=== PATIENT | female | born 2005 | race Caucasian/White ===

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

== ENCOUNTER 2024-06-01 08:37 | Outpatient (CLI) | payer OTHER, SELFPAY ==
[2024-06-01 09:26] LABS: Beta HCG Quantitative < 1.00 mIU/mL (0-6)
== END 2024-06-01 08:38 | disposition home or self-care (01) ==
PROVIDERS: PCP Physician Assistant; Visit Provider Nurse Practitioner Family
DX: Z30.9 Encounter for contraceptive management, unspecified (principal)
CPT/HCPCS: 36415; 84702

== ENCOUNTER 2024-07-21 22:47 | Emergency (ER) | payer OTHER, SELFPAY ==
[2024-07-21 23:05] VITALS: BP 141/90; PULSE 86; RESP 18; TEMP 36.8; O2SAT 98
--- NOTE | 2024-07-21 23:15 | PC.NURSE ---
PATIENT SITTING IN THE WAITING ROOM. WILL BRING PATIENT TO ROOM WHEN ROOM AVAILABLE
--- NOTE | 2024-07-21 23:27 | PC.NURSE ---
PATIENT ARM BAND PLACED. AMBULATED TO ROOM 5
--- NOTE | 2024-07-22 00:27 | PC.NURSE ---
PATIENT IS RESTING QUIETLY ON BED IN ROOM 5. WAITING FOR PHYSICIAN EVALUATION
--- NOTE | 2024-07-22 00:39 | ED_ITS ---
HPI - Dental/Oral General Chief complaint: Dental/Oral Stated complaint: tooth pain Source: patient Mode of arrival: ambulatory Limitations: no limitations History of Present Illness HPI Narrative: Patient is a 18-year-old female with left upper jaw pain at a dental decay area. She has plans to see a dentist this week. She wanted pain control. She has amoxicillin on day 3. At this time. Complaint: tooth pain and tooth injury Location: Tooth # ( Thirteen) Onset (ago): day(s) (1) Duration: constant Severity: moderate Severity scale (1-10): 6 Relieving factors: other ( cool water in her mouth) Exacerbating factors: chewing and heat Context: history of dental caries and poor dental care Associated symptoms: other ( none) Treatment prior to arrival: oral analgesic ( patient currently has Ultram without success of pain control) Related Data Home Medications ?Medication ?Instructions ?Recorded ?Confirmed ?Last Taken ?Type clonidine HCl 0.1 mg tablet 0.1 mg PO DIRECTED 07/30/22 07/30/22 Unknown History norgestimate 0.25 mg-ethinyl 1 tablet PO DIRECTED 07/30/22 07/30/22 Unknown History estradiol 35 mcg tablet (Estarylla) Allergies Allergy/AdvReac Type Severity Reaction Status Date / Time latex Allergy Unknown Verified 07/30/22 00:47 Review of Systems Review of Systems: All systems reviewed & are unremarkable except as noted in HPI and below Constitutional: Constitutional: Reports no additional constitutional complaints Eyes: Eyes: Reports no additional eye complaints ENT: Reports system reviewed and no additional complaints, except as documented Cardiovascular: Cardiovascular: Reports no additional cardiovascular complaints Respiratory: Respiratory: Reports no additional respiratory complaints Gastrointestinal: Gastrointestinal: Reports no additional gastrointestinal complaints Genitourinary: Genitourinary: Reports no additional female genitourinary complaints Musculoskeletal: Musculoskeletal: Reports no additional musculoskeletal complaints Integumentary/Breasts: Skin/Breast: Reports system reviewed and no additional complaints, except as docu Neurologic: Reports system reviewed and no additional complaints, except as documented Psychiatric: Psychiatric: Reports no additional psychiatric complaints Endocrine: Endocrine: Reports no additional endocrine complaints Hematologic/Lymphatic: Hematologic/Lymphatic: Reports no additional hematologic/lymphatic complaints Allergic/Immunologic: Allergic/Immunologic: Reports no additional allergic/immunologic complaints PMFSH Past Medical History Medical History Restless leg syndrome Asthma ADHD Anxiety Social History Social History Smoking status: Never smoker Alcohol intake: never Substance use: never Living arrangements: with family Occupation/Education: student Exam Const: General: healthy appearing Nutritional Appearance: well nourished Orientation/consciousness: patient oriented x3 Limitations: no limitations HENMT: Head: normal to inspection Ears: external ears normal Face/Nose/Sinus: Normal external nose present Other: left upper molar around 213 there is a large crack in the tooth of fracture as well as decay; no abscess seen Eyes: Conjunctivae: conjunctivae normal Pupils: Equal, round and reactive pupils present EOM: EOMs intact bilaterally Neck: Neck: normal visual inspection Chest: Chest palpation & inspection: normal inspection of the chest Resp: Effort & Inspection: normal respiratory effort and not labored Auscultation: clear to auscultation bilaterally and no crackles Cardio: Rate: regular rate Rhythm: regular rhythm Heart sounds: no murmurs GI: Inspection: non-distended GI Palp: Yes Soft to palpation and No Tenderness to palpation present (GI) Auscultation: normal bowel sounds : General: Yes bladder normal to palpation Back/Spine/Pelvis: Back: no CVA tenderness Skin: General skin exam: normal color Rashes: no rashes Wounds: no wounds Neuro: General: patient oriented x3 Cranial nerves: Yes Nystagmus not present Speech: normal speech Gait exam (Neuro): Normal gait present Extrem: General: normal to inspection Psych: Mental Status: mental status grossly normal Affect: normal affect Attitude: cooperative Course Vital Signs Vital signs: Vital Signs Temperature 36.8 C 07/21/24 23:05 Pulse Rate 86 07/21/24 23:05 Respiratory Rate 18 07/21/24 23:05 Blood Pressure 141/90 H 07/21/24 23:05 Pulse Oximetry 98 07/21/24 23:05 Oxygen Delivery Room Air 07/21/24 23:05 Temperature 36.8 C 07/21/24 23:05 Pulse Rate 86 07/21/24 23:05 Respiratory Rate 18 07/21/24 23:05 Blood Pressure 141/90 H 07/21/24 23:05 Pulse Oximetry 98 07/21/24 23:05 Oxygen Delivery Room Air 07/21/24 23:05 MDM - Dental/Oral MDM Narrative Medical decision making narrative: patient is a 18-year-old female with dental pain. We will give her Toradol and [place] and she is not driving. I will send a few [place] to the pharmacy. She will see a dentist as soon as possible. Patient is on control for the Toradol. Discharge Plan Discharge Clinical Impression: Mandible pain Patient Disposition: Home, Self-Care Condition: Stable Instructions: Toothache (ED) Additional Instructions: please follow-up with a dentist as soon as possible. Finish the amoxicillin as planned. Patient Language: Cook Islander Prescriptions: New hydrocodone-acetaminophen 5-325 mg tablet 1 tablet PO Q8H PRN (Reason: pain) Qty: 15 0RF No Action norgestimate-ethinyl estradiol [Estarylla] 0.25-35 mg-mcg tablet 1 tablet PO DIRECTED clonidine HCl 0.1 mg tablet 0.1 mg PO DIRECTED tramadol 50 mg tablet 50 mg PO TID PRN (Reason: pain) Qty: 10 0RF amoxicillin 500 mg capsule 500 mg PO Q12H 10 Days Qty: 20 0RF Follow-up/Referrals: Benton,DAVID Bundy [Primary Care Provider] - Time of Disposition: 01:34
[2024-07-22] MEDS: HYDROcodone/acetaminophen (*CRX) 5-325 MG TABLET 1 TAB PO (01:10)
[2024-07-22] MEDS: KETOROLAC (*BKC) 60 MG/2 ML VIAL IM (01:11)
[2024-07-22 01:43] VITALS: BP 138/88; PULSE 78; RESP 18; O2SAT 100
--- OUTSIDE RECORDS SUMMARY | 2024-07-28 19:29 | XMS_ITS | Referral Summary ---
Author Organization [facility] Address [address] [place] [address] Care Team Providers Care Head Of Merchandise Buying Name Role Phone Francesca Martinez MD Primary Care Provider Source Comments [facility],non-owned Affiliates and Associated Physician Practices is amultiple site organization consisting of ambulatory clinics and hospital sitesin [place], [place], [place] and [place]. This disclosure is being madepursuant to the Care Everywhere program and may not contain all information available regarding this patient. Last updated 18.[facility] Allergies No known active allergies Medications * Be aware that medications may not be up to date on this document. Alwaysverify current medications with the patient. Medication Sig Dispensed Refills Start Date End Date Status melatonin 5 MG tabletIndications:jackie es 10 mg (2 tablets) at bedtime. Take 5 mg by mouth at bedtime Reasons: takes 10 mg (2 tablets) at bedtime. Active methylphenidate (RITALIN) 5 MG tablet Take 5 mg by mouth Every morning and lunchtime Active AEROCHAMBER PLUS (AEROCHAMBER)Indicati ons:Exercise induced bronchospasm (HCC) Use as directed 1 Each 1 06/18/2018 Active sertraline (ZOLOFT) 25 MG tablet 09/13/2018 Active sertraline (ZOLOFT) 100 MG tablet Take 100 mg by mouth once daily Active cloNIDine (CATAPRES) 0.1 MG tablet Take 0.1 tablets by mouth once daily 09/05/2020 Active ferrous sulfate 325 (65 FE) MG tablet Take 325 mg by mouth 2 times daily 05/03/2021 Active vitamin D3 (CHOLECALCIFEROL) 25 MCG (1000 UNITS) tablet Take 2,000 Units by mouth once daily Active Norgestim-Eth Estrad Triphasic (NORGESTIMATE-ETHINYL ESTRADIOL PO)Indications:0.25-0 .035 Take by mouth as directed Reasons: 0.25-0.035 Active olopatadine (PATANASE) 0.6 % nasal solutionIndications:S easonal Allergic Rhinitis [place] 2 (two) sprays into each nostril 2 times daily Reasons: Hayfever 30.5 g 5 05/17/2021 Active albuterol HFA (PROVENTIL;VENTOLIN;P ROAIR) 108 (90 Base) MCG/ACT inhaler Inhale 2 (two) puffs by mouth every 6 hours as needed for Shortness of Breath, Wheezing or Cough 6.7 g 5 05/17/2021 Active cetirizine (ZYRTEC ALLERGY) 10 MG tablet Take 1 (one) tablet by mouth once daily as needed for Runny Nose or Allergies (itch) 30 tablet 11 05/17/2021 Active mometasone-formoterol (DULERA) 200-5 MCG/ACT inhalerIndications:As thma Inhale 2 (two) puffs by mouth 2 times daily Reasons: Asthma 13 g 11 05/17/2021 Active fluticasone propionate (FLONASE) 50 MCG/ACT nasal sprayIndications:Michael rgic Rhinitis [place] 2 (two) sprays into each nostril once daily Reasons: Allergic Rhinitis 1 Each 11 05/17/2021 Active Active Problems Problem Noted Date Diagnosed Date Chronic bilateral thoracic back pain 10/22/2017 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 Michelle Green hx psoriasis Primary snoring 08/29/2017 Overview (08/29/2017): Diag PSG (not split) 08/21/17 Primary Snoring oAHI 0.7 AHI 1.1 Low sat 96% PLMI 0, limb movement index 3.4 Nasal septal perforation 06/26/2017 Sleep disturbance 06/26/2017 Adolescent idiopathic scoliosis of thoracic dora on 04/23/2017 Assessment & Plan (10/02/2020 4:07 PM CDT): PLAN: 1. Questions solicited and answered. 2. Continue with existing conservative treatment program. 3. Medications Prescribed: none 4. Activity Restrictions: none 5. Weightbearing status: No Restrictions 6. Follow up: in 2 year(s) with X-rays Exercise-induced asthma 03/23/2014 Overview (04/20/2015): H/O adenoidectomy 05/14/2013 Allergic rhinitis 01/09/2012 Overview (05/23/2016): +Alternaria, Grass- Zachery and Bahia, Ragweed Assessment & Plan (03/23/2014 4:49 PM CDT): Percutaneous skin test 03/23/14: Positive for alternaria, grass (zachery and bahia) and short ragweed. Percutaneous skin test in 2011: +Alternaria Moderate persistent asthma without complication Seasonal allergic rhinitis due to pollen Allergic conjunctivitis, bilateral Immunizations Name Administration Dates Next Due INFLUENZA VACCINE, QUADR. (F LUZONE; FLULAVAL; FLUARIX; AFLURIA QUADRIVALENT; 6MO+), 0.5 ML (IIV4) 07/31/2017,05/23/2016 Social History Tobacco Use Types Packs/Day Years Used Date Smoking Tobacco: Never Smokeless Tobacco: Never Alcohol Use Standard Drinks/Week Comments Not Asked 0 (1 standard drink = 0.6 oz pur e alcohol) Sex and Gender Information Value Date Recorded Sex Assigned at Not on file Gender Identity Not on file Sexual Orientation Not on file Last Filed Vital Signs Vital Sign Reading Time Taken Comments Blood Pressure 110/68 05/17/2021 10:16 AM CDT Pulse 86 05/17/2021 10:16 AM CDT Temperature 36.2 ??C (97.2 ??F) 05/17/2021 1 0:16 AM CDT Respiratory Rate 18 05/17/2021 10:1 6 AM CDT Oxygen Saturation 99% 05/17/2021 10: 16 AM CDT Inhaled Oxygen Concentration - - Weight 69.3 kg (152 lb 12.5 oz) 021 10:16 AM CDT Height 166 cm (5' 5.35 ) 05/17/2021 10: 16 AM CDT Body Mass Index 25.15 05/17/2021 10:16 AM CDT Body Mass Index Percentile 85.46% 05/17 10:16 AM CDT Growth Chart: CDC (Girls, 2- 20 Years) Plan of Treatment Not on file Care Teams Head Of Merchandise Buying Relationship Specialty Start Date End Date Francesca Martinez MD [address] [place] [id number] PCP - General 01/08/12
--- OUTSIDE RECORDS SUMMARY | 2024-07-28 19:29 | XMS_ITS | Patient Health Summary ---
Author Organization [facility] Address [address] [place] [address] Care Team Providers Care Electric Mule Driver Name Role Phone Francesca Martinez MD Primary Care Provider Note from [facility],non-owned Affiliates and Associated Physician Practices is amultiple site organization consisting of ambulatory clinics and hospital sitesin [place], [place], [place]. This disclosure is being madepursuant to the Care Everywhere program and may not contain all information available regarding this patient. Last updated 18.[facility] Allergies No known active allergies* Penicillins-High Criticality,Inactive Medications * Be aware that medications may not be up to date on this document. Alwaysverify current medications with the patient. * melatonin 5 MG tablet Take 5 mg by mouth at bedtime Reasons: takes 10 mg (2 tablets) at bedtime. * methylphenidate (RITALIN) 5 MG tablet Take 5 mg by mouth Every morning and lunchtime * AEROCHAMBER PLUS (AEROCHAMBER)(Started 06/18/2018) Use as directed 1 refill remaining * sertraline (ZOLOFT) 25 MG tablet(Started 09/13/2018) * sertraline (ZOLOFT) 100 MG tablet Take 100 mg by mouth once daily * cloNIDine (CATAPRES) 0.1 MG tablet(Started 09/05/2020) Take 0.1 tablets by mouth once daily * ferrous sulfate 325 (65 FE) MG tablet(Started 05/03/2021) Take 325 mg by mouth 2 times daily * vitamin D3 (CHOLECALCIFEROL) 25 MCG (1000 UNITS) tablet Take 2,000 Units by mouth once daily * Norgestim-Eth Estrad Triphasic (NORGESTIMATE-ETHINYL ESTRADIOL PO) Take by mouth as directed Reasons: 0.25-0.035 * olopatadine (PATANASE) 0.6 % nasal solution(Started 05/17/2021) Penasco 2 (two) sprays into each nostril 2 times daily Reasons: Hayfever 5 refills by 05/17/2022 * albuterol HFA (PROVENTIL;VENTOLIN;PROAIR) 108 (90 Base) MCG/ACT inhaler (Started 05/17/2021) Inhale 2 (two) puffs by mouth every 6 hours as needed for Shortness of Breath, Wheezing or Cough 5 refills by 05/17/2022 * cetirizine (ZYRTEC ALLERGY) 10 MG tablet(Started 05/17/2021) Take 1 (one) tablet by mouth once daily as needed for Runny Nose or Allergies (itch) 11 refills by 05/17/2022 * mometasone-formoterol (DULERA) 200-5 MCG/ACT inhaler(Started 05/17/2021) Inhale 2 (two) puffs by mouth 2 times daily Reasons: Asthma 11 refills by 05/17/2022 * fluticasone propionate (FLONASE) 50 MCG/ACT nasal spray(Started 05/17/2021) Penasco 2 (two) sprays into each nostril once daily Reasons: Allergic Rhinitis 11 refills by 05/17/2022 Active Problems Problem Noted Date Diagnosed Date Chronic bilateral thoracic back pain 10/22/2017 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 (FLUZONE; FLULAVAL; FLUARIX; AFLURIA QUADRIVALENT; 6MO+), 0.5 ML (IIV4)(Given 07/31/2017, 05/23/2016) Social History Tobacco Use Types Packs/Day Years [...] 85.46% 05/17 10:16 AM CDT Growth Chart: [facility] (Girls, 2- 20 Years) Procedures * PULMONARY/RESPIRATORY REPORT ORDER(Performed 05/18/2021) * XR SPINE ENTIRE 2 OR 3VW(Performed 10/02/2020) Performed for Adolescent idiopathic scoliosis of thoracic region * XR SCOLIOSIS 2 OR 3VW(Performed 10/26/2018) Performed for Adolescent idiopathic scoliosis of thoracic region * FERRITIN(Performed 11/26/2017) Performed for Restless legs syndrome (RLS) * XR SCOLIOSIS 2 OR 3VW(Performed 10/22/2017) Performed for Adolescent idiopathic scoliosis of thoracic region * CULTURE FUNGUS SKIN HAIR NAIL+FUNGUS SMEAR(Performed 10/09/2017) Performed for Sebopsoriasis * SPLIT NIGHT STUDY(Performed 08/21/2017) Performed for Snoring * VITAMIN D 25-HYDROXY(Performed 08/20/2017) Performed for Restless sleeper * FERRITIN(Performed 08/20/2017) Performed for Restless sleeper * ANCA VASCULITIS PANEL(Performed 06/26/2017) Performed for Nasal septal perforation, Allergic rhinitis, unspecified chronicity, unspecified seasonality, unspecified trigger, Sleep disturbance, H/O adenoidectomy, Exercise-induced asthma (HCC), Adolescent idiopathic scoliosis of thoracic region * ANGIOTENSIN CONVERTING ENZYME BLOOD(Performed 06/26/2017) Performed for Nasal septal perforation, Allergic rhinitis, unspecified chronicity, unspecified seasonality, unspecified trigger, Sleep disturbance, H/O adenoidectomy, Exercise-induced asthma (HCC), Adolescent idiopathic scoliosis of thoracic region * JENNY BLOOD SCREEN W/REFLEX TITER(Performed 06/26/2017) Performed for Nasal septal perforation, Allergic rhinitis, unspecified chronicity, unspecified seasonality, unspecified trigger, Sleep disturbance, H/O adenoidectomy, Exercise-induced asthma (HCC), Adolescent idiopathic scoliosis of thoracic region * C-REACTIVE PROTEIN(Performed 06/26/2017) Performed for Nasal septal perforation, Allergic rhinitis, unspecified chronicity, unspecified seasonality, unspecified trigger, Sleep disturbance, H/O adenoidectomy, Exercise-induced asthma (HCC), Adolescent idiopathic scoliosis of thoracic region * ERYTHROCYTE SEDIMENTATION RATE(Performed 06/26/2017) Performed for Nasal septal perforation, Allergic rhinitis, unspecified chronicity, unspecified seasonality, unspecified trigger, Sleep disturbance, H/O adenoidectomy, Exercise-induced asthma (HCC), Adolescent idiopathic scoliosis of thoracic region * IMMUNOSCORE IGE INTERP(Performed 04/24/2017) Performed for Seasonal allergic rhinitis, unspecified chronicity, unspecified trigger * ALLERGEN RESPIRATORY PNL REGION 8 ([place])(Performed 04/24/2017) Performed for Seasonal allergic rhinitis, unspecified chronicity, unspecified trigger * CBC W AUTO DIFFERENTIAL(Performed 04/24/2017) Performed for Seasonal allergic rhinitis, unspecified chronicity, unspecified trigger * XR TIBIA FIBULA RIGHT 2VW(Performed 05/08/2015) * XR ANKLE RIGHT 3VW OR MORE(Performed 05/08/2015) * BEDSIDE SPIROMETRY PRE AND POST BRONCHODILATOR(Performed 11/02/2014) * BEDSIDE SPIROMETRY(Performed 03/23/2014) * PATHOLOGY/CYTOLOGY REPORT ORDER(Performed 05/17/2013) * TONSILLECTOMY AND ADENOIDECTOMY(Performed 05/14/2013) Performed for Hypertrophy of tonsil with adenoids, Unspecified Sleep Apnea * GROSS EXAM PATHOLOGY (STL)(Performed 05/14/2013) Performed for LELA (obstructive sleep apnea) Results * PULMONARY/RESPIRATORY REPORT ORDER (05/18/2021 4:42 PM CDT) Narrative 05/18/2021 4:42 PM CDT Ordered by an unspecified provider. Scanned Document RESPIRATORY THERAPY ORDERABLES * XR SPINE ENTIRE 2 OR 3VW (10/02/2020 3:32 PM CDT) Anatomical Region Laterality Modality Spine Radiographic Valeria ging 10/02/2020 3:31 PM CDT Narrative 10/02/2020 3:59 PM CDT HISTORY: Adolescent idiopathic scoliosis, thoracic region. EXAMINATION: Frontal and lateral views of the spine in the upright position performed on 10/02/2020 at 3:32 PM COMPARISON: 10/26/2018 FINDINGS/IMPRESSION: There is a dextroconvex scoliosis of the thoracic spine and a levoconvex scoliosis of the lumbar spine. Lungs are clear. Bowel gas pattern is nonobstructed. [place] Radiologist: Noel Maharaj on 10/02/2020 at 3:59 PM Procedure Note Noel Maharaj, DO - 10/02/2020 HISTORY: Adolescent idiopathic scoliosis, thoracic region. EXAMINATION: Frontal and lateral views of the spine in the uprightposition performed on 10/02/2020 at 3:32 PM COMPARISON: 10/26/2018 FINDINGS/IMPRESSION: There is a dextroconvex scoliosis of the thoracicspine and a levoconvex scoliosis of the lumbar spine. Lungs are clear. Bowel gaspattern is nonobstructed. [place] Radiologist: Noel Maharaj on 10/02/2020 at 3:59 PM Myles Garcia MD DIAGNOSTIC IMAGING O RDERABLES * XR SCOLIOSIS 2VW (10/26/2018 1:22 PM CDT) Only the most recent of2 resultswithin the time period is included. Anatomical Region Laterality Modality Spine Radiographic Valeria ging 10/26/2018 1:39 PM CDT Impressions 10/26/2018 1:40 PM CDT Unchanged S-shaped scoliosis. [place] Radiologist: Khloe Nunez MD on 10/26/2018 at 1:40 PM Narrative 10/26/2018 1:40 PM CDT Exam: Entire spine, 2 views HISTORY: Scoliosis COMPARISON: 10/22/2017 FINDINGS: Standing frontal and lateral radiographs of the spine are reviewed. The thoracic dextroscoliosis and thoracolumbar rotary levoscoliosis have not significantly changed. Right higher than left pelvic tilt persists. There is no coronal or sagittal imbalance. The lungs are clear. Heart size is normal. The bowel gas pattern is nonobstructive. Procedure Note Khloe Nunez MD - 10/26/2018 Exam: Entire spine, 2 views HISTORY: Scoliosis COMPARISON: 10/22/2017 FINDINGS: Standing frontal and lateral radiographs of the spine are reviewed. The thoracic dextroscoliosis and thoracolumbar rotary levoscoliosis have not significantly changed. Right higher than left pelvic tilt persists. There is no coronal or sagittal imbalance. The lungs are clear. Heart size is normal. The bowel gas pattern is nonobstructive. IMPRESSION Unchanged S-shaped scoliosis. [place] Radiologist: Khloe Nunez MD on 10/26/2018 at 1:40 PM Myles Garcia MD DIAGNOSTIC IMAGING O RDERABLES * FERRITIN (11/26/2017 11:58 AM CDT) Only the most recent of2 resultswithin the time period is included. Ferritin 25 10 - 140 ng/mL 11/26/2017 1:49 PM CDT [facility] Blood BLOOD SPECIMEN / Unknown Lab Venipuncture / Unknown 11/26/2017 11:58 AM CDT 11/26/2017 12:26 PM CDT Karla Gillespie APRN-INDUSTRIAL REFRIGERATION MECHANIC LAB - CHEMISTR Y ORDERABLES [facility] [address] [place] [address] * CULTURE FUNGUS SKIN HAIR NAIL+FUNGUS SMEAR (10/09/2017 3:47 PM CDT) Culture No fungus isolated CORBY 11/03/2017 10:55 AM CDT [facility] MICROBIOLOGY Fungus Smear Rare Yeast 11/03/2017 10:55 AM CDT [facility] MICRO[facility]OLOG[facility] Microbiology HAIR SPECIMEN / Unknown Collection / Unknown 10/09/2017 3:47 PM CDT 10/09/2017 4:45 PM CDT Adenike Marx MD LAB - MICROBIOLOGY ORDERABLES [facility] MICROBIOLOGY [address] [place] [address], [facility] [phone] * SPLIT NIGHT STUDY (08/21/2017) Linked Results See Linked Results [facility] 08/21/2017 Karla Gillespie APRN-[facility] O RDERABLES SLEEP CENTER * VITAMIN D (25-HYDROXY) (08/20/2017 12:44 PM HEEL SEAT TRIMMER) Vitamin D, 25 Hydroxy 20.2 20 - 100 ng/mL 08/20/2017 1:44 PM HEEL SEAT TRIMMER [facility] Blood BLOOD SPECIMEN / Unknown Lab Venipuncture / Unknown 08/20/2017 12:44 PM HEEL SEAT TRIMMER 08/20/2017 12:53 PM HEEL SEAT TRIMMER Narrative [facility] - 08/20/2017 1:44 PM HEEL SEAT TRIMMER Vitamin D Status: ?Deficient ? <10 ?? ng/mL ? Borderline ?10-20 ng/mL ?Sufficient ?>20 ?? ng/mL ?Toxic ? >100 ??ng/mL Karla Gillespie DEFENCE FORCE SENIOR OFFICER-INDUSTRIAL REFRIGERATION MECHANIC LAB - CHEMISTR Y ORDERABLES [facility] [place] [address] * ANCA VASCULITIS PANEL (06/26/2017 11:20 AM HEEL SEAT TRIMMER) Anti-myeloperoxid ase (MPO) Antibody <9.0 0.0 - 9.0 U/mL 06/28/2017 11:10 AM HEEL SEAT TRIMMER [facility] ([facility]) Anti-proteinase 3 (GA-3) Abs <3.5 0.0 - 3.5 U/mL 06/28/2017 11:10 AM HEEL SEAT TRIMMER [facility] ([facility]) Cytoplasmic (C-ANCA) <1:20 Neg:<1:20 titer 06/28/2017 11:10 AM HEEL SEAT TRIMMER [facility] ([facility]) p-ANCA Titer <1:20 Neg:<1:20 titer 06/28/2017 11:10 AM HEEL SEAT TRIMMER [facility] ([facility]) Comment: The presence of positive fluorescence exhibiting P-ANCA or C-ANCA patterns alone is not specific for the diagnosis of Sebastien's Granulomatosis (WG) or microscopic polyangiitis. Decisions about treatment should not be based solely on ANCA IFA results. ??The International ANCA Group Consensus recommends follow up testing of positive sera with both GA-3 and MPO-ANCA enzyme immunoassays. As many as 5% serum samples are positive only by EIA. Ref. AM J Clin Pathol 1999;111:507-513. Atypical p-ANCA Titer <1:20 Neg:<1:20 titer 06/28/2017 11:10 AM [facility] ([facility]) Comment: The atypical pANCA pattern has been observed in a significant percentage of patients with ulcerative colitis, primary sclerosing cholangitis and autoimmune hepatitis. Blood BLOOD SPECIMEN / Unknown Lab Venipuncture / Unknown 06/26/2017 11:20 AM HEEL SEAT TRIMMER 06/26/2017 11:39 AM HEEL SEAT TRIMMER Narrative [facility] ([facility]) - 06/28/2017 11:10 AM HEEL SEAT TRIMMER Performed at: ??01 - [address] [place] ??[id number] Tube Mounter: Mayo Angelo MD, Phone: ??[phone] Performed at: ??02 - [facility] [address] [place], [place] ??[id number] Tube Mounter: Patricio Gimenez PhD, Phone: ??[phone] Robert Ramos MD LAB - CHEMISTRY O RDERABLES Performing Organization Address City/[facility]/ZIP Co de Phone Number [facility] ([facility]) [address] [place] [address] * CRP (INFLAMMATORY) (06/26/2017 11:20 AM HEEL SEAT TRIMMER) C-Reactive Protein <0.20 <=0.50 mg/dL 06/26/2017 12:15 PM HEEL SEAT TRIMMER [facility] Blood BLOOD SPECIMEN / Unknown Lab Venipuncture / Unknown 06/26/2017 11:20 AM HEEL SEAT TRIMMER 06/26/2017 11:39 AM HEEL SEAT TRIMMER Robert Ramos MD LAB - CHEMISTRY O RDERAFLORA Performing Organization Address City/[facility]/ZIP Co de Phone Number [facility] [address] [place] [id number] * JENNY BLOOD SCREEN W/REFLEX TITER (06/26/2017 11:20 AM HEEL SEAT TRIMMER) JENNY Negative Negative 06/27/2017 8:36 AM HEEL SEAT TRIMMER [facility] Blood BLOOD SPECIMEN / Unknown Lab Venipuncture / Unknown 06/26/2017 11:20 AM HEEL SEAT TRIMMER 06/26/2017 11:39 AM HEEL SEAT TRIMMER Robert Ramos MD LAB - CHEMISTRY O RDERABLES Performing Organization Address City/[facility]/ZIP Co de Phone Number [facility] [address] [place] [address] * ANGIOTENSIN CONVERTING ENZYME BLOOD (06/26/2017 11:20 AM HEEL SEAT TRIMMER) Angiotensin-Con verting Enzyme 25 22 - 108 U/L 06/27/2017 1:11 PM HEEL SEAT TRIMMER [facility] ([facility]) Blood BLOOD SPECIMEN / Unknown Lab Venipuncture / Unknown 06/26/2017 11:20 AM HEEL SEAT TRIMMER 06/26/2017 11:39 AM HEEL SEAT TRIMMER Narrative [facility] ([facility]) - 06/27/2017 1:11 PM HEEL SEAT TRIMMER Performed at: ??01 - [facility] [address] [facility], [place], [place] ??[id number] Tube Mounter: Patricio Gimenez PhD, Phone: ??[phone] Robert Ramos MD LAB - CHEMISTRY O RDERABLES [facility] ([facility]) [address] [place] [address] * ERYTHROCYTE SEDIMENTATION RATE (06/26/2017 11:20 AM HEEL SEAT TRIMMER) Pathologist [facility] Erythrocyte Sedimentation Rate Automated 7 0 - 20 MM/HR 06/26/2017 12:13 PM HEEL SEAT TRIMMER [facility] Blood BLOOD SPECIMEN / Unknown Lab Venipuncture / Unknown 06/26/2017 11:20 AM HEEL SEAT TRIMMER 06/26/2017 11:39 AM HEEL SEAT TRIMMER Robert Ramos MD LAB - HEMATOLOGY ORDERABLES [facility] [address] [place] [address] * IMMUNOSCORE IGE INTERP (04/24/2017 2:01 PM CDT) Pathologist [facility] Immunocap Score See Note 7 5:08 PM CDT [facility] ([facility]) Comment: REFERENCE INTERVAL: Allergen, Interpretation Less than 0.10 kU/L......Class 0.....No significant level detected 0.10-0.34 kU/L...........Class 0/1...Clinical relevance undetermined 0.35-0.70 kU/L...........Class 1.....Low 0.71-3.50 kU/L...........Class 2.....Moderate 3.51-17.50 kU/L..........Class 3.....High 17.51-50.00 kU/L.........Class 4.....Very High 50.01-100.00 kU/L........Class 5.....Very High Greater than 100.00kU/L..Class 6.....Very High Allergen results of 0.10-0.34 kU/L are intended for specialist use as the clinical relevance is undetermined. Even though increasing ranges are reflective of increasing concentrations of allergen-specific IgE, these concentrations may not correlate with the degree of clinical response or skin testing results when challenged with a specific allergen. The correlation of allergy laboratory results with clinical history and in vivo reactivity to specific allergens is essential. A negative test may not rule out clinical allergy or even anaphylaxis. Performed by [employer], [address] [place] [address] [email or web address], Godfrey Solomon MD, Lab. Director Blood BLOOD SPECIMEN / Unknown Lab Venipuncture / Unknown 04/24/2017 2:01 PM CDT 04/24/2017 2:35 PM CDT Augustin Millan MD LAB - SEROLOGY ORDER RODRIGO Down [facility]) [address] [place] [address], [facility] * (ABNORMAL) ALLERGEN RESPIRATORY PROFILE ([place]) (04/24/2017 2:01 PM CDT) Pathologist [facility] IgE Total 370 <=696 kU/L 04/26/2017 5:07 PM CDT [facility] ([facility]) Comment: REFERENCE INTERVAL: Immunoglobulin E, Serum Access complete set of age- and/or gender-specific reference intervals for this test in the [facility] Test Directory ([employer]). Allergen Dermatophagoides farinae <0.10 <=0.34 kU/L 04/26/2017 5:07 PM CDT [facility] ([facility]) Allergen Dermatophagoides pteronyssinus <0.10 <=0.34 kU/L 04/26/2017 5:07 PM CDT [facility] ([facility]) Allergen Cat Dander <0.10 <=0.34 kU/L 04/26/2017 5:07 PM CDT [facility] ([facility]) Allergen Dog Dander 0.10 <=0.34 kU/L 04/26/2017 5:07 PM CDT [facility] ([facility]) Allergen Bermuda Grass <0.10 <=0.34 kU/L 04/26/2017 5:07 PM CDT [facility] ([facility]) Allergen Zachery Grass <0.10 <=0.34 kU/L 04/26/2017 5:07 PM CDT [facility] ([facility]) Allergen Cockroach Hungarian <0.10 <=0.34 kU/L 04/26/2017 5:07 PM CDT [facility] ([facility]) Allergen Alternaria alternata 6.56(H) <=0.34 kU/L 04/26/2017 5:07 PM CDT [facility] ([facility]) Allergen A fumigatus IgE 2.06(H) <=0.34 kU/L 04/26/2017 5:07 PM CDT [facility] ([facility]) Allergen Hormodendrum 1.51(H) <=0.34 kU/L 04/26/2017 5:07 PM CDT [facility] ([facility]) Allergen P. Notatum 0.50(H) <=0.34 kU/L 04/26/2017 5:07 PM CDT [facility] ([facility]) Allergen Enterprise Maple <0.10 <=0.34 kU/L 04/26/2017 5:07 PM CDT [facility] ([facility]) Allergen Somerset Tree <0.10 <=0.34 kU/L 04/26/2017 5:07 PM CDT [facility] ([facility]) Allergen Elm 0.17 <=0.34 kU/L 04/26/2017 5:07 PM CDT [facility] ([facility]) Allergen Wolf Tree 0.12 <=0.34 kU/L 04/26/2017 5:07 PM CDT [facility] ([facility]) Allergen Mountain Windham <0.10 <=0.34 kU/L 04/26/2017 5:07 PM CDT [facility] ([facility]) Allergen White Richmond Tree IgE <0.10 <=0.34 kU/L 04/26/2017 5:07 PM CDT [facility]) Allergen Guanica <0.10 <=0.34 kU/L 04/26/2017 5:07 PM CDT [facility]) Allergen Pecan Tree <0.10 <=0.34 kU/L 04/26/2017 5:07 PM CDT [facility]) Allergen Loyalhanna Tree 0.22 <=0.34 kU/L 04/26/2017 5:07 PM CDT [facility]) Allergen White Jack 0.16 <=0.34 kU/L 04/26/2017 5:07 PM CDT [facility]) Allergen Rough Pigweed 0.25 <=0.34 kU/L 04/26/2017 5:07 PM CDT [facility]) Allergen Common Ragweed <0.10 <=0.34 kU/L 04/26/2017 5:07 PM CDT [facility]) Allergen Medina Elder 0.14 <=0.34 kU/L 04/26/2017 5:07 PM CDT [facility]) Allergen Luxembourger Thistle 0.27 <=0.34 kU/L 04/26/2017 5:07 PM CDT [facility] ([facility]) Allergen Mouse <0.10 <=0.34 kU/L 04/26/2017 5:07 PM CDT [facility]) Allergen Mucor racemosus <0.10 <=0.34 kU/L 04/26/2017 5:07 PM CDT [facility]) Allergen Peanut <0.10 <=0.34 kU/L 04/26/2017 5:07 PM CDT [facility]) Allergen Milk (Cow) 0.17 <=0.34 kU/L 04/26/2017 5:07 PM CDT [facility]) Comment: Performed by [employer], [facility] [place] [address] [email or web address], Godfrey Solomon MD, Lab. Director Blood BLOOD SPECIMEN / Unknown Lab Venipuncture / Unknown 04/24/2017 2:01 PM CDT 04/24/2017 2:35 PM CDT Augustin Millan MD LAB - CHEMISTRY CARLOS SIMS DIANA E[facility] [place] [address], [facility] * CBC W AUTO DIFFERENTIAL (04/24/2017 2:01 PM CDT) WBC 9.5 4.5 - 14.5 x10E9/L 04/24/2017 3:01 PM CDT [facility] WBC Corrected x10E9/L 04/24/2017 3:01 PM CDT [facility] RBC 4.72 4.00 - 5.20 x10E12/L 04/24/2017 3:01 PM CDT [facility] Hemoglobin 13.5 11.5 - 15.5 gm/dL 04/24/2017 3:01 PM CDT [facility] Hematocrit 40.8 35.0 - 45.0 % 04/24/2017 3:01 PM CDT [facility] MCV 86.4 77.0 - 95.0 fl 04/24/2017 3:01 PM CDT [facility] MCH 28.6 25.0 - 33.0 pg 04/24/2017 3:01 PM CDT [facility] MCHC 33.1 31.0 - 37.0 gm/dL 04/24/2017 3:01 PM CDT [facility] Platelet Count 322 100 - 400 x10E9/L 04/24/2017 3:01 PM CDT [facility] RDW-CV 12.4 11.5 - 14.0 % 04/24/2017 3:01 PM CDT [facility] MPV 9.1 6.0 - 9.5 fl 04/24/2017 3:01 PM CDT [facility] Neutrophils % 48.2 24.0 - 66.0 % 04/24/2017 3:01 PM CDT [facility] Lymphocytes % 36.2 22.0 - 61.0 % 04/24/2017 3:01 PM CDT [facility] Monocytes % 5.0 3.0 - 15.0 % 04/24/2017 3:01 PM CDT [facility] Eosinophils % 9.7 0.0 - 10.0 % 04/24/2017 3:01 PM CDT [facility] Basophils % 0.6 % 04/24/2017 3:01 PM CDT [facility] Immature Granulocytes 0.3 % 04/24/2017 3:01 PM CDT [facility] Neutrophil Absolute 4.56 x10E9/L 04/24/2017 3:01 PM CDT [facility] Lymphocytes Absolute 3.43 x10E9/L 04/24/2017 3:01 PM CDT [facility] Monocytes Absolute 0.47 x10E9/L 04/24/2017 3:01 PM CDT [facility] Eosinophils Absolute 0.92 x10E9/L 04/24/2017 3:01 PM CDT [facility] Basophils Absolute 0.06 x10E9/L 04/24/2017 3:01 PM CDT [facility] Immature Granulocytes Absolute 0.03 x10E9/L 04/24/2017 3:01 PM CDT [facility] nRBC Auto 0 /100 WBC 04/24/2017 3:01 PM CDT [facility] Blood BLOOD SPECIMEN / Unknown Lab Venipuncture / Unknown 04/24/2017 2:01 PM CDT 04/24/2017 2:35 PM CDT Augustin Millan MD LAB - HEMATOLOGY ORD ERABLES Performing Organization Address City/State/[facility] Co de Phone Number [facility] [address] [place] [address] * XR TIBIA FIBULA RIGHT 2VW (05/08/2015 7:12 PM CDT) Anatomical Region Laterality Modality Lower Extremity Radiographic Valeria ging 05/08/2015 11:0 3 PM CDT Impressions 05/08/2015 11:04 PM CDT No fracture or dislocation. Narrative 05/08/2015 11:04 PM CDT Exam: Right tibia/fibula, 2 views Right ankle, 3 views History: 9-year-old female with right foot swelling. No known trauma. Comparison: None Findings: Tibia/fibula: The osseous structures are intact and well aligned. No focal soft tissue swelling or demineralization is seen. Ankle: An oblique, AP, and nonstandard lateral , and nonstandard lateral The osseous structures are intact and well aligned. No focal soft tissue swelling or demineralization is seen. Procedure Note Khloe Nunez MD - 05/08/2015 Exam: Right tibia/fibula, 2 views Right ankle, 3 views History: 9-year-old female with right foot swelling. No known trauma. Comparison: None Findings: Tibia/fibula: The osseous structures are intact and well aligned. No focal soft tissue swelling or demineralization is seen. Ankle: An oblique, AP, and nonstandard lateral , and nonstandard lateral The osseous structures are intact and well aligned. No focal soft tissue swelling or demineralization is seen. IMPRESSION No fracture or dislocation. Niles Genao MD DIAGNOSTIC IMAGING ORDERABLES * XR ANKLE 3+ VW RIGHT (05/08/2015 7:12 PM CDT) Anatomical Region Laterality Modality Lower Extremity Radiographic Valeria ging 05/08/2015 11:0 3 PM CDT Impressions 05/08/2015 11:04 PM CDT No fracture or dislocation. Narrative 05/08/2015 11:04 PM CDT Exam: Right tibia/fibula, 2 views Right ankle, 3 views History: 9-year-old female with right foot swelling. No known trauma. Comparison: None Findings: Tibia/fibula: The osseous structures are intact and well aligned. No focal soft tissue swelling or demineralization is seen. Ankle: An oblique, AP, and nonstandard lateral , and nonstandard lateral The osseous structures are intact and well aligned. No focal soft tissue swelling or demineralization is seen. Procedure Note Khloe Nunez MD - 05/08/2015 Exam: Right tibia/fibula, 2 views Right ankle, 3 views History: 9-year-old female with right foot swelling. No known trauma. Comparison: None Findings: Tibia/fibula: The osseous structures are intact and well aligned. No focal soft tissue swelling or demineralization is seen. Ankle: An oblique, AP, and nonstandard lateral , and nonstandard lateral The osseous structures are intact and well aligned. No focal soft tissue swelling or demineralization is seen. IMPRESSION No fracture or dislocation. Niles Genao MD DIAGNOSTIC IMAGING ORDERABLES * PATHOLOGY/CYTOLOGY REPORT ORDER (05/17/2013 11:53 PM CDT) Narrative 05/17/2013 11:53 PM CDT Ordered by an unspecified provider. Transcriptions Document, Scanned - 05/17/2013 11:53 PM CDT Scanned Document LAB - PATHOLOGY/CYTO LOGY ORDERABLES * GROSS EXAM PATHOLOGY (STL) (05/14/2013 11:18 AM CDT) Case Report Surgical Pathology Report ? Case: [id number] ? Authorizing Provider: ??Robert Ramos MD ?Ordering Provider: ?? Robert Ramos MD ? Ordering Location: ? [facility] ? Collected: ? 05/14/2013 11:18 AM ? Pathologist: ? Melva Monzon MD ?Received: ?05/14/2013 12:16 PM ?Signed Out: ?05/14/2013 ??2:44 PM (Final) ? Specimen: ?Tonsil(s) ? 05/14/2013 2:44 PM T [facility] Final Diagnosis GROSS DIAGNOSIS: PALATINE TONSILS. 05/14/2013 2:44 PM [facility] Clinical History The patient is a 7-year-old girl with clinically suspicious sleep apnea and adenotonsillar hypertrophy. 05/14/2013 2:44 PM [facility] Gross Description Submitted fresh in one container for gross examination only labeled with the patient's name, Veronica Lowe, and tonsils, are two egg-shaped, pink-levy palatine tonsils measuring 2.5 x 2.2 x 1.5 cm and 2.6 x 1.6 x 1.6 cm weighing approximately 9 gm combined. On cut surface, the tonsils have a cerebriform yellow-levy appearance. No sections are taken. (CT/scs) 05/14/2013 2:44 PM T [facility] Disclaimer This case has been personally reviewed and interpreted by the attending (teaching) pathologist. 05/14/2013 2:44 PM [facility] Synoptic Report 05/14/2013 2:44 PM [facility] Pathology/Cytolo gy SPECIMEN FROM TONSIL / Unknown 05/14/2013 11:18 AM CDT 05/14/2013 12:16 PM CDT Robetr Ramos MD LAB - PATHOLOGY/C YTOLOGY ORDERABLES [facility] [address] [facility] [place] [address] Care Teams Electric Mule Driver Relationship Specialty Start Date End Date Francesca Martinez MD [address] [place] [phone] PCP - General 01/08/12
--- OUTSIDE RECORDS SUMMARY | 2024-07-28 19:29 | XMS_ITS | Clinical Summary ---
Author Organization [facility] Address [address] [facility] [place] [address] Care Team Providers Care Student Affairs Dean Name Role Phone Francesca Martinez MD Primary Care Provider [phone] Source Comments [facility],non-owned Affiliates and Associated Physician Practices is amultiple site organization consisting of ambulatory clinics and hospital sitesin [place], [place], [place] and [place]. This disclosure is being madepursuant to the Care Everywhere program and may not contain all information available regarding this patient. Last updated 18.[facility] Allergies No known active allergies Medications * [...] 0.6 % nasal solutionIndications:S easonal Allergic Rhinitis [place] 2 (two) sprays into each nostril 2 [...] (FLONASE) 50 MCG/ACT nasal sprayIndications:Michael rgic Rhinitis Leng[place] 2 (two) sprays into each nostril once [...] AFLURIA QUADRIVALENT; 6MO+), 0.5 ML (IIV4) 07/31/2017,05/23/2016 Family History Medical History Relation Name Comments Asthma Maternal Grandmother Hyperlipidemia Mother Asthma Sister Anesthesia Reaction Neg Hx Relation Name Status Comments Maternal Grandmother Mother Sister Social History Tobacco Use Types Packs/Day Years [...] (Girls, 2- 20 Years) Plan of Treatment Health Maintenance Due Date Last Done Comments PNEUMOCOCCAL VACCINE (1 of 2 - PCV) 2010 HIV SCREENING 2019 HPV VACCINE (1 - 3-dose series) 2019 CHLAMYDIA/GONORRHEA SCREENING 2020 HEPATITIS C SCREENING 08/23/2022 DTAP/TDAP/TD VACCINES (1 - Tdap) 2023 HEPATITIS B VACCINE (1 of 3 - 19+ 3-dose series) 2023 COVID-19 VACCINE (1 - 2023-25 season) 2024 INFLUENZA VACCINE (#1) 2024 8, 05/23/2016, 05/04/2009, Additional history exists DEPRESSION SCREENING 07/21/2024 ZOSTER VACCINE (1 of 2) 2054 HIB VACCINE Aged Out No longer eligi ble based on patient's age to complete this topic MENINGOCOCCAL VACCINE Aged Out No citlalli gena eligible based on patient's age to complete this topic Care Teams Student Affairs Dean Relationship Specialty Start Date End Date Francesca Martinez MD [address] [place] [phone] PCP - General 01/08/12
--- OUTSIDE RECORDS SUMMARY | 2024-07-28 19:30 | XMS_ITS | Encounter Summary ---
Author Organization [facility] Address [address] [facility] [place] [address] Care Team Providers Care Blending Plant Operator Name Role Phone Francesca Martinez MD Primary Care Provider Encounter Details Date Type Department Care Team (Latest Contact Info) Description 04/24/2017 1:51 PM CDT - 04/24/2017 11:59 PM CDT Hospital Encounter [facility] - Lab [address] [place] [id number] Augustin Millan MD [address] [place] [phone] Discharge Disposition: Home or Self Care Social History Tobacco Use Types Packs/Day Years Used Date Smoking Tobacco: Never Smokeless Tobacco: Never Alcohol Use Standard Drinks/Week Comments Not Asked 0 (1 standard drink = 0.6 oz pur e alcohol) Sex and Gender Information Value Date Recorded Sex Assigned at Not on file Gender Identity Not on file Sexual Orientation Not on file documented as of this encounter Medications at Time of Discharge Medication Sig Dispensed Refills Start Date End Date melatonin 5 MG tabletIndications:takes 10 mg (2 tablets) at bedtime. Take 5 mg by mouth at bedtime Reasons: takes 10 mg (2 tablets) at bedtime. methylphenidate (RITALIN) 5 MG tablet Take 5 mg by mouth Every morning and lunchtime AEROCHAMBER PLUS (AEROCHAMBER)Indication s:Exercise induced bronchospasm (HCC) Use as directed. 1 each 1 03/23/2014 06/18/2018 albuterol HFA (PROVENTIL;VENTOLIN;PRO AIR) 108 (90 BASE) MCG/ACT inhaler Inhale 2 Puffs by mouth every 6 hours as needed for Shortness of Breath, Wheezing or Cough 2 Inhaler 5 05/23/2016 06/18/2018 beclomethasone dipropionate (QVAR) 80 MCG/ACT inhalerIndications:Asth ma Inhale 2 Puffs by mouth 2 times daily Reasons: Asthma 1 Inhaler 11 04/24/2017 04/29/2017 cetirizine (ZYRTEC ALLERGY) 10 MG tablet Take 1 Tab by mouth once daily as needed for Runny Nose or Allergies (itch) 30 Tab 11 04/24/2017 06/18/2018 fluticasone propionate (FLONASE) 50 MCG/ACT nasal sprayIndications:Season al allergic rhinitis due to pollen, unspecified chronicity [place] 2 Sprays into each nostril once daily 1 Bottle 11 04/24/2017 11/26/2017 guanFACINE (TENEX) 2 MG tabletIndications:takes 4 mg (2 tablets) every night. Take 4 mg by mouth at bedtime Reasons: takes 4 mg (2 tablets) every night. 09/23/2018 montelukast (SINGULAIR) 10 MG tabletIndications:Asthm a Take 1 Tab by mouth every evening Reasons: Asthma 30 Tab 11 04/24/2017 11/26/2017 documented as of this encounter Plan of Treatment Not on file documented as of this encounter Visit Diagnoses Not on filedocumented in this encounter Care Teams Blending Plant Operator Relationship Specialty Start Date End Date Francesca Martinez MD [address] [place] [phone] PCP - General 01/08/12 documented as of this encounter
--- OUTSIDE RECORDS SUMMARY | 2024-07-28 19:30 | XMS_ITS | Encounter Summary ---
Author Organization [facility] Address [address] [facility] [place] [address] Care Team Providers Care Primer Waterproofing Machine Adjuster Name Role Phone Francesca Martinez MD Primary Care Provider Reason for Visit * Reason Onset Date Comments Congestion 12/05/2014 Encounter Details Date Type Department Care Team (Late st Contact Info) Description 12/05/2014 Telephone [facility] - Allergy [address] [place] [id number] Avril Giordano MD [address] [place] [address] Congestion Social History Tobacco Use Types Packs/Day Years Used Date Smoking Tobacco: Never Assessed Sex and Gender Information Value Date Recorded Sex Assigned at Not on file Gender Identity Not on file Sexual Orientation Not on file documented as of this encounter Miscellaneous Notes * Telephone Encounter - Avril Giordano MD - 12/05/2014 6:57 PM CDT Mom called. Having epistaxis. Is not on a nasal spray. +nasal dryness. Is using nasal saline sprays. Avoid the saline sprays which are worsening the nasal dryness. Advised to purchase OTC nasal lubricant, [place], and apply to the nose to help with the dryness. Mother understood and agreed with plan. All questions were answered. documented in this encounter Plan of Treatment Not on file documented as of this encounter Visit Diagnoses Not on filedocumented in this encounter Care Teams Primer Waterproofing Machine Adjuster Relationship Specialty Start Date End Date Francesca Martinez MD [address] [place] [address] [place] [phone] PCP - General 01/08/12 documented as of this encounter
--- OUTSIDE RECORDS SUMMARY | 2024-07-28 19:30 | XMS_ITS | Encounter Summary ---
Author Organization [facility] Address [address] [facility] [place] [address] Care Team Providers Care Office Messenger Helper Name Role Phone Francesca Martinez MD Primary Care Provider [phone] Reason for Visit * Reason Comments Follow-up scoliosis Encounter Details Date Type Department Care Team (Latest Contact Info) Description 10/26/2018 12:58 PM CDT - 10/26/2018 1:15 PM T Hospital Encounter [facility] - Orthopedics [facility] [place] [address] Myles Garcia MD [address] [place] [address] [address] [place] [address] Discharge Disposition: Home or Self Care Social [...] on file documented as of this encounter Last Filed Vital Signs Vital Sign Reading Time Taken Comments Blood Pressure - - Pulse - - Temperature - - Respiratory Rate - - Oxygen Saturation - - Inhaled Oxygen Concentration - - Weight 59.3 kg (130 lb 11.7 oz) 10/26/2018 1:06 PM CDT Height 163.5 cm (5' 4.37 ) 10/26/2018 1:06 PM CD T Body Mass Index 22.18 10/26/2018 1:06 PM CDT Body Mass Index Percentile 77.97% 10/26/2018 1:0 6 PM CDT Growth Chart: [facility] (Girls, 2- 20 Years) documented in this encounter Discharge Instructions * Patient Instructions* Franny Chen MD - 10/26/2018 1:41 PM CDT ORTHOPAEDIC CLINIC DISCHARGE INSTRUCTIONS SHEET DIAGNOSIS: 1. Adolescent idiopathic scoliosis of thoracic region Follow Up: Please make a return appointment for 2 year(s) with . To contact Dr. Garcia's nurse,Pam Ma LPN, call ext. [phone]. X-Rays next visit: Yes - Scoliosis views Medications prescribed: OTC analgesics Physicians orders: ?? Further diagnostic studies discussed and ordered: none ?? Therapy services - None School Excuse: Excused from School on 10/26/2018 Activity Restrictions: none To make an appointment, please call . To schedule the surgery discussed with the doctor during your child's office visit, call Cady [phone], ext. [phone]. If you have a question for Dr. Garcia, you may leave a voicemail for him at , e-mailat [email or web address], or through YouFetch. You can Like him on [employer] at [email or web address]. After visit summary completed by Franny Chen MD. documented in this encounter Medications at Time of Discharge Medication Sig Dispensed Refills Start Date End Date AEROCHAMBER PLUS (AEROCHAMBER)Indication s:Exercise induced bronchospasm (HCC) Use as directed 1 Each 1 06/18/2018 melatonin 5 MG tabletIndications:takes 10 mg (2 tablets) at bedtime. Take 5 mg by mouth at bedtime Reasons: takes 10 mg (2 tablets) at bedtime. methylphenidate (RITALIN) 5 MG tablet Take 5 mg by mouth Every morning and lunchtime sertraline (ZOLOFT) 25 MG tablet 09/13/2018 albuterol HFA (PROVENTIL;VENTOLIN;PRO AIR) 108 (90 BASE) MCG/ACT inhaler Inhale 2 puffs by mouth every 6 hours as needed for Shortness of Breath, Wheezing or Cough 2 Inhaler 5 06/18/2018 05/17/2021 cetirizine (ZYRTEC ALLERGY) 10 MG tablet Take 1 tablet by mouth once daily as needed for Runny Nose or Allergies (itch) 30 tablet 11 06/18/2018 05/17/2021 fluocinolone acetonide (SYNALAR) 0.01 % solution Apply to scalp daily for one week with flares then every other day. 60 mL 09/23/2018 05/17/2021 fluticasone propionate (FLONASE) 50 MCG/ACT nasal spray [place] 2 sprays into each nostril once daily 1 bottles 11 11/26/2017 12/31/2018 mometasone-formoterol (DULERA) 200-5 MCG/ACT inhaler Inhale 2 puffs by mouth 2 times daily 1 Inhaler 6 06/18/2018 12/31/2018 montelukast (SINGULAIR) 10 MG tablet Take 1 tablet by mouth once daily 31 tablet 6 06/18/2018 12/31/2018 documented as of this encounter Progress Notes * Myles Garcia MD - 10/26/2018 1:15 PM CDT PEDIATRIC ORTHOPAEDIC SURGERY Office Visit NAME: Veronica Lowe DATE OF SERVICE: 10/26/2018 DATE: 2005 PCP: Francesca Martinez MD Chief Complaint Patient presents with ??? Follow-up scoliosis SUBJECTIVE: Veronica presents for a follow up evaluation. Veronica Lowe is a 13 year old female who presents for evaluation and treatment of scoliosis after asymmetry in the back was detected byPCP several months ago. She is postmenarchal. She has not grown in the last 6 months. There is a family history of scoliosis. She has Mild pain on occasion but none today. There are no other complaints. Menarche at age: 10 y/o Pain: stable, udsg-[id number]-[id number] joint symptoms intermittently, reasonably well controlled by PRN meds Neurological complaints: none Loss of bowel/urine control? no Radiation?: no Vascular complaints: none Associated symptoms: none Previous treatments: None Previous workup: Radiology - xrays , Labs - none, Consult - none. MEDICATIONS: has a current medication list which includes the following prescription(s): aerochamber plus, albuterol hfa, cetirizine, fluocinolone acetonide, fluticasone propionate, melatonin, methylphenidate, mometasone- formoterol, montelukast, and sertraline. ALLERGIES: Review of patient's allergies indicates no known allergies. REVIEW OF SYSTEMS:History obtained from mother. A 10 point ROS was obtained and all others were negative except for: General ROS: negative Hematological and Lymphatic ROS: negative Cardiovascular ROS: no chest pain or dyspnea on exertion Gastrointestinal ROS: no abdominal pain, change in bowel habits, or black or bloody stools Neurological ROS: negative PHYSICAL EXAMINATION:Ht 5' 4.37 (163.5 cm) Wt 130 lb 11.7 oz (19231 g) BMI 22.18 kg/m2 General appearance: She has good head control. Orientation: alert, cooperative, no distress. Mood&affect: both mood and affect are normal Extremities: Bilateral lower extremity Skin - No rashes or abnormal dyspigmentation Inspection - No swelling, erythema, deformity, atrophy or hypertrophy noted Tenderness - absent Joint effusion - absent Range of motion - full range of motion Stability - stable Back: Inspection: no skin abnormalities Head position: centered Shoulder Position: normal Chest wall abnormality: normal Waist asymmetry: No Body Position: balanced Thoracic spine: flexible, full range of motion without pain Lumbar spine: flexible, There are no abnormalities of the lumbosacral spine SLR - negative right leg, negative left leg Garcia forward bending: elevated right thoracic prominence, elevated left thoracolumbar prominence Muscle tone and ROM exam: muscle tone normal without spasm Leg Length discrepancy: none Lower Extremity Neuro Exam right left Strength: normal 5/5 strength in all tested muscle groups normal 5/5 strength in all tested muscle groups Sensation: normal normal Reflexes: 2+ and symmetric 2+ and symmetric Gait: Normal RADIOLOGY (outside films reviewed): standing PA and lateral views - Suh angles T6-T11 15 previously 10 degrees, T11-L3 24 previously 15 degrees, Kyphosis (T5- T12) - 34, Risser - 5, Triradiate cartilage is not open. ASSESSMENT: 13 year old 2 month old female with : 1. Adolescent idiopathic scoliosis of thoracic region PLAN: 1. The diagnosis and findings were explained to the patient, questions answered. 2. Treatment recommended: home therapy 3. Medications: OTC medications - Tylenol or Motrin. Usage discussed 4. Activity Restrictions: May participate without restrictions 5. Follow up: in 2 years. X-Rays - Yes standing PA and lateral views. The appointment will be with the or PA. ATTENDING ATTESTATION STATEMENT I have personally seen and evaluated Veronica with the resident on 10/26/2018. I confirm the davis elements of the history to include: Chief Complaint Patient presents with ??? Follow-up scoliosis I have discussed the results of the physical exam and all studies with Veronica and her family. I confirm the davis elements of the physical exam. I have reviewed all radiographic studies with the resident and confirm the assessment. I developed the above assessment and discussed it with Veronica's family. The encounter diagnosis was Adolescent idiopathic scoliosis of thoracic region. I confirm the davis elements of the plan of care . Myles Garcia MD documented in this encounter Plan of Treatment Not on file documented as of this encounter Results * XR SCOLIOSIS 2VW (10/26/2018 1:22 PM CDT) Anatomical Region Laterality Modality Spine [...] Myles Garcia MD DIAGNOSTIC IMAGING O RDERABLES documented in this encounter Visit Diagnoses Diagnosis Adolescent idiopathic scoliosis of thoracic region- Primary Scoliosis (and kyphoscoliosis), idiopathic Adolescent idiopathic scoliosis of thoracic region Scoliosis (and kyphoscoliosis), idiopathic documented in this encounter Care Teams Office Messenger Helper Relationship Specialty Start Date End Date Francesca Martinez MD [address] [place] [phone] PCP - General 01/08/12 documented as of this encounter
--- OUTSIDE RECORDS SUMMARY | 2024-07-28 19:30 | XMS_ITS | Encounter Summary ---
Author Organization [facility] Address [address] [place] [address] Care Team Providers Care Regional Economist Name Role Phone Francesca Martinez MD Primary Care Provider [phone] Reason for Visit * Reason Comments Surgery Consult deviated septum Encounter Details Date Type Department Care Team (Latest Contact Info) Description 06/26/2017 9:00 AM RACING MANAGER - 06/26/2017 11:19 AM [facility] Hospital Encounter [facility] - ENT [address] [place] [address] Robert Ramos MD [address] [place] [address] Discharge Disposition: Home or Self Care Social [...] - Inhaled Oxygen Concentration - - Weight 55.5 kg (122 lb 5.7 oz) 06/26/2017 9:33 A M RACING MANAGER Height 160.5 cm (5' 3.19 ) 06/26/2017 9:33 AM CS T Body Mass Index 21.54 06/26/2017 9:33 AM RACING MANAGER Body Mass Index Percentile 80.17% 06/26/2017 9:3 3 AM RACING MANAGER Growth Chart: [facility] (Girls, 2- 20 Years) documented in this encounter Discharge Instructions * Patient Instructions* Robert Ramos MD - 06/26/2017 10:49 AM RACING MANAGER 1. Agree with current allergy regimen (flonase/singulair/zyrtec/aerospan/albuterol) per all/imm. Monty may also consider immunotherapy if medically indicated. 2. Use irrigations daily and as needed. 3. Obtain labs as ordered (JENNY w reflex, CRP, Sed Rate, ANCA, GIULIANO levels). 4. Agree with orthodontic treatment as indicated. This may also help with nasal congestion. 5. Pt should apply vaseline or antibiotic ointment before bed, and ocean spray throughout the day as needed to keep nose moist. With acute nosebleeds, pt should hold pressure across the soft part of the nose for at least ten minutes. 6. FU with ENT in 4-6 weeks for repeat scope. Depending on interval symptoms, exam, we may considerwatchful waiting, additional medications, nasal biopsy, less likely a surgery including septal repair/turbinate reduction. NG MANAGER documented in this encounter Medications at Time [...] or Cough 2 Inhaler 5 05/23/2016 06/18/2018 cetirizine (ZYRTEC ALLERGY) 10 MG tablet Take 1 Tab by mouth once daily as needed for Runny Nose or Allergies (itch) 30 Tab 11 04/24/2017 06/18/2018 Flunisolide HFA (AEROSPAN) 80 MCG/ACT Inhale 2 Puffs by mouth 2 times daily 1 Inhaler 5 04/29/2017 07/31/2017 fluticasone propionate (FLONASE) 50 MCG/ACT nasal sprayIndications:Season al allergic rhinitis due to pollen, unspecified chronicity [place] 2 Sprays into each nostril once daily [...] 04/24/2017 11/26/2017 documented as of this encounter Progress Notes * Robert Ramos MD - 06/26/2017 10:22 AM CST ENT Clinic Note 06/26/2017 Chief Complaint Patient presents with ??? Surgery Consult deviated septum History of Present Illness 06/26/2017: 11 yo WF with PMH s/f ADHD, asthma presents with 1) s/p T+A 05/14/13 2) septal perforation, 1 cm, minimally symptomatic, suspect post-traumatic, less likely inflammatory 3) nasal congestion, secondary to allergic rhinitis, mild residual L septal deviation 4) sleep disturbance, suspect multifactorial, perhaps mild clinical sleep apnea 5) allergic rhinitis, good control on current regimen, but generally poor compliance with regimen Pt presents in FU. Pt saw ENT BOX PACKER (AM) 03/20/17 for ongoing issues with nasal congestion and sleep disturbance. On exam,she noted L deviated septum, but also a septal perforation. Scope exam was performed where no significant adenoid regrowth was noted. ENT attending FU was recommended. Other than chronic nasal congestion, pt has relatively limited nasal symptoms. Family notes some nasal dryness but rare bleeding. Family denies whistling. Family endorses some facial trauma at age 5 from a soccer injury (slipped on asphalt). Injuries at that time included significant facial abrasion ( not enough tissue to suture ), nosebleed, some soft tissue loss. Pt has an excellent cosmetic result today. Pt had a sleep problem since about age 1. Family noted a significant improvement after T+A 05/14/13. However, pt currently has at least moderate sleep symptoms. This includes nightly loud snoring, mouth breathing, drooling, restless sleep, frequent awakening, gasping for air, and witnessed apneas.These symptoms are somewhat improved when she is diligent with her allergy regimen. Pt does have a known dental/oral issue. Family notes frequent tongue thrusting, and some malocclusion problems. Pneumatic Press Hand feels like she could benefit from orthodontic treatment for high arched palate and to address these other issues. Pt does have an allergy problem. Parents have noted significant allergy-type symptoms including sneezing, clear rhinorrhea, eczema, or asthma. Pt has this managed by Monty with all/imm. Pt is currently using flonase/singulair/zyrtec/aerospan with good control of symptoms, but it is always a struggle to get her to comply. Pt never takes her albuterol , but her PFTs are always surprisingly poor on testing. All/imm are strongly considering allergy immunotherapy. Previous testing showed sensitivity to alternaria, grasses, weeds, ragweed. Pt does see several other ENT providers including neurology (Sherry). He manages her ADHD symptoms. Family is somewhat concerned that her ADHD medicines impact her sleep quality. Pt denies fevers, chills, weight loss, night sweats, neck masses, ear pain, joint pain, rash, hemoptysis, hematemesis, dysphagia, or dysphonia. Allergies: Penicillins Medications: Current Outpatient Prescriptions: ??? Flunisolide HFA (AEROSPAN) 80 MCG/ACT, Inhale 2 Puffs by mouth 2 times daily, Disp: 1 Inhaler, Rfl: 5 ??? cetirizine (ZYRTEC ALLERGY) 10 MG tablet, Take 1 Tab by mouth once daily as needed for Runny Nose or Allergies (itch), Disp: 30 Tab, Rfl: 11 ??? fluticasone propionate (FLONASE) 50 MCG/ACT nasal spray, [place] 2 Sprays into each nostril once daily, Disp: 1 Bottle, Rfl: 11 ??? montelukast (SINGULAIR) 10 MG tablet, Take 1 Tab by mouth every evening Reasons: Asthma, Disp: 30 Tab, Rfl: 11 ??? methylphenidate (RITALIN) 5 MG tablet, Take 5 mg by mouth Every morning and lunchtime, Disp: , Rfl: ??? guanFACINE (TENEX) 2 MG tablet, Take 4 mg by mouth at bedtime Reasons: takes 4 mg (2 tablets) every night., Disp: , Rfl: ??? melatonin 5 MG tablet, Take 10 mg by mouth at bedtime Reasons: takes 10 mg (2 tablets) at bedtime., Disp: , Rfl: ??? albuterol HFA (PROVENTIL;VENTOLIN;PROAIR) 108 (90 BASE) MCG/ACT inhaler, Inhale 2 Puffs by mouth every 6 hours as needed for Shortness of Breath, Wheezing or Cough, Disp: 2 Inhaler, Rfl: 5 ??? AEROCHAMBER PLUS (AEROCHAMBER), Use as directed., Disp: 1 each, Rfl: 1 Past Medical History: Diagnosis Date ??? ADHD (attention deficit hyperactivity disorder) takes ritalin ??? LELA (obstructive sleep apnea) 05/14/13--clinical signs no sleep study ??? infant 36 5/7 weeks 6 lbs 8 oz No significant change in past medical, surgical, social, or family history or review of systems. Physical Exam: Height: 160.5 cm (5' 3.19 ) Weight: 55.5 kg (122 lb 5.7 oz) Body mass index is 21.54 kg/(m^2). Estimated body mass index is 21.54 kg/(m^2) as calculated from the following: Height as of this encounter: 1.605 m (5' 3.19 ). Weight as of this encounter: 55.5 kg (122 lb 5.7 oz). 83 %ile (Z= 0.95) based on CDC 2-20 Years [id number] data using vitals from 06/26/2017. Constitutional: no retractions or cyanosis Head and Face: no lesions or masses; facies symmetrical Eyes: ocular motion with gaze alignment Ears: Inspection: normal pinnae shape and position Otoscopy: External canal: normal bilaterally Tympanic membrane: Right ear: normal appearance and landmarks Left ear: normal appearance and landmarks Nasal: 1 cm dry septal perforation with some crusting, mild very anterior septal deviation, no significant turbinate hypertrophy Oral Cavity: moderately high arched palate Throat: tonsils absent Neck: supple without tenderness or crepitus; no palpable adenopathy Cranial Nerve Exam: grossly intact; CN VII symmetrical Respiration: unlabored breathing Skin: skin healthy ASSESSMENT: 11 yo WF with PMH s/f ADHD, asthma presents with 1) s/p T+A 05/14/13 2) septal perforation, 1 cm, minimally symptomatic, suspect post-traumatic, less likely inflammatory 3) nasal congestion, secondary to allergic rhinitis, mild residual L septal deviation 4) sleep disturbance, suspect multifactorial, perhaps mild clinical sleep apnea 5) allergic rhinitis, good control on current regimen, but generally poor compliance with regimen PLAN: 1. Agree with current allergy regimen (flonase/singulair/zyrtec/aerospan/albuterol) per all/imm. Monty may also consider immunotherapy if medically indicated. 2. Use irrigations daily and as needed. Bottle and video provided today. 3. Obtain labs as ordered (JENNY w reflex, CRP, Sed Rate, ANCA, GIULIANO levels) to evaluate for atypical causes of septal perforation. 4. Agree with orthodontic treatment (including possible maxillary expansion) as indicated. This mayalso help with nasal congestion. 5. Pt should apply vaseline or antibiotic ointment before bed, and ocean spray throughout the day as needed to keep nose moist. With acute nosebleeds, pt should hold pressure across the soft part of the nose for at least ten minutes. 6. FU with ENT in 4-6 weeks for repeat scope. Depending on interval symptoms, exam, we may considerwatchful waiting, additional medications, nasal biopsy, less likely a surgery including septal repair/turbinate reduction. Robert Ramos MD NG MANAGER documented in this encounter Plan of Treatment Not on file documented as of this encounter Results * ANCA VASCULITIS PANEL (06/26/2017 11:20 AM RACING MANAGER) Anti-myeloperoxid ase (MPO) Antibody <9.0 0.0 - 9.0 U/mL 06/28/2017 11:10 AM RACING MANAGER [facility] ([facility]) Anti-proteinase 3 (CT-3) Abs <3.5 0.0 - 3.5 U/mL 06/28/2017 11:10 AM RACING MANAGER [facility] ([facility]) Cytoplasmic (C-ANCA) <1:20 Neg:<1:20 titer 06/28/2017 11:10 AM RACING MANAGER [facility] ([facility]) p-ANCA Titer <1:20 Neg:<1:20 titer 06/28/2017 11:10 AM [facility] ([facility]) Comment: The presence of positive fluorescence exhibiting P-ANCA or C-ANCA patterns alone is not specific for the diagnosis of Sebastien's Granulomatosis (WG) or microscopic polyangiitis. Decisions about treatment should not be based solely on ANCA IFA results. ??The International ANCA Group Consensus recommends follow up testing of positive sera with both CT-3 and MPO-ANCA enzyme immunoassays. As many as 5% serum samples are positive only by EIA. Ref. AM J Clin Pathol 1999;111:507-513. Atypical p-ANCA Titer <1:20 Neg:<1:20 titer 06/28/2017 11:10 AM [facility] ([facility]) Comment: The atypical pANCA pattern has been observed in a significant percentage of patients with ulcerative colitis, primary sclerosing cholangitis and autoimmune hepatitis. Blood BLOOD SPECIMEN / Unknown Lab Venipuncture / Unknown 06/26/2017 11:20 AM RACING MANAGER 06/26/2017 11:39 AM RACING MANAGER Narrative [facility] ([facility]) - 06/28/2017 11:10 AM RACING MANAGER Performed at: ??01 - [facility] [address] ??[id number] Repairing Calibrator: Mayo Angelo MD, Phone: ??[phone] Performed at: ??02 - [facility] [address] ??[id number] Repairing Calibrator: Patricio Gimenez PhD, Phone: ??[phone] Robert Ramos MD LAB - CHEMISTRY O RDERABLES [facility] ([facility]) [address] [place] [address] * ANGIOTENSIN CONVERTING ENZYME BLOOD (06/26/2017 11:20 AM RACING MANAGER) Pathologist [facility] Angiotensin-Con verting Enzyme 25 22 - 108 U/L 06/27/2017 1:11 PM RACING MANAGER [facility] ([facility]) Blood BLOOD SPECIMEN / Unknown Lab Venipuncture / Unknown 06/26/2017 11:20 AM RACING MANAGER 06/26/2017 11:39 AM RACING MANAGER Narrative [facility] ([facility]) - 06/27/2017 1:11 PM RACING MANAGER Performed at: ??01 - [facility] [address] ??[id number] Repairing Calibrator: Patricio Gimenez PhD, Phone: ??[phone] Robert Ramos MD LAB - CHEMISTRY O LIANNA Performing Organization Address City/[facility]/ZIP Co de Phone Number [facility] ([facility]) [address] [place] [address] * JENNY BLOOD SCREEN W/REFLEX TITER (06/26/2017 11:20 AM RACING MANAGER) [facility] JENNY Negative Negative 06/27/2017 8:36 AM [facility] Blood BLOOD SPECIMEN / Unknown Lab Venipuncture / Unknown 06/26/2017 11:20 AM RACING MANAGER 06/26/2017 11:39 AM RACING MANAGER Robert Ramos MD [facility] [address] [place] [address] * CRP (INFLAMMATORY) (06/26/2017 11:20 AM RACING MANAGER) [facility] C-Reactive Protein <0.20 <=0.50 mg/dL 06/26/2017 12:15 PM RACING MANAGER [facility] Blood BLOOD SPECIMEN / Unknown Lab Venipuncture / Unknown 06/26/2017 11:20 AM RACING MANAGER 06/26/2017 11:39 AM RACING MANAGER Robert Ramos MD LAB - CHEMISTRY O RDERABLES Performing Organization Address City/[facility]/ZIP Co de Phone Number [facility] [address] [place] [address] * ERYTHROCYTE SEDIMENTATION RATE (06/26/2017 11:20 AM RACING MANAGER) Erythrocyte Sedimentation Rate Automated 7 0 - 20 MM/HR 06/26/2017 12:13 PM RACING MANAGER [facility] Blood BLOOD SPECIMEN / Unknown Lab Venipuncture / Unknown 06/26/2017 11:20 AM RACING MANAGER 06/26/2017 11:39 AM RACING MANAGER Robert Ramos MD LAB - HEMATOLOGY ORDERABLES Performing Organization Address [facility] de Phone Number [facility] [address] [place] [phone] documented in this encounter Visit Diagnoses Diagnosis Nasal septal perforation- Primary Other diseases of nasal cavity and sinuses Allergic rhinitis, unspecified chronicity, unspecified seasonality, unspecified trigger Sleep disturbance Sleep disturbance, unspecified H/O adenoidectomy Other postprocedural status Exercise-induced asthma (HCC) Exercise induced bronchospasm Adolescent idiopathic scoliosis of thoracic region Scoliosis (and kyphoscoliosis), idiopathic documented in this encounter Care Teams Regional Economist Relationship Specialty Start Date End Date Francesca Martinez MD [address] [place] [id number] PCP - General 01/08/12 documented as of this encounter
--- OUTSIDE RECORDS SUMMARY | 2024-07-28 19:30 | XMS_ITS | Encounter Summary ---
Author Organization [facility] Address [address] [place] [address] Care Team Providers Care Rat Farmer Name Role Phone Francesca Martinez MD Primary Care Provider [phone] Reason for Visit * Auth/Cert - Closed Specialty Diagnoses / Procedures Referred By Ravinder gilmore Referred To Contact Diagnoses Hypertrophy of tonsil with adenoids Unspecified sleep apnea Procedures TONSILLECTOMY AND ADENOIDECTOMY Referral ID Status Reason Start Date Expiration Date Visits Re quested Visits Authorized [id number] Closed 1 1 Encounter Details Date Type Department Care Team (Late st Contact Info) Description 05/14/2013 10:45 AM CDT - 05/14/2013 11:30 AM CDT Surgery [facility] [address] [place] [address] Robert Robledo MD [address] [place] [address] [place] [address] TONSILLECTOMY AND ADENOIDECTOMY Surgery Details Date/Time Status Location OR Service Patient Class Case Class Case Type Trauma Case? 05/14/2013 10:45 AM Posted [facility] MAIN OR 01 ENT Surgery Day Care Elective > 5 days Panel 1 Procedure LRB Anes Op Region Wound Class Comments TONSILLECTOMY AND ADENOIDECTOMY N/A General Throat Clean Contaminated T&A Surgeon Surgeon Role Service Panel Robert Robledo MD Primary ENT 1 Special Needs PSC documented in this encounter Social History Tobacco Use Types Packs/Day Years Used Date Smoking Tobacco: Never Assessed Sex and Gender Information Value Date Recorded Sex Assigned at Not on file Gender Identity Not on file Sexual Orientation Not on file documented as of this encounter Last Filed Vital Signs Vital Sign Reading Time Taken Comments Blood Pressure 117/86 05/14/2013 1:31 PM CDT Pulse 90 05/14/2013 1:31 PM CDT Temperature 36.3 ??C (97.3 ??F) 05/14/2013 1:10 PM CD T Respiratory Rate 20 05/14/2013 1:31 PM CDT Oxygen Saturation 100% 05/14/2013 1:31 PM CDT Inhaled Oxygen Concentration - - Weight 36.6 kg (80 lb 9.6 oz) 05/14/2013 9:20 AM CDT Height 140 cm (4' 7.12 ) 05/14/2013 9:20 AM CDT Body Mass Index 18.65 05/14/2013 9:20 AM CDT Body Mass Index Percentile 83.60% 05/14/2013 9:2 0 AM CDT Growth Chart: [facility] (Girls, 2- 20 Years) documented in this encounter Discharge Summaries * Robert Robledo MD - 05/14/2013 11:32 AM CDT Images from the original note were not included. Attending Physician: Robert Robledo MD Office 05/14/2013 11:32 AM SAME DAY SURGERY DISCHARGE SUMMARY Patient ID: Name: Veronica Lowe MR#: [id number] Date of : 2005 Age: 7 y.o. Discharge Date: 05/14/2013 Discharge Diagnosis: adenotonsillar hypertrophy, clinical sleep apnea, recurrent strep adenotonsillitis Procedure: adenotonsillectomy Discharge Condition: Stable Discharge Medication: Please see Discharge Instructions for a complete list of medications. Discharge Procedure Orders GENERAL ANESTHESIA /IV SEDATION INSTRUCTIONS For the remainder of the day, patient should relax. A feeling of dizziness, light-headedness or drowsiness is not unusual. Move cautiously, fast movements can make this feeling worse. If patient has been lying down, he/she should sit up slowly and pause briefly before standing. We strongly suggest that a responsible adult monitor the patient more closely than usual until tomorrow morning for his/her comfort and safety. CALL PHYSICIAN If unrelieved pain; excessive bleeding at surgical site; excessive redness/unusual drainage at surgical site or IV site; or fever over 102 degrees orally. CALL PHYSICIAN For vomiting that is unrelenting. HOME DIET INSTRUCTIONS Soft diet for 2 weeks HOME ACTIVITY INSTRUCTIONS No strenuous activity for 2 weeks RETURN TO SCHOOL / DAYCARE In 1 week RETURN TO SPORTS/PHYSICAL EDUCATION CLASSES In 14 days. Avoid other vigorous activities such as bike riding until you are released to return tophysical education classes and/or sports. FOLLOW UP As needed Robert Robledo MD documented in this encounter Discharge Instructions * Discharge Instructions* Daniela Forman RN - 05/14/2013 12:25 PM CDT Discharge Instructions for: Veronica Lowe Discharge Procedure Orders GENERAL ANESTHESIA /IV SEDATION INSTRUCTIONS For the remainder of the day, patient should relax. A feeling of dizziness, light-headedness or drowsiness is not unusual. Move cautiously, fast movements can make this feeling worse. If patient has been lying down, he/she should sit up slowly and pause briefly before standing. We strongly suggest that a responsible adult monitor the patient more closely than usual until tomorrow morning for his/her comfort and safety. CALL PHYSICIAN If unrelieved pain; excessive bleeding at surgical site; excessive redness/unusual drainage at surgical site or IV site; or fever over 102 degrees orally. CALL PHYSICIAN For vomiting that is unrelenting. HOME DIET INSTRUCTIONS Soft diet for 2 weeks HOME ACTIVITY INSTRUCTIONS No strenuous activity for 2 weeks RETURN TO SCHOOL / DAYCARE In 1 week RETURN TO SPORTS/PHYSICAL EDUCATION CLASSES In 14 days. Avoid other vigorous activities such as bike riding until you are released to return tophysical education classes and/or sports. FOLLOW UP As needed TYLENOL WAS LAST GIVEN AT 11:00AM MAY BE REPEATED AFTER 3:00PM The following belonging have been returned to you Clothing Clothing: Yes (with mom) Vision Visual Aids: Yes Glasses: (with mom) Miscellaneous Belongings Miscellaneous Items: Yes With Patient: [place] If your child has any worsening of their condition, please phone [phone] and ask for the doctor foot and ankle surgeon for DR. ROBLEDO or return to the Emergency Department. I For questions or Emergency Care: Call the office at during the week or after 5 pm and on the weekends. You may need to speak with the [id number]. * Discharge Instructions* Document, Scanned - 05/17/2013 11:53 PM CDT documented in this encounter Medications at Time of Discharge Medication Sig Dispensed Refills Start Date End Date acetaminophen (TYLENOL) 160 MG/5ML suspension Take 11.5 mL by mouth every 4 hours as needed for Fever or Pain. 240 mL 0 05/14/2013 03/02/2015 ibuprofen (ADVIL; MOTRIN) 100 MG/5ML SUSP suspension Take 18.5 mL by mouth every 6 hours as needed for Pain or Fever. 240 mL 1 05/14/2013 03/02/2015 methylphenidate (RITALIN) 10 MG tablet Take 10 mg by mouth every afternoon. 10mg at 1500 01/17/2014 methylphenidate (RITALIN) 20 MG tablet Take 20 mg by mouth 2 times daily. 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 SNORING NEW PT. History of Present Illness: Veronica Lowe is a 7 y.o. 7 m.o. female who present to the Pediatric Otolaryngology Clinic for evaluation of Obstructive Sleep Apnea accompanied by mother. Veronica Lowe has had difficulty with sleep for 1year(s). She has the following symptoms: snoring, witnessed apnea and awakening(s)in the night. She does have recurrent throat infections; positive throat culture for strep two weeks ago. She has persistent mouth breathing and/or nasal congestion. She has been followed by an lead retail sales associate for one year without improvement and no significant allergies. She had an xray with enlarged adenoids. She has a hyponasal quality. Past medical history: No past medical history on file. History: full term [place] hearing screen passed Hospitalizations? No Previous Surgery No Immunizations: are up to date Growth and development: Age appropriate yes Social history: Lives with mother. Exposure to smoking? No. Veronica attends school. Family history: Sleep apnea No. Obesity No. Bleeding disorder No. Surgical or anesthesia problems. No. Review of systems: Constitutional: child is weight appropriate Eyes: does not have double vision Ears, Nose, Mouth, Throat: no tonsillitis or strep throat; rare URI's Cardiovascular: does not have heart disease Respiratory: does not have asthma or wheezing Gastointestinal: Negative Genitourinary: negative Integumentary: has had no rash or eczema Neurological: has had no seizures; negative for ADD / ADHD Endocrine: does not have a history of thyroid problems Hematologic: does not bruise easily Medications: Current outpatient prescriptions:methylphenidate (RITALIN) 20 MG tablet, Active, Take 20 mg by mouth Every morning and lunchtime., Disp: , Rfl: Allergies: Penicillins Physical Exam: Height: 138.4 cm (4' 6.49 ) Weight: 36.288 kg (80 lb) Body mass index is 18.94 kg/(m^2). 85.96%ile based on CDC 2-20 Years BMI-for-age data. Constitutional: no retractions or cyanosis Head and Face: no lesions or masses; facies symmetrical Eyes: sclera and conjunctiva clear Ears: Inspection: normal pinnae shape and position Otoscopy: External canal: patent without lesions bilaterally and Tympanic membrane: Right: normal appearance and landmarks Left: normal appearance and landmarks Nasal: normal external nose, mucous membranes and septum nasal congestion Oral Cavity: moist mucous membranes; normal uvula, palate and tongue size Throat: tonsil 2+ Bey 2 Neck: supple without tenderness or crepitus; no palpable adenopathy Cranial Nerve Exam: grossly intact; CN VII symmetrical Respiration: unlabored breathing Skin: skin healthy ASSESSMENT: 7 y.o. 7 m.o. female with clinically suspicious sleep apnea and adenotonsillar hypertrophy. PLAN: Adenotonsillectomy will be done as outpatient Nature risks and benefits of the procedure were discussed in detail. The family elected to meet thefirst available surgeon. Update 05/14/2013: I saw this patient and independently reviewed the pertinent aspects of the history and physical exam. There have been no significant changes since last seen, other than one episode of strep throat, since resolved. Pt has had more than 3 episodes per year for the last several years. I agree with theabove note and plan. Proceed to OR for T+A. Robert Robledo MD documented in this encounter Procedure Notes * Document, Scanned - 05/17/2013 11:53 PM CDTAssociated Order(s): PATHOLOGY/CYTOLOGY REPORT ORDER documented in this encounter Nursing Notes * Dagmar Trujillo RN - 05/14/2013 1:39 PM CDT 1335 Discharge instructions reviewed and parents state they are comfortable taking pt home at this time. documented in this encounter OR Notes * Operative - Robert Robledo MD - 05/14/2013 11:28 AM CDT Patient name: Veronica Lowe Date of : 2005 Date of Procedure: 05/14/2013 Pre-Op Diagnosis: Adenotonsillar hypertrophy, clinical sleep apnea, recurrent strep adenotonsillitis Post-Op Diagnosis: Same Procedure: Tonsillectomy & adenoidectomy Surgeon: Robert Robledo MD Anesthesia: General endotracheal Indications for procedure: Veronica Lowe is a 7 y.o. female with a history of adenotonsillar hypertrophy, clinical sleepapnea, recurrent strep adenotonsillitis. The patient presents today for adenotonsillectomy. Risks & benefits were discussed with the parents who agree to proceed. Details of Procedure: After appropriate informed consent was obtained, the patient was taken to the operating room and placed in a supine position on the table. A McIvor mouth gag was placed in the patient's mouth and opened to reveal tonsils which were 3+ in size. The tonsils were grasped with a curved Allis clamp and coblation at settings of 7 and 3 were used to dissect them out from the tonsillar fossa. A red rubber catheter was then placed through each nostril and around the soft palate so as to retract it anteriorly. A mirror was used to visualize the adenoids which were noted to be 3+ in size. These were then fully ablated to the choana using coblation at settings of 9 and 3. The red rubber catheters were t hen removed and the mouth gag closed for 30 seconds and reopened to assess for bleeding. No furtherbleeding was noted. The patient was then allowed to awaken whereupon she was extubated & taken to recovery in stable condition. I was present for the entirety of this case. Estimated Blood Loss: Minimal Complications: None Condition: Stable Dispo: Home Medications: 1. Tylenol as needed for pain 2. Ibuprofen as needed for breakthrough pain Follow-Up: Patient to follow-up as needed 05/14/2013 Robert Robledo MD documented in this encounter Miscellaneous Notes * Miscellaneous Scans - Document, Scanned - 05/17/2013 11:53 PM CDT * Miscellaneous Scans - Document, Scanned - 05/17/2013 11:53 PM CDT documented in this encounter Plan of Treatment Not on file documented as of this encounter Procedures Procedure Name Priority Date/Time Associated Diagnosis Comments PATHOLOGY/CYTOLOGY REPORT ORDER 05/17/2013 11:53 PM CDT TONSILLECTOMY AND ADENOIDECTOMY 05/14/2013 6:45 PM CDT Hypertrophy of tonsil with adenoids Unspecified Sleep Apnea Special Needs PSC GROSS EXAM PATHOLOGY (STL) STAT 05/14/2013 11:18 AM CDT LELA (obstructive sleep apnea) documented in this encounter Results * PATHOLOGY/CYTOLOGY REPORT ORDER (05/17/2013 11:53 PM CDT) Narrative 05/17/2013 11:53 PM CDT Ordered by an unspecified provider. Transcriptions Document, Scanned - 05/17/2013 11:53 PM CDT Scanned Document LAB - PATHOLOGY/CYTO LOGY ORDERABLES * GROSS EXAM PATHOLOGY (STL) (05/14/2013 11:18 AM CDT) Case Report Surgical Pathology Report ? Case: [id number] ? Authorizing Provider: ??Robert Robledo MD ?Ordering Provider: ?? Robert Robledo MD ? Ordering Location: ? [facility] ? Collected: ? 05/14/2013 11:18 AM ? Pathologist: ? Melva Monzon MD ?Received: ?05/14/2013 12:16 PM ?Signed Out: ?05/14/2013 ??2:44 PM (Final) ? Specimen: ?Tonsil(s) ? 05/14/2013 2:44 PM T [facility] Final Diagnosis GROSS DIAGNOSIS: PALATINE TONSILS. 05/14/2013 2:44 PM T [facility] Clinical History The patient is a 7-year-old girl with clinically suspicious sleep apnea and adenotonsillar hypertrophy. 05/14/2013 2:44 PM T [facility] Gross Description Submitted fresh in one [...] sections are taken. (CT/scs) 05/14/2013 2:44 PM CDT [facility] Disclaimer This case has been personally reviewed and interpreted by the attending (teaching) pathologist. 05/14/2013 2:44 PM CDT [facility] Synoptic Report 05/14/2013 2:44 PM CDT [facility] Pathology/Cytolo gy SPECIMEN FROM TONSIL / Unknown 05/14/2013 11:18 AM CDT 05/14/2013 12:16 PM CDT Robert Robledo MD LAB - PATHOLOGY/C YTOLOGY ORDERABLES [facility] [address] [place] [address] documented in this encounter Visit Diagnoses Diagnosis LELA (obstructive sleep apnea)- Primary Obstructive sleep apnea (adult) (pediatric) Hypertrophy of tonsil with adenoids Unspecified sleep apnea documented in this encounter Administered Medications Inactive Administered Medications - up to 3 most recent administrations Medication Order MAR Action Action Date Dose Rate Site 0.9% nacl irrigation solution PRN, Other, Starting on Fri05/14/13 at 1131, Until Fri05/14/13 at 1137, Intra-op $ Given 05/14/2013 11:31 AM CDT 500 mL isolyte-S pH 7.4 infusion 75 mL/hr, Intravenous, POST-OP CONTINUOUS, Starting on Fri05/14/13 at 1145, Until Fri05/14/13 at 1442, PACU Current Rate 05/14/2013 11:34 AM CDT 75 mL/hr 75 mL/hr midazolam (VERSED) solution 15 mg 15 mg (0.41 mg/kg), Oral, PRE-OP ONCE, 1 dose $ Given 05/14/2013 10:47 AM CDT 15 mg morphine injection 1 mg 1 mg (0.0273 mg/kg), Intravenous, POST-OP MULTIPLE, 3 doses, Starting on Fri05/14/13 at 1142, Until Fri05/14/13 at 1201, May repeat first dose every 5 minutes. Max dose 3 mg. DO NOT EXCEED MORPHINE 0.2 mg/kg/hr IV. High Risk, High Alert Medication: Must document double check on IV MAR Flowsheet, PACU $ Given 05/14/2013 12:01 PM CDT 1 mg $ Given 05/14/2013 11:53 AM CDT 1 mg $ Given 05/14/2013 11:46 AM CDT 1 mg morphine injection 2 mg 2 mg (0.0546 mg/kg), Intravenous, POST-OP MULTIPLE, 1 dose, Starting on Fri05/14/13 at 1245, Until Fri05/14/13 at 1233, May repeat first dose every 5 minutes. Max dose 2 mg. DO NOT EXCEED MORPHINE 0.2 mg/kg/hr IV. High Risk, High Alert Medication: Must document double check on IV MAR Flowsheet, PACU $ Given 05/14/2013 12:33 PM CDT 2 mg documented in this encounter Active and Recently Administered Medications Times are shown in CDT. Scheduled Medication Order 05/12/2013 05/13/2013 05/14/2013 midazolam (VERSED) solution 15 mg (COMPLETED) 15 mg (0.41 mg/kg), Oral, PRE-OP ONCE, 1 dose 1047 ($ Given - Prov ider: Bettina Evans RN) morphine injection 1 mg (COMPLETED) 1 mg (0.0273 mg/kg), Intravenous, POST-OP MULTIPLE, 3 doses, Starting on Fri05/14/13 at 1142, Until Fri05/14/13 at 1201, May repeat first dose every 5 minutes. Max dose 3 mg. DO NOT EXCEED MORPHINE 0.2 mg/kg/hr IV. High Risk, High Alert Medication: Must document double check on IV MAR Flowsheet, PACU 1146 ($ Given - Prov ider: Daniela Forman RN)1153 ($ Given - Provider: Daniela Forman RN)1201 ($ Given - Provider: Daniela Forman, RACHID) morphine injection 2 mg (COMPLETED) 2 mg (0.0546 mg/kg), Intravenous, POST-OP MULTIPLE, 1 dose, Starting on Fri05/14/13 at 1245, Until Fri05/14/13 at 1233, May repeat first dose every 5 minutes. Max dose 2 mg. DO NOT EXCEED MORPHINE 0.2 mg/kg/hr IV. High Risk, High Alert Medication: Must document double check on IV MAR Flowsheet, PACU 1233 ($ Given - Prov ider: Daniela Forman RN) Continuous Medication Order 05/12/2013 05/13/2013 05/14/2013 isolyte-S pH 7.4 infusion (CANCELED) 75 mL/hr, Intravenous, POST-OP CONTINUOUS, Starting on Fri05/14/13 at 1145, Until Fri05/14/13 at 1442, PACU 1134 (Current Rate - Provider: Dagmar Trujillo, RACHID)1330 (Stopped - Provider: Dagmar Trujillo RN) PRN Medication Order 05/12/2013 05/13/2013 05/14/2013 0.9% nacl irrigation solution (CANCELED) PRN, Other, Starting on Fri05/14/13 at 1131, Until Fri05/14/13 at 1137, Intra-op 1131 ($ Given - Prov ider: Robert Robledo MD) documented in this encounter Care Teams Rat Farmer Relationship Specialty Start Date End Date Francesca Martinez MD [address] [place] [id number] PCP - General 01/08/12 documented as of this encounter
--- OUTSIDE RECORDS SUMMARY | 2024-07-28 19:30 | XMS_ITS | Encounter Summary ---
Author Organization [facility] Address [address] [facility] [place] [address] Care Team Providers Care Customer Support Advisor Name Role Phone Francesca Martinez MD Primary Care Provider Reason for Visit * Auth/Cert - Closed Specialty Diagnoses / Procedures Referred By Ravinder gilmore Referred To Contact Diagnoses Hypertrophy of tonsil with adenoids Unspecified sleep apnea Procedures TONSILLECTOMY AND ADENOIDECTOMY Referral ID Status Reason Start Date Expiration Date Visits Re quested Visits Authorized [id number] Closed 1 1 Encounter Details Date Type Department Care Team (Late st Contact Info) Description 05/14/2013 11:01 AM CDT Anesthesia Event [facility] - Periop [address] [place] [phone] [place] [address] [place] [phone] Yasmany Patel MD [address] [phone] Anesthesia Record Procedure Summary Procedure Name Responsible Anesthesiologist Anesthesia Start Time Anesthesia Stop Time TONSILLECTOMY AND ADENOIDECTOMY (Throat) Krista Hernandez MD 05/14/13 1101 05/14/13 1137 Events Date Time Event Comment 05/14/2013 1056 1101 An Start 1101 An Start Data 1104 An Induction 1108 Quick Note Care transferre d. Patient identified, planned operation reviewed. Medical history and allergies reviewed. Patient status, Estimated Blood Loss and Anesthetic plan Reviewed. Room informed. 1110 An Intubation 1130 An Emergence 1130 Extubation 1132 an stop data Patient Transpo rted to PACU on O2, with SpO2 monitoring. Report Given to PACU Nurse. Questions answered. 1136 Elect Sign The providers l isted as staff are the responsible providers for the case. 1137 An Stop Meds Name Total dexamethasone (DECADRON) 4 mg/ml injecti on 4 mg ondansetron (ZOFRAN) injection 4 mg morphine 5 mg/ml injection (currently sh ortage issues 09/09/13) 1 mg acetaminophen 10 mg/mL IV 540 mg fentaNYL (SUBLIMAZE) 50 mcg/ml 15 mcg isolyte-S pH 7.4 infusion 200 mL * Agents Name Insp. N2O Exp. Sevoflurane Insp. Sevoflurane * Blood No blood administrations on file. Lines, Drains, and Airways Type Details Placement Removal Peripheral IV Date: 05/14/13; Time : 110; Orientation: Left; Placed By: Nandini Schumacher; Tolerance: General Anesthesia, Well 05/14/13 1107 by Canelo Rao Anes Asst 05/14/13 1330 by Dagmar Trujillo RN ETT Date: 05/14/13; Time : 1110; Placed By: Logan JULIEN; Vent: easy with oral airway mask; Induction: Inhalation; Blade Type: Whitley; Blade Size: 2; Laryngoscopy View: Grade 1 (full cords); Tube: Shannon tube; Placement: Oral; Tube Type: Cuffed-inflated; Tube Size(mm): 5.5 MM; Depth of Insertion: 15 CM; Measured From: lips; Cuff Infated: Air; Cuff Pressure(cm H2O): 30 cm H2O; Cuff Vol(mL): 1 mL; Verified By: Direct visualization, Bilateral breath sounds, Chest Auscultation, CO2 Monitor 05/14/13 1110 by Canelo Rao Anes Asst 05/14/13 1130 by Canelo Rao Anes Asst RETIRED Procedural Site 05/14/13; 1117; Tonsil beds; Other (Comment) (adenoids); 05/14/13; 19405/14/13 1117 by Lili Doherty RN 05/14/13 194 by Generic, Auto Release Airways 05/14/13; 1130; ANAYA Skinner; Oral Airway; 7 MM; 05/14/13; 1145; YADIRA MORE 05/14/13 1130 by Canelo Rao Anes Asst 05/14/13 1145 by Yadira More RN documented in this encounter Social History Tobacco Use Types Packs/Day Years Used Date Smoking Tobacco: Never Assessed Sex and Gender Information Value Date Recorded Sex Assigned at Not on file Gender Identity Not on file Sexual Orientation Not on file documented as of this encounter Progress Notes * Krista Hernandez MD - 05/14/2013 12:29 PM CDT ANESTHESIA POSTPROCEDURE EVALUATION Veronica Lowe is a 7 y.o. female Temp: 36.5 ??C Pulse: 95 Resp: 24 BP: 135/92 mmHg SpO2: 100 % Pain Rating Score #: 6 A postop evaluation was performed on this patient with the following assessment: no apparent anesthesia complications Mental status: sufficiently recovered from acute administration of anesthesia to participate in theevaluation. Level of consciousness: awake General appearance: well-appearing Respiratory function: natural airway. Cardiac: stable Pain: uncomfortable/unacceptable; see medication order. PONV: None Postop hydration: adequate. Final anesthesia type: general endotracheal Patient may be released from anesthesia care. documented in this encounter Consult Notes * Yamileth Calzada RN,CPNP - 05/14/2013 9:52 AM CDT Pre-anesthesia Evaluation Procedure(s) (LRB): TONSILLECTOMY AND ADENOIDECTOMY (N/A) Vital Signs: Temp: [37.1 ??C] Pulse: [80] Resp: [20] BP: (122)/(46) SpO2: [100 %] Wt 36 kg BMI: Estimated Body mass index is 18.65 kg/(m^2) as calculated from the following: Height as of an earlier encounter on 05/14/13: 4' 7.118 (1.4 m). Weight as of an earlier encounter on 05/14/13: 80 lb 9.6 oz(36.56 kg). History: Past Medical History Diagnosis Date ??? infant 36 5/7 weeks 6 lbs 8 oz ??? LELA (obstructive sleep apnea) 05/14/13--clinical signs no sleep study ??? ADHD (attention deficit hyperactivity disorder) takes ritalin Past Surgical History Procedure Date ??? Negative surgical history does not have a smoking history on file. She does not have any smokeless tobacco history on file. She reports that she does not use illicit drugs. Allergies: is allergic to penicillins. Medications: Prescriptions prior to admission Medication Status Sig Dispense Refill ??? methylphenidate (RITALIN) 10 MG tablet Active Take 10 mg by mouth every afternoon. 10mg at 1500 ??? methylphenidate (RITALIN) 20 MG tablet Active Take 20 mg by mouth 2 times daily. lead painter and 1100 No current facility-administered medications for this visit. No current outpatient prescriptions on file. Facility-Administered Medications Ordered in Other Visits: midazolam (VERSED) solution 15 mg, Completed, 15 mg, Oral, pre-OP once, Yamileth Calzada RN, CPNP, 15 mg at 05/14/13 1047 Physical Exam: NPO status: since midnight and except oral meds with H2O (last solids 1999; med and water [id number]) Oriented to person, place and time Airway: II Neck ROM: full Dental exam findings: normal/ok Pulmonary exam: breath sounds CTA Heart sounds: S1 S2 Positive for snoring Plan for Anesthesia: ASA Score: 2. Anesthesia plan: general / ETT Planned method of induction: inhalational (mask bubblegum) Planned postop destination: PACU Anesthesia plan, risks and benefits discussed with father and mother Anesthesia consent: obtained Plan accepted yes Discussed anesthesia plan with: anesthesiologist (Reviewed with Dr Hernandez). documented in this encounter Plan of Treatment Not on file documented as of this encounter Visit Diagnoses Not on filedocumented in this encounter Administered Medications Inactive Administered Medications - up to 3 most recent administrations Medication Order MAR Action Action Date Dose Rate Site acetaminophen (OFIRMEV) injection PRN, Starting on Fri05/14/13 at 1107, Until Fri05/14/13 at 1137, Maximum allowable Acetaminophen amount = 4 Grams (4000 mg) / 24 hours., Anesthesia Intra-op $ Given 05/14/2013 11:07 AM CDT 540 mg dexamethasone (DECADRON) injection PRN, Nausea/Vomiting, Starting on Fri05/14/13 at 1109, Until Fri05/14/13 at 1137, Intra-op $ Given 05/14/2013 11:09 AM CDT 4 mg fentaNYL (SUBLIMAZE) injection PRN, Starting on Fri05/14/13 at 1109, Until Fri05/14/13 at 1137, Anesthesia Intra-op $ Given 05/14/2013 11:09 AM CDT 15 mcg isolyte-S pH 7.4 infusion CONTINUOUS PRN, Starting on Fri05/14/13 at 1108, Until Fri05/14/13 at 1137, Anesthesia Intra-op $ New Bag/Syringe 05/14/2013 11:08 AM CDT mL morphine injection PRN, Starting on Fri05/14/13 at 1109, Until Fri05/14/13 at 1137, Anesthesia Intra-op $ Given 05/14/2013 11:09 AM CDT 1 mg ondansetron (ZOFRAN) injection PRN, Nausea/Vomiting, Starting on Fri05/14/13 at 1109, Until Fri05/14/13 at 1137, Intra-op $ Given 05/14/2013 11:09 AM CDT 4 mg documented in this encounter Care Teams Customer Support Advisor Relationship Specialty Start Date End Date Francesca Martinez MD [address] [place] [phone] PCP - General 01/08/12 documented as of this encounter
--- OUTSIDE RECORDS SUMMARY | 2024-07-28 19:30 | XMS_ITS | Encounter Summary ---
Author Organization [facility] Address [address] [place] [address] Care Team Providers Care Health Spa Manager Name Role Phone Francesca Martinez MD Primary Care Provider [phone] Reason for Visit * Reason Onset Date Comments MEDICATION REFILL 05/08/2016 Encounter Details Date Type Department Care Team (Late st Contact Info) Description 05/08/2016 Refill [facility] Pediatrics - Immunology [address] [place] [phone] Augustin Millan MD [address] [place] [phone] MEDICATION REFILL Social History Tobacco Use Types Packs/Day Years Used Date Smoking Tobacco: Never Alcohol Use Standard Drinks/Week Comments Not Asked 0 (1 standard drink = 0.6 oz pur e alcohol) Sex and Gender Information Value Date Recorded Sex Assigned at Not on file Gender Identity Not on file Sexual Orientation Not on file documented as of this encounter Miscellaneous Notes * Telephone Encounter - Francesca Morales RN - 05/08/2016 2:17 PM CDT Refill request for cetirizine. LV 02/2015, f/u scheduled for 05/23/16 Routed to A/I fellow documented in this encounter Plan of Treatment Not on file documented as of this encounter Visit Diagnoses Diagnosis Allergic rhinitis due to pollen, unspecified rhinitis seasonality documented in this encounter Care Teams Health Spa Manager Relationship Specialty Start Date End Date Francesca Martinez MD [address] Gund[address] [place] [phone] PCP - General 01/08/12 documented as of this encounter
--- OUTSIDE RECORDS SUMMARY | 2024-07-28 19:30 | XMS_ITS | Encounter Summary ---
Author Organization [facility] Address [address] [facility] [place] [address] Care Team Providers Care Asl Interpreter Name Role Phone Francesca Martinez MD Primary Care Provider [phone] Reason for Visit * Reason Comments Snoring Referred by dentist for possible sleep apnea. T&A done 3-4 years ago with no improvement in snoring. Encounter Details Date Type Department Care Team (Latest Contact Info) Description 03/20/2017 11:30 AM CDT - 03/20/2017 11:59 PM T Hospital Encounter [facility] Pediatrics - ENT [address] [place] [address] Vickie Garcia, BENCH WORKER BINDING-REHAB DIRECTOR OCCUPATIONAL THERAPIST [address] [place] [address] Discharge Disposition: Home or Self Care Social [...] - Inhaled Oxygen Concentration - - Weight 53.3 kg (117 lb 8.1 oz) 03/20/20 17 11:36 AM CDT Height 158.5 cm (5' 2.4 ) 03/20/2017 11 :36 AM CDT Body Mass Index 21.22 03/20/2017 11:36 AM CDT Body Mass Index Percentile 79.43% 03/20 11:36 AM CDT Growth Chart: [facility] (Girls, 2- 20 Years) documented in this encounter Medications at Time [...] Inhaler 5 05/23/2016 06/18/2018 beclomethasone dipropionate (QVAR) 40 MCG/ACT inhaler Inhale 2 Puffs by mouth 2 times daily 1 Inhaler 5 05/23/2016 04/24/2017 cetirizine (ZYRTEC ALLERGY) 10 MG tablet Take 1 Tab by mouth once daily as needed for Runny Nose or Allergies (itch) 30 Tab 5 05/23/2016 04/24/2017 fluticasone propionate (FLONASE) 50 MCG/ACT nasal sprayIndications:Season al allergic rhinitis due to pollen Knox 2 Sprays into each nostril once daily 1 Bottle 5 05/23/2016 04/24/2017 guanFACINE (TENEX) 2 MG tabletIndications:takes 4 mg (2 tablets) every night. Take 4 mg by mouth at bedtime Reasons: takes 4 mg (2 tablets) every night. 09/23/2018 methylphenidate CR 36 MG tablet Take 36 mg by mouth once daily. In the AM 0 10/10/2014 04/23/2017 montelukast (SINGULAIR) 5 MG chew tablet Take 1 Tab by mouth at bedtime 30 Tab 5 05/23/2016 04/24/2017 documented as of this encounter Progress Notes * Vickie Varma, BENCH WORKER BINDING-REHAB DIRECTOR OCCUPATIONAL THERAPIST - 03/20/2017 12:57 PM CDT Images from the original note were not included. Division of Pediatric Otolaryngology [address] [place] [phone] ? Name: Veronica Lowe Age: 11 y.o. 6 m.o. Sex: female Date: 03/20/2017 : 2005 Pediatric Otolaryngology Visit Veronica Lowe is a 11 y.o. female that presents to the Pediatric Otolaryngology Clinic with the following complaints: Snoring (Referred by dentist for possible sleep apnea. T&A done 3-4 years ago with no improvement in snoring. ). She was accompanied today by her mother. Sleep Disorder Symptoms: Snoring and witnessed apnea. Pertinent History: Persistent mouth breathing. Had T&[place] [address] Ramos and mother reports symptoms were initially resolved. History Past Medical History: Diagnosis Date ??? ADHD (attention deficit hyperactivity disorder) takes ritalin ??? LELA (obstructive sleep apnea) 05/14/13--clinical signs no sleep study ??? 36 5/7 weeks 6 lbs 8 oz No history on file. Past Surgical History: Procedure Laterality Date ??? NEGATIVE SURGICAL HISTORY ??? Tonsillectomy and Adenoidectomy 05/14/2013 N/A; TONSILLECTOMY AND ADENOIDECTOMY Family History Problem Relation Age of Onset ??? Anesthesia Reaction Neg Hx Social History Lives with: Parents, Other (comment) (x2 sisters ) School/daycare: Elementary Tobacco: History Smoking Status ??? Never Smoker Smokeless Tobacco ??? Never Used Allergies Penicillins Immunizations Up to date by parent report Current Medications Current Outpatient Prescriptions Medication ??? melatonin 5 MG tablet ??? cetirizine (ZYRTEC ALLERGY) 10 MG tablet ??? albuterol HFA (PROVENTIL;VENTOLIN;PROAIR) 108 (90 BASE) MCG/ACT inhaler ??? montelukast (SINGULAIR) 5 MG chew tablet ??? beclomethasone dipropionate (QVAR) 40 MCG/ACT inhaler ??? fluticasone propionate (FLONASE) 50 MCG/ACT nasal spray ??? methylphenidate (RITALIN) 5 MG tablet ??? methylphenidate CR 36 MG tablet ??? guanFACINE (TENEX) 2 MG tablet ??? AEROCHAMBER PLUS (AEROCHAMBER) No current facility-administered medications for this encounter. Review of Systems Constitutional: (+) normal growth Eyes: (-) drainage ENT: (-) hearing problem, (-) nasal obstruction and (-) throat infections Cardiovascular: (-) irregular heartbeat Respiratory: (+) wheezing Gastrointestinal: (-) vomiting Genitourinary: (-) change in urinary habit Musculoskeletal: (-) myalgia Integumentary / Skin: (-) eczema and (-) bruising Neurological: (-) seizures Psychiatric / Behavioral: (-) behavior problem Endocrine: (-) temperature intolerance Hematologic / Lymphatic: (-) bleeding gums Allergy / Immunology: (-) environmental/seasonal allergy treatment Vitals and Growth Parameters Temp: Height: 158.5 cm (5' 2.4 ) 69 %ile (Z= 0.51) based on CDC 2-20 Years [id number] data using vitals from 03/20/2017. Weight: 53.3 kg (117 lb 8.1 oz) 81 %ile (Z= 0.88) based on CDC 2-20 Years [id number] data usingvitals from 03/20/2017.BMI: 21.22 79 %ile (Z= 0.82) based on CDC 2-20 Years BMI-for-age data using vitals from 03/20/2017. 21.22 79 %ile (Z= 0.82) based on CDC 2-20 Years BMI-for-age data using vitals from 03/20/2017. BP: No blood pressure reading on file for this encounter. No blood pressure reading on file for this encounter. Physical Exam Constitutional: Alert, active, well-developed and well-nourished. Not distressed. Voice is normal. Head:Normocephalic. Eyes: Pupils are equal, round, and reactive to light. Ears: External ear Right: Normal position and normal size. Left: normal position and normal size. Canal Right: Normal. Left: Normal. Middle Ear Space Right: Clear. Left: Clear. Tympanic Membrane Right: Normal. Left: Normal. Nose: Atraumatic. Septum: Deviated to the right Turbinates: Normal. Rhinorrhea: None Mucosa: Weidman. Oral/Oropharyngeal: Oropharynx clear and gingiva normal. Tongue: Normal. Pharyngeal mucosa: Weidman Right tonsil: Absent. Left tonsil: Absent. Neck: Normal range of motion and trachea midline. No tenderness and no adenopathy. Pulmonary: Unlabored breathing on room air. No stridor and no stertor. Skin: Warm and dry skin. No rash and no bruising present. Neurological: Alert. Cranial nerves: VII grossly intact. X palate elevates symmetrically. XII projects midline. Procedure Note Procedure: Nasal endoscopy Indication: Nasal obstruction Note: Verbal consent for the procedure was obtained. Topical decongestant and topical anesthetic applied. The flexible scope was passed through the nares. She tolerated the procedure well. Findings: Incidental finding of septal perforation. Inferiorly deviated septum to the right. No adenoid re growth. Veronica is a 11 y.o. female with incidental finding of nasal septal perforation, inferior deviated septum and snoring s/p T&A. Plan Follow up with Dr Ramos for further management. LEWIS Shannon documented in this encounter Plan of Treatment Not on file documented as of this encounter Visit Diagnoses Not on filedocumented in this encounter Administered Medications Inactive Administered Medications - up to 3 most recent administrations Medication Order MAR Action Action Date Dose Rate Site lidocaine (XYLOCAINE) 4 % solution Topical, ONCE, 1 dose, On Daya 03/20/17 at 1245 $ Given 03/20/2017 12:20 PM CDT 2 mL Nares-Bilateral oxymetazoline (AFRIN) 0.05 % nasal spray 1 Knox 1 spray, Each Nostril, ONCE, 1 dose, On Daya 03/20/17 at 1245, . WASTE DISPOSAL INSTRUCTIONS: Black Bin Disposal required. $ Given 03/20/2017 12:20 PM CDT 1 spray Nares-Bilateral documented in this encounter Care Teams Asl Interpreter Relationship Specialty Start Date End Date Francesca Martinez MD [address] [place] [phone] PCP - General 01/08/12 documented as of this encounter
--- OUTSIDE RECORDS SUMMARY | 2024-07-28 19:30 | XMS_ITS | Encounter Summary ---
Author Organization [facility] Address [address] [place] [address] Care Team Providers Care Retail Loan Officer Name Role Phone Francesca Martinez MD Primary Care Provider Encounter Details Date Type Department Care Team (Latest Contact Info) Description 05/17/2021 Travel Social History Tobacco Use Types Packs/Day Years Used Date Smoking Tobacco: Never Smokeless Tobacco: Never Alcohol Use Standard Drinks/Week Comments Not Asked 0 (1 standard drink = 0.6 oz pur e alcohol) Sex and Gender Information Value Date Recorded Sex Assigned at Not on file Gender Identity Not on file Sexual Orientation Not on file COVID-19 Exposure Response Date Recorded In the last month, have you been in contact with someone who was confirmed or suspected to have Coronavirus / COVID-19? No / Unsure 05/16/2021 2:33 PM CDT documented as of this encounter Plan of Treatment Not on file documented as of this encounter Visit Diagnoses Not on filedocumented in this encounter Care Teams Retail Loan Officer Relationship Specialty Start Date End Date Francesca Martinez MD [address] [place] [phone] PCP - General 01/08/12 documented as of this encounter
--- OUTSIDE RECORDS SUMMARY | 2024-07-28 19:30 | XMS_ITS | Encounter Summary ---
Author Organization [facility] Address [address] [facility] [place] [address] Care Team Providers Care Conference Services Coordinator Name Role Phone Francesca Martinez MD Primary Care Provider [phone] Encounter Details Date Type Department Care Team (Late st Contact Info) Description 08/20/2017 [facility] [address] [place] [address] Karla Gillespie, BURN OUT TENDER LACE-STAVE SAW OPERATOR [address] [place] [address] Social History Tobacco Use Types Packs/Day Years Used Date Smoking Tobacco: Never Smokeless Tobacco: Never Alcohol Use Standard Drinks/Week Comments Not Asked 0 (1 standard drink = 0.6 oz pur e alcohol) Sex and Gender Information Value Date Recorded Sex Assigned at Not on file Gender Identity Not on file Sexual Orientation Not on file documented as of this encounter Plan of Treatment Not on file documented as of this encounter Visit Diagnoses Not on filedocumented in this encounter Care Teams Conference Services Coordinator Relationship Specialty Start Date End Date Francesca Martinez MD [address] [place] [phone] PCP - General 01/08/12 documented as of this encounter
--- OUTSIDE RECORDS SUMMARY | 2024-07-28 19:30 | XMS_ITS | Encounter Summary ---
Author Organization [facility] Address [address] [facility] [place] [address] Care Team Providers Care Overhauler Bus Truck Name Role Phone Francesca Martinez MD Primary Care Provider [phone] Reason for Visit * Reason Onset Date Comments Medication Problem 07/31/2017 Encounter Details Date Type Department Care Team (Late st Contact Info) Description 07/31/2017 Telephone [facility] Pediatrics - Immunology [address] [place] [phone] Augustin Millan MD [address] [place] [phone] Medication Problem Social History Tobacco Use Types Packs/Day Years [...] encounter Miscellaneous Notes * Telephone Encounter - Maryanne Sanders RN - 07/31/2017 4:08 PM CST Notified [facility] that Aerospan was discontinued and Asmanex was ordered instead. T MAKER * Telephone Encounter - Yoana Castro MD - 07/31/2017 2:57 PM CST Asmanex 100 mcg inhaler ordered as alternative to Aerospan 80 mcg inhaler. Yoana Castro MD Allergy/Immunology Fellow T MAKER * Telephone Encounter - Maryanne Sanders RN - 07/31/2017 1:41 PM CST Received a fax from [facility] notifying us that Aerospan is not available due to a group activities aide problem. Preferred alternatives include: Advair Diskus/HFA, Spiriva Handihaler, Symbicort and Asmanex. Will route to A/I fellow. T MAKER documented in this encounter Plan of Treatment Not on file documented as of this encounter Visit Diagnoses Not on filedocumented in this encounter Care Teams Overhauler Bus Truck Relationship Specialty Start Date End Date Francesca Martinez MD [address] [place] [phone] PCP - General 01/08/12 documented as of this encounter
--- OUTSIDE RECORDS SUMMARY | 2024-07-28 19:30 | XMS_ITS | Encounter Summary ---
Author Organization [facility] Address [address] [facility] [place] [address] Care Team Providers Care Bridal Stylist Sales Consultant Name Role Phone Francesca Martinez MD Primary Care Provider [phone] Encounter Details Date Type Department Care Team (Latest Contact Info) Description 05/16/2021 Travel Social History Tobacco Use Types Packs/Day [...] on filedocumented in this encounter Care Teams Bridal Stylist Sales Consultant Relationship Specialty Start Date End Date Francesca Martinez MD [address] [place] [phone] PCP - General 01/08/12 documented as of this encounter
--- OUTSIDE RECORDS SUMMARY | 2024-07-28 19:30 | XMS_ITS | Encounter Summary ---
Author Organization [facility] Address [address] [place] [address] Care Team Providers Care Audit Consultant Name Role Phone Francesca Martinze MD Primary Care Provider [phone] Reason for Visit * Reason Comments Allergy Symptoms Asthma Encounter Details Date Type Department Care Team (Latest Contact Info) Description 12/31/2018 10:58 AM CDT - 12/31/2018 11:59 PM CDT Hospital Encounter [facility] Pediatrics - Immunology [address] [place] [id number] Augustin Millan MD [address] [place] [phone] Discharge Disposition: Home or Self Care Social [...] Sign Reading Time Taken Comments Blood Pressure 90/60 12/31/2018 11:06 AM CDT Pulse - - Temperature - - Respiratory Rate - - Oxygen Saturation - - Inhaled Oxygen Concentration - - Weight 60.2 kg (132 lb 11.5 oz) 019 11:06 AM CDT Height 163.9 cm (5' 4.53 ) 12/31/2018 1 1:06 AM CDT Body Mass Index 22.41 12/31/2018 11:06 AM CDT Body Mass Index Percentile 78.69% 12/31 11:06 AM CDT Growth Chart: [facility] (Girls, 2- 20 Years) documented in this encounter Discharge Instructions * Patient Instructions* Mckenzie Haq RN - 12/31/2018 12:00 PM CDT The Discharge Instructions have been reviewed with the patient and her family. The parents have verbalized understanding. No orders of the defined types were placed in this encounter. documented in this encounter Medications at Time [...] fluticasone propionate (FLONASE) 50 MCG/ACT nasal spray Sulphur 2 sprays into each nostril once daily 1 bottles 6 12/31/2018 05/17/2021 mometasone-formoterol (DULERA) 200-5 MCG/ACT inhaler Inhale 2 puffs by mouth 2 times daily 1 Inhaler 6 12/31/2018 05/13/2019 montelukast (SINGULAIR) 10 MG tablet Take 1 tablet by mouth once daily 31 tablet 6 12/31/2018 05/17/2021 documented as of this encounter Progress Notes * Augustin Millan MD - 12/31/2018 11:12 AM CDT Date 12-31-2018 LV 06-18-2018 ?? ALLERGY & IMMUNOLOGY ATTENDING NOTE Patient seen and examined with resident. I have reviewed the Allergy & Immunology fellow's history, physical examination, assessment and treatment plan and evaluation. I confirm/revise history, examination, assessment and plan. In addition I note: ? Present Illness Veronica Lowe is a 13 year old female who presents for evaluation of ?? Asthma, moderate persistent, needs better control Still symptomatic with exercise symptoms and nocturnal symptoms ? AR, needs better control of congestion ?? 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 Alternaria, Aspergillus, Cladosporium, Penicillium IgE 370, ??AEC 920 ? AC ? ADHD Managed by Dr Trotter ? PAST MEDICAL HISTORY ? Drug Allergy Amoxacillin, urticaria at 1 year old ? Surgical History T&A 05-14-2013 ? Social History Patients lives with mother and father ? Family History IgA deficiency, sister Michele ?? THI, sister Sariah ? Review of Symptoms: ?? Constitutional: Negative Eyes: Negative Ears, nose, mouth, and throat: see HPI Respiratory: see HPI Cardiovascular: Negative Gastrointestinal: Negative Genitourinary:Negative Skin: Negative Breast: Negative Hematologic/lymphatic: Negative Musculoskeletal:Negative Neurological: see HPI Behavioral/Psych: Negative Endocrine: Negative ?? Physical Examination BP 90/60 Ht 1.639 m (5' 4.53 ) Wt 60.2 kg (132 lb 11.5 oz) BMI 22.41 kg/m2 General Assessment:: alert, well appearing, and in no distress Skin Exam: no lesions, jaundice, petechiae, pallor, cyanosis, ecchymosis Head: Atraumatic, normocephalic Eyes: PERRL, EOM intact Ears: Normal external auditory canal and tympanic membrane bilaterally Nose: nasal mucosa, septum, turbinates normal bilaterally Mouth: mucous membranes moist, pharynx normal without lesions Neck: supple, full range of motion, no mass, normal lymphadenopathy, no thyromegaly Heart: Regular rate and rhythm, normal S1/S2, no murmurs, normal pulses and capillary fill Chest: clear to auscultation, no wheezes, rales, or rhonchi, no tachypnea, retractions, or cyanosis Abdomen: Abdomen is soft without significant tenderness, masses, organomegaly or guarding. Back: full range of motion, no tenderness, palpable spasm or pain on motion Extremities: Normal muscle tone. All joints with full range of motion. No deformity or tenderness. Neuro: alert, oriented, normal speech, no focal findings or movement disorder noted ? Parameter Actual % Predicted FVC 3.71 liters 110.42 % FEV1 3.15 liters 106.06 % [id number] 3.34 L/SEC 93.82 % PEF Pre-Tx Actual Peak Flow: (!) 5.93 L/SEC 93.83 % FEV1/FVC 84.91 % -3.48 % FeNO ?? FeNO: 22 ppb Normal <25, Intermediate 25-50, High >50 ?? Interpretation: Normal ?? Impressions ?? Asthma, moderate persistent, needs better control Still symptomatic with exercise symptoms and nocturnal symptoms ? AR, needs better control of congestion ?? 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 Alternaria, Aspergillus, Cladosporium, Penicillium IgE 370, ??AEC 920 ? AC ? ADHD Managed by Dr Trotter ? Recommendations ? PFTs FeNO ? FU 6 months. ??If asthma under better control do IT ? Consider trial of Dupilumab ??(Dupixent) Initial dose 400 mg, Maintenance 200 mg q 2 weeks ? Medications ? Asthma Dulera ??200-5 2x2 Singulair 10 mg hs Albuterol hfa prn ? AR Flonase 1x1. ??Change to Asteline 1x2 Singulair 10 mg hs Zyrtec 10 mg q day Guanfacine 2 mg 3 mg hs ? ADHA medications Methylphenidate CR 36 mg q day Melatonin 5 mg hs ? FU 6??months ? Augustin Millan MD 12/31/201811:26 AM Please see resident note for further details ? Allergy & Immunology Office Visit Note LAST VISIT: 06/18/18 CHIEF COMPLAINT: Allergy Symptoms and Asthma HISTORY OF PRESENT ILLNESS: Veronica Lowe is a 13 year old female who presents today for follow-up of her asthma, allergic rhinitis. She is accompanied by her mother, from whom additional history is obtained. Asthma: Currently on Dulera 200 mcg 2 puffs BID, Singulair 10 mg Albuterol prior to exercise Albuterol use: 1-2 times every other week Is experiencing SOB, chest tightness more often than that Smoke exposure: none Pollen is a big trigger No ED visits, hospitalizations or oral corticosteroid bursts for asthma-related symptoms. Asthma Control Test (>12 years of age) Allergic rhinitis and Allergic Conjunctivitis: Currently on Zyrtec 10 mg qHS, Flonase 2 SEN daily (not using often). Has been having a lot of sneezing, rhinorrhea, congestion, and eyes itchy, watery, red Uses OTC eye drops Quality of Life Questionnaire Current Outpatient Prescriptions Medication Sig Dispense Refill ??? AEROCHAMBER PLUS (AEROCHAMBER) Use as directed 1 Each 1 ??? albuterol HFA (PROVENTIL;VENTOLIN;PROAIR) 108 (90 BASE) MCG/ACT inhaler Inhale 2 puffs by mouthevery 6 hours as needed for Shortness of Breath, Wheezing or Cough 2 Inhaler 5 ??? cetirizine (ZYRTEC ALLERGY) 10 MG tablet Take 1 tablet by mouth once daily as needed for Runny Nose or Allergies (itch) 30 tablet 11 ??? fluocinolone acetonide (SYNALAR) 0.01 % solution Apply to scalp daily for one week with flares then every other day. 60 mL 0 ??? fluticasone propionate (FLONASE) 50 MCG/ACT nasal spray Sulphur 2 sprays into each nostril once daily 1 bottles 6 ??? melatonin 5 MG tablet Take 5 mg by mouth at bedtime Reasons: takes 10 mg (2 tablets) at bedtime. ??? methylphenidate (RITALIN) 5 MG tablet Take 5 mg by mouth Every morning and lunchtime ??? mometasone-formoterol (DULERA) 200-5 MCG/ACT inhaler Inhale 2 puffs by mouth 2 times daily 1 Inhaler 6 ??? montelukast (SINGULAIR) 10 MG tablet Take 1 tablet by mouth once daily 31 tablet 6 ??? sertraline (ZOLOFT) 25 MG tablet No current facility-administered medications for this encounter. Medication Allergies: No Known Allergies Review of Systems: Constitutional: No weight loss, fever, LEWIS, fatigue ENT: + rhinorrhea, +nasal congestion, +sneezing, +ocular/nasal pruritus CV: No chest pain, dyspnea on exertion, or palpitations Resp: no wheeze, +SOB, -cough GI: No abdominal pain, vomiting, diarrhea, constipation, dysphagia : No retention, incontinence, dysuria, hematuria MS: No joint or bone pain, swelling, redness Neuro: No weakness, numbness, confusion, syncope Skin: no hives, angioedema, pruritus, eczema Psych: No behavioral changes Endocrine: no polyuria, polydipsia, flushing Heme/Lymph: no bruising or bleeding A review of past medical history, environmental history, and family history was obtained and no change since previous visit. PHYSICAL EXAM: BP 90/60 Ht 1.639 m (5' 4.53 ) Wt 60.2 kg (132 lb 11.5 oz) BMI 22.41 kg/m2 GENERAL: No acute distress, well-developed, well-nourished EYES: Conjunctivae clear bilaterally, no allergic shiners ENT: TM clear bilaterally, nares patent with pale, boggy nasal mucosa, perforated nasal septum, dried blood against right nasal septum, oropharynx clear CV: Heart with regular rate and rhythm, normal S1 RESPIRATORY: Lungs clear to auscultation bilaterally, no wheezes EXTREMITIES: No cyanosis, edema, or clubbing SKIN: No lesions or rashes LYMPHATIC: No cervical lymphadenopathy NEUROLOGIC: Alert, follows commands Pulmonary Function Studies Parameter Actual % pred FVC 3.71 liters 110.42 % FEV1 3.15 liters 106.06 % [id number] 3.34 L/SEC 93.82 % PEF Pre-Tx Actual Peak Flow: (!) 5.93 L/SEC 93.83 % FEV1/FVC 84.91 % FeNO FeNO: 22 ppb Normal <25 Intermediate 25-50 High >50 (>=12y/o) Normal <20 Intermediate 20-35 >35 High (<12yo) Interpretation: Technique: acceptable Flow Volume Loop - Appears normal. Findings are consistent with Normal PFT.. ASSESSMENT & PLAN: Encounter Diagnoses Name Primary? Moderate persistent asthma without complication Yes ??? Seasonal allergic rhinitis due to pollen ??? Allergic conjunctivitis, bilateral Moderate Persistent Asthma: - Continue Dulera 200 mcg 2 puffs BID with aerochamber. - Continue Singulair 10 mg PO QHS - Provided family with a written asthma action plan as well as demonstration of appropriate technique for using inhaled asthma medications. Allergic Rhinitis/Conjunctivitis: - Discussed environmental control measures to decrease overall relevant aeroallergen exposure. - Continue Flonase 2 spray(s) each nostril daily . - Demonstrated proper nasal spray technique with specific instruction to avoid the nasal septum. - Continue cetirizine 10 mg qHS Return in about 6 months (around 07/02/2019). Saira Gleason MD Allergy & Immunology Fellow [facility] 12/31/2018 11:53 AM * Augustin Millan MD - 12/30/2018 1:36 PM CDT Date 12-31-2018 LV 06-18-2018 ALLERGY & IMMUNOLOGY ATTENDING NOTE Patient seen and examined with resident. I have reviewed the Allergy & Immunology fellow's history, physical examination, assessment and treatment plan and evaluation. I confirm/revise history, examination, assessment and plan. In addition I note: Present Illness Veronica Lowe is a 13 year old female who presents for evaluation of Asthma, moderate persistent, needs better control Still symptomatic with exercise symptoms and nocturnal symptoms ? 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 Alternaria, Aspergillus, Cladosporium, Penicillium IgE 370, AEC 920 ? AC ? ADHD Managed by Dr Trotter ? PAST MEDICAL HISTORY ? Drug Allergy Amoxacillin, urticaria at 1 year old ? Surgical History T&A 05-14-2013 ? Social History Patients lives with mother and father ? Family History IgA deficiency, sister Michele ?? THI, sister Sariah ? Review of Symptoms: ?? Constitutional: Negative Eyes: Negative Ears, nose, mouth, and throat: see HPI Respiratory: see HPI Cardiovascular: Negative Gastrointestinal: Negative Genitourinary:Negative Skin: Negative Breast: Negative Hematologic/lymphatic: Negative Musculoskeletal:Negative Neurological: see HPI Behavioral/Psych: Negative Endocrine: Negative ?? Physical Examination BP 90/60 Ht 1.639 m (5' 4.53 ) Wt 60.2 kg (132 lb 11.5 oz) BMI 22.41 kg/m2 General Assessment:: alert, well appearing, and in no distress Skin Exam: no lesions, jaundice, petechiae, pallor, cyanosis, ecchymosis Head: Atraumatic, normocephalic Eyes: PERRL, EOM intact Ears: Normal external auditory canal and tympanic membrane bilaterally Nose: nasal mucosa, septum, turbinates normal bilaterally Mouth: mucous membranes moist, pharynx normal without lesions Neck: supple, full range of motion, no mass, normal lymphadenopathy, no thyromegaly Heart: Regular rate and rhythm, normal S1/S2, no murmurs, normal pulses and capillary fill Chest: clear to auscultation, no wheezes, rales, or rhonchi, no tachypnea, retractions, or cyanosis Abdomen: Abdomen is soft without significant tenderness, masses, organomegaly or guarding. Back: full range of motion, no tenderness, palpable spasm or pain on motion Extremities: Normal muscle tone. All joints with full range of motion. No deformity or tenderness. Neuro: alert, oriented, normal speech, no focal findings or movement disorder noted Parameter Actual % Predicted FVC 3.71 liters 110.42 % FEV1 3.15 liters 106.06 % [id number] 3.34 L/SEC 93.82 % PEF Pre-Tx Actual Peak Flow: (!) 5.93 L/SEC 93.83 % FEV1/FVC 84.91 % -3.48 % FeNO FeNO: 22 ppb Normal <25, Intermediate 25-50, High >50 Interpretation: Normal Impressions Asthma, moderate persistent, needs better control Still symptomatic with exercise symptoms and nocturnal symptoms ? 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 Alternaria, Aspergillus, Cladosporium, Penicillium IgE 370, AEC 920 ? AC ? ADHD Managed by Dr Trotter ? Recommendations ? PFTs FeNO ? FU 6 months. If asthma under better control do IT ?? Consider trial of Dupilumab ??(Dupixent) Initial dose 400 mg, Maintenance 200 mg q 2 weeks ?? Medications ? Asthma Dulera 200-5 2x2 Singulair 10 mg hs Albuterol hfa prn ? AR Flonase 1x1. Change to Asteline 1x2 Singulair 10 mg hs Zyrtec 10 mg q day Guanfacine 2 mg 3 mg hs ? ADHA medications Methylphenidate CR 36 mg q day Melatonin 5 mg hs ? FU 6??months ? Augustin Millan MD 12/31/201811:26 AM Please see resident note for further details documented in this encounter Plan of Treatment Not on file documented as of this encounter Visit Diagnoses Diagnosis Moderate persistent asthma without complication (HCC)- Primary Unspecified asthma Seasonal allergic rhinitis due to pollen Allergic conjunctivitis, bilateral Other chronic allergic conjunctivitis documented in this encounter Care Teams Audit Consultant Relationship Specialty Start Date End Date Francesca Martinez MD [address] [place] [phone] PCP - General 01/08/12 documented as of this encounter
--- OUTSIDE RECORDS SUMMARY | 2024-07-28 19:30 | XMS_ITS | Encounter Summary ---
Author Organization [facility] Address [address] [facility] [place] [address] Care Team Providers Care Childhood Teacher Name Role Phone Francesca Martinez MD Primary Care Provider [phone] Encounter Details Date Type Department Care Team (Latest Contact Info) Description 08/20/2017 12:44 PM [facility] SPECIALIST - 08/20/2017 11:59 PM [facility] Hospital Encounter [facility] Pediatrics - Lab [address] [place] [phone] Karla Gillespie, MANAGER APPLICATION-APPLICATION OPERATIONS ENGINEER [address] [place] [phone] Discharge Disposition: Home or Self Care Social [...] Allergies (itch) 30 Tab 11 04/24/2017 06/18/2018 Cholecalciferol 2000 UNITS Take 2,000 Units by mouth once daily for 90 days 30 capsule 2 08/20/2017 11/18/2017 ferrous sulfate 325 (65 FE) MG tablet Take 1 tablet by mouth 2 times daily Take w/ vitamin C such as OJ. Miralax or generic for tummy upset. 60 tablet 3 08/20/2017 11/26/2017 fluticasone propionate (FLONASE) 50 MCG/ACT nasal sprayIndications:Season al allergic rhinitis due to pollen, unspecified chronicity Lambert 2 Sprays into each nostril once daily 1 Bottle 11 04/24/2017 11/26/2017 guanFACINE (TENEX) 2 MG tabletIndications:takes 4 mg (2 tablets) every night. Take 4 mg by mouth at bedtime Reasons: takes 4 mg (2 tablets) every night. 09/23/2018 mometasone-formoterol (DULERA) 100-5 MCG/ACT inhaler Inhale 2 puffs by mouth 2 times daily 1 Inhaler 5 08/06/2017 06/18/2018 montelukast (SINGULAIR) 10 MG tabletIndications:Asthm a Take 1 Tab by mouth every evening Reasons: Asthma 30 Tab 11 04/24/2017 11/26/2017 documented as of this encounter Plan of Treatment Not on file documented as of this encounter Procedures Procedure Name Priority Date/Time Associated Diagnosis Comments VITAMIN D 25-HYDROXY Routine 08/20/2017 12:44 PM [facility] SPECIALIST Restless sleeper FERRITIN Routine 08/20/2017 12:44 PM [facility] SPECIALIST Restless sleeper documented in this encounter Results * VITAMIN D (25-HYDROXY) (08/20/2017 12:44 PM [facility] SPECIALIST) Vitamin D, 25 Hydroxy 20.2 20 - 100 ng/mL 08/20/2017 1:44 PM [facility] SPECIALIST [facility] Blood BLOOD SPECIMEN / Unknown Lab Venipuncture / Unknown 08/20/2017 12:44 PM [facility] SPECIALIST 08/20/2017 12:53 PM [facility] SPECIALIST Narrative [facility] - 08/20/2017 1:44 PM [facility] SPECIALIST Vitamin D Status: ?Deficient ? <10 ?? ng/mL ? Borderline ?10-20 ng/mL ?Sufficient ?>20 ?? ng/mL ?Toxic ? >100 ??ng/mL Karla Youngo MANAGER APPLICATION-APPLICATION OPERATIONS ENGINEER LAB - CHEMISTR Y ORDERABLES Performing Organization Address [facility] de Phone Number [facility] [address] [place] [address] * FERRITIN (08/20/2017 12:44 PM [facility] SPECIALIST) [facility] Ferritin 36 10 - 140 ng/mL 08/20/2017 2:00 PM [facility] SPECIALIST [facility] Blood BLOOD SPECIMEN / Unknown Lab Venipuncture / Unknown 08/20/2017 12:44 PM [facility] SPECIALIST 08/20/2017 12:53 PM [facility] SPECIALIST Karla Josselin MathisJose Miguel MANAGER APPLICATION-APPLICATION OPERATIONS ENGINEER LAB - CHEMISTR Y ORDERABLES Performing Organization Address [facility] de Phone Number [facility] [address] [place] [address] documented in this encounter Visit Diagnoses Diagnosis Restless sleeper Sleep disturbance, unspecified documented in this encounter Care Teams Childhood Teacher Relationship Specialty Start Date End Date Francesca Martinez MD [address] [place] [phone] PCP - General 01/08/12 documented as of this encounter
--- OUTSIDE RECORDS SUMMARY | 2024-07-28 19:30 | XMS_ITS | Encounter Summary ---
Author Organization [facility] Address [address] [facility] [place] [address] Care Team Providers Care Data Entry Analyst Name Role Phone Francesca Martinez MD Primary Care Provider [phone] Reason for Visit * Reason Comments Snoring Per mom pts symptoms unchanges. Difficulty falling asleep, awakes multiple times a night and doesn't want to wake up in the morning. Negative for sleep apnea. Encounter Details Date Type Department Care Team (Latest Contact Info) Description 11/26/2017 10:48 AM CDT - 11/26/2017 11:57 AM T Hospital Encounter [facility] - Sleep [address] [place] [address] Karla Gillespie, [employer] LITHOGRAPHER-REGISTERED SALES ASSISTANT [address] [place] [address] Discharge Disposition: Home or Self Care Social [...] Sign Reading Time Taken Comments Blood Pressure 104/74 11/26/2017 10:56 AM CDT Pulse 84 11/26/2017 10:56 AM CDT Temperature - - Respiratory Rate - - Oxygen Saturation 97% 11/26/2017 10: 56 AM CDT Inhaled Oxygen Concentration - - Weight 55.8 kg (123 lb 0.3 oz) 11/27/19 18 10:56 AM CDT Height 161.7 cm (5' 3.66 ) 11/26/2017 1 0:56 AM CDT Body Mass Index 21.34 11/26/2017 10:56 AM CDT Body Mass Index Percentile 76.59% 11/26 10:56 AM CDT Growth Chart: [facility] (Girls, 2- 20 Years) documented in this encounter Discharge Instructions * Patient Instructions* Karla Gillespie APRN-CNP - 11/26/2017 11:19 AM CDT 1. Continue Singulair and Flonase 2. Labs today 3. Continue current iron dosing. We will call you with lab results and adjust dosing if needed. 4. Move bedtime to 9 PM. Give melatonin at 830 PM Please call our nurse's line with any questions. ([phone], opt 3) documented in this encounter Medications at Time [...] Allergies (itch) 30 Tab 11 04/24/2017 06/18/2018 ferrous sulfate 325 (65 FE) MG tablet Take 1 tablet by mouth 2 times daily Take w/ vitamin C such as OJ. Miralax or generic for tummy upset. 60 tablet 3 11/26/2017 10/26/2018 fluocinolone acetonide (SYNALAR) 0.01 % solution Apply to scalp twice daily as needed for itching/scale. 30 day supply. Please call for refills. 60 mL 10/09/2017 09/23/2018 fluticasone propionate (FLONASE) 50 MCG/ACT nasal spray Humble 2 sprays into each nostril once daily 1 bottles 11 11/26/2017 12/31/2018 guanFACINE (TENEX) 2 MG tabletIndications:takes 4 mg (2 tablets) every night. Take 4 mg by mouth at bedtime Reasons: takes 4 mg (2 tablets) every night. 09/23/2018 mometasone-formoterol (DULERA) 100-5 MCG/ACT inhaler Inhale 2 puffs by mouth 2 times daily 1 Inhaler 5 08/06/2017 06/18/2018 montelukast (SINGULAIR) 5 MG chew tablet Take 1 tablet by mouth once daily 30 tablet 5 11/26/2017 09/23/2018 Salicylic Acid (SCALPICIN) 3 % solution Apply to scalp 4-7 times a week as tolerated. [employer] does not carry this product. 177 mL 10/09/2017 09/23/2018 documented as of this encounter Progress Notes * Karla Gillespie, [employer] LITHOGRAPHER-REGISTERED SALES ASSISTANT - 11/26/2017 11:04 AM CDT Follow-up Visit Pediatric Sleep Medicine [facility] Chief Complaint Patient presents with ??? Snoring Per mom pts symptoms unchanges. Difficulty falling asleep, awakes multiple times a night and doesn't want to wake up in the morning. Negative for sleep apnea. HPI: Veronica Lowe is a 12 y.o. female who presents to the Pediatric Sleep Disorders Clinic at [facility] on 11/26/2017 for follow up of primary snoring, restless sleep and chronic insomnia. Veronica was accompanied by her mother who assisted in providing the history. Subjective Sleep Report: Somewhat improved Diag PSG (not split) 08/21/17 Primary Snoring oAHI 0.7 AHI 1.1 Low sat 96% PLMI 0, limb movement index 3.4 Started on singulair and Flonase following sleep study. Initially, mother and Veronica state that they have not taken either medication in a very long time and then shortly after state that she has been taking both daily since August. Snoring occurs nightly. Ferrous sulfate started at previous visit. Iron was prescribed as 325 mg BID, but has only been taking once daily. Veronica feels she is less restless at night.. Sleep Schedule: Weekday Bedtime: 8:00PM Amount of Time to Fall Asleep: 1 hour with 5 mg of melatonin at 730. No screen time. Hard time getting comfortable at bedtime Awakenings at Night: 1 time per night, takes up to one hour to fall back to sleep Weekday Wake Time: 7:00AM Weekend Bedtime: 9 PM Weekend Wake Time: 11:00AM Naps: Does not take naps Bedtime Routine: dinner, play, bath/shower, brush teeth, read book and lights out Sleep Location: in their own room and in their own bed ROS: 10 systems reviewed all rest are negative, except as above. MODIFIED EPWORTH: Sitting and Reading slight chance of dozing Watching TV moderate chance of dozing Sitting, inactive in a public place slight chance of dozing Car passenger for an hour slight chance of dozing Lying down to rest in afternoon moderate chance of dozing Sitting and Talking would never doze Sitting Quietly after lunch would never doze While playing a video game would never doze Total Dozing Score 7 Past Medical History: Diagnosis Date ??? ADHD (attention deficit hyperactivity disorder) takes ritalin ??? LELA (obstructive sleep apnea) 05/14/13--clinical signs no sleep study ??? infant 36 5/7 weeks 6 lbs 8 oz Past Surgical History: Procedure Laterality Date ??? NEGATIVE SURGICAL HISTORY ??? Tonsillectomy and Adenoidectomy 05/14/2013 N/A; TONSILLECTOMY AND ADENOIDECTOMY Current Outpatient Prescriptions on File Prior to Encounter Medication Sig Dispense Refill ??? ferrous sulfate 325 (65 FE) MG tablet Take 1 tablet by mouth 2 times daily Take w/ vitamin C such as OJ. Miralax or generic for tummy upset. (Patient taking differently: Take 325 mg by mouth 2 times daily Take w/ vitamin C such as OJ. Miralax or generic for tummy upset. Reasons: taking once a day) 60 tablet 3 ??? mometasone-formoterol (DULERA) 100-5 MCG/ACT inhaler Inhale 2 puffs by mouth 2 times daily 1 Inhaler 5 ??? cetirizine (ZYRTEC ALLERGY) 10 MG tablet Take 1 Tab by mouth once daily as needed for Runny Nose or Allergies (itch) 30 Tab 11 ??? fluticasone propionate (FLONASE) 50 MCG/ACT nasal spray Humble 2 Sprays into each nostril once daily 1 Bottle 11 ??? montelukast (SINGULAIR) 10 MG tablet Take 1 Tab by mouth every evening Reasons: Asthma 30 Tab 11 ??? methylphenidate (RITALIN) 5 MG tablet Take 5 mg by mouth Every morning and lunchtime ??? guanFACINE (TENEX) 2 MG tablet Take 4 mg by mouth at bedtime Reasons: takes 4 mg (2 tablets) every night. ??? melatonin 5 MG tablet Take 5 mg by mouth at bedtime Reasons: takes 10 mg (2 tablets) at bedtime. ??? fluocinolone acetonide (SYNALAR) 0.01 % solution Apply to scalp twice daily as needed for itching/scale. 30 day supply. Please call for refills. 60 mL 0 ??? Salicylic Acid (SCALPICIN) 3 % solution Apply to scalp 4-7 times a week as tolerated. [employer] does not carry this product. 177 mL 0 ??? albuterol HFA (PROVENTIL;VENTOLIN;PROAIR) 108 (90 BASE) MCG/ACT inhaler Inhale 2 Puffs by mouthevery 6 hours as needed for Shortness of Breath, Wheezing or Cough 2 Inhaler 5 ??? AEROCHAMBER PLUS (AEROCHAMBER) Use as directed. 1 each 1 No current facility-administered medications on file prior to encounter. No Known Allergies Exam: Weight: 55.8 kg (123 lb 0.3 oz) BP 104/74 Pulse 84 Ht 1.617 m (5' 3.66 ) Wt 55.8 kg (123 lb 0.3 oz) SpO2 97% BMI 21.34 kg/m2 Height: 161.7 cm (5' 3. ) There is no height or weight on file to calculate BMI. General: alert, oriented, well appearing child Respiratory: Clear to auscultation bilaterally, normal effort CV: RRR, no murmurs, no gallops, no rubs Head and Face: no lesions, symmetrical, no facial erythema skin breakdown Eyes: extraocular muscles intact Ears: inspection: normal pinnae shape and position Nasal: normal nasal turbinates, no rhinorrehea and non-deviated septum Oral Cavity: overbite and overjet, normal arched hard palate, low lying soft palate, slight scalloping of tongue, normal uvula Throat: tonsil absent Mallampati score 3 Chin/Neck: supple without tenderness or crepitus, no palpable adenopathy. Skin: no dry skin on legs Neuro: normal sensation, 5/5 strength in upper and lower extremities. Impression/Plan: Primary Snoring: Consistent use of Singulair and Flonase encouraged. Restless Sleeper: Restlessness improving on iron. Serum ferritin checked today. Replace iron for ferritin < 80. Chronic Insomnia: Improving. Current time in bed 11+ hours. I explained to mother that this may be an unrealistic amount of time for her to sleep. Mother to push bedtime to 9 PM and give melatonin to830 PM. This may decrease sleep latency and allow for normal sleep times. The below plan was given to the parent. Patient Instructions 1. Continue Singulair and Flonase 2. Labs today 3. Continue current iron dosing. We will call you with lab results and adjust dosing if needed. 4. Move bedtime to 9 PM. Give melatonin at 830 PM Please call our nurse's line with any questions. ([phone], opt 3) Thank you for allowing me to participate in the care of your patient. Please call us with any questions at [phone]. LEWIS Alvarez documented in this encounter Plan of Treatment Not on file documented as of this encounter Results * FERRITIN (11/26/2017 11:58 AM CDT) Ferritin 25 10 - 140 ng/mL 11/26/2017 1:49 PM CDT [facility] Blood BLOOD SPECIMEN / Unknown Lab Venipuncture / Unknown 11/26/2017 11:58 AM CDT 11/26/2017 12:26 PM CDT Karla Gillespie [employer] LITHOGRAPHER-REGISTERED SALES ASSISTANT LAB - CHEMISTR Y ORDERABLES Performing Organization Address City/State/[place] Co de Phone Number [facility] [address] [place] [phone] documented in this encounter Visit Diagnoses Diagnosis Restless legs syndrome (RLS)- Primary documented in this encounter Care Teams Data Entry Analyst Relationship Specialty Start Date End Date Francesca Martinez MD [address] [place] [phone] PCP - General 01/08/12 documented as of this encounter
--- OUTSIDE RECORDS SUMMARY | 2024-07-28 19:30 | XMS_ITS | Encounter Summary ---
Author Organization [facility] Health Address [address] [place] [address] Care Team Providers Care Principal Military Analyst Name Role Phone Francesca Martinez MD Primary Care Provider Reason for Referral * Evaluate & Treat (Routine) - Closed Specialty Diagnoses / Procedures Referred By Ravinder gilmore Referred To Contact Sleep Center Diagnoses Sleep disturbance Yoana Castro MD [address] [place] [address] [facility] [address] [place] [id number] Referral ID Status Reason Start Date Expiration Date V isits Requested Visits Authorized [id number] Closed Specialty Services Required 07/31/2017 01/27/2018 1 1 Scheduling Instructions If you have not been contacted by an [facility] Nut Process Helper within 48 hours, please call [phone] to schedule an appointment. ED STATES ATTORNEY Reason for Visit * Reason Comments Allergy Symptoms Asthma Follow-up Encounter Details Date Type Department Care Team (Latest Contact Info) Description 07/31/2017 9:05 AM [place] ATT[place] - 07/31/2017 11:59 PM [place] ATT[place] Hospital Encounter [facility] - Immunology [address] [facility] [place] [address] Augustin Millan MD [address] [place] [address] Discharge Disposition: Home or Self Care Social [...] Sign Reading Time Taken Comments Blood Pressure 102/66 07/31/2017 9:49 AM [place] ATTOR[place] Pulse - - Temperature - - Respiratory Rate - - Oxygen Saturation - - Inhaled Oxygen Concentration - - Weight 53.5 kg (117 lb 15 oz) 07/31/2017 9:49 AM [place] ATT[place] Height 161.2 cm (5' 3.47 ) 07/31/2017 9:49 AM CS T Body Mass Index 20.59 07/31/2017 9:49 AM [place] ATT[place] Body Mass Index Percentile 72.37% 07/31/2017 9:4 9 AM [place] ATTOR[place] Growth Chart: CDC (Girls, 2- 20 Years) documented in this encounter Discharge Instructions * Patient Instructions* Mckenzie Haq RN - 07/31/2017 11:15 AM [place] ATTOR[place] Please review: - Environmental controls for molds. ?? For dust mites and mold, humidifiers or vaporizers should not be used since these allergens growin high humidity. The indoor humidity should be controlled with air conditioning and/or dehumidifiers to keep it in the 30-50% range. This may be checked with an electronic thermometer which a humidity gauge. ?? For pollen and outdoor mold allergy, the windows should be kept shut and air conditioning and heat should be used as needed. The filters on the furnace blower should be changed regularly, at leastevery 3 months. - An asthma action plan and inhaler technique with an aerochamber: Aerospan 80mcg inhaler 2 puffs BID, Singulair 10 mg daily, albuterol before exercise and PRN. - We will submit Caroline to your insurance. - Our recommendation that she have an influenza vaccination each April. - More information may be found at [email or web address] - Follow up in 6 months. No orders of the defined types were placed in this encounter. ED STATES ATTORNEY documented in this encounter Medications at Time [...] allergic rhinitis due to pollen, unspecified chronicity [place] 2 Sprays into each nostril once daily 1 Bottle 11 04/24/2017 11/26/2017 guanFACINE (TENEX) 2 MG tabletIndications:takes 4 mg (2 tablets) every night. Take 4 mg by mouth at bedtime Reasons: takes 4 mg (2 tablets) every night. 09/23/2018 Mometasone Furoate (ASMANEX HFA) 100 MCG/ACT Inhale 2 puffs by mouth 2 times daily 1 Inhaler 5 07/31/2017 08/06/2017 montelukast (SINGULAIR) 10 MG tabletIndications:Asthm a Take 1 Tab by mouth every evening Reasons: Asthma 30 Tab 11 04/24/2017 11/26/2017 documented as of this encounter Progress Notes * Augustin Millan MD - 07/31/2017 11:17 AM CST Date 07-31-2017 LV 04-24-2017 ALLERGY & IMMUNOLOGY ATTENDING NOTE Patient seen and examined with resident. I have reviewed the Allergy & Immunology fellow's history, physical examination, assessment and treatment plan and evaluation. I confirm/revise history, examination, assessment and plan. In addition I note: Present Illness Veronica Lowe is a 11 y.o. female who presents for evaluation of Asthma, mild persistent, needs better control Still symptomatic with exercise symptoms and nocturnal symptoms ?? AR, needs better control of congestion IgEs Alternaria, grasses, weeds + RW IgE aeroallergens 04-26-2017 Alternaria, Aspergillus, Cladosporium, Penicillium IgE 370 AEC 920 ?? AC ?? ADHD Managed by Dr Trotter PAST MEDICAL HISTORY ? Drug Allergy Amoxacillin, [...] Neurological: see HPI Behavioral/Psych: Negative Endocrine: Negative ? Physical Examination BP 102/66 Ht 5' 3.47 (1.612 m) Wt 117 lb 15 oz (53.5 kg) BMI 20.59 kg/m2 General Assessment:: alert, well appearing, and [...] or movement disorder noted Parameter Actual % pred FVC 3.09 liters 81.88 % FEV1 2.5 liters 2.72 liters [id number] 3.39 L/SEC 3.22 Liters/Second PEF Pre-Tx Actual Peak Flow: (!) 5.88 L/SEC 100.34 % FEV1/FVC 98.81 % Interpretation: Normal. FeNO 37 ppb. Impressions Asthma, mild persistent, needs better control Still symptomatic with exercise symptoms and nocturnal symptoms ?? AR, needs better control of congestion IgEs Alternaria, grasses, weeds + RW IgE aeroallergens 04-26-2017 Alternaria, Aspergillus, Cladosporium, Penicillium IgE 370 AEC 920 ?? AC ?? ADHD Managed by Dr Trotter ? Recommendations ? PFTs FeNO CBC IgE aeroallergens ?? If cannot get better control of asthma, consider IT, mepolizumab. Do trial Fasenra 30 mg x3 monthly, then q 8 weeks. ? Medications ?? Asthma Qvar 80 mg bid Albuterol hfa prn ?? AR Flonase 1x1 Singuliar 5 mg hs. Increase Singulair 10 mg hs Zyrtec 10 mg q day Guanfacine 2 mg 3 mg hs ? ADHA medications Methylphenidate CR 36 mg q day Melatonin 5 mg hs ? FU 3 months ?? Augustin Millan MD 07/31/201711:17 AM Please see resident note for further details ED STATES ATTORNEY * Augustin Millan MD - 07/31/2017 10:36 AM CST Date 07-31-2017 LV 04-24-2017 ?? ALLERGY & IMMUNOLOGY ATTENDING NOTE Patient seen and examined with resident. I have reviewed the Allergy & Immunology fellow's history, physical examination, assessment and treatment plan and evaluation. I confirm/revise history, examination, assessment and plan. In addition I note: ? Present Illness Veronica Lowe is a 11 y.o. female who presents for evaluation of ?? Asthma, mild persistent, needs better control Still symptomatic with exercise symptoms and nocturnal symptoms ? AR, needs better control of congestion IgEs Alternaria, grasses, weeds + RW IgE aeroallergens 04-26-2017 Alternaria, Aspergillus, Cladosporium, Penicillium IgE 370 AEC 920 ? AC ? ADHD Managed by Dr rTotter ?? PAST MEDICAL HISTORY ? Drug Allergy Amoxacillin, [...] Neurological: see HPI Behavioral/Psych: Negative Endocrine: Negative ? Physical Examination BP 102/66 Ht 5' 3.47 (1.612 m) Wt 117 lb 15 oz (53.5 kg) BMI 20.59 kg/m2 General Assessment:: alert, well appearing, and [...] no focal findings or movement disorder noted ?? Parameter Actual % pred FVC 3.09 liters 81.88 % FEV1 2.5 liters 2.72 liters [id number] 3.39 L/SEC 3.22 Liters/Second PEF Pre-Tx Actual Peak Flow: (!) 5.88 L/SEC 100.34 % FEV1/FVC 98.81 % ? Interpretation: Normal. FeNO 37 ppb. ? Impressions ?? Asthma, mild persistent, needs better control Still symptomatic with exercise symptoms and nocturnal symptoms ? AR, needs better control of congestion IgEs Alternaria, grasses, weeds + RW IgE aeroallergens 04-26-2017 Alternaria, Aspergillus, Cladosporium, Penicillium IgE 370 AEC 920 ? AC ? ADHD Managed by Dr Trotter ? Recommendations ? PFTs FeNO CBC IgE aeroallergens ? If cannot get better control of asthma, consider IT, mepolizumab. ?? Do trial Fasenra 30 mg x3 monthly, then q 8 weeks. ? Medications ? Asthma Qvar 80 mg bid Albuterol hfa prn ? AR Flonase 1x1 Singuliar 5 mg hs. ??Increase Singulair 10 mg hs Zyrtec 10 mg q day Guanfacine 2 mg 3 mg hs ? ADHA medications Methylphenidate CR 36 mg q day Melatonin 5 mg hs ? FU 3??months ? Augustin Millan MD 07/31/201711:17 AM Please see resident note for further details ? LAST VISIT: 04/23/2017 CHIEF COMPLAINT: Allergy Symptoms and Asthma Follow-up HISTORY OF PRESENT ILLNESS: Veronica Lowe is a 11 y.o. female who presents today for follow-up of her asthma and rhinitis. She is accompanied by her mother, from whom additional history is obtained. Asthma: Currently on singulair 10mg qhs, aerospan 80 2p bid. No interval ED visits, hospitalizations or oral corticosteroid bursts for asthma-related symptoms. Nocturnal symptoms 2-3x/week. No exertional symptoms. Typically has trouble with running but hasn'tbeen doing this much in PE lately. Albuterol use none. Has had chest tightness/pressure intermittently but doesn't take albuterol for it. Mother feels like symptoms are unchanged from last visit, no improvement. FENO 86 last visit 04/24/17 AEC 920, Dr. Millan was considering starting anti-IL5 therapy today if not improved today. ACT 21 Snoring: Has never had a sleep study. Allergic rhinitis, conjunctivitis (+molds): IgE aero 04/24/17: +Alternaria, Aspergillus, Cladosporium, Penicillium Currently on Flonase 1x1, Singulair 10 mg hs, Zyrtec 10 mg q day, Guanfacine 4 mg hs. Tolerating nasal spray without difficulty, denies epistaxis. Has been prescribed nasal saline rinses but does notdo them (forgets) No rhinosinusitis since last visit. Persistent nasal congestion. Environmental controls include: visible water damage to ceiling in home, windows closed year-round Saw ENT today as well due to septal perforation, recommended watchful waiting, possible consideration of nasal biopsy, less likely a surgery including septal repair/turbinate reduction QoL 16 Current Outpatient Prescriptions Medication Sig Dispense Refill ??? Flunisolide HFA (AEROSPAN) 80 MCG/ACT Inhale 2 Puffs by mouth 2 times daily 1 Inhaler 5 ??? cetirizine (ZYRTEC ALLERGY) 10 MG tablet Take 1 Tab by mouth once daily as needed for Runny Nose or Allergies (itch) 30 Tab 11 ??? fluticasone propionate (FLONASE) 50 MCG/ACT nasal spray [place] 2 Sprays into each nostril once daily [...] night. ??? melatonin 5 MG tablet Take 10 mg by mouth at bedtime Reasons: takes 10 mg (2 tablets) at bedtime. ??? albuterol HFA (PROVENTIL;VENTOLIN;PROAIR) 108 (90 BASE) MCG/ACT inhaler Inhale 2 Puffs by mouthevery 6 hours as needed for Shortness of Breath, Wheezing or Cough 2 Inhaler 5 ??? AEROCHAMBER PLUS (AEROCHAMBER) Use as directed. 1 each 1 No current facility-administered medications for this encounter. Medication Allergies: Allergies Allergen Reactions ??? Penicillins Hives w/ Amoxicillin at 1 yr old Review of Systems: Constitutional: No weight loss, fever, LEWIS, fatigue ENT: no rhinorrhea, + nasal congestion, snoring CV: +chest pain, dyspnea on exertion Resp: no wheeze, SOB, +cough GI: No abdominal pain, vomiting, diarrhea, constipation, dysphagia MS: No joint/bone pain, swelling, redness Neuro: No weakness, numbness, confusion, syncope Skin: no hives, angioedema, pruritus, eczema Psych: No behavioral changes A review of past medical history, environmental history, and family history was obtained and no change since previous visit. PHYSICAL EXAM: BP 102/66 Ht 1.612 m (5' 3.47 ) Wt 53.5 kg (117 lb 15 oz) BMI 20.59 kg/m2 GENERAL: No acute distress, well-developed, well-nourished EYES: Conjunctivae clear bilaterally, no allergic shiners ENT: TM clear bilaterally, nares patent with pale, boggy nasal mucosa, oropharynx clear CV: Heart with regular rate and rhythm, normal S1 RESPIRATORY: Lungs clear to auscultation bilaterally, no wheezes ABDOMEN: Soft, non-tender, non-distended EXTREMITIES: No cyanosis/clubbing/edema SKIN: No lesions/rashes NEUROLOGIC: Gait and speech normal, follows commands Pulmonary Function Studies Parameter Actual % pred Post BD Actual % change FVC 2.53 liters 81.88 % FEV1 2.5 liters 91.91 % [id number] 3.39 L/SEC 105.28 % PEF Pre-Tx Actual Peak Flow: (!) 5.88 L/SEC 100.34 % FEV1/FVC 98.81 % 10.78 % FeNO NIOX/FeNO: 37 Normal <25 Intermediate 25-50 High >50 (>=12y/o) Normal <20 Intermediate 20-35 >35 High (<12yo) Interpretation: normal, elevated FENO but decreased from previous ASSESSMENT & PLAN: Moderate Persistent Asthma: - Not well controlled - Continue Aerospan 80 mcg inhaler 2 puffs BID with aerochamber, singulair 10mg qhs. - Provided family with a written asthma action plan as well as demonstration of appropriate technique for using inhaled asthma medications. - Will submit order for Fasenra to insurance. Allergic Rhinitis, Conjunctivitis (+Alternaria, Aspergillus, Cladosporium, Penicillium): - Discussed and provided written information on environmental control measures to decrease overall relevant aeroallergen exposure. - Continue Flonase 1x1, Singulair 10 mg hs, Zyrtec 10 mg q day, Guanfacine 4 mg hs - Recommend doing sinus rinses - Demonstrated proper nasal spray technique with specific instruction to avoid the nasal septum. - Continue to follow with ENT for septal perforation Snoring: - Refer to sleep clinic for sleep study Return to clinic in 6 months. Yoana Castro MD Fellow in Allergy and Immunology. 07/31/2017 10:36 AM ED STATES ATTORNEY * Augustin Millan MD - 07/30/2017 11:50 AM CST Date 07-31-2017 LV 04-24-2017 ALLERGY & IMMUNOLOGY ATTENDING NOTE Patient seen and examined with resident. I have reviewed the Allergy & Immunology fellow's history, physical examination, assessment and treatment plan and evaluation. I confirm/revise history, examination, assessment and plan. In addition I note: Present Illness Veronica Lowe is a 11 y.o. female who presents for evaluation of Asthma, mild persistent, needs better control Still symptomatic with exercise symptoms and nocturnal symptoms ?? AR, needs better control of congestion IgEs Alternaria, grasses, weeds + RW IgE aeroallergens 04-26-2017 Alternaria, Aspergillus, Cladosporium, Penicillium IgE 370 AEC 920 ?? AC ?? ADHD Managed by Dr Trotter PAST MEDICAL HISTORY ? Drug Allergy Amoxacillin, urticaria at 1 year old ? Surgical History T&A 05-14-2013 ? Social History Patients lives with mother and father ? Family History IgA deficiency, sister Madalynn ?? THI, sister Sariah ? Review of Symptoms: ?? Constitutional: Negative Eyes: Negative Ears, nose, mouth, and throat: see HPI Respiratory: see HPI Cardiovascular: Negative Gastrointestinal: Negative Genitourinary:Negative Skin: Negative Breast: Negative Hematologic/lymphatic: Negative Musculoskeletal:Negative Neurological: see HPI Behavioral/Psych: Negative Endocrine: Negative ? Physical Examination BP 102/66 Ht 5' 3.47 (1.612 m) Wt 117 lb 15 oz (53.5 kg) BMI 20.59 kg/m2 General Assessment:: alert, well appearing, and [...] or movement disorder noted Parameter Actual % pred FVC 3.09 liters 81.88 % FEV1 2.5 liters 2.72 liters [id number] 3.39 L/SEC 3.22 Liters/Second PEF Pre-Tx Actual Peak Flow: (!) 5.88 L/SEC 100.34 % FEV1/FVC 98.81 % Interpretation: Normal. FeNO 37 ppb. Impressions Asthma, mild persistent, needs better control Still symptomatic with exercise symptoms and nocturnal symptoms ?? AR, needs better control of congestion IgEs Alternaria, grasses, weeds + RW IgE aeroallergens 04-26-2017 Alternaria, Aspergillus, Cladosporium, Penicillium IgE 370 AEC 920 ?? AC ?? ADHD Managed by Dr Trotter ? Recommendations ? PFTs FeNO CBC IgE aeroallergens ?? If cannot get better control of asthma, consider IT, mepolizumab. Do trial Fasenra 30 mg x3 monthly, then q 8 weeks. ? Medications ?? Asthma Qvar 80 mg bid Albuterol hfa prn ?? AR Flonase 1x1 Singuliar 5 mg hs. Increase Singulair 10 mg hs Zyrtec 10 mg q day Guanfacine 2 mg 3 mg hs ? ADHA medications Methylphenidate CR 36 mg q day Melatonin 5 mg hs ? FU 3 months ?? Augustin Millan MD 07/31/201710:28 AM Please see resident note for further details ED STATES ATTORNEY documented in this encounter Plan of Treatment Pending Results Name Type Priority Associated Diagnoses Date /Time Amb Pediatric Referral To Sleep Clinic @ ([facility]) Outpatient Referral Routine Sleep disturbance 08/20/2017 11:34 AM [place] ATTOR[place] Scheduled Orders Name Type Priority Associated Diagnoses Orde r Schedule BEDSIDE SPIROMETRY Respiratory Care Routine ONCE for 1 Occurrences starting 07/31/2017 until 07/31/2017 Scheduled Referrals Name Type Priority Associated Diagnoses Orde r Schedule Amb Pediatric Referral To Sleep Clinic @ ([facility]) Outpatient Referral Routine Sleep disturbance 1 Occurrences starting 07/31/2017 until 07/31/2018 documented as of this encounter Visit Diagnoses Diagnosis Sleep disturbance- Primary Sleep disturbance, unspecified Seasonal allergic rhinitis due to pollen, unspecified chronicity Needs flu shot Need for prophylactic vaccination and inoculation against influenza documented in this encounter Care Teams Principal Military Analyst Relationship Specialty Start Date End Date Francesca Martinez MD [address] [place] [address] PCP - General 01/08/12 documented as of this encounter
--- OUTSIDE RECORDS SUMMARY | 2024-07-28 19:30 | XMS_ITS | Encounter Summary ---
Author Organization [facility] Address [address] [place] [address] Care Team Providers Care Change Analyst Name Role Phone Francesca Martinez MD Primary Care Provider Encounter Details Date Type Department Care Team (Latest Contact Info) Description 10/02/2020 3:29 PM CDT - 10/02/2020 11:59 PM CDT Hospital Encounter [facility] Pediatrics - Radiology [address] [place] [address] Myles Garcia MD [address] [place] [address] [address] [place] [address] Discharge Disposition: Home or Self [...] have Coronavirus / COVID-19? No / Unsure 10/02/2020 3:10 PM CDT documented as of this encounter Medications at Time of Discharge Medication Sig Dispensed Refills Start Date End Date AEROCHAMBER PLUS (AEROCHAMBER)Indication s:Exercise induced bronchospasm (HCC) Use as directed 1 Each 1 06/18/2018 cloNIDine (CATAPRES) 0.1 MG tablet Take 0.1 tablets by mouth once daily 09/05/2020 melatonin 5 MG tabletIndications:takes 10 mg (2 [...] fluticasone propionate (FLONASE) 50 MCG/ACT nasal spray [place] 2 sprays into each nostril once daily 1 bottles 6 12/31/2018 05/17/2021 fluticasone-salmeterol 232-14 MCG/ACT inhaler Inhale 1 puff by mouth 2 times daily 1 Inhaler 6 05/13/2019 05/17/2021 montelukast (SINGULAIR) 10 MG tablet Take 1 tablet by mouth once daily 31 tablet 6 12/31/2018 05/17/2021 documented as of this encounter Plan of Treatment Not on file documented as of this encounter Procedures Procedure Name Priority Date/Time Associated Diagnosis Comments XR SPINE ENTIRE 2 OR 3VW Routine 10/02/2020 3:32 PM CDT Adolescent idiopathic scoliosis of thoracic region documented in this encounter Results * XR SPINE ENTIRE 2 OR 3VW [...] 10/02/2020 at 3:59 PM Procedure Note Noel Maharaj DO - 10/02/2020 HISTORY: Adolescent idiopathic scoliosis, thoracic region. EXAMINATION: Frontal and lateral views of the spine in the uprightposition performed on 10/02/2020 at 3:32 PM COMPARISON: 10/26/2018 FINDINGS/IMPRESSION: There is a dextroconvex scoliosis of the thoracicspine and a levoconvex scoliosis of the lumbar spine. Lungs are clear. Bowel gaspattern is nonobstructed. Reading Radiologist: Noel Maharaj on 10/02/2020 at 3:59 PM Authorizing Provider Result Elizabeth Gacria MD DIAGNOSTIC IMAGING O RDERABLES documented in this encounter Visit Diagnoses Diagnosis Adolescent idiopathic scoliosis of thoracic region Scoliosis (and kyphoscoliosis), idiopathic documented in this encounter Care Teams Change Analyst Relationship Specialty Start Date End Date Francesca Martinez MD [address] [place] [phone] PCP - General 01/08/12 documented as of this encounter
--- OUTSIDE RECORDS SUMMARY | 2024-07-28 19:30 | XMS_ITS | Encounter Summary ---
Author Organization [facility] Address [address] [facility] [place] [address] Care Team Providers Care Electromechanical Technologist Name Role Phone Francesca Martinez MD Primary Care Provider Reason for Visit * Reason Onset Date Comments Medication Problem 11/02/2014 Encounter Details Date Type Department Care Team (Late st Contact Info) Description 11/02/2014 Telephone [facility] Pediatrics - Allergy [address] [place] [phone] Augustin Millan MD [address] [place] [phone] Medication Problem Social History Tobacco Use Types Packs/Day Years Used Date Smoking Tobacco: Never Assessed Sex and Gender Information Value Date Recorded Sex Assigned at Not on file Gender Identity Not on file Sexual Orientation Not on file documented as of this encounter Miscellaneous Notes * Telephone Encounter - Erika Sheffield RN - 11/02/2014 4:31 PM CDT Received call from pharmacy stating that Nasonex is not preferred by insurance. Preferred medication is Flonase. It does not appear that Veronica has been on Flonase in the past, so will likely have to try and fail Flonase before Nasonex would be covered. Will route to A/I fellow to send new prescription, if appropriate. documented in this encounter Plan of Treatment Not on file documented as of this encounter Visit Diagnoses Not on filedocumented in this encounter Care Teams Electromechanical Technologist Relationship Specialty Start Date End Date Francesca Martinez MD [address] [place] [phone] PCP - General 01/08/12 documented as of this encounter
--- OUTSIDE RECORDS SUMMARY | 2024-07-28 19:30 | XMS_ITS | Encounter Summary ---
Author Organization [facility] Address [address] [address] Care Team Providers Care Time Study Clerk Name Role Phone Francesca Martinez MD Primary Care Provider [phone] Encounter Details Date Type Department Care Team (Latest Contact Info) Description 10/22/2017 10:10 AM CDT - 10/22/2017 11:59 PM CDT Hospital Encounter [facility] Pediatrics - Radiology [address] [place] [address] Myles Garcia MD [address] [place] [address] [address] [place] [address] Discharge Disposition: Home or Self [...] tummy upset. 60 tablet 3 08/20/2017 11/26/2017 fluocinolone acetonide (SYNALAR) 0.01 % solution Apply to scalp twice daily as needed for itching/scale. 30 day supply. Please call for refills. 60 mL 10/09/2017 09/23/2018 fluticasone propionate (FLONASE) 50 MCG/ACT nasal sprayIndications:Season al allergic rhinitis due to pollen, unspecified chronicity [place] 2 Sprays into each nostril once daily [...] Reasons: Asthma 30 Tab 11 04/24/2017 11/26/2017 Salicylic Acid (SCALPICIN) 3 % solution Apply to scalp 4-7 times a week as tolerated. [facility] does not carry this product. 177 mL 10/09/2017 09/23/2018 documented as of this encounter Plan of Treatment Not on file documented as of this encounter Procedures Procedure Name Priority Date/Time Associated Diagnosis Comments XR SCOLIOSIS 2 OR 3VW Routine 10/22/2017 10:19 AM CDT Adolescent idiopathic scoliosis of thoracic region documented in this encounter Results * XR SCOLIOSIS 2VW (10/22/2017 10:19 AM CDT) Anatomical Region Laterality Modality Spine Radiographic Valeria ging 10/22/2017 11:0 4 AM CDT Impressions 10/22/2017 12:37 PM CDT 1. ??Idiopathic scoliosis of the thoracolumbar spine. 2. ??Mild pelvic tilt. I, Claude Curran, have personally reviewed the images and I agree with this report. Narrative 10/22/2017 12:37 PM CDT EXAMINATION: Scoliosis series, upright PA and lateral views HISTORY: Scoliosis COMPARISON: No prior study is available for comparison. FINDINGS: There is S-shaped scoliosis, dextroscoliosis of the thoracic spine with a Suh angle of 16 degrees is present from T4-T9 and levoscoliosis of the thoracolumbar spine with a Suh angle of 24 degrees from T12 to L4. There is mild pelvic tilt, with the right iliac crest above the left iliac crest. The lungs are clear. The heart size is normal. The bowel gas pattern is nonobstructive. Both hips are seated. Procedure Note Claude Curran MD - 10/22/2017 EXAMINATION: Scoliosis series, upright PA and lateral views HISTORY: Scoliosis COMPARISON: No prior study is available for comparison. FINDINGS: There is S-shaped scoliosis, dextroscoliosis of the thoracic spine with a Suh angle of 16 degrees is present from T4-T9 and levoscoliosis of the thoracolumbar spine with a Suh angle of 24 degrees from T12 to L4. There is mild pelvic tilt, with the right iliac crest above the left iliac crest. The lungs are clear. The heart size is normal. The bowel gas pattern is nonobstructive. Both hips are seated. IMPRESSION 1. Idiopathic scoliosis of the thoracolumbar spine. 2. Mild pelvic tilt. I, Claude Curran, have personally reviewed the images and I agree with this report. Myles Garcia MD DIAGNOSTIC IMAGING O [facility]DER[facility] documented in this encounter Visit Diagnoses Diagnosis Adolescent idiopathic scoliosis of thoracic region Scoliosis (and kyphoscoliosis), idiopathic documented in this encounter Care Teams Time Study Clerk Relationship Specialty Start Date End Date Francesca Martinez MD [address] Gunderson [address] [place] [phone] PCP - General 01/08/12 documented as of this encounter
--- OUTSIDE RECORDS SUMMARY | 2024-07-28 19:30 | XMS_ITS | Encounter Summary ---
Author Organization [facility] Address [address] [place] [address] Care Team Providers Care Principal Secretary Name Role Phone Francesca Martinez MD Primary Care Provider Reason for Visit * Reason Comments Asthma Follow-up Encounter Details Date Type Department Care Team (Latest Contact Info) Description 05/17/2021 10:12 AM CDT - 05/17/2021 11:59 PM CDT Hospital Encounter [facility] Pediatrics - Immunology [address] [place] [phone] Augustin Millan MD [address] [place] [phone] Discharge Disposition: Home or Self Care Social [...] PM CDT documented as of this encounter Last Filed [...] 85.46% 05/17 10:16 AM CDT Growth Chart: [facility] (Girls, 2- 20 Years) documented in this encounter Discharge Instructions * Patient Instructions* Hodan Moreno RN - 05/17/2021 11:17 AM CDT The Discharge Instructions have been reviewed with the patient and her family. The parents have verbalized understanding. documented in this encounter Medications at Time of Discharge Medication Sig Dispensed Refills Start Date End Date AEROCHAMBER PLUS (AEROCHAMBER)Indications :Exercise induced bronchospasm (HCC) Use as directed 1 Each 1 06/18/2018 albuterol HFA (PROVENTIL;VENTOLIN;PROA IR) 108 (90 Base) MCG/ACT inhaler Inhale 2 (two) puffs by mouth every 6 hours as needed for Shortness of Breath, Wheezing or Cough 6.7 g 5 05/17/2021 cetirizine (ZYRTEC ALLERGY) 10 MG tablet Take 1 (one) tablet by mouth once daily as needed for Runny Nose or Allergies (itch) 30 tablet 11 05/17/2021 cloNIDine (CATAPRES) 0.1 MG tablet Take 0.1 tablets by mouth once daily 09/05/2020 ferrous sulfate 325 (65 FE) MG tablet Take 325 mg by mouth 2 times daily 05/03/2021 fluticasone propionate (FLONASE) 50 MCG/ACT nasal sprayIndications:Allergi c Rhinitis [place] 2 (two) sprays into each nostril once daily Reasons: Allergic Rhinitis 1 Each 11 05/17/2021 melatonin 5 MG tabletIndications:takes 10 mg (2 tablets) at bedtime. Take 5 mg by mouth at bedtime Reasons: takes 10 mg (2 tablets) at bedtime. methylphenidate (RITALIN) 5 MG tablet Take 5 mg by mouth Every morning and lunchtime mometasone-formoterol (DULERA) 200-5 MCG/ACT inhalerIndications:Asthm a Inhale 2 (two) puffs by mouth 2 times daily Reasons: Asthma 13 g 11 05/17/2021 Norgestim-Eth Estrad Triphasic (NORGESTIMATE-ETHINYL ESTRADIOL PO)Indications:0.25-0.03 5 Take by mouth as directed Reasons: 0.25-0.035 olopatadine (PATANASE) 0.6 % nasal solutionIndications:Seas onal Allergic Rhinitis [place] 2 (two) sprays into each nostril 2 times daily Reasons: Hayfever 30.5 g 5 05/17/2021 sertraline (ZOLOFT) 100 MG tablet Take 100 mg by mouth once daily sertraline (ZOLOFT) 25 MG tablet 09/13/2018 vitamin D3 (CHOLECALCIFEROL) 25 MCG (1000 UNITS) tablet Take 2,000 Units by mouth once daily documented as of this encounter H&P Notes * Augustin Millan MD - 05/17/2021 8:39 AM CDT Date 05-17-2021 12-31-2018 ALLERGY & IMMUNOLOGY ATTENDING NOTE Present Illness Veronica Lowe is a 15 year old female who presents for evaluation of CC: Asthma Asthma, moderate persistent Still symptomatic with exercise symptoms and nocturnal symptoms At 05-17-2021 visit, albuuterol use x2/week, exercise symptoms, no acute episodes, no nocturnal ? AR/AC At 05-17-2021 visit, controlled ?? 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 PAST MEDICAL HISTORY ? Drug Allergy [...] Behavioral/Psych: Negative Endocrine: Negative ?? Physical Examination There were no vitals taken for this visit. General Assessment:: alert, well appearing, and in [...] no focal findings or movement disorder noted Impressions ?? Parameter Actual % Predicted FVC 3.68 liters 95.58 % FEV1 3.06 liters 89.74 % [id number] 2.9 L/SEC 72.14 % PEF Pre-Tx Actual Peak Flow: (!) 5.91 L/SEC 85.65 % FEV1/FVC 83.15 % -5.42 % FeNO FeNO: 53 ppb Normal <25 Interpretation: Normal spirametry and elevated FeNO IgEs Alternaria, grasses, weeds + RW IgE 04-26-2017. Alternaria, Aspergillus, Cladosporium, Penicillium. IgE 370, ??AEC 920 ADHD, Managed by Dr Trotter Asthma, moderate persistent Still symptomatic with exercise symptoms and nocturnal symptoms At 05-17-2021 visit, albuuterol use x2/week, exercise symptoms, no acute episodes, no nocturnal ? AR/AC At 05-17-2021 visit, controlled ?? 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 Recommendations ? PFTs FeNO ? FU 6 months. ??If asthma under better control do IT ?? Consider trial of Dupilumab ??(Dupixent) Initial dose 400 mg, Maintenance 200 mg q 2 weeks ?? Medications ? Asthma Dulera ??200-5 2x2 Albuterol hfa prn ? AR Flonase 1x1 Zyrtec 10 mg q day AC Olopatadine Patanase 0.6% 1x2 prn ? ADHA medications Methylphenidate CR 36 mg q day Melatonin 5 mg hs ? FU 6??months Augustin Millan MD Coding Rationale New or est? Established Patient Highest problem complexity: 2 or more stable chronic illnesses Data review: Review of prior external note(s): 1 unique source(s) Review of result(s): 1 unique source(s) Ordering of test(s): 2 unique test(s) ordered Today's visit conducted with the assistance of an independent historian. Discussion of management or test interpretation - I discussed asthma with. Independent interpretation of test(s) Highest level of risk: Moderate Suggested code: 40209 .slubill documented in this encounter Plan of Treatment Not on file documented as of this encounter Procedures Procedure Name Priority Date/Time Associated Diagnosis Comments PULMONARY/RESPIRATO RY REPORT ORDER 05/18/2021 4:42 PM CDT documented in this encounter Results * PULMONARY/RESPIRATORY REPORT ORDER (05/18/2021 4:42 PM CDT) Narrative 05/18/2021 4:42 PM CDT Ordered by an unspecified provider. Scanned Document RESPIRATORY THERAPY ORDERABLES documented in this encounter Visit Diagnoses Diagnosis Allergic conjunctivitis, bilateral Other chronic allergic conjunctivitis documented in this encounter Care Teams Principal Secretary Relationship Specialty Start Date End Date Francesca Martinez MD [address] Gunderson [address] [place] [address], [place] [phone] PCP - General 01/08/12 documented as of this encounter
--- OUTSIDE RECORDS SUMMARY | 2024-07-28 19:30 | XMS_ITS | Encounter Summary ---
Author Organization [facility] Address [address] [place] [address] Care Team Providers Care Jazz Singer Name Role Phone Francesca Martinez MD Primary Care Provider [phone] Reason for Referral * Sleep (Routine) - Closed Specialty Diagnoses / Procedures Referred By Ravinder gilmore Referred To Contact Sleep Center Diagnoses Snoring Procedures SPLIT NIGHT STUDY Karla Gillespie APRN-CNP [address] [place] [phone] [address] Lab [address] [place], [place] [id number] Referral ID Status Reason Start Date Expiration Date Visits Re quested Visits Authorized [id number] Closed 08/20/2017 02/16/2018 1 1 [employer]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 Reason for Visit * Sleep (Routine) - Closed Specialty Diagnoses / Procedures Referred By Ravinder gilmore Referred To Contact Sleep Center Diagnoses Snoring Procedures SPLIT NIGHT STUDY Karla Gillespie APRN-CNP [address] [place] [phone] Sleep Lab [address] [place] [phone] Referral ID Status Reason Start Date Expiration Date Visits Re quested Visits Authorized [id number] Closed 08/20/2017 02/16/2018 1 1 Encounter Details Date Type Department Care Team (Latest Contact Info) Description 08/21/2017 7:39 PM 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 - 08/23/2017 11:59 PM 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 Hospital Encounter [facility] - [facility] Services [address] [place] [address] Karla Gillespie, ABATEMENT WORKER-WREATH MAKER [address] [place] [phone] Discharge Disposition: Home or Self Care Social [...] allergic rhinitis due to pollen, unspecified chronicity [place] 2 Sprays into each nostril once daily [...] Procedure Name Priority Date/Time Associated Diagnosis Comments SPLIT NIGHT STUDY Routine 08/21/2017 Snoring documented in this encounter Results * SPLIT NIGHT STUDY (08/21/2017) Linked Results See Linked Results SLEEP CENTER 08/21/2017 Karla Gillespie APRN-[facility] documented in this encounter Visit Diagnoses Diagnosis Snoring Other dyspnea and respiratory abnormality Primary snoring Other dyspnea and respiratory abnormality documented in this encounter Care Teams Jazz Singer Relationship Specialty Start Date End Date Francesca Martinez MD [address] [place] [phone] PCP - General 01/08/12 documented as of this encounter
--- OUTSIDE RECORDS SUMMARY | 2024-07-28 19:30 | XMS_ITS | Encounter Summary ---
Author Organization [facility] Address [address] [place] [address] Care Team Providers Care Concert Singer Name Role Phone Francesca Martinez MD Primary Care Provider [phone] Reason for Visit * Reason Comments Hair Scalp Problem itchy patches on sca lp that started ~1 year ago and getting worse. has tried OTC psoriases shampoo and dandruff shampoos that have not helped. Encounter Details Date Type Department Care Team (Latest Contact Info) Description 10/09/2017 2:41 PM CDT - 10/09/2017 11:59 PM CDT Hospital Encounter [facility] Pediatrics - Dermatology [address] [facility] [place] [address] Adenike Marx MD [address] [facility] [address] [place] [address] Discharge Disposition: Home or Self Care Social [...] - Inhaled Oxygen Concentration - - Weight 53.9 kg (118 lb 13.3 oz) 10/09/2017 2:51 PM CDT Height 161.2 cm (5' 3.47 ) 10/09/2017 2:51 PM CD T Body Mass Index 20.74 10/09/2017 2:51 PM CDT Body Mass Index Percentile 72.48% 10/09/2017 2:5 1 PM CDT Growth Chart: [facility] (Girls, 2- 20 Years) documented in this encounter Discharge Instructions * Patient Instructions* Julio Cabrera MD - 10/09/2017 3:23 PM CDT MEDICATED SHAMPOOS There are several types of medicated shampoos, with different active and inactive ingredients. The ingredients are usually listed on the back of the bottle. The table below includes several shampoo brands, grouped according to the active ingredient. All the active ingredients work equally well, butmay become less effective after long-term use. For best results, select a shampoo from the table below and use it until the bottle is empty. Then switch to another shampoo with a different active ingredient. You can use the second shampoo until the bottle is empty. After that, select another medicated shampoo from a different category to continue the rotating cycle. To apply, use fingertips to gently massage the shampoo onto the scalp. You may also use the shampoo to wash your face, around your ears and even as a body wash. Allow the shampoo to sit for 5-10 minutes before rinsing. The affected person may benefit from routine use of medicated shampoo by all family members. Avoid organic oil hair/scalp treatment (especially olive oil); it can aggravate the scaling. ACTIVE INGREDIENT NAME BRANDS [place] Tar Denorex, Poly Tar, Zetar, Pentrax, Betatar Gel, T/Gel Therapeutic Stubborn Itch,* Tarsum Shampoo/Gel* Zinc Pyrithione ZNP, DHS Zinc, Betamed*, Head & Shoulders* (see below) Selenium Sulfide Selsun Blue* (see below) Salicylic Acid T-Stone, Dermarest, Sebulex*, Petroleum Organic Itch & Flake Therapy* Ketoconazole Nizoral* Urea Carmol Ciclopiroxolamine Loprox* (most gentle) *Products that do not contain the common allergen cocamidopropyl betaine-best for people with sensitive skin *Selsun Blue 2-in-1 Dandruff Shampoo, Maximum Strength Moisturizing Dandruff Shampoo with Aloe *Head & Shoulders Smooth & Silky 2 in 1 Dandruff Shampoo + Conditioner Damage Rescue 2 in 1 Dandruff Shampoo and Conditioner Instant Oil Control 2 in 1 Dandruff Shampoo + Conditioner Clinical Strength Dandruff and Seborrheic Dermatitis Shampoo Dry Scalp Care with [place] Oil 2 in 1 Dandruff Shampoo + Conditioner Moisture Care 2 in 1 Dandruff Shampoo + Conditioner Instant Hydration 2 in 1 Dandruff Shampoo + Conditioner Instant Relief Dandruff Shampoo Scalpicin 3% salicylic acid is available over the counter but often difficult to find. Options are [facility] brand 3% salicylic acid ([facility] Scalp Relief Anti-Itch Serum) or Quality Choice Scalp Relief available online through [employer]. The molina ranges from $6 - $20 depending on the size of the bottle. Most [facility] carry the Quality Choice brand as well ([facility], [facility], [facility], [facility], [facility], [facility]). For optimal use, apply every night. Note-your insurance may not cover Scalpicin. If your pharmacy informs you that Scalpicin is unavailable, call [phone] option 4, Friday-Friday between 9 AM and 5 PM to discuss alternatives. CULTURES We obtained skin surface samples today for cultures: for fungus (scalp) The fungal cultures take 1 month to result. Please call [phone] option 4, Friday-Friday between 9 AM and 5 PM in 1 month to discuss results. If the culture is positive for fungus, we will recommend an oral antifungal like Lamisil or griseofulvin. documented in this encounter Medications at Time [...] allergic rhinitis due to pollen, unspecified chronicity [place] 2 Sprays into each nostril once daily [...] scalp 4-7 times a week as tolerated. [facility] does not carry this product. 177 mL 10/09/2017 09/23/2018 documented as of this encounter Progress Notes * Adenike Marx MD - 10/09/2017 11:59 PM CDT Pediatric Dermatology Clinic Visit Progress Note I had the pleasure of seeing your patient, Veronica Lowe in the Pediatric Dermatology Clinic at [facility]. Chief Complaint Patient presents with ??? Hair Scalp Problem itchy patches on scalp that started ~1 year ago and getting worse. has tried OTC psoriases shampoo and dandruff shampoos that have not helped. History of Present Illness This is a new patient evaluation for Veronica Lowe who was referred by Francesca Martinez MD. She came to today's visit with her mother. Veronica is a 12 y.o. female who presents today for her first visit for evaluation of psoriasis (Age11). Episode onset: Age 11. Duration: Persistent Severity: Mild Associated symptoms: Pain Family history: Psoriasis in family. No atopy in family, no frequent infections in family and no persistent infections in family. Number of siblings: 2 Additional HPI Documentation: Veronica is her for evaluation of scalp psoriasis. This problem began 1 year ago (age 11). She complains of flaking and pain > itch. She has tried multiple OTC products with minimal improvement. Mother has a history of hand PSO, which was previously treated with topical Clobetasol. Mother has notflared in a long time. Veronica also has a history of seasonal (year round) allergies and history of asthma sees Rigo for these problems. She will be starting allergy shots soon. Medical History Veronica has a past medical history of ADHD (attention deficit hyperactivity disorder); LELA (obstructive sleep apnea); and infant. Patient Skin Care Regimen Showers: Daily Uses dove and panteen, therapeutic equate : Daily Uses teatree oil : Daily Medications Current Outpatient Prescriptions Medication ??? fluocinolone acetonide (SYNALAR) 0.01 % solution ??? Salicylic Acid (SCALPICIN) 3 % solution ??? ferrous sulfate 325 (65 FE) MG tablet ??? Cholecalciferol 2000 UNITS ??? mometasone-formoterol (DULERA) 100-5 MCG/ACT inhaler ??? cetirizine (ZYRTEC ALLERGY) 10 MG tablet ??? fluticasone propionate (FLONASE) 50 MCG/ACT nasal spray ??? montelukast (SINGULAIR) 10 MG tablet ??? albuterol HFA (PROVENTIL;VENTOLIN;PROAIR) 108 (90 BASE) MCG/ACT inhaler ??? methylphenidate (RITALIN) 5 MG tablet ??? melatonin 5 MG tablet ??? guanFACINE (TENEX) 2 MG tablet ??? AEROCHAMBER PLUS (AEROCHAMBER) No current facility-administered medications for this encounter. Allergies No Known Allergies Review of Systems Constitutional: Fatigue. No fever and normal growth. Eyes: No itching in eyes and no eye pain. ENT: Rhinorrhea and congestion. No sore throat. Cardiovascular: No chest pain and no syncope. Gastrointestinal: No diarrhea and no vomiting. Genitourinary: No dysuria. Endocrine: No polydipsia. Allergy / Immunology: Seasonal allergies present. No immunodeficiency present. Hematologic: Does not bruise easily. Musculoskeletal: Joint pain. No muscle pain. Neurologic: Dizziness. Dermatologic: Rash. Behavioral: No self-injury. Physical Exam Ht 1.612 m (5' 3.47 ) Wt 53.9 kg (118 lb 13.3 oz) BMI 20.74 kg/m2 70 %ile (Z= 0.51) based on CDC 2-20 Years [id number] data using vitals from 10/09/2017. Wt Readings from Last 3 Encounters: 10/09/17 53.9 kg (118 lb 13.3 oz) (76 %, Z= 0.72)* 08/20/17 52.9 kg (116 lb 10 oz) (75 %, Z= 0.69)* 07/31/17 53.5 kg (117 lb 15 oz) (78 %, Z= 0.76)* * Growth percentiles are based on CDC 2-20 Years data. Ht Readings from Last 3 Encounters: 10/09/17 1.612 m (5' 3.47 ) (70 %, Z= 0.51)* 08/20/17 1.608 m (5' 3.31 ) (71 %, Z= 0.54)* 07/31/17 1.612 m (5' 3.47 ) (74 %, Z= 0.63)* * Growth percentiles are based on [facility] 2-20 Years data. Body mass index is 20.74 kg/(m^2). General: Healthy, alert, interactive and bright. Easy to examine Skin Appearance: Type II skin; fairly well hydrated Full body skin examination was performed including face, scalp neck, arms, legs, palms, soles, chest, abdomen, back and axillae. The following pertinent positives and negatives were noted: Involved sites: Full body skin exam was conducted to include the scalp, face, lips/teeth, lids/conjunctiva, ears, neck, chest, abdomen, back, groin, gluteal prominences, right and left hands and forearms, right and left leg and feet and was normal with the following exceptions: - greasy yellow-white scale in scalp (anterior > posterior) M/S: normal throughout upper and lower extremities Psych: calm affect Hair: Normal Fingernails: Normal Toenails: Normal Assessment & Plan Problem Sebopsoriasis onset age 11 10/09/17 mild-mod; scalp fungal cx; Rx fluocinolone soln + 3% stone acid scalp solution, OTC dandruffshampoos (per insurance restriction) Mat. hx psoriasis Orders Placed This Encounter ??? CULTURE FUNGUS SKIN HAIR NAIL+FUNGUS SMEAR scalp Standing Status: Standing Number of Occurrences: 1 ??? fluocinolone acetonide (SYNALAR) 0.01 % solution Sig: Apply to scalp twice daily as needed for itching/scale. 30 day supply. Please call for refills. Dispense: 60 mL Refill: 0 ??? Salicylic Acid (SCALPICIN) 3 % solution Sig: Apply to scalp 4-7 times a week as tolerated. [employer] does not carry this product. Dispense: 177 mL Refill: 0 Patient Instructions MEDICATED SHAMPOOS There are several types of medicated shampoos, with different active and inactive ingredients. The ingredients are usually listed on the back of the bottle. The table below includes several shampoo brands, grouped according to the active ingredient. All the active ingredients work equally well, butmay become less effective after long-term use. For best results, select a shampoo from the table below and use it until the bottle is empty. Then switch to another shampoo with a different active ingredient. You can use the second shampoo until the bottle is empty. After that, select another medicated shampoo from a different category to continue the rotating cycle. To apply, use fingertips to gently massage the shampoo onto the scalp. You may also use the shampoo to wash your face, around your ears and even as a body wash. Allow the shampoo to sit for 5-10 minutes before rinsing. The affected person may benefit from routine use of medicated shampoo by all family members. Avoid organic oil hair/scalp treatment (especially olive oil); it can aggravate the scaling. ACTIVE INGREDIENT NAME BRANDS [place] Tar Denorex, Poly Tar, Zetar, Pentrax, Betatar Gel, T/Gel Therapeutic Stubborn Itch,* Tarsum Shampoo/Gel* Zinc Pyrithione ZNP, DHS Zinc, Betamed*, Head & Shoulders* (see below) Selenium Sulfide Selsun Blue* (see below) Salicylic Acid T-Stone, Dermarest, Sebulex*, Petroleum Organic Itch & Flake Therapy* Ketoconazole Nizoral* Urea Carmol Ciclopiroxolamine Loprox* (most gentle) *Products that do not contain the common allergen cocamidopropyl betaine-best for people with sensitive skin *Selsun Blue 2-in-1 Dandruff Shampoo, Maximum Strength Moisturizing Dandruff Shampoo with Aloe *Head & Shoulders Smooth & Silky 2 in 1 Dandruff Shampoo + Conditioner Damage Rescue 2 in 1 Dandruff Shampoo and Conditioner Instant Oil Control 2 in 1 Dandruff Shampoo + Conditioner Clinical Strength Dandruff and Seborrheic Dermatitis Shampoo Dry Scalp Care with [place] Oil 2 in 1 Dandruff Shampoo + Conditioner Moisture Care 2 in 1 Dandruff Shampoo + Conditioner Instant Hydration 2 in 1 Dandruff Shampoo + Conditioner Instant Relief Dandruff Shampoo Scalpicin 3% salicylic acid is available over the counter but often difficult to find. Options are [facility] brand 3% salicylic acid ([facility] Scalp Relief Anti-Itch Serum) or Quality Choice Scalp Relief available online through [employer]. The molina ranges from $6 - $20 depending on the size of the bottle. Most [facility] carry the Quality Choice brand as well ([facility], [facility], [facility], [facility], [facility], [facility]). For optimal use, apply every night. Note-your insurance may not cover Scalpicin. If your pharmacy informs you that Scalpicin is unavailable, call [phone] option 4, Friday-Friday between 9 AM and 5 PM to discuss alternatives. CULTURES We obtained skin surface samples today for cultures: for fungus (scalp) The fungal cultures take 1 month to result. Please call [phone] option 4, Friday-Friday between 9 AM and 5 PM in 1 month to discuss results. If the culture is positive for fungus, we will recommend an oral antifungal like Lamisil or griseofulvin. Attending Note Previous documentation from my team has been reviewed and discussed. In my attending note above, I have confirmed these findings other than where revisions were made. Follow-Up Return in about 3 months (around 01/09/2018). Adenike Marx MD documented in this encounter Plan of Treatment Not on file documented as of this encounter Procedures Procedure Name Priority Date/Time Associated Diagnosis Comments CULTURE FUNGUS SKIN HAIR NAIL+FUNGUS SMEAR Routine 10/09/2017 3:47 PM CDT Sebopsoriasis documented in this encounter Results * CULTURE FUNGUS SKIN HAIR NAIL+FUNGUS SMEAR (10/09/2017 3:47 PM CDT) Culture No fungus isolated [place] 11/03/2017 10:55 AM CDT [facility] Fungus Smear Rare Yeast 11/03/2017 10:55 AM CDT [facility] Microbiology HAIR SPECIMEN / Unknown Collection / Unknown 10/09/2017 3:47 PM CDT 10/09/2017 4:45 PM CDT Adenike Marx MD LAB - MICROBIOLOGY ORDERABLES [facility] [address] [place] [phone] documented in this encounter Visit Diagnoses Diagnosis Sebopsoriasis- Primary Contact dermatitis and other eczema, due to unspecified cause documented in this encounter Care Teams Concert Singer Relationship Specialty Start Date End Date Francesca Martinez MD [address] [place] [address] [place] [phone] PCP - General 01/08/12 documented as of this encounter
--- OUTSIDE RECORDS SUMMARY | 2024-07-28 19:30 | XMS_ITS | Encounter Summary ---
Author Organization [facility] Address [address] [facility] [place] [address] Care Team Providers Care Mortar Man Name Role Phone Francesca Martinez MD Primary Care Provider [phone] Encounter Details Date Type Department Care Team (Latest Contact Info) Description 09/25/2020 Travel Social History Tobacco Use Types Packs/Day [...] have Coronavirus / COVID-19? No / Unsure 09/25/2020 12:18 PM WEB MARKETING ASSISTANT documented as of this encounter Plan of Treatment Not on file documented as of this encounter Visit Diagnoses Not on filedocumented in this encounter Care Teams Mortar Man Relationship Specialty Start Date End Date Francesca Martinez MD [address] [place] [phone] PCP - General 01/08/12 documented as of this encounter
--- OUTSIDE RECORDS SUMMARY | 2024-07-28 19:30 | XMS_ITS | Encounter Summary ---
Author Organization [facility] Address [address] [facility] [place] [address] Care Team Providers Care Stain Sprayer Name Role Phone Francesca Martinez MD Primary Care Provider Reason for Visit * Reason Onset Date Comments Medication Management 04/29/2017 Encounter Details Date Type Department Care Team (Late st Contact Info) Description 04/29/2017 Telephone [facility] Pediatrics - Immunology [address] [place] [phone] Augustin Millan MD [address] [place] [phone] Medication Management Social History Tobacco Use Types Packs/Day Years [...] encounter Miscellaneous Notes * Telephone Encounter - Mohamud Nagel DO - 04/29/2017 10:18 AM CDT Changed Q-tobias 80mcg 2 puffs BID to Aerospan 80mcg 2 puffs BID. Mohamud Nagel DO 04/29/2017 10:18 AM * Telephone Encounter - Francesca Morales, RN - 04/29/2017 6:32 AM CDT Mom called stating Qvar is not covered by insurance. Preferred alternatives are Aerospan and Flovent 44 mcg. Routed to A/I fellow documented in this encounter Plan of Treatment Not on file documented as of this encounter Visit Diagnoses Not on filedocumented in this encounter Care Teams Stain Sprayer Relationship Specialty Start Date End Date Francesca Martinez MD [address] [place] [phone] PCP - General 01/08/12 documented as of this encounter
--- OUTSIDE RECORDS SUMMARY | 2024-07-28 19:30 | XMS_ITS | Encounter Summary ---
Author Organization [facility] Address [address] [place] [address] Care Team Providers Care Server Cashier Name Role Phone Francesca Martinez MD Primary Care Provider Encounter Details Date Type Department Care Team (Latest Contact Info) Description 11/26/2017 11:58 AM CDT - 11/26/2017 11:59 PM CDT Hospital Encounter [facility] Pediatrics - Lab [address] [place] [phone] Karla Gillespie, BUCKSHOT SWAGE OPERATOR-OFFICE MACHINE INSPECTOR [address] [place] [phone] Discharge Disposition: Home or Self Care Social [...] fluticasone propionate (FLONASE) 50 MCG/ACT nasal spray [place] 2 sprays into each nostril once daily [...] scalp 4-7 times a week as tolerated. [facility] does not carry this product. 177 mL 10/09/2017 09/23/2018 documented as of this encounter Plan of Treatment Not on file documented as of this encounter Procedures Procedure Name Priority Date/Time Associated Diagnosis Comments FERRITIN Routine 11/26/2017 11:58 AM CDT Restless legs syndrome (RLS) documented in this encounter Results * FERRITIN (11/26/2017 11:58 AM CDT) Ferritin 25 10 - 140 ng/mL 11/26/2017 1:49 PM CDT [facility] Blood BLOOD SPECIMEN / Unknown Lab Venipuncture / Unknown 11/26/2017 11:58 AM CDT 11/26/2017 12:26 PM CDT Karla Gillespie APRN-OFFICE MACHINE INSPECTOR LAB - CHEMISTR Y ORDERABLES Performing Organization Address City/State/[facility] Co de Phone Number [facility] [address] [place] [phone] documented in this encounter Visit Diagnoses Diagnosis Restless legs syndrome (RLS) documented in this encounter Care Teams Server Cashier Relationship Specialty Start Date End Date Francesca Martinez MD [address] [place] [phone] PCP - General 01/08/12 documented as of this encounter
--- OUTSIDE RECORDS SUMMARY | 2024-07-28 19:30 | XMS_ITS | Encounter Summary ---
Author Organization [facility] Address [address] [place] [address] Care Team Providers Care Embedded Systems Software Developer Name Role Phone Francesca Martinez MD Primary Care Provider [phone] Reason for Visit * Reason Comments Allergy Symptoms Encounter Details Date Type Department Care Team (Latest Contact Info) Description 03/23/2014 3:19 PM CDT - 03/23/2014 11:59 PM CDT Hospital Encounter [facility] Pediatrics - Allergy [address] [place] [address] Gabriela Ty MD [address] [facility] [address] [phone] Discharge Disposition: Home or Self Care Social History Tobacco Use Types Packs/Day Years Used Date Smoking Tobacco: Never Assessed Sex and Gender Information Value Date Recorded Sex Assigned at Not on file Gender Identity Not on file Sexual Orientation Not on file documented as of this encounter Last Filed Vital Signs Vital Sign Reading Time Taken Comments Blood Pressure 98/60 03/23/2014 3:21 PM CDT Pulse - - Temperature - - Respiratory Rate - - Oxygen Saturation - - Inhaled Oxygen Concentration - - Weight 35.9 kg (79 lb 1.6 oz) 03/23/2014 3:21 PM CDT Height 141.2 cm (4' 7.59 ) 03/23/2014 3:21 PM CD T Body Mass Index 18 03/23/2014 3:21 PM CDT Body Mass Index Percentile 71.21% 03/23/2014 3:2 1 PM CDT Growth Chart: [facility] (Girls, 2- 20 Years) documented in this encounter Discharge Instructions * Patient Instructions* Mckenzie Haq RN - 03/23/2014 4:38 PM CDT The Discharge Instructions have been reviewed with the patient and her family. The parents have verbalized understanding. documented in this encounter Medications at Time of Discharge Medication Sig Dispensed Refills Start Date End Date melatonin 5 MG tabletIndications:takes 10 mg (2 tablets) at bedtime. Take 5 mg by mouth at bedtime Reasons: takes 10 mg (2 tablets) at bedtime. acetaminophen (TYLENOL) 160 MG/5ML suspension Take 11.5 mL by mouth every 4 hours as needed for Fever or Pain. 240 mL 0 05/14/2013 03/02/2015 AEROCHAMBER PLUS (AEROCHAMBER)Indication s:Exercise induced bronchospasm (HCC) Use as directed. 1 each 1 03/23/2014 06/18/2018 albuterol HFA (PROVENTIL;VENTOLIN;PRO AIR) 108 (90 BASE) MCG/ACT inhaler Inhale 2 Puffs by mouth every 6 hours as needed for Shortness of Breath, Wheezing or Cough. 2 Inhaler 5 03/23/2014 11/02/2014 cetirizine (ZYRTEC ALLERGY) 10 MG tablet Take 1 Tab by mouth once daily as needed for Runny Nose or Allergies (itch). 90 Tab 5 03/23/2014 11/02/2014 cloNIDine (CATAPRES) 0.1 MG tablet Take 0.1 mg by mouth once daily. 07/20/2014 ibuprofen (ADVIL; MOTRIN) 100 MG/5ML SUSP suspension Take 18.5 mL by mouth every 6 hours as needed for Pain or Fever. 240 mL 1 05/14/2013 03/02/2015 methylphenidate (RITALIN) 10 MG tablet Take 20 mg by mouth 3 times daily. 11/02/2014 mometasone (NASONEX) 50 MCG/ACT nasal spray [place] 2 Sprays into each nostril once daily. 1 Bottle 5 03/23/2014 11/02/2014 montelukast (SINGULAIR) 5 MG chew tablet Take 1 Tab by mouth at bedtime. 90 Tab 3 03/23/2014 07/20/2014 documented as of this encounter Progress Notes * Tawanda Kaba MD - 03/23/2014 3:20 PM CDT LV: 03/04/2013 CC: Follow-up HPI: Veronica Lowe is a 8 y.o. female who presents today for follow-up of her allergic rhinitis. Patient Active Problem List Diagnosis Date Noted ??? LELA (obstructive sleep apnea) 05/14/2013 ??? Allergic rhinitis, cause unspecified 01/09/2012 She has had frequent nasal congestion and sneezing this past summer but particularly this past month. She has tried Astelin in the past which did not help. She has been on Nasonex 1 spray/nostril qday, Singulair 4mg and Zyrtec day. She is s/p tonsillectomy and adenoidectomy Apr 2013. Rhinitis improved for about 6 months after but has since worsened. She has increased sneezing around her cat. PST's 2011 Alternaria. No increased symptoms with scents/odors. No history of asthma. She coughs at night most nights. It disturbs her but she does not wake up. She snores but no apnea. She had a burning cough playing soccer last fall. No increased symptoms with cold weather last winter. She has never used albuterol. Denies reflux symptoms and postnasal drip.Her sister has asthma. She has large local reactions to mosquito bites. Mom is conscientious about putting on frequent insect repellant when she goes outdoors. ACT AR QoL 8 Current Outpatient Prescriptions Medication Sig Dispense Refill ??? melatonin 5 MG tablet Take 4 mg by mouth at bedtime. ??? methylphenidate (RITALIN) 10 MG tablet Take 20 mg by mouth 2 times daily after meals. ??? methylphenidate (RITALIN) 5 MG tablet Take 5 mg by mouth every afternoon. Takes 5 mg at 3 pm ??? atomoxetine (STRATTERA) 18 MG capsule Take 1 Cap by mouth every morning. 60 Cap 6 ??? acetaminophen (TYLENOL) 160 MG/5ML suspension Take 11.5 mL by mouth every 4 hours as needed forFever or Pain. 240 mL 0 ??? ibuprofen (ADVIL; MOTRIN) 100 MG/5ML SUSP suspension Take 18.5 mL by mouth every 6 hours as needed for Pain or Fever. 240 mL 1 No current facility-administered medications for this encounter. Medication Allergies: Allergies Allergen Reactions ??? Penicillins Hives w/ Amoxicillin at 1 yr old Review of Systems: Constitutional: no weight loss/gain, fever, LEWIS, fatigue ENT: Rhinitis, nasal congestion, sneezing, ocular/nasal pruritus Resp: No wheeze or SOB, +cough GI: heartburn, N/V/D, constipation, dysphagia Skin: hives, swelling, pruritus, bruising, eczema Psych: +anxiety, +ADHD A review of past medical history, environmental history, and family history was obtained and no change since previous visit. PE: Vitals: 03/23/14 1521 BP: 98/60 Weight: 35.88 kg (79 lb 1.6 oz) Gen: NAD Eyes: PERRL, EOMI, conjunctiva clear B. ENT: TM-clear B, nares - patent with noninflammed nasal mucosa, OP-clear CV: RRR s m Resp: CTAB, no wheezes ABD: soft, NTND, no HSM Extr: no c/c/e Skin: no lesions/rashes Lymphatic: Palpation of nodes in neck show no LAD Psych: Patient co operative, happy during exam. Pulmonary Function Studies Parameter Actual % pred % change FVC 1.7 liters 72.03 % FEV1 1.7 liters 84.58 % ICP16-62 2.31 L/SEC 100 % PEF 3.71 L/SEC 83.18 % FEV1/FVC 100 % Interpretation: No obstruction Percutaneous skin testing positive for alternaria, grass (yolanda and bahia) and short ragweed. Assessment/Plan: Veronica Lowe is a 8yo female with allergic rhinitis, cough and large local reactions to mosquitos. Allergic Rhinitis: Not well-controlled. Repeated skin testing today as cat appeared to be possible trigger and to see if she had developed additional sensitivities to further explain increased symptoms. - Increase Nasonex to 2 sprays/nostril qday. Reviewed proper administration technique. - Increase Singulair to 5mg qday. However, given behavorial problems (ADHD, anxiety), discussed with mom option of trial off. She will do trial off and then if rhinitis symptoms worse without marked change in behavior, will restart. - Continue Zyrtec prn. Will prescribed tabs. - Environmental controls to mold, grass and ragweed. Cough: Worse at night (not typically with nocturnal awakening) and with exertion last Fall. No obstruction on PFTs. Denies reflux symptoms and postnasal drip. - Therapeutic and diagnostic trial of albuterol - If symptoms become more frequent (particularly if Singulair is held), consider starting low dose inhaled corticosteroid as controller (ex. Flovent 44mcg) Large local reactions to mosquito bites - Recommended placing ice on skin or running skin under cold water after bites to decrease local reaction and remove an remaining debris from skin - May also give extra Zyrtec dose to help with itch RTC - 4 months Gabrieal Ty MD Fellow in Allergy and Immunology. 03/23/2014 3:22 PM Attending Physician Supervisory Note I personally interviewed and examined the patient and agree with the doctor above. 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 Papular urticaria to mosquito bites. PE: remarkable only for pale nasal mucosa. Chest CTA. Skin normal. I agree with the plan above. Tawanda Kaba MD documented in this encounter Plan of Treatment Not on file documented as of this encounter Procedures Procedure Name Priority Date/Time Associated Diagnosis Comments BEDSIDE SPIROMETRY Routine 03/23/2014 4:06 PM CDT documented in this encounter Visit Diagnoses Diagnosis Exercise induced bronchospasm (HCC)- Primary Exercise induced bronchospasm * Assessment & Plan Note - Gabriela Ty MD - 03/23/2014 4:49 PM CDTAssociated Problem(s): Allergic rhinitis Percutaneous skin test 03/23/14: Positive for alternaria, grass (yolanda and bahia) and short ragweed. Percutaneous skin test in 2011: +Alternaria documented in this encounter Care Teams Embedded Systems Software Developer Relationship Specialty Start Date End Date Francesca Martinez MD [address] [place] [phone] PCP - General 01/08/12 documented as of this encounter
--- OUTSIDE RECORDS SUMMARY | 2024-07-28 19:30 | XMS_ITS | Encounter Summary ---
Author Organization [facility] Address [address] [facility] [place] [address] Care Team Providers Care Dowel Machine Operator Name Role Phone Francesca Martinez MD Primary Care Provider [phone] Reason for Visit * Reason Onset Date Comments Results 05/12/2017 Encounter Details Date Type Department Care Team (Late st Contact Info) Description 05/12/2017 Telephone [facility] Pediatrics - Immunology [address] [place] [id number] Augustin Millan MD [address] [place] [phone] Results Social History Tobacco Use Types Packs/Day Years [...] Telephone Encounter - Francesca Morales RN - 05/12/2017 9:[address] Millan's review in shadow chart: IgE aero 04/24/17: Alternaria, Aspergillus, Cladosporium Eos -- 920 WBC 9500 % eos, 9.7% F/U 3 months, consider Nucala. Updated mom on lab results and recommendations. Already has F/U scheduled for 07/31/17 @ 11:20. Mom verbalized understanding. documented in this encounter Plan of Treatment Not on file documented as of this encounter Visit Diagnoses Not on filedocumented in this encounter Care Teams Dowel Machine Operator Relationship Specialty Start Date End Date Francesca Martinez MD [address] [place] [id number] PCP - General 01/08/12 documented as of this encounter
--- OUTSIDE RECORDS SUMMARY | 2024-07-28 19:30 | XMS_ITS | Encounter Summary ---
Author Organization [facility] Address [address] [place] [address] Care Team Providers Care Airline Captain Name Role Phone Francesca Martinez MD Primary Care Provider Reason for Visit * Reason Comments Asthma Follow-up Allergy Symptoms Encounter Details Date Type Department Care Team (Latest Contact Info) Description 06/18/2018 10:20 AM AGITATOR OPERATOR - 06/18/2018 11:59 PM AGITATOR OPERATOR Hospital Encounter [facility] Pediatric[facility] - Immunology [address] [place] [phone] Augustin Millan MD [address] [place] [phone] Discharge Disposition: Home or Self Care Social [...] Reading Time Taken Comments Blood Pressure 90/60 06/18/2018 11:09 AM AGITATOR OPERATOR Pulse - - Temperature - - Respiratory Rate - - Oxygen Saturation - - Inhaled Oxygen Concentration - - Weight 57.8 kg (127 lb 6.8 oz) 06/18/20 18 11:09 AM AGITATOR OPERATOR Height 163.1 cm (5' 4.21 ) 06/18/2018 1 1:09 AM AGITATOR OPERATOR Body Mass Index 21.73 06/18/2018 11:09 AM AGITATOR OPERATOR Body Mass Index Percentile 76.53% 06/18 11:09 AM AGITATOR OPERATOR Growth Chart: [facility] (Girls, 2- 20 Years) documented in this encounter Discharge Instructions * Patient Instructions* Maria M Cortés RN - 06/18/2018 12:20 PM AGITATOR OPERATOR Asthma Action Plan: - Dulera 200 mcg/INH 2 puffs twice per day - with a spacer - Singulair 10 mg once per day - Continue albuterol 2 puffs q6hrs as needed for cough, wheezing, or trouble breathing. Also, pre-treat with 2 puffs of albuterol about 15 min before exercise The Discharge Instructions have been reviewed with the patient and her family. The parents have verbalized understanding. ATOR OPERATOR documented in this encounter Medications at Time [...] mg by mouth Every morning and lunchtime albuterol HFA (PROVENTIL;VENTOLIN;PRO AIR) 108 (90 BASE) MCG/ACT inhaler Inhale 2 puffs by mouth every 6 hours as needed for Shortness of Breath, Wheezing or Cough 2 Inhaler 5 06/18/2018 05/17/2021 azelastine (ASTELIN) 0.1 % nasal spray [place] 1 spray into each nostril 2 times daily 1 Inhaler 6 06/18/2018 09/23/2018 cetirizine (ZYRTEC ALLERGY) 10 MG tablet Take 1 tablet by mouth once daily as needed for Runny Nose or Allergies (itch) 30 tablet 11 06/18/2018 05/17/2021 ferrous sulfate 325 (65 FE) MG tablet [...] fluticasone propionate (FLONASE) 50 MCG/ACT nasal spray [place] 2 sprays into each nostril once daily 1 bottles 6 06/18/2018 09/23/2018 fluticasone propionate (FLONASE) 50 MCG/ACT nasal spray [place] 2 sprays into each nostril once daily 1 bottles 11 11/26/2017 12/31/2018 guanFACINE (TENEX) 2 MG tabletIndications:takes 4 mg (2 tablets) every night. Take 4 mg by mouth at bedtime Reasons: takes 4 mg (2 tablets) every night. 09/23/2018 mometasone-formoterol (DULERA) 200-5 MCG/ACT inhaler Inhale 2 puffs by mouth 2 times daily 1 Inhaler 6 06/18/2018 12/31/2018 montelukast (SINGULAIR) 10 MG tablet Take 1 tablet by mouth once daily 31 tablet 6 06/18/2018 12/31/2018 montelukast (SINGULAIR) 5 MG chew tablet Take 1 tablet by mouth once daily 30 tablet 5 11/26/2017 09/23/2018 Salicylic Acid (SCALPICIN) 3 % solution Apply to scalp 4-7 times a week as tolerated. [facility] does not carry this product. 177 mL 10/09/2017 09/23/2018 documented as of this encounter Progress Notes * Luana Guillen MD - 06/18/2018 11:03 AM CST Allergy & Immunology Office Visit Note LAST VISIT: 07/31/17 CHIEF COMPLAINT: Asthma Follow-up and Allergy Symptoms HISTORY OF PRESENT ILLNESS: Veronica Lowe is a 12 y.o. female who presents today for follow-up of her asthma and allergic rhinitis. She is accompanied by her mother, from whom additional history is obtained. Moderate Persistent Asthma: - She is prescribed Dulera 100 mcg/INH 2 puffs BID - she typically takes it once every other day - She is prescribed Singulair 5 mg qday - only took it 2-3x in the last month. She states that she hates the chewable formulation of this medication - She has not had any courses of oral steroids or ER visits for respiratory symptoms since her lastvisit - She has a nocturnal cough 3-4x/week - She has exertional symptoms of cough and trouble breathing every time she is active - She typically uses albuterol 1-2x/week - No tobacco exposure - The family recently moved to a new home this summer in an area with more vegetation and have noted a worsening of both allergic rhinitis and asthma symptoms Asthma Control Test (>12 years of age) ACT Questions for the child 12 yrs & over In the past 4 weeks, how much of the time did your asthma keep you from getting as much done at work, school or at home?: 4-A little of the time During the past 4 weeks, how often have you had shortness of breath?: 3- 3 to 6 times a week During the past 4 weeks, how often did your asthma symptoms (wheezing, coughing, shortness of breath, chest tightness or pain) wake you up at night or earlier than usual in the morning?: 4- Once or twice During the past 4 weeks, how often have you used your rescue inhaler or nebulizer medication (such as albuterol)?: 4-Once a week or less How would you rate your asthma control in the last 4 weeks?: 3-Somewhat controlled ACT Total Score for the child 12 yrs & >: 18 Allergic Rhinitis: - She is prescribed Zyrtec 10 mg qday and takes this medication regularly - She is prescribed Flonase 1 SEN qday, but does not like taking this medication and has not used it in the last month - No issues with epistaxis or rhinosinusitis - Patient is interested in learning about allergy shots as she is very interested in improving her rhinitis symptoms Quality of Life Questionnaire Quality of Life Symptoms Sneezin-A little of the time Stuffy nose: 2-Most of the time Runny nose: 2-Most of the time Postnasal drainage: 2-Most of the time Itchy eyes/ itchy nose: 3-Some fo the time Quality of Life Total Score: 13 Quality of Life Total Score %: 52 Factors Affecting Allergy/Asthma Allergens: Freshly mowed grass; grass;Trees;Molds;House dust;Cat/Cat hair/cat dander;Dogs/Dog hair/Dander Irritant Triggers: Smoke (tobacco, burning items);Perfumes/cologne;Outside dust Change Triggers: Rainy days;Cold days;Damp days Current Outpatient Prescriptions Medication Sig Dispense Refill ??? cetirizine (ZYRTEC ALLERGY) 10 MG tablet Take 1 tablet by mouth once daily as needed for Runny Nose or Allergies (itch) 30 tablet 11 ??? albuterol HFA (PROVENTIL;VENTOLIN;PROAIR) 108 (90 BASE) MCG/ACT inhaler Inhale 2 puffs by mouthevery 6 hours as needed for Shortness of Breath, Wheezing or Cough 2 Inhaler 5 ??? AEROCHAMBER PLUS (AEROCHAMBER) Use as directed 1 Each 1 ??? azelastine (ASTELIN) 0.1 % nasal spray [place] 1 spray into each nostril 2 times daily 1 Inhaler 6 ??? mometasone-formoterol (DULERA) 200-5 MCG/ACT inhaler Inhale 2 puffs by mouth 2 times daily 1 Inhaler 6 ??? montelukast (SINGULAIR) 10 MG tablet Take 1 tablet by mouth once daily 31 tablet 6 ??? fluticasone propionate (FLONASE) 50 MCG/ACT nasal spray [place] 2 sprays into each nostril once daily 1 bottles 6 ??? fluocinolone acetonide (SYNALAR) 0.01 % solution Apply to scalp twice daily as needed for itching/scale. 30 day supply. Please call for refills. 60 mL 0 ??? methylphenidate (RITALIN) 5 MG tablet Take 5 mg by mouth Every morning and lunchtime ??? guanFACINE (TENEX) 2 MG tablet Take 4 mg by mouth at bedtime Reasons: takes 4 mg (2 tablets) every night. ??? melatonin 5 MG tablet Take 5 mg by mouth at bedtime Reasons: takes 10 mg (2 tablets) at bedtime. ??? fluticasone propionate (FLONASE) 50 MCG/ACT nasal spray [place] 2 sprays into each nostril once daily 1 bottles 11 ??? ferrous sulfate 325 (65 FE) MG tablet Take 1 tablet by mouth 2 times daily Take w/ vitamin C such as OJ. Miralax or generic for tummy upset. 60 tablet 3 ??? montelukast (SINGULAIR) 5 MG chew tablet Take 1 tablet by mouth once daily 30 tablet 5 ??? Salicylic Acid (SCALPICIN) 3 % solution Apply to scalp 4-7 times a week as tolerated. [facility] does not carry this product. 177 mL 0 No current facility-administered medications for this encounter. Medication Allergies: No Known Allergies Review of Systems: Constitutional: No weight loss, fever, LEWIS, fatigue ENT: +rhinorrhea, +nasal congestion, +sneezing, +ocular/nasal pruritus CV: No chest pain, dyspnea on exertion, or palpitations Resp: +wheeze, +SOB, +cough GI: No abdominal pain, vomiting, diarrhea, constipation, dysphagia : No retention, incontinence, dysuria, hematuria MS: No joint or bone pain, swelling, redness Neuro: No weakness, numbness, confusion, syncope Skin: No hives, angioedema, pruritus, eczema Heme/Lymph: No bruising or bleeding A review of past medical history, environmental history, and family history was obtained and no change since previous visit. PHYSICAL EXAM: BP 90/60 Ht 1.631 m (5' 4.21 ) Wt 57.8 kg (127 lb 6.8 oz) BMI 21.73 kg/m2 GENERAL: No acute distress, well-developed, well-nourished EYES: Conjunctivae clear bilaterally, mild suborbital edema consistent with allergic shiners ENT: TM clear bilaterally, nares patent with pale, boggy nasal mucosa, oropharynx clear CV: Heart with regular rate and rhythm, normal S1 RESPIRATORY: Lungs clear to auscultation bilaterally, no wheezes ABDOMEN: Soft, non-tender, non-distended EXTREMITIES: No cyanosis, edema, or clubbing SKIN: No lesions or rashes LYMPHATIC: No cervical lymphadenopathy NEUROLOGIC: Alert, follows commands Pulmonary Function Studies Parameter Actual % pred Post BD Actual % change FVC 3.34 liters 103.09 % FEV1 2.76 liters 96.5 % [id number] 2.9 L/SEC 85.04 % PEF Pre-Tx Actual Peak Flow: (!) 4.63 L/SEC 75.78 % FEV1/FVC 82.63 % -5.64 % FeNO FeNO: 36 ppb Normal <25 Intermediate 25-50 High >50 (>=12y/o) Normal <20 Intermediate 20-35 >35 High (<12yo) Spirometry: kely FeNO: HIGH ASSESSMENT & PLAN: Encounter Diagnoses Name Primary? Moderate persistent asthma without complication Yes ??? Exercise induced bronchospasm ??? Seasonal allergic rhinitis due to pollen Asthma: - Due to persistent symptoms of exertional, nocturnal symptoms and evidence of inflammation with elevated FeNO levels, will step up to Dulera 200 mcg/INH 2 puffs BID - Will step up to 10 mg of Singulair qday as this comes in a tablet form (patient dislikes chewable) - Continue albuterol 2 puffs q6hrs as needed for cough, wheezing, or trouble breathing. Also, pre-treat with 2 puffs of albuterol about 15 min before exercise - Provided family with a written asthma action plan as well as demonstration of appropriate technique for using inhaled asthma medications. - Reiterated the need to decrease exposure to cigarette smoke Allergic Rhinitis: - Discussed and provided written information on environmental control measures to decrease overall relevant aeroallergen exposure. - Continue Zyrtec 10 mg qday - Continue Flonase 2 SEN qday (initially tried prescribing azelastine, but notified by pharmacy that neither azelastine nor olopatadine intranasal antihistamines are covered) - Demonstrated proper nasal spray technique with specific instruction to avoid the nasal septum. - Reviewed the risks and benefits of AIT with patient and family. Reviewed that we must have bettercontrol of asthma before we can initiate AIT as uncontrolled asthma increases the risk of allergic reactions with AIT. ?? Spent an extensive amount of time reviewing the importance of medication adherence and discussed strategies for success, including setting a reminder on digital devices and everyone in the family taking medications together. Return in about 6 months (around 12/16/2018), or Please call in 1 to 2 months to schedule your November 2018 appointment at [phone]. Luana Guillen MD Allergy & Immunology Fellow [facility] 06/20/2018 5:33 PM ATOR OPERATOR * Augustin Millan MD - 06/17/2018 11:13 AM CST Date 06-18-2018 LV 07-31-2017 ALLERGY & IMMUNOLOGY ATTENDING NOTE Patient seen and examined with resident. I have reviewed the Allergy & Immunology fellow's history, physical examination, assessment and treatment plan and evaluation. I confirm/revise history, examination, assessment and plan. In addition I note: Present Illness Veronica Lowe is a 12 y.o. female who presents for evaluation of Asthma, moderate persistent, needs better control Still symptomatic with exercise symptoms and nocturnal symptoms ? AR, needs better control of congestion Septal [erforation from trauma IgEs Alternaria, grasses, weeds + RW IgE aeroallergens 04-26-2017 Alternaria, Aspergillus, Cladosporium, Penicillium IgE 370, AEC [...] Neurological: see HPI Behavioral/Psych: Negative Endocrine: Negative Physical Examination BP 90/60 Ht 5' 4.21 (1.631 m) Wt 127 lb 6.8 oz (57.8 kg) BMI 21.73 kg/m2 General Assessment:: alert, well appearing, and [...] disorder noted Parameter Actual % pred FVC 3.34 liters 103.09 % FEV1 2.76 liters 96.5 % [id number] 2.9 L/SEC 85.04 % PEF Pre-Tx Actual Peak Flow: (!) 4.63 L/SEC 75.78 % FEV1/FVC 82.63 % -5.64 % FeNO FeNO: 36 ppb Normal <25 Intermediate 25-50 High >50 Interpretation: Decreased FEV1/FVC. Increased FeNO Impressions Asthma, moderate persistent, needs better control Still symptomatic with exercise symptoms and nocturnal symptoms ? AR, needs better control of congestion Septal [erforation from trauma IgEs Alternaria, grasses, weeds + RW IgE aeroallergens 04-26-2017 Alternaria, Aspergillus, Cladosporium, Penicillium IgE 370, AEC 920 ? AC ? ADHD Managed by Dr Trotter ? Recommendations ? PFTs FeNO ? FU 6 months. If asthma under better control do IT Consider trial of Dupilumab ??(Dupixent) Initial dose 400 mg, Maintenance 200 mg q 2 weeks Medications ? Asthma Dulera 200-5 2x2 Singulair 10 mg hs Albuterol hfa prn ? AR Flonase 1x1. Change to Asteline 1x2 Singulair 10 mg hs Zyrtec 10 mg q day Guanfacine 2 mg 3 mg hs ? ADHA medications Methylphenidate CR 36 mg q day Melatonin 5 mg hs ? FU 6??months ? Augustin Millan MD 06/18/201811:14 AM Please see resident note for further details ATOR OPERATOR documented in this encounter Plan of Treatment Scheduled Orders Name Type Priority Associated Diagnoses Orde r Schedule BEDSIDE SPIROMETRY Respiratory Care Routine ONCE for 1 Occurrences starting 06/18/2018 until 06/18/2018 documented as of this encounter Visit Diagnoses Diagnosis Moderate persistent asthma without complication (HCC)- Primary Unspecified asthma Exercise induced bronchospasm (HCC) Exercise induced bronchospasm Seasonal allergic rhinitis due to pollen documented in this encounter Care Teams Airline Captain Relationship Specialty Start Date End Date Francesca Martinez MD [address] Gunderson [address] [place] [phone] PCP - General 01/08/12 documented as of this encounter
--- OUTSIDE RECORDS SUMMARY | 2024-07-28 19:30 | XMS_ITS | Encounter Summary ---
Author Organization [facility] Address [address] [place] [address] Care Team Providers Care Stumper Feller Name Role Phone Francesca Martinez MD Primary Care Provider [phone] Reason for Visit * Reason Comments Asthma Allergy Symptoms Encounter Details Date Type Department Care Team (Latest Contact Info) Description 03/02/2015 3:00 PM CDT - 03/02/2015 11:59 PM CDT Hospital Encounter [facility] Pediatrics - Immunology [address] [place] [id number] Augustin Millan MD [address] [place] [phone] Discharge Disposition: Home or Self Care Social [...] Sign Reading Time Taken Comments Blood Pressure 86/56 03/02/2015 3:26 PM CDT Pulse - - Temperature - - Respiratory Rate - - Oxygen Saturation - - Inhaled Oxygen Concentration - - Weight 37.1 kg (81 lb 12.7 oz) 03/02/2015 3:26 P M CDT Height 144.5 cm (4' 8.89 ) 03/02/2015 3:26 PM CD T Body Mass Index 17.77 03/02/2015 3:26 PM CDT Body Mass Index Percentile 59.74% 03/02/2015 3:2 6 PM CDT Growth Chart: [facility] (Girls, 2- 20 Years) documented in this encounter Discharge Instructions * Patient Instructions* Maria M Cortés RN - 03/02/2015 4:20 PM CDT . Please review: -- Environmental controls for mold, grass, Rag [place]. --. An asthma action plan and inhaler technique with an aerochamber Singulair 5 mg at bedtime, albuterol PRN and prior to exercise. -- Our recommendation she have an influenza vaccination each April. -- Other medication: nasonex -- Follow up: 6 months The Discharge Instructions have been reviewed with the patient and her family. The parents have verbalized understanding. Thank you. documented in this encounter Medications at Time of Discharge Medication Sig Dispensed Refills Start Date End Date melatonin 5 MG tabletIndications:takes 10 mg (2 tablets) at bedtime. Take 5 mg by mouth at bedtime Reasons: takes 10 mg (2 tablets) at bedtime. AEROCHAMBER PLUS (AEROCHAMBER)Indications :Exercise induced bronchospasm (HCC) Use as directed. 1 each 1 03/23/2014 06/18/2018 albuterol HFA (PROVENTIL;VENTOLIN;PROA IR) 108 (90 BASE) MCG/ACT inhalerIndications:Asthm a, mild persistent, uncomplicated (HCC) Inhale 2 Puffs by mouth every 6 hours as needed for Shortness of Breath, Wheezing or Cough 2 Inhaler 5 03/02/2015 05/23/2016 cetirizine (ZYRTEC ALLERGY) 10 MG tabletIndications:Allerg ic rhinitis due to pollen Take 1 Tab by mouth once daily as needed for Runny Nose or Allergies (itch) 90 Tab 5 03/02/2015 05/08/2016 guanFACINE (TENEX) 2 MG tabletIndications:takes 4 mg (2 tablets) every night. Take 4 mg by mouth at bedtime Reasons: takes 4 mg (2 tablets) every night. 09/23/2018 methylphenidate CR 36 MG tablet Take 36 mg by mouth once daily. In the AM 0 10/10/2014 04/23/2017 mometasone (NASONEX) 50 MCG/ACT nasal sprayIndications:Allergi c rhinitis due to pollen Raphine 2 Sprays into each nostril once daily 1 Inhaler 5 03/02/2015 05/23/2016 montelukast (SINGULAIR) 5 MG chew tabletIndications:Asthma , mild persistent, uncomplicated (HCC) Take 1 Tab by mouth at bedtime 30 Tab 6 03/02/2015 05/23/2016 documented as of this encounter Progress Notes * Augustin Millan MD - 03/02/2015 3:17 PM CDT 03-02-2015 11-02-2014 ALLERGY & IMMUNOLOGY ATTENDING NOTE Patient seen and examined with resident. I have reviewed the Allergy & Immunology fellow's history, physical examination, assessment and treatment plan and evaluation. I confirm/revise history, examination, assessment and plan. In addition I note: Present Illness Veronica Lowe is a 9 y.o. female who presents for evaluation of Asthma, mild persistent, ACT24, well controlled AR, QoL 15 ?? IgEs Alternaria, grasses, weeds + RW AC, not well controlled T&A Drug allergy ?? PCN, urticaria ADHD, managed by Dr Trotter PAST MEDICAL HISTORY Review of Systems: Constitutional: Negative Eyes: Negative Ears, nose, mouth, and throat: see HPI Respiratory: see HPI Cardiovascular: Negative Gastrointestinal: Negative Genitourinary:Negative Skin: Negative Breast: Negative Hematologic/lymphatic: Negative Musculoskeletal:Negative Neurological: Negative Behavioral/Psych: Negative Endocrine: Negative Physical Examination BP 86/56 mmHg Wt 37.1 kg (81 lb 12.7 oz) BMI 17.77 kg/m2 General Assessment: alert, well appearing, and in no distress Skin Exam: no lesions, jaundice, petechiae, pallor, cyanosis, ecchymosis Head: Atraumatic, normocephalic Eyes: PERRL EOM intact Ears: Normal external auditory canal [...] without significant tenderness, masses, organomegaly or guarding. Extremities: no clubbing, cyanosis or edema Neuro: alert, oriented, normal speech, no focal findings or movement disorder noted Pulmonary Function Studies: Parameter Actual % pred % change FVC 77.1 FEV1 79.6 FEV1/FVC 87.8 [id number] 76 PEF 68 Interpretation: Noemal Impressions Asthma, mild persistent, ACT 24, well controlled AR, QoL 15 ?? IgEs Alternaria, grasses, weeds + RW AC, not well controlled T&A Drug allergy ?? PCN, urticaria ADHD, managed by Dr Trotter Recommendations Medications Qvar 40 2x2, discontinued Albuterol hfa prn Singuliar 5 mg hs Zyrtec 10 mg q day Methylphenidate CR 36 mg q day Melatonin 5 mg hs Guanfacine 2 mg 3 mg hs Nasonex 21 FU 6 months Augustin Millan MD 03/02/20153:36 PM Please see resident note for further details LV: 11/02/14 CC: Follow up HPI: Veronica Lowe is a 9 y.o. female who presents today for follow-up of her Patient Active Problem List Diagnosis Date Noted ??? Exercise induced bronchospasm 03/23/2014 ??? H/O adenoidectomy 05/14/2013 ??? Allergic rhinitis 01/09/2012 Asthma: patient has been on Qvar 40 mcg 2x2, Singulair 5 mg Po QHS. She has been very compliant with Singulair, stopped the Qvar. Since the last visit there have been no acute medical visits, ER visits, hospitalizations or steroid bursts for asthma. Nocturnal awakening due to asthma occurs 1-2 times per month. She has had some problems with exercise, but has not needed albuterol at all. She does n ot premedicate with albuterol. AR (Alternaria, Grass- [place]acher[place] and Bah[place], Ragweed): She is not taking the Nasonex 2 SEN Daily as advised. She is on Singulair 5 mg HS and Zyrtec 10 mg HS. She has had some crusted blood in her nose. She tried Harrison gel and that helped. No rhinosinusitis since last visit. She has had nasal congestion,almost all the time. It improved some after T and A. She does snore. She has a tic with her ADHD which involves touching or picking her nose. ACT 24 AR QoL 15 Current Outpatient Prescriptions Medication Sig Dispense Refill ??? montelukast (SINGULAIR) 5 MG chew tablet Take 1 Tab by mouth at bedtime 30 Tab 6 ??? cetirizine (ZYRTEC ALLERGY) 10 MG tablet Take 1 Tab by mouth once daily as needed for Runny Nose or Allergies (itch) 90 Tab 5 ??? albuterol HFA (PROVENTIL;VENTOLIN;PROAIR) 108 (90 BASE) MCG/ACT inhaler Inhale 2 Puffs by mouthevery 6 hours as needed for Shortness of Breath, Wheezing or Cough 2 Inhaler 5 ??? mometasone (NASONEX) 50 MCG/ACT nasal spray Raphine 2 Sprays into each nostril once daily 1 Inhaler 5 ??? methylphenidate CR 36 MG tablet Take 36 mg by mouth once daily. In the AM 0 ??? guanFACINE (TENEX) 2 MG tablet Take 3 mg by mouth at bedtime. Takes 3 mg (1.5 tablets) every night ??? melatonin 5 MG tablet Take 4 mg by mouth at bedtime. ??? AEROCHAMBER PLUS (AEROCHAMBER) Use as directed. 1 each 1 No current facility-administered medications for this encounter. Medication Allergies: Allergies Allergen Reactions ??? Penicillins Hives w/ Amoxicillin at 1 yr old Review of Systems: Constitutional: no weight loss, fever ENT: Some intermittent nasal congestion Resp: No recent wheeze, cough, SOB, some burning in her chest with exercise. GI: No N/V/D Skin: No eczema A review of past medical history, environmental history, and family history was obtained and no change since previous visit. PE: Vitals: 03/02/15 1526 BP: 86/56 Weight: 37.1 kg (81 lb 12.7 oz) Gen: NAD Eyes: PERRL, EOMI, conjunctiva clear B. ENT: TM-clear B, nares - patent with boggy nasal mucosa, some crusting in nose, OP-clear. CV: RRR no murmurs Resp: CTAB, no wheezes ABD: soft, NTND, no HSM Extr: no c/c/e Skin: no lesions/rashes Lymphatic: Palpation of nodes in neck show no LAD Psych: Patient co operative during exam. Pulmonary Function Studies Pulmonary Function Studies: done Parameter Actual % pred FVC 1.92 liters 77.11 % FEV1 1.68 liters 79.62 % [id number] 1.83 L/SEC 76.89 % PEF 3.26 L/SEC 68.49 % FEV1/FVC 87.5 % Interpretation: Technique: poor Flow Volume Loop - Appears normal. Bronchodilator Response - Not Performed Findings are consistent with Normal PFT. Assessment and Plan: Asthma: Well controlled, other than exercise. May stop Qvar 40 mcg. Continue Singulair 5 mg Po QHS.Premedicate with albuterol prior to albuterol and PRN for symptoms. Provided family with a written asthma action plan as well as demonstration of appropriate technique for using inhaled asthma medications. We will reassess her Asthma control in her next visit. AR (Alternaria, Grass- Zachery and Bahia, Ragweed): Resume Nasonex 2 SEN Daily. Continue Singulair 5 mg HS and Zyrtec 10 mg HS. Avoid picking nose. Advised on Harrison gel/Vaseline for moisturizing the nose. Discussed environmental control measures to decrease overall relevant aeroallergen exposure. Provided family w/ a booklet outlining specific avoidance and control measures. Demonstrated proper nasal spray technique with specific instruction to avoid the nasal septum. RTC - 6 months Luis Enrique Buckner MD Fellow in Allergy and Immunology. 03/02/2015 4:26 PM * Augustin Millan MD - 03/02/2015 2:25 PM CDT 03-02-2015 11-02-2014 ALLERGY & IMMUNOLOGY ATTENDING NOTE Patient seen and examined with resident. I have reviewed the Allergy & Immunology fellow's history, physical examination, assessment and treatment plan and evaluation. I confirm/revise history, examination, assessment and plan. In addition I note: Present Illness Veronica Lowe is a 9 y.o. female who presents for evaluation of Asthma, mild persistent, ACT24, well controlled AR, QoL 15 ?? IgEs Alternaria, grasses, weeds + RW AC, not well controlled T&A Drug allergy ?? PCN, urticaria ADHD, managed by Dr Trotter PAST MEDICAL HISTORY Review of Systems: Constitutional: Negative Eyes: Negative Ears, nose, mouth, and throat: see HPI Respiratory: see HPI Cardiovascular: Negative Gastrointestinal: Negative Genitourinary:Negative Skin: Negative Breast: Negative Hematologic/lymphatic: Negative Musculoskeletal:Negative Neurological: Negative Behavioral/Psych: Negative Endocrine: Negative Physical Examination BP 86/56 mmHg Wt 37.1 kg (81 lb 12.7 oz) BMI 17.77 kg/m2 General Assessment: alert, well appearing, and in no distress Skin Exam: no lesions, jaundice, petechiae, pallor, cyanosis, ecchymosis Head: Atraumatic, normocephalic Eyes: PERRL EOM intact Ears: Normal external auditory canal [...] without significant tenderness, masses, organomegaly or guarding. Extremities: no clubbing, cyanosis or edema Neuro: alert, oriented, normal speech, no focal findings or movement disorder noted Pulmonary Function Studies: Parameter Actual % pred % change FVC 77.1 FEV1 79.6 FEV1/FVC 87.8 [id number] PEF 68 Interpretation: Noemal Impressions Asthma, mild persistent, ACT 24, well controlled AR, QoL 15 ?? IgEs Alternaria, grasses, weeds + RW AC, not well controlled T&A Drug allergy ?? PCN, urticaria ADHD, managed by Dr Trotter Recommendations Medications Qvar 40 2x2, discontinued Albuterol hfa prn Singuliar 5 mg hs Zyrtec 10 mg q day Methylphenidate CR 36 mg q day Melatonin 5 mg hs Guanfacine 2 mg 3 mg hs Nasonex 21 FU 6 months Augustin Millan MD 03/02/20153:36 PM Please see resident note for further details documented in this encounter Plan of Treatment Scheduled Orders Name Type Priority Associated Diagnoses Orde r Schedule BEDSIDE SPIROMETRY Respiratory Care Routine ONCE for 1 Occurrences starting 03/02/2015 until 03/02/2015 documented as of this encounter Visit Diagnoses Diagnosis Allergic rhinitis due to pollen- Primary Asthma, mild persistent, uncomplicated (HCC) documented in this encounter Care Teams Stumper Feller Relationship Specialty Start Date End Date Francesca Martinez MD [address] [place] [address] PCP - General 01/08/12 documented as of this encounter
--- OUTSIDE RECORDS SUMMARY | 2024-07-28 19:30 | XMS_ITS | Encounter Summary ---
Author Organization [facility] Address [address] [place] [address] Care Team Providers Care Iron Handler Name Role Phone Francesca Martinez MD Primary Care Provider [phone] Reason for Visit * Reason Comments Scoliosis Injury Toe left 2nd toe Encounter Details Date Type Department Care Team (Latest Contact Info) Description 04/23/2017 9:30 AM CDT - 04/23/2017 11:59 PM CDT Hospital Encounter [facility] Pediatrics - Orthopedics [address] [place] [id number] Myles Garcia MD [address] [place] [address] [address] [place] [id number] Discharge Disposition: Home or Self [...] Weight 53.9 kg (118 lb 13.3 oz) 04/23/2017 9:49 AM CDT Height 158.9 cm (5' 2.56 ) 04/23/2017 9:49 AM CD T Body Mass Index 21.35 04/23/2017 9:49 AM CDT Body Mass Index Percentile 79.82% 04/23/2017 9:4 9 AM CDT Growth Chart: [facility] (Girls, 2- 20 Years) documented in this encounter Discharge Instructions * Patient Instructions* Myles Garcia MD - 04/23/2017 10:14 AM CDT ORTHOPAEDIC CLINIC DISCHARGE INSTRUCTIONS SHEET DIAGNOSIS: 1. Adolescent idiopathic scoliosis of thoracic region Follow Up: Please make a return appointment for 6 month(s) with or DAVID. To contact Pam Rojas LPN, call ext. [phone]. X-Rays next visit: Yes - scoliosis Medications prescribed: OTC analgesics Physicians orders: ?? Further diagnostic studies discussed and ordered: none ?? Therapy services - None School Excuse: Excused from School on 04/23/2017 Activity Restrictions: none . To make an appointment, please call . To schedule the surgery discussed with the doctor during your child's office visit, call Bettina at , ext. [phone]. If you have a question for the orthopaedic clinical nurse specialist, Cy Rodas, call , ext. [phone]. If you have a question for Dr. Garcia, you may leave a voicemail for him at , e-[email or web address] [email or web address], or through [email or web address]. You can Like him on [employer] at [email or web address]. After visit summary completed by Myles Garcia MD. documented in this encounter Medications at [...] sprayIndications:Season al allergic rhinitis due to pollen [place] 2 Sprays into each nostril once daily 1 Bottle 5 05/23/2016 04/24/2017 guanFACINE (TENEX) 2 MG tabletIndications:takes 4 mg (2 tablets) every night. Take 4 mg by mouth at bedtime Reasons: takes 4 mg (2 tablets) every night. 09/23/2018 montelukast (SINGULAIR) 5 MG chew tablet Take 1 Tab by mouth at bedtime 30 Tab 5 05/23/2016 04/24/2017 documented as of this encounter Progress Notes * Myles Garcia MD - 04/23/2017 9:59 AM CDT PEDIATRIC ORTHOPAEDIC SURGERY Office Visit NAME: Veronica Lowe DATE OF SERVICE: 04/23/2017 DATE: 2005 PCP: Francesca Martinez MD Chief Complaint Patient presents with ??? Scoliosis ??? Injury Toe left 2nd toe SUBJECTIVE: Veronica presents for a New Patient evaluation. Veronica Lowe is a 11 y.o. female who presents for evaluation and treatment of scoliosis after asymmetry in the back was detected by PCP several months ago. She is postmenarchal. She has grown in the last 6 months. There is a family history of scoliosis. She has Mild pain on occasion. Menarche at age: 10 y/o Pain: stable, [id number]-mu-hxeuptzm joint symptoms intermittently, reasonably well controlled by PRN meds Neurological complaints: none Loss of bowel/urine control? no Radiation?: no Vascular complaints: none Associated symptoms: none Previous treatments: None Previous workup: Radiology - xrays , Labs - none, Consult - none. HISTORY: She was full term . There were not problems with the or delivery. IMMUNIZATIONS: Immunization status: up to date and documented. PAST MEDICAL HISTORY: has a past medical history of ADHD (attention deficit hyperactivity disorder); LELA (obstructive sleep apnea); and . PAST SURGICAL HISTORY: has a past surgical history that includes negative surgical history and tonsillectomy and adenoidectomy (05/14/2013). MEDICATIONS: has a current medication list which includes the following prescription(s): cetirizine, montelukast, beclomethasone dipropionate, methylphenidate, guanfacine, melatonin, albuterol hfa, fluticasone propionate, and aerochamber plus. ALLERGIES: Penicillins SOCIAL HISTORY: Veronica lives with her parents. Veronica does attend school, [employer]. Veronica isinvolved in no extracurricular activities. FAMILY HISTORY: Family history is positive for genetic conditions affecting children. REVIEW OF SYSTEMS: History obtained from mother and the patient. A 10 point ROS was obtained and all others were negative except what is listed in the HPI. PHYSICAL EXAMINATION:Ht 1.589 m (5' 2.56 ) Wt 53.9 kg (118 lb 13.3 oz) BMI 21.35 kg/m2 General appearance: She has good head control. Orientation: alert, cooperative, no distress. Mood&affect: both mood and affect are normal Extremities: Bilateral upper extremity Skin - No rashes or abnormal dyspigmentation Inspection - No swelling, erythema, deformity, atrophy or hypertrophy noted Tenderness - absent Joint effusion - absent Range of motion - full range of motion Stability - stable Bilateral lower extremity Skin - No rashes [...] and lateral views - Suh angles T6-T11 14 degree, T11-L3 23 degrees, Kyphosis (T5-T12) - NA, Risser - 3, Triradiate cartilage is not open. ASSESSMENT: 11 y.o. 7 m.o. female with : 1. Adolescent idiopathic scoliosis of thoracic region PLAN: 1. The diagnosis and findings were explained to the patient, questions answered. 2. Treatment recommended: observation 3. Medications: OTC medications - Tylenol or Motrin. Usage discussed 4. Activity Restrictions: May participate without restrictions 5. Follow up: in 6 months. X-Rays - Yes standing PA and lateral views. The appointment will be withthe or PA. * Jayda Lomas - 04/23/2017 9:51 AM CDT Pt here for eval of scoliosis and left 2nd toe injury that happened about 3 weeks ago. Pt was seen by PCP and had xrays of her spine but not of her toe. Pt jammed her toe on an elliptical. documented in this encounter Plan of Treatment Not on file documented as of this encounter Visit Diagnoses Diagnosis Adolescent idiopathic scoliosis of thoracic region- Primary Scoliosis (and kyphoscoliosis), idiopathic documented in this encounter Care Teams Iron Handler Relationship Specialty Start Date End Date Francesca Martinez MD [address] [place] [id number] PCP - General 01/08/12 documented as of this encounter
--- OUTSIDE RECORDS SUMMARY | 2024-07-28 19:30 | XMS_ITS | Encounter Summary ---
Author Organization [facility] Address [address] [place] [address] Care Team Providers Care Character Actress Name Role Phone Francesca Martinez MD Primary Care Provider [phone] Encounter Details Date Type Department Care Team (Latest Contact Info) Description 06/26/2017 11:20 AM CORPORATE TRAVEL AGENT - 06/26/2017 11:59 PM [facility] Hospital Encounter [facility] - Lab [address] [place] [address] Robert Ramos MD [address] DE[place] [address] Discharge Disposition: Home or Self Care Social [...] allergic rhinitis due to pollen, unspecified chronicity [place] 2 Sprays into each nostril once daily [...] Procedure Name Priority Date/Time Associated Diagnosis Comments ANCA VASCULITIS PANEL Routine 06/26/2017 11:20 AM CORPORATE TRAVEL AGENT Nasal septal perforation Allergic rhinitis, unspecified chronicity, unspecified seasonality, unspecified trigger Sleep disturbance H/O adenoidectomy Exercise-induced asthma (HCC) Adolescent idiopathic scoliosis of thoracic region C-REACTIVE PROTEIN Routine 06/26/2017 11 :20 AM CORPORATE TRAVEL AGENT Nasal septal perforation Allergic rhinitis, unspecified chronicity, unspecified seasonality, unspecified trigger Sleep disturbance H/O adenoidectomy Exercise-induced asthma (HCC) Adolescent idiopathic scoliosis of thoracic region JENNY BLOOD SCREEN W/REFLEX TITER Routine 06/26/2017 11:20 AM CORPORATE TRAVEL AGENT Nasal septal perforation Allergic rhinitis, unspecified chronicity, unspecified seasonality, unspecified trigger Sleep disturbance H/O adenoidectomy Exercise-induced asthma (HCC) Adolescent idiopathic scoliosis of thoracic region ANGIOTENSIN CONVERTING ENZYME BLOOD Routine 06/26/2017 11:20 AM CORPORATE TRAVEL AGENT Nasal septal perforation Allergic rhinitis, unspecified chronicity, unspecified seasonality, unspecified trigger Sleep disturbance H/O adenoidectomy Exercise-induced asthma (HCC) Adolescent idiopathic scoliosis of thoracic region ERYTHROCYTE SEDIMENTATION RATE Routine 06/26/2017 11:20 AM CORPORATE TRAVEL AGENT Nasal septal perforation Allergic rhinitis, unspecified chronicity, unspecified seasonality, unspecified trigger Sleep disturbance H/O adenoidectomy Exercise-induced asthma (HCC) Adolescent idiopathic scoliosis of thoracic region documented in this encounter Results * ANCA VASCULITIS PANEL (06/26/2017 11:20 AM CORPORATE TRAVEL AGENT) Anti-myeloperoxid ase (MPO) Antibody <9.0 0.0 - 9.0 U/mL 06/28/2017 11:10 AM CORPORATE TRAVEL AGENT [facility] ([facility]) Anti-proteinase 3 (NM-3) Abs <3.5 0.0 - 3.5 U/mL 06/28/2017 11:10 AM CORPORATE TRAVEL AGENT [facility] ([facility]) Cytoplasmic (C-ANCA) <1:20 Neg:<1:20 titer 06/28/2017 11:10 AM CORPORATE TRAVEL AGENT [facility] ([facility]) p-ANCA Titer <1:20 Neg:<1:20 titer 06/28/2017 11:10 AM CORPORATE TRAVEL AGENT [facility] ([facility]) Comment: The presence of positive fluorescence exhibiting P-ANCA or C-ANCA patterns alone is not specific for the diagnosis of Sebastien's Granulomatosis (WG) or microscopic polyangiitis. Decisions about treatment should not be based solely on ANCA IFA results. ??The International ANCA Group Consensus recommends follow up testing of positive sera with both NM-3 and MPO-ANCA enzyme immunoassays. As many as 5% serum samples are positive only by EIA. Ref. AM J Clin Pathol 1999;111:507-513. Atypical p-ANCA Titer <1:20 Neg:<1:20 titer 06/28/2017 11:10 AM [facility] ([facility]) Comment: The atypical pANCA pattern has been observed in a significant percentage of patients with ulcerative colitis, primary sclerosing cholangitis and autoimmune hepatitis. Blood BLOOD SPECIMEN / Unknown Lab Venipuncture / Unknown 06/26/2017 11:20 AM CORPORATE TRAVEL AGENT 06/26/2017 11:39 AM CORPORATE TRAVEL AGENT Narrative [facility] ([facility]) - 06/28/2017 11:10 AM CORPORATE TRAVEL AGENT Performed at: ??01 - [address] ??[id number] Social Service Agency Director: Mayo Angelo MD, Phone: ??[phone] Performed at: ??02 - Lab[address] ??[id number] Social Service Agency Director: Patricio Gimenez PhD, Phone: ??[phone] Robert Ramos MD LAB - CHEMISTRY O RDERAFLORA Performing Organization Address [facility] de Phone Number [facility] ([facility]) [address] [place] [address] * ANGIOTENSIN CONVERTING ENZYME BLOOD (06/26/2017 11:20 AM CORPORATE TRAVEL AGENT) Angiotensin-Con verting Enzyme 25 22 - 108 U/L 06/27/2017 1:11 PM [facility] ([facility]) Blood BLOOD SPECIMEN / Unknown Lab Venipuncture / Unknown 06/26/2017 11:20 AM CORPORATE TRAVEL AGENT 06/26/2017 11:39 AM CORPORATE TRAVEL AGENT Narrative [facility] ([facility]) - 06/27/2017 1:11 PM CORPORATE TRAVEL AGENT Performed at: ??01 - [address] ??[id number] Social Service Agency Director: Patricio Gimenez PhD, Phone: ??[phone] Robert Ramos MD LAB - CHEMISTRY O RDERABLES Performing Organization Address [facility]/ZIP Co de Phone Number [facility]) [address] [place] [address] * JENNY BLOOD SCREEN W/REFLEX TITER (06/26/2017 11:20 AM CORPORATE TRAVEL AGENT) JENNY Negative Negative 06/27/2017 8:36 [address] [facility] Blood BLOOD SPECIMEN / Unknown Lab Venipuncture / Unknown 06/26/2017 11:20 AM CORPORATE TRAVEL AGENT 06/26/2017 11:39 AM CORPORATE TRAVEL AGENT Robert Ramos MD LAB - CHEMISTRY O RDERABLES [facility] [address] [place] [address] * CRP (INFLAMMATORY) (06/26/2017 11:20 AM CORPORATE TRAVEL AGENT) Pathologist [facility] C-Reactive Protein <0.20 <=0.50 mg/dL 06/26/2017 12:15 PM CORPORATE TRAVEL AGENT [facility] Blood BLOOD SPECIMEN / Unknown Lab Venipuncture / Unknown 06/26/2017 11:20 AM CORPORATE TRAVEL AGENT 06/26/2017 11:39 AM CORPORATE TRAVEL AGENT Robert Ramos MD LAB - CHEMISTRY O RDERABLES Performing Organization Address City/[facility] Co de Phone Number [facility] [address] [place] [phone] * ERYTHROCYTE SEDIMENTATION RATE (06/26/2017 11:20 AM CORPORATE TRAVEL AGENT) Pathologist [facility] Erythrocyte Sedimentation Rate Automated 7 0 - 20 MM/HR 06/26/2017 12:13 PM CORPORATE TRAVEL AGENT [facility] Blood BLOOD SPECIMEN / Unknown Lab Venipuncture / Unknown 06/26/2017 11:20 AM CORPORATE TRAVEL AGENT 06/26/2017 11:39 AM CORPORATE TRAVEL AGENT Robert Ramos MD LAB - HEMATOLOGY ORDERABLES Performing Organization Address City/[facility]/ZIP Co de Phone Number [facility] [address] [place] [address] documented in this encounter Visit Diagnoses Diagnosis Nasal septal perforation Other diseases of nasal cavity and sinuses Allergic rhinitis, unspecified chronicity, unspecified seasonality, unspecified trigger Sleep disturbance Sleep disturbance, unspecified H/O adenoidectomy Other postprocedural status Exercise-induced asthma (HCC) Exercise induced bronchospasm Adolescent idiopathic scoliosis of thoracic region Scoliosis (and kyphoscoliosis), idiopathic documented in this encounter Care Teams Character Actress Relationship Specialty Start Date End Date Francesca Martinez MD [address] [place] [id number] PCP - General 01/08/12 documented as of this encounter
--- OUTSIDE RECORDS SUMMARY | 2024-07-28 19:30 | XMS_ITS | Encounter Summary ---
Author Organization [facility] Address [address] [facility] [place] [address] Care Team Providers Care Turntable Engineer Name Role Phone Francesca Martinez MD Primary Care Provider Reason for Visit * Reason Comments Tic Tics have come back since the beginning of December. New tic of picking cuticles, rubs cuticle across lip touching nose and mouth. No longer does wrist popping. Has had infection under nose because of touching Encounter Details Date Type Department Care Team (Latest Contact Info) Description 02/13/2015 10:45 AM CDT - 02/13/2015 11:59 PM CDT Hospital Encounter [facility] - Neurology [address] [place] [address]. [place] [address] Homar Powell MD [facility] [place] [address] Discharge Disposition: Home or Self Care Social [...] Sign Reading Time Taken Comments Blood Pressure 88/50 02/13/2015 11:08 AM CDT Pulse - - Temperature - - Respiratory Rate - - Oxygen Saturation - - Inhaled Oxygen Concentration - - Weight 36.9 kg (81 lb 4.8 oz) 5 11:08 AM CDT Height 146.8 cm (4' 9.8 ) 02/13/2015 11 :08 AM CDT Body Mass Index 17.11 02/13/2015 11:08 AM CDT Body Mass Index Percentile 49.93% 02/13 11:08 AM CDT Growth Chart: [facility] (Girls, 2- 20 Years) documented in this encounter Discharge Instructions * Patient Instructions* Homar Powell MD - 02/13/2015 12:39 PM CDT Continue her current medications. Call me a few weeks into the school year to update me on her tics. documented in this encounter Medications at Time [...] HFA (PROVENTIL;VENTOLIN;PRO AIR) 108 (90 BASE) MCG/ACT inhalerIndications:Asth ma (HCC) Inhale 2 Puffs by mouth every 6 hours as needed for Shortness of Breath, Wheezing or Cough. 2 Inhaler 5 11/02/2014 03/02/2015 beclomethasone dipropionate (QVAR) 40 MCG/ACT inhalerIndications:Asth ma (HCC) Inhale 2 Puffs by mouth 2 times daily. 2 Inhaler 5 11/02/2014 03/02/2015 cetirizine (ZYRTEC ALLERGY) 10 MG tabletIndications:Aller gic rhinitis Take 1 Tab by mouth once daily as needed for Runny Nose or Allergies (itch). 90 Tab 5 11/02/2014 03/02/2015 fluticasone propionate (FLONASE) 50 MCG/ACT nasal spray [place] 2 Sprays into each nostril once daily. 1 Bottle 5 11/02/2014 03/02/2015 guanFACINE (TENEX) 2 MG tabletIndications:takes 4 mg (2 tablets) every night. Take 4 mg by mouth at bedtime Reasons: takes 4 mg (2 tablets) every night. 09/23/2018 ibuprofen (ADVIL; MOTRIN) 100 MG/5ML SUSP suspension Take 18.5 mL by mouth every 6 hours as needed for Pain or Fever. 240 mL 1 05/14/2013 03/02/2015 methylphenidate CR 36 MG tablet Take 36 mg by mouth once daily. In the AM 0 10/10/2014 04/23/2017 montelukast (SINGULAIR) 5 MG chew tablet Take 5 mg by mouth at bedtime. 03/02/2015 documented as of this encounter Progress Notes * Homar Powell MD - 02/14/2015 9:48 AM CDT [address] [address] DEPARTMENT OF NEUROLOGY NAME: VERONICA COVARRUBIAS : 2005 UNIT #: [id number] CSN #: [id number] DATE SEEN: 02/13/2015 I had the pleasure of seeing Veronica today in followup in our Pediatric Neurology Clinic. She is a 9-year-old young lady with a history of ADHD and chronic motor tics. She has a psychiatrist that she sees that has been managing her stimulant therapy. They have switched back and forth between several different medicines, settling most recently on extended release methylphenidate at a dose of 36 mg once daily. Mom reports this is working decently for her inattentive and hyperactive traits. She also has an IEP in place at school. They have been assisting with modifications. Due to some tics that are present at baseline but also more prominent with stimulant use, the psychiatrist had added Tenex. She had been taking 2 mg at bedtime, though since the last visit with me, this was split up to 1 mg twice a day. She is tolerating this relatively well without any significantsedating side effects. She does still continue to have intermittent motor tics that occasionally affect her comfort level. She did multiple different wrist extension movements in the past, has moved on to doing some rubbing of her nose and picking of her fingers and cuticle region. These tend to beminimal during the summer, certainly flare up during the school year. She has not developed any obvious vocal tics. There were some tendencies for emotional lability and anxiousness that we had suggested working with a psychologist. This has been done since the last visit. Mom mentions that things have been stableand she was discharged from this person's care. There have been no other striking intercurrent medical issues since her last visit. She is taking some medications for allergies and asthma including Singulair, Zyrtec, and albuterol and steroid inhalers. She also takes melatonin 4 mg at night to help with sleep. PHYSICAL EXAMINATION: On her exam today, she is alert and interactive, in no obvious distress. Her heart is regular rate and rhythm. Lungs are clear. Her abdomen is free of any organomegaly. Her weight is 36.9 kg, height 146.8 cm. Neurologically, she is alert, interactive, has some mild disfluencies to speech which are at her baseline. Cranial nerves II through XII are intact. She has appropriate motor strength, bulk, and tone throughout, with 2+ reflexes in the upper and lower extremities. Gczdju-dahh-apgcwg movements are smooth without dysmetria, and her gait is narrow-based. We did not notice any obvious motor tics today in the office. IMPRESSION: Veronica is a 9-year-old young lady with a history of ADHD and chronic motor tics, likely somewhereon the Tourette spectrum. During the summer, things have been relatively stable. Mom is currently satisfied with her level of tics and functioning. Mom will give me a call about a month into the school year to update on how things are going. We will plan one more followup visit in about 6 months, and continue to be involved in her care as her severity of tics mandates. Dictated By: Homar Powell MD SEG/MedQ JOB ID: [id number] cc: Francesca Martinez M.D. DEPARTMENT OF NEUROLOGY documented in this encounter Plan of Treatment Not on file documented as of this encounter Visit Diagnoses Not on filedocumented in this encounter Care Teams Turntable Engineer Relationship Specialty Start Date End Date Francesca Martinez MD [address] [place] [phone] PCP - General 01/08/12 documented as of this encounter
--- OUTSIDE RECORDS SUMMARY | 2024-07-28 19:30 | XMS_ITS | Encounter Summary ---
Author Organization [facility] Address [address] [place] [address] Care Team Providers Care Sap Gatherer Name Role Phone Francesca Martinez MD Primary Care Provider Reason for Visit * Reason Comments ADHD Anxiety Encounter Details Date Type Department Care Team (Latest Contact Info) Description 07/20/2014 8:56 AM SOIL ANALYST - 07/20/2014 11:59 PM SOIL ANALYST Hospital Encounter [facility] - Neurology [address] [place] [address] Homar Powell MD [address] [place] [address] Discharge Disposition: Home or Self Care Social History Tobacco Use Types Packs/Day Years Used Date Smoking Tobacco: Never Assessed Sex and Gender Information Value Date Recorded Sex Assigned at Not on file Gender Identity Not on file Sexual Orientation Not on file documented as of this encounter Last Filed Vital Signs Vital Sign Reading Time Taken Comments Blood Pressure 90/58 07/20/2014 8:58 AM SOIL ANALYST Pulse - - Temperature - - Respiratory Rate - - Oxygen Saturation - - Inhaled Oxygen Concentration - - Weight 37.8 kg (83 lb 5.3 oz) 07/20/2014 8:58 AM SOIL ANALYST Height 143.3 cm (4' 8.42 ) 07/20/2014 8:58 AM CS T Body Mass Index 18.41 07/20/2014 8:58 AM SOIL ANALYST Body Mass Index Percentile 73.19% 07/20/2014 8:5 8 AM SOIL ANALYST Growth Chart: [facility] (Girls, 2- 20 Years) documented in this encounter Discharge Instructions * Patient Instructions* Homar Powell MD - 07/20/2014 9:23 AM SOIL ANALYST Continue her current medications as prescribed by her psychiatrist. Call if tics worsen consistently for a few weeks without improving. Otherwise, we will see her back this summer one more time. ANALYST documented in this encounter Medications at Time [...] Allergies (itch). 90 Tab 5 03/23/2014 11/02/2014 guanFACINE (TENEX) 2 MG tabletIndications:takes 4 mg [...] 11/02/2014 mometasone (NASONEX) 50 MCG/ACT nasal spray [place] 2 Sprays into each nostril once daily. 1 Bottle 5 03/23/2014 11/02/2014 documented as of this encounter Progress Notes * Homar Powell MD - 07/21/2014 4:45 AM CST [address] [address] DEPARTMENT OF NEUROLOGY NAME: VERONICA COVARRUBIAS : 2005 UNIT #: [id number] CSN #: [id number] DATE SEEN: 07/20/2014 I had the pleasure of seeing Veronica in followup today for her history of tics. She also has concomitant ADHD. At the initial visit with me last summer, we were looking at some other options besides stimulant use. Mom thought escalating doses of stimulants were worsening tics. We briefly tried her on Strattera for a month which was not helpful. Her psychiatrist switched her back over to regular release Ritalin, which seems to be helping much better. She takes 10 mg 3 times daily. Due to ongoing tics the psychiatrist also added Tenex 2 mg at bedtime, and this dose seems to have helped quite a bit. She does still have intermittent motor tics, but they have been less so. She washaving significant hand flapping movements that were hurting her wrist and pulling at her fingers, these have settled down dramatically. She is not having any other overt side effects from her Ritalin or Tenex. She is not having consistent sleep difficulties though this flares up periodically. Although, we had identified some very mild stress and anxious tendencies and suggested psychology follow up, I do not believe this has been done. Mom states that things are better in this regard as tics have settled down. She had some issues with constipation and a fractured finger since the last visit, but no other major medical issues. She remains allergic to penicillin. PHYSICAL EXAMINATION: On exam today, she is an alert and active young girl, in no obvious distress. Heart: Her heart is regular rate and rhythm. Lungs: Clear to auscultation. Abdomen: Free of organomegaly. Neurologically, she is alert, somewhat inattentive. She does have clear and fluent speech. Cranial nerves II through XII are intact. Motor exam shows symmetric strength, bulk, and tone throughout with 2+ reflexes in the upper and lower extremities. Eumraw-icdf-zpfale movements are smooth without dysmetria, and her gait is narrow-based. I did notice an occasional eye blinking and shoulder shrugging tic today in the office. IMPRESSION: Veronica is a 8-year-old young lady with a history of ADHD and chronic motor tics. Currently mom Luis Manuel feel her tics are stable enough that they are not affecting day-to-day functioning. Her psychiatrist is currently managing both of these medications. We will plan one more followup visit overthe summer and if things remain stable we will discharge her to being seen on an as-needed basis. If tics do flare up during the spring semester of school, there would be some room to add a daytimedose of Tenex. If doing this causes enough sedation we could look at a long-acting preparation likeIntuniv. For now we will put further psychologic evaluation on the back burner. Mom will call if anything arises, otherwise we will see her over the summer. Thanks for allowing us to participate in her care. Dictated By: Hoamr Powell MD SEG/MedQ JOB ID: [id number] DEPARTMENT OF NEUROLOGY ANALYST documented in this encounter Plan of Treatment Not on file documented as of this encounter Visit Diagnoses Not on filedocumented in this encounter Care Teams Sap Gatherer Relationship Specialty Start Date End Date Francesca Martinez MD [address] [place] [address] PCP - General 01/08/12 documented as of this encounter
--- OUTSIDE RECORDS SUMMARY | 2024-07-28 19:30 | XMS_ITS | Encounter Summary ---
Author Organization [facility] Address [address] [place] [address] Care Team Providers Care Embossing Unit Operator Name Role Phone Francesca Martinez MD Primary Care Provider [phone] Reason for Visit * Reason Comments Allergy Symptoms Encounter Details Date Type Department Care Team (Latest Contact Info) Description 11/02/2014 10:30 AM CDT - 11/02/2014 11:59 PM CDT Hospital Encounter [facility] Pediatrics - Allergy [address] [place] [address] Luis Enrique Buckner MD [address] [place] [address] Discharge Disposition: Home or Self Care Social History Tobacco Use Types Packs/Day Years Used Date Smoking Tobacco: Never Assessed Sex and Gender Information Value Date Recorded Sex Assigned at Not on file Gender Identity Not on file Sexual Orientation Not on file documented as of this encounter Last Filed Vital Signs Vital Sign Reading Time Taken Comments Blood Pressure 84/60 11/02/2014 10:32 AM CDT Pulse - - Temperature - - Respiratory Rate - - Oxygen Saturation - - Inhaled Oxygen Concentration - - Weight 38.7 kg (85 lb 5 oz) 11/02/2014 10:32 AM CDT Height 145.2 cm (4' 9.17 ) 11/02/2014 10:32 AM C DT Body Mass Index 18.36 11/02/2014 10:32 AM CDT Body Mass Index Percentile 70.30% 11/02/2014 10: 32 AM CDT Growth Chart: [facility] (Girls, 2- 20 Years) documented in this encounter Discharge Instructions * Patient Instructions* Mckenzie Haq RN - 11/02/2014 11:49 AM CDT The Discharge Instructions have been [...] (FLONASE) 50 MCG/ACT nasal spray Mora 2 Sprays into each nostril once daily. [...] as of this encounter Progress Notes * Augutsin Millan MD - 11/02/2014 11:42 AM CDT 11-02-2014 ALLERGY & IMMUNOLOGY ATTENDING NOTE Patient seen and examined with resident. I have reviewed the Allergy & Immunology fellow's history, physical examination, assessment and treatment plan and evaluation. I confirm/revise history, examination, assessment and plan. In addition I note: Present Illness Veronica Lowe is a 9 y.o. female who presents for evaluation of Asthma, mild persistent, notwell controlled AC, not well controlled IgEs Alternaria T&A PAST MEDICAL HISTORY Review of Systems: See HPI Physical Examination BP 84/60 Wt 38.697 kg (85 lb 5 oz) BMI 18.35 kg/m2 General Assessment: alert, well appearing, and in no distress Pulmonary Function Studies: Parameter Actual % pred % change FVC 2.01 liters 80.72 % 11.443 % FEV1 1.61 liters 76.3 % 27.95 % FEV1/FVC 80.1 % [id number] 1.44 L/SEC 60.5 % 87.5 % PEF 3.75 L/SEC 78.78 % Interpretation: BD response Impressions Asthma, mild persistent, not well controlled AC, not well controlled IgEs Alternaria T&A Recommendations Medications Add Qvar 40 2x2 Albuterol hfa prn S inguliar 5 mg hs Zyrtec 10 mg q day Nasonex 1x1 FU 6 months Augustin Millan MD 11/02/201411:43 AM Please see resident note for further details * Augustin Millan MD - 11/02/2014 11:24 AM CDT 11-02-2014 LV: 03/23/14 ALLERGY & IMMUNOLOGY ATTENDING NOTE Patient seen and examined with resident. I have reviewed the Allergy & Immunology fellow's history, physical examination, assessment and treatment plan and evaluation. I confirm/revise history, examination, assessment and plan. In addition I note: Present Illness Veronica Lowe is a 9 y.o. female who presents for evaluation of Asthma, mild persistent, notwell controlled AC, not well controlled IgEs Alternaria T&A PAST MEDICAL HISTORY Review of Systems: See HPI Physical Examination BP 84/60 Wt 38.697 kg (85 lb 5 oz) BMI 18.35 kg/m2 General Assessment: alert, well appearing, and in no distress Pulmonary Function Studies: Parameter Actual % pred % change FVC 2.01 liters 80.72 % 11.443 % FEV1 1.61 liters 76.3 % 27.95 % FEV1/FVC 80.1 % IPH13-14 1.44 L/SEC 60.5 % 87.5 % PEF 3.75 L/SEC 78.78 % Interpretation: BD response Impressions Asthma, mild persistent, not well controlled AC, not well controlled IgEs Alternaria T&A Recommendations Medications Add Qvar 40 2x2 Albuterol hfa prn Singuliar 5 mg hs Zyrtec 10 mg q day Nasonex 1x1 FU 6 months Augustin Millan MD 11/02/201411:43 AM Please see resident note for further details A&I FELLOW NOTE CC: Follow up AR, cough and reactions to mosquito bites. HPI: Veronica Lowe is a 9 y.o. female who presents today for follow-up of her AR (Alternaria): She was on nasonex 1 spray/nostril qday, she ran out of this and stopped using this. She is on Singulair 4 mg daily, Zyrtec Q day. She is s/p tonsillectomy and adenoidectomy in Apr 2013. Mom says she has a lot of nasal drainage, congestion, bloody nose, snoring. She has also has frequent sneezing and nasal pruritus. Also has itchy watery eyes with eye puffiness. She has not had much of PND. No mold in the house. They think the nasal spray did help. Cough: She was reporting frequent Nocturnal cough at last visit and was given a therapeutic trial of albuterol. She had not described any symptoms suggestive of GERD or PND. She used it initially, but not in the last two months. She says her cough improved with albuterol. Mom says she has cough every day, mostly wet. She coughs at night almost every night, does not usually wake her up. She does cough when running, but is able to keep up. She does not wheeze. Sister has asthma. MGM has severe asthma. Large reactions to mosquito bites: Uses protective clothing when outdoors. No recent bites. Uses Zyrtec PRN for itching with bites. ACT 27 AR QoL 11 Review of Systems: Constitutional: no weight loss/gain, fever, LEWIS, fatigue ENT: Intermittent Rhinitis, nasal congestion, sneezing, ocular/nasal pruritus Resp: Frequent cough, SOB GI: No N/V/D Skin: No eczema A review of past medical history, environmental history, and family history was obtained and no change since previous visit. PE: Vitals: 11/02/14 1032 BP: 84/60 Weight: 38.697 kg (85 lb 5 oz) Gen: NAD Eyes: PERRL, EOMI, conjunctiva clear B. ENT: TM-clear B, nares - patent with boggy pale nasal mucosa, OP-clear. CV: RRR s m Resp: CTAB, no wheezes ABD: soft, NTND, no HSM Extr: no c/c/e Skin: no lesions/rashes Lymphatic: Palpation of nodes in neck show no LAD Psych: Patient co operative, happy playful during exam. Pulmonary Function Studies Parameter Actual % pred Post %pred % change FVC 2.01 liters 80.72 % 11.443 % FEV1 1.61 liters 76.3 % 27.95 % [id number] 1.44 L/SEC 60.5 % 87.5 % PEF 3.75 L/SEC 78.78 % FEV1/FVC 80.1 % Interpretation: Technique: acceptable Flow Volume Loop - There is scooping of the expiratory limb of the flow volume loop. Bronchodilator Response - There is an improvement in FEV1 and FEF 25-75. Findings are consistent with Asthma. Significant global bronchodilator response. Assesment: 1. Asthma 2. Allergic rhinitis 3. Large local reaction to mosquito bites. Plan: Asthma: We will start her on Qvar 40 mcg inhaler 2 puffs BID with aerochamber. Continue Singulair 5mg PO HS. Albuterol PRN per action plan and prior to exercise. Provided family with an aerochamber and written asthma action plan as well as demonstration of appropriate technique for using inhaled asthma medications. We will reassess her Asthma control in her next visit. Allergic Rhinitis: Discussed environmental control measures to Alternaria to decrease overall relevant aeroallergen exposure. Will start an intranasal corticosteroid spray, specifically Nasonex 2 sprays/nostril daily. Demonstrated proper nasal spray technique with specific instruction to avoid the nasal septum. Continue Singulair 5 mg PO HS. Continue Cetirizine 10 mg po QHS. Large Local reaction to mosquito bites: Continue to use protective clothing and bug spray. May use Zyrtec PRN for itching. RTC - 3 months Luis Enrique Buckner MD Fellow in Allergy and Immunology. 11/02/2014 11:24 AM documented in this encounter Plan of Treatment Not on file documented as of this encounter Procedures Procedure Name Priority Date/Time Associated Diagnosis Comments BEDSIDE SPIROMETRY PRE AND POST BRONCHODILATOR Routine 11/02/2014 11:07 AM CDT documented in this encounter Visit Diagnoses Diagnosis Allergic rhinitis- Primary Asthma (HCC) documented in this encounter Care Teams Embossing Unit Operator Relationship Specialty Start Date End Date Francesca Martinez MD [address] [place] [id number] PCP - General 01/08/12 documented as of this encounter
--- OUTSIDE RECORDS SUMMARY | 2024-07-28 19:30 | XMS_ITS | Encounter Summary ---
Author Organization [facility] Address [address] [place] [address] Care Team Providers Care Order Processor Name Role Phone Francesca Martinez MD Primary Care Provider [phone] Reason for Visit * Reason Comments Follow-up scoliosis 6month fol low up Encounter Details Date Type Department Care Team (Latest Contact Info) Description 10/22/2017 10:00 AM CDT - 10/22/2017 10:09 AM T Hospital Encounter [facility] Pediatrics - Orthopedics [id number] [place] [id number] Myles Garcia MD [address] [place] [address] [address] [facility] [place] [id number] Discharge Disposition: Home or [...] - Inhaled Oxygen Concentration - - Weight 55.7 kg (122 lb 12.7 oz) 10/22/2017 9:57 AM CDT Height 161.8 cm (5' 3.7 ) 10/22/2017 9:57 AM CDT Body Mass Index 21.28 10/22/2017 9:57 AM CDT Body Mass Index Percentile 76.66% 10/22/2017 9:5 7 AM CDT Growth Chart: [facility] (Girls, 2- 20 Years) documented in this encounter Discharge Instructions * Patient Instructions* Myles Garcia MD - 10/22/2017 10:46 AM CDT ORTHOPAEDIC CLINIC DISCHARGE INSTRUCTIONS SHEET DIAGNOSIS: 1. Adolescent idiopathic scoliosis of thoracic region 2. Chronic bilateral thoracic back pain Follow Up: Please make a return appointment for 1 year(s) with Dr. lindsey HERNANDEZ. To contact Dr. Garcia's nurse, Pam Ma LPN, call ext. [phone]. X-Rays next visit: Yes - scoliois Medications prescribed: OTC analgesics Physicians orders: ?? Further diagnostic studies discussed and ordered: none ?? Therapy services - None School Excuse: Excused from School on 10/22/2017 Activity Restrictions: none . To make an appointment, please call . To schedule the surgery discussed with the doctor during your child's office visit, call Cady [phone], ext. [phone]. If you have a question for the orthopaedic clinical nurse specialist, Cy Rodas, call , ext. [phone]. If you have a question for Dr. Garcia, you may leave a voicemail for him at , [email or web address] [email or web address], or through [email or web address]. You can Like him on [employer] at [email or web address]. After visit summary completed by Myles Garcia [...] allergic rhinitis due to pollen, unspecified chronicity Gomer 2 Sprays into each nostril once daily [...] scalp 4-7 times a week as tolerated. [facility] does not carry this product. 177 mL 10/09/2017 09/23/2018 documented as of this encounter Progress Notes * Myles Garcia MD - 10/22/2017 10:09 AM CDT PEDIATRIC ORTHOPAEDIC SURGERY Office Visit NAME: Veronica Lowe DATE OF SERVICE: 10/22/2017 DATE: 2005 PCP: Francesca Martinez MD Chief Complaint Patient presents with ??? Follow-up scoliosis 6month follow up SUBJECTIVE: Veronica presents for a follow up evaluation. Veronica Lowe is a 12 y.o. female who presents for evaluation and treatment of scoliosis after asymmetry in the back was detected by PCPseveral months ago. She is postmenarchal. She has not grown in the last 6 months. There is a familyhistory of scoliosis. She has Mild pain on occasion but none today. There are no other complaints. Menarche at age: 10 y/o Pain: stable, [id number] joint symptoms intermittently, reasonably well controlled by PRN meds Neurological complaints: none Loss of bowel/urine control? no Radiation?: no Vascular complaints: none Associated symptoms: none Previous treatments: None Previous workup: Radiology - xrays , Labs - none, Consult - none. MEDICATIONS: has a current medication list which includes the following prescription(s): salicylic acid, ferrous sulfate, cholecalciferol, mometasone- formoterol, cetirizine, fluticasone propionate, montelukast, methylphenidate, guanfacine, aerochamber plus, melatonin, fluocinolone acetonide, and albuterol hfa. ALLERGIES: Review of patient's allergies indicates no known allergies. REVIEW OF SYSTEMS: History obtained from mother and the patient. A 10 point ROS was obtained and all others were negative except what is listed in the HPI. PHYSICAL EXAMINATION:Ht 1.618 m (5' 3.7 ) Wt 55.7 kg (122 lb 12.7 oz) BMI 21.28 kg/m2 General appearance: She has good head [...] and lateral views - Suh angles T6-T11 10 previously 14 degrees, T11-L3 15 previously 23 degrees, Kyphosis (T5- T12) - NA, Risser - 4/5, Triradiate cartilage is not open. ASSESSMENT: 12 y.o. 1 m.o. female with : 1. Adolescent idiopathic scoliosis of thoracic region 2. Chronic bilateral thoracic back pain PLAN: 1. The diagnosis and findings were explained to the patient, questions answered. 2. Treatment recommended: home therapy 3. Medications: OTC medications - Tylenol or Motrin. Usage discussed 4. Activity Restrictions: May participate without restrictions 5. Follow up: in 1 year. X-Rays - Yes standing PA and lateral views. The appointment will be with the or PA. * Jovany Shah - 10/22/2017 9:59 AM CDT - How has the pt tolerated tx: good - Any new concerns: n/a - Post-op: No : fever, chills,etc.: no - Pain level 0 out of 10. documented in this encounter Plan of Treatment [...] the thoracolumbar spine. 2. Mild pelvic tilt. Claude Villafuerte, have personally reviewed the images and I agree with this report. Authorizing Provider Result Elizabeth Garcia MD DIAGNOSTIC IMAGING [facility] [employer] documented in this encounter Visit Diagnoses Diagnosis Adolescent idiopathic scoliosis of thoracic region- Primary Scoliosis (and kyphoscoliosis), idiopathic Chronic bilateral thoracic back pain Adolescent idiopathic scoliosis of thoracic region Scoliosis (and kyphoscoliosis), idiopathic documented in this encounter Care Teams Order Processor Relationship Specialty Start Date End Date Francesca Martinez MD [address] [place] [phone] PCP - General 01/08/12 documented as of this encounter
--- OUTSIDE RECORDS SUMMARY | 2024-07-28 19:30 | XMS_ITS | Encounter Summary ---
Author Organization [facility] Address [address] [place] [address] Care Team Providers Care Technical Publications Manager Name Role Phone Francesca Martinez MD Primary Care Provider [phone] Reason for Visit * Reason Comments Lower Extremity Problem swelling to insi de of right foot. [place] injury. calm at present. pain with activity. noted today at 1500. flushed. Encounter Details Date Type Department Care Team (Late st Contact Info) Description 05/08/2015 6:35 PM CDT - 05/08/2015 7:50 PM CDT Emergency ER at [address] [address] Travis Murray MD [address] [place] [address] [id number] Ankle sprain, right, initial encounter Discharge Disposition: Home or Self Care Social [...] Sign Reading Time Taken Comments Blood Pressure 130/81 05/08/2015 6:28 PM CDT Pulse 92 05/08/2015 7:46 PM CDT Temperature 37.2 ??C (99 ??F) 05/08/2015 7:46 PM CDT Respiratory Rate 22 05/08/2015 7:46 PM CDT Oxygen Saturation 98% 05/08/2015 6:28 PM CDT Inhaled Oxygen Concentration - - Weight 34.4 kg (75 lb 13.4 oz) 05/08/2015 6:28 P M CDT Height - - Body Mass Index - - documented in this encounter Discharge Instructions * Discharge Instructions* Niles Genao MD - 05/08/2015 7:35 PM CDT Images from the original note were not included. YOU LIKELY HAVE A SPRAIN OF YOUR FOOT. ICE DAILY AND ELEVATE. TAKE TYLENOL OR IBUPROFEN FOR PAIN ASNEEDED. Ankle Sprain An ankle sprain is an injury to the strong, fibrous tissues (ligaments) that hold your ankle bones together. HOME CARE ?? Put ice on your ankle for 1 2 days or as told by your doctor. ?? Put ice in a plastic bag. ?? Place a towel between your skin and the bag. ?? Leave the ice on for 15-20 minutes at a time, every 2 hours while you are awake. ?? Only take medicine as told by your doctor. ?? Raise (elevate) your injured ankle above the level of your heart as much as possible for 2 3 days. ?? Use crutches if your doctor tells you to. Slowly put your own weight on the affected ankle. Use the crutches until you can walk without pain. ?? If you have a plaster splint: ?? Do not rest it on anything harder than a pillow for 24 hours. ?? Do not put weight on it. ?? Do not get it wet. ?? Take it off to shower or bathe. ?? If given, use an elastic wrap or support stocking for support. Take the wrap off if your toes lose feeling (numb), tingle, or turn cold or blue. ?? If you have an air splint: ?? Add or let out air to make it comfortable. ?? Take it off at night and to shower and bathe. ?? Wiggle your toes and move your ankle up and down often while you are wearing it. GET HELP RIGHT AWAY IF: ?? Your toes lose feeling (numb) or turn blue. ?? You have severe pain that is increasing. ?? You have rapidly increasing bruising or puffiness (swelling). ?? Your toes feel very cold. ?? You lose feeling in your foot. ?? Your medicine does not help your pain. MAKE SURE YOU: ?? Understand these instructions. ?? Will watch your condition. ?? Will get help right away if you are not doing well or get worse. Document Released: 12/23/2008 Document Revised: 03/31/2013 Document Reviewed: 01/18/2013 ExitCare?? Patient Information ??2014 [employer]. Pediatric Sprain A sprain happens when the bands of tissue that connect bones and hold joints together (ligaments) stretch too much or tear. HOME CARE ?? Raise (elevate) the injured area to lessen puffiness (swelling). ?? Put ice on the injured area. ?? Put ice in a plastic bag. ?? Place a towel between the skin and the bag. ?? Leave the ice on for 15-20 minutes at a time, every 2 hours. Do this for the first 2 days. ?? Rest the injured area. ?? Only give medicine as told by your child's doctor. Do not give aspirin to children. ?? Wear any splints, braces, castings, or elastic wraps as told by your child's doctor. ?? Follow up with your child's doctor as told. This is important. ?? Your child should not participate in sports or gym class until your child's doctor says it is okay. GET HELP RIGHT AWAY IF: ?? Your child's limb is pale or cold. ?? Your child loses feeling (numb) in the limb. ?? Your child's pain is worse. ?? The injury stays tender. ?? Putting weight on the injured area is still painful after 5 to 7 days of rest and treatment. ?? The cast or splint hurts or pinches your child. MAKE SURE YOU: ?? Understand these instructions. ?? Will watch your child's condition. ?? Will get help right away if your child is not doing well or gets worse. Document Released: 10/01/2010 Document Revised: 09/28/2012 Document Reviewed: 10/01/2010 ExitCare?? Patient Information ??2013 [employer]. documented in this encounter Medications at Time of Discharge Medication Sig Dispensed Refills Start Date End Date melatonin 5 MG tabletIndications:takes 10 mg (2 tablets) at bedtime. Take 5 mg by mouth at bedtime Reasons: takes 10 mg (2 tablets) at bedtime. methylphenidate (RITALIN) 5 MG tablet Take 5 mg by mouth Every morning and lunchtime AEROCHAMBER PLUS (AEROCHAMBER)Indications :Exercise induced bronchospasm (HCC) [...] nasal sprayIndications:Allergi c rhinitis due to pollen [place] 2 Sprays into each nostril once daily 1 Inhaler 5 03/02/2015 05/23/2016 montelukast (SINGULAIR) 5 MG chew tabletIndications:Asthma , mild persistent, uncomplicated (HCC) Take 1 Tab by mouth at bedtime 30 Tab 6 03/02/2015 05/23/2016 documented as of this encounter ED Notes * Nilo Ballli L - 05/08/2015 7:50 PM CDT Discharge instructions reviewed with parent. Educated on reasons to seek f/u care. Opportunities for questions given. Parent verbalized understanding and d/c plan. Pt. Stable. Respiration even and unlabored. * Ramos Flowers, RN - 05/08/2015 7:35 PM CDT Pt with negative xray has pain stepping down on right foot or when bearing weight on foot, otherwise painless. * Travis Murray MD - 05/08/2015 6:54 PM CDT Provider contact with the patient: 05/08/2015 18:54 Veronica Lowe [id number] [facility] EMERGENCY DEPARTMENT History Chief Complaint Patient presents with ??? Lower Extremity Problem swelling to inside of right foot. [place] injury. calm at present. pain with activity. noted today at 1500. flushed. I have read the resident/FLOORING SALESPERSON history. Unless appended by me below, I agree with findings as documented. HPI Comments: 9 yr old female brought to ED for evaluation of right ankle pain which started afterplaying soccer today. Pain with ambulation. No swelling or bruising noted. No pain meds taken at home. On exam, pt is awake, alert, appropriate, in no distress, MMM, neck supple with FROM, chest clear, RRR, abdomen benign, neuro intact, pt with no obvious swelling or deformity to leg/ankle, no bruising, pt does not localize pain well, complains of pain to tibia when walking, complains of pain to back of ankle and bottom of foot when walking, NV intact, FROM all joints. Review of Systems Review of Systems BP 130/81 mmHg Pulse 100 Temp(Src) 98.6 ??F Resp 20 Wt 34.4 kg (75 lb 13.4 oz) SpO2 98% Physical Exam I have reviewed the resident/FLOORING SALESPERSON physical exam. Unless appended by me below, I agree with the PE as documented. Physical Exam Procedures Procedures ECG Interpretation ECG Interpretation Lab/SPO2 Interpretation No results found for this visit on 05/08/15. No orders to display Progress Notes X-rays of tib/fib and ankle negative for fx, will d/c home with supportive care instr, f/u pmd. ED Course Medical Decision Making I have reviewed the: Previous Chart, Nursing Notes and Vitals. I have interpreted the following results: X-Ray and Oxygen Saturation. 9 yr old female with right leg pain, unknown injury, pt looks well in ED, reassuring exam, checking x-rays. The total time providing critical care (excluding time spent for procedures) was: 0 minutes. I have personally seen and examined this patient. I have fully participated in the care of this patient. I have reviewed all pertinent clinical information available to me during this encounter, including history, physical exam and plan. I have reviewed nursing notes, available labs and radiographic studies. With respect to physicians in training and mid-level providers, I agree with the assessment and plan except if revised in my note. Clinical Impression Final diagnoses: None Right ankle sprain * Niles Genao MD - 05/08/2015 6:36 PM CDT EMERGENCY DEPARTMENT 05/08/2015 Dear Doctor, We had the pleasure of caring for your patient, Veronica Lowe in our emergency department on 05/08/2015. A note from the provider(s) who cared for your patient is attached. Should you wish to access any laboratory results, please call . Should you wish to access any radiology results, please call , option 3. In addition, you can access patient information 24 hours a day, from any computer, through [employer], the online version of our electronic medical record. If you would like to use this service, please call Mee Bateman, Connectivity Coordinator, at . We appreciate the opportunity to care for your patients. If you would like additional information, please call the emergency department directly at . Sincerely, Niles Genao MD Division of Emergency Medicine [facility]. [place], [place] [facility] [place] EMERGENCY DEPARTMENT Provider contact with the patient: 05/08/2015 18:36 Veronica Lowe [id number] [facility] EMERGENCY DEPARTMENT History Chief Complaint Patient presents with ??? Lower Extremity Problem swelling to inside of right foot. [place] injury. calm at present. pain with activity. noted today at 1500. flushed. HPI Veronica Lowe is a 9 y.o. female with hx of (born at 36 5/7 weeks), ADHD, LELA; who presents for right ankle pain since soccer in gym today. Also some pain below knee. Pain is moderate,only occurs with weight bearing, no swelling or bruising. Has not taken any pain meds, been icing. No n/v. Was able to walk home from school today but hurt. Pos numbness and tingling in dorsum in foot. Past Medical History Diagnosis Date ??? infant 36 5/7 weeks 6 lbs 8 oz ??? LELA (obstructive sleep apnea) 05/14/13--clinical signs no sleep study ??? ADHD (attention deficit hyperactivity disorder) takes ritalin Past Surgical History Procedure Laterality Date ??? Negative surgical history ??? Tonsillectomy and adenoidectomy 05/14/2013 N/A; TONSILLECTOMY AND ADENOIDECTOMY History Social History ??? Marital Status: Single Spouse Name: N/A Number of Children: N/A ??? Years of Education: N/A Occupational History ??? Not on file. Social History Main Topics ??? Smoking status: Never Smoker ??? Smokeless tobacco: Not on file ??? Alcohol Use: Not on file ??? Drug Use: No ??? Sexual Activity: No Other Topics Concern ??? Special Diet No Social History Narrative Medications Current Outpatient Prescriptions Medication Sig Dispense Refill ??? methylphenidate (RITALIN) 5 MG tablet Take 5 mg by mouth Every morning and lunchtime ??? montelukast (SINGULAIR) 5 MG chew tablet Take 1 Tab by mouth at bedtime 30 Tab 6 ??? cetirizine (ZYRTEC ALLERGY) 10 MG tablet Take 1 Tab by mouth once daily as needed for Runny Nose or Allergies (itch) 90 Tab 5 ??? methylphenidate CR 36 MG tablet Take 36 mg by mouth once daily. In the AM 0 ??? guanFACINE (TENEX) 2 MG tablet Take 3 mg by mouth at bedtime. Takes 3 mg (1.5 tablets) every night ??? melatonin 5 MG tablet Take 4 mg by mouth at bedtime. ??? albuterol HFA (PROVENTIL;VENTOLIN;PROAIR) 108 (90 BASE) MCG/ACT inhaler Inhale 2 Puffs by mouthevery 6 hours as needed for Shortness of Breath, Wheezing or Cough 2 Inhaler 5 ??? mometasone (NASONEX) 50 MCG/ACT nasal spray [place] 2 Sprays into each nostril once daily 1 Inhaler 5 ??? AEROCHAMBER PLUS (AEROCHAMBER) Use as directed. 1 each 1 Review of Systems Review of Systems Constitutional: Negative for fever and chills. HENT: Negative. Respiratory: Negative. Cardiovascular: Negative. Gastrointestinal: Negative. Genitourinary: Negative. Musculoskeletal: Positive for myalgias, arthralgias and gait problem. Negative for joint swelling. Skin: Negative. Neurological: Positive for numbness. Negative for weakness. BP 130/81 mmHg Pulse 100 Temp(Src) 98.6 ??F Resp 20 Wt 34.4 kg (75 lb 13.4 oz) SpO2 98% Physical Exam Physical Exam Constitutional: She appears well-developed and well-nourished. She is active. No distress. HENT: Head: Atraumatic. Eyes: Conjunctivae are normal. Pupils are equal, round, and reactive to light. Right eye exhibits no discharge. Left eye exhibits no discharge. Cardiovascular: Normal rate and regular rhythm. Pulses are palpable. Pulmonary/Chest: Effort normal and breath sounds normal. No respiratory distress. She exhibits no retraction. Abdominal: Soft. Bowel sounds are normal. She exhibits no distension. There is no tenderness. Musculoskeletal: She exhibits tenderness (lateral malleolus, palpation of Achilles). She exhibits no deformity. Neurological: She is alert. Skin: Skin is warm. Capillary refill takes less than 3 seconds. No petechiae and no purpura noted. She is not diaphoretic. No cyanosis. No jaundice. Procedures Procedures ECG Interpretation ECG Interpretation Lab/SPO2 Interpretation Progress Notes Labs Reviewed - No data to display XR ANKLE 3+ VW RIGHT (Results Pending) XR TIBIA FIBULA RIGHT 2VW (Results Pending) Medications - No data to display ED Course 7:34 PM Xrays negative. Pt likely has sprain. Home. Medical Decision Making Ankle and tib/fib pain: fracture vs sprain vs contusion vs other Clinical Impression Final diagnoses: Ankle sprain, right, initial encounter documented in this encounter Plan of Treatment Not on file documented as of this encounter Procedures Procedure Name Priority Date/Time Associated Diagnosis Comments XR TIBIA FIBULA RIGHT 2VW STAT 05/08/2015 7:12 PM CDT XR ANKLE RIGHT 3VW OR MORE STAT 05/08/2015 7:12 PM CDT documented in this encounter Results * XR TIBIA FIBULA RIGHT 2VW (05/08/2015 [...] dislocation. Niles Genao MD DIAGNOSTIC IMAGING ORDERABLES documented in this encounter Visit Diagnoses Diagnosis Ankle sprain, right, initial encounter documented in this encounter Care Teams Technical Publications Manager Relationship Specialty Start Date End Date Francesca Martinez MD [address] [place] [phone] PCP - General 01/08/12 documented as of this encounter
--- OUTSIDE RECORDS SUMMARY | 2024-07-28 19:30 | XMS_ITS | Encounter Summary ---
Author Organization [facility] Address [address] [place] [address] Care Team Providers Care Salesperson Pets And Pet Supplies Name Role Phone Francesca Martinez MD Primary Care Provider [phone] Reason for Visit * Reason Comments Follow-up Encounter Details Date Type Department Care Team (Latest Contact Info) Description 07/31/2017 9:05 AM CHIEF UNDERWRITER - 07/31/2017 11:59 PM [facility] Hospital Encounter [facility] Pediatrics - ENT [address] [place] [address] Robert Ramos MD [address] [place] [address] Discharge Disposition: Home or Self Care Social [...] - - Weight 53.5 kg (117 lb 15.1 oz) 07/31/2017 9:12 AM CHIEF UNDERWRITER Height 161.2 cm (5' 3.47 ) 07/31/2017 9:12 AM CS T Body Mass Index 20.59 07/31/2017 9:12 AM CHIEF UNDERWRITER Body Mass Index Percentile 72.37% 07/31/2017 9:1 2 AM CHIEF UNDERWRITER Growth Chart: [facility] (Girls, 2- 20 Years) documented in this encounter Discharge Instructions * Patient Instructions* Robert Ramos MD - 07/31/2017 9:32 AM CHIEF UNDERWRITER 1. Agree with current allergy regimen (flonase/singulair/zyrtec/aerospan/albuterol) [...] ten minutes. 6. FU with ENT in 6 months for repeat scope. Depending on interval symptoms, exam, we may consider watchful waiting, additional medications, nasal biopsy, less likely a surgery including septal repair/turbinate reduction. Typically, septal surgery is done in early adulthood because of technical considerations if indicated. F UNDERWRITER documented in this encounter Medications at Time [...] allergic rhinitis due to pollen, unspecified chronicity [place] 2 Sprays into each nostril once daily [...] Progress Notes * Robert Ramos MD - 07/31/2017 9:21 AM CST ENT Clinic Note 07/31/2017 Chief Complaint Patient presents with ??? Follow-up History of Present Illness 06/26/2017: 11 yo [...] Pt presents in FU. Pt saw ENT CHINESE TEACHER (AM) 03/20/17 for ongoing issues with nasal [...] frequent awakening, gasping for air, and witnessed apneas. These symptoms are somewhat improved when she is diligent with her allergy regimen. Pt does have a known dental/oral issue. Family notes frequent tongue thrusting, and some malocclusion problems. Hot Saw Helper feels like she could benefit from orthodontic [...] pain, rash, hemoptysis, hematemesis, dysphagia, or dysphonia. History of Present Illness 07/31/2017: 11 yo WF with PMH s/f ADHD, asthma presents with 1) s/p T+A 05/14/13 2) septal perforation, 1 cm, minimally symptomatic, suspect post-traumatic, less likely inflammatory (normal labs) 3) nasal congestion, secondary to allergic rhinitis, mild residual L septal deviation 4) sleep disturbance, suspectmultifactorial, perhaps mild clinical sleep apnea 5) allergic rhinitis, good control on current regimen, but generally poor compliance with regimen Pt presents in FU. Since last being seen, mom does not think she is doing good. She notes ongoing issues with congestion, nausea, dizzy, fatigue. Family denies recurrent headaches. Because of how dry it is, she has been having a bit of bleeding. Mom notes this occurs about 2 times per month. Pt did not do irrigations ( I just don't like it. ) Family is considering orthodontics reevaluation in September ( after income tax returns ). Family does see [facility]Imm later today. They are considering allergy shots vs continued medical treatment. Allergies: Penicillins Medications: Current Outpatient Prescriptions: ??? Flunisolide HFA (AEROSPAN) 80 MCG/ACT, Inhale 2 Puffs by mouth 2 times daily, Disp: 1 Inhaler, Rfl: 5 ??? cetirizine (ZYRTEC ALLERGY) 10 MG tablet, Take 1 Tab by mouth once daily as needed for Runny Nose or Allergies (itch), Disp: 30 Tab, Rfl: 11 ??? fluticasone propionate (FLONASE) 50 MCG/ACT nasal spray, [place] 2 Sprays into each nostril oncedaily, Disp: 1 Bottle, Rfl: 11 ??? montelukast [...] or review of systems. Physical Exam: Height: 161.2 cm (5' 3.47 ) Weight: 53.5 kg (117 lb 15.1 oz) Body mass index is 20.59 kg/(m^2). Estimated body mass index is 20.59 kg/(m^2) as calculated from the following: Height as of this encounter: 1.612 m (5' 3.47 ). Weight as of this encounter: 53.5 kg (117 lb 15.1 oz). 78 %ile (Z= 0.76) based on CDC 2-20 Years [id number] data using vitals from 07/31/2017. Constitutional: no retractions or cyanosis Head and Face: no lesions or masses; facies symmetrical Eyes: ocular motion with gaze alignment Ears: Inspection: normal pinnae shape and position Otoscopy: External canal: normal bilaterally Tympanic membrane: Right ear: normal appearance and landmarks Left ear: normal appearance and landmarks Nasal: 1 cm dry septal perforation with some crusting posteriorly, mild very anterior septal deviation, no significant turbinate hypertrophy Oral Cavity: moderately high arched palate Throat: tonsils absent Neck: supple without tenderness or crepitus; no palpable adenopathy Cranial Nerve Exam: grossly intact; CN VII symmetrical Respiration: unlabored breathing Skin: skin healthy Labs: 06/26/17 - GIULIANO, CRP, Sed Rate, JENNY, ANCA panel normal ASSESSMENT: 11 yo WF with PMH s/f ADHD, asthma presents with 1) s/p T+A 05/14/13 2) septal perforation, 1 cm, minimally symptomatic, suspect post-traumatic, less likely inflammatory (normal labs) 3) nasal congestion, secondary to allergic rhinitis, mild residual L septal deviation 4) sleep disturbance, suspectmultifactorial, perhaps mild clinical sleep apnea 5) allergic [...] ten minutes. 6. FU with ENT in 6 months for repeat scope. Depending on interval symptoms, exam, we may consider watchful waiting, additional medications, nasal biopsy, less likely a surgery including septal repair/turbinate reduction. Typically, septal surgery is done in early adulthood because of technical considerations if indicated. Robert Ramos MD F UNDERWRITER documented in this encounter Plan of Treatment Not on file documented as of this encounter Visit Diagnoses Not on filedocumented in this encounter Care Teams Salesperson Pets And Pet Supplies Relationship Specialty Start Date End Date Francesca Martinez MD [address] [place] [phone] PCP - General 01/08/12 documented as of this encounter
--- OUTSIDE RECORDS SUMMARY | 2024-07-28 19:30 | XMS_ITS | Encounter Summary ---
Author Organization [facility] Address [address] [facility] [place] [address] Care Team Providers Care Jewelry Store Manager Name Role Phone Francesca Martinez MD Primary Care Provider [phone] Reason for Visit * Reason Onset Date Comments MEDICATION REFILL 06/22/2018 Encounter Details Date Type Department Care Team (Late st Contact Info) Description 06/22/2018 Refill [facility] Pediatrics - Dermatology [address] [facility] [place] [address] Adenike Marx MD [address] [facility] [address] [place] [address] MEDICATION REFILL Social History Tobacco Use Types [...] encounter Miscellaneous Notes * Telephone Encounter - Peggy Fulton RN - 06/22/2018 2:56 PM CST Received fax notification from [facility]; alternative rx requested; Scalpicin 1% liquid not covered; pt requesting similar product to be prescribed. Rx written 10/09/17. New pt/Last visit 10/09/17: 3% salicylic acid is available over the counter but often difficult to find. ? Options are [facility] brand 3% salicylic acid ([facility] Scalp Relief Anti-Itch Serum) or Quality Choice Scalp Relief available online through [employer]. The molina ranges from $6 - $20 depending on the size of the bottle. Most [facility] carry the Quality Choice brand as well ([facility], [facility], [facility], [facility], [facility], [facility]). ?? For optimal use, apply every night. Note-your insurance may not cover Scalpicin. If your pharmacy informs you that Scalpicin is unavailable, call [phone] option 4, Friday-Friday between 9 AM and 5 PM to discuss alternatives. Pt was a No Show for derm f/u appt 01/16/18. No interval calls from family. Request faxed back to pharm with notes: May substitute with [facility] store brand scalp relief. Anything other than OTC requires derm f/u appt. No future appointments. ER BREWER documented in this encounter Plan of Treatment Not on file documented as of this encounter Visit Diagnoses Not on filedocumented in this encounter Care Teams Jewelry Store Manager Relationship Specialty Start Date End Date Francesca Martinez MD [address] [place] [phone] PCP - General 01/08/12 documented as of this encounter
--- OUTSIDE RECORDS SUMMARY | 2024-07-28 19:30 | XMS_ITS | Encounter Summary ---
Author Organization [facility] Address [address] [place] [address] Care Team Providers Care Residential Nurse Name Role Phone Francesca Martinez MD Primary Care Provider Reason for Visit * Reason Comments Follow-up Encounter Details Date Type Department Care Team (Latest Contact Info) Description 05/23/2016 2:57 PM CDT - 05/23/2016 11:59 PM CDT Hospital Encounter [facility] - Immunology [address] [place] [phone] Augustin Millan MD [address] [place] [phone] Discharge Disposition: Home or Self Care Social [...] Sign Reading Time Taken Comments Blood Pressure 90/50 05/23/2016 3:11 PM CDT Pulse - - Temperature - - Respiratory Rate - - Oxygen Saturation - - Inhaled Oxygen Concentration - - Weight 45.3 kg (99 lb 13.9 oz) 05/23/2016 3:11 P M CDT Height 152.1 cm (4' 11.88 ) 05/23/2016 3:11 PM C DT Body Mass Index 19.58 05/23/2016 3:11 PM CDT Body Mass Index Percentile 71.07% 05/23/2016 3:1 1 PM CDT Growth Chart: [facility] (Girls, 2- 20 Years) documented in this encounter Discharge Instructions * Patient Instructions* Maria M Cortés RN - 05/23/2016 3:18 PM CDT Please review: -please start using Flonase 2 sprays each nostril per day for her nose - Environmental controls for mold, grass and Ragweed - An asthma action plan and inhaler technique with an aerochamber: qvar 40mcg 2 puffs BID, Singulair 5 mg daily, albuterol before exercise and PRN. - Our recommendation that she have an influenza vaccination each April. - More information may be found at [email or web address] - Follow up in 6 months. The Discharge Instructions have been reviewed with [...] sprayIndications:Season al allergic rhinitis due to pollen [place] 2 Sprays into each nostril once daily [...] Progress Notes * Augustin Millan MD - 05/23/2016 3:06 PM CDT Date 05-23-2016 LV 03-02-2015 ?? ALLERGY & IMMUNOLOGY ATTENDING NOTE ? Present Illness Veronica Lowe is a 10 y.o. female who presents for evaluation of ? Asthma, mild persistent, needs better control ?? ACT 20 ?? Exercise interferred ?? Elevated FeNO AR, needs better control of congestion ?? IgEs Alternaria, grasses, weeds + RW AC ADHD ?? Managed by Dr Trotter ?? PAST MEDICAL HISTORY ?? Drug Allergy ?? Amoxacillin, urticaria at 1 year old ? Surgical History ?? T&A 05-14-2013 ?? Social History ?? Patients lives with mother and father ?? Family History ?? IgA deficiency, sister Michele ? THI, sister Sariah ?? Review of Symptoms: ?? Constitutional: Negative Eyes: Negative Ears, nose, mouth, and throat: see HPI Respiratory: see HPI Cardiovascular: Negative Gastrointestinal: Negative Genitourinary:Negative Skin: Negative Breast: Negative Hematologic/lymphatic: Negative Musculoskeletal:Negative Neurological: see HPI Behavioral/Psych: Negative Endocrine: Negative ?? Physical Examination BP 90/50 Wt 99 lb 13.9 oz (45.3 kg) BMI 19.58 kg/m2 General Assessment:: alert, well appearing, and [...] focal findings or movement disorder noted ? Pulmonary Function Studies: ? Parameter?? Actual?? % pred?? FVC?? 2.4 liters ?? 90.57 % ?? FEV1?? 2.04 liters?? 87.18 %?? [id number]?? 1.97 L/SEC?? 69.37 % ?? PEF?? Pre-Tx Actual Peak Flow: (!) 4.79 L/SEC?? 91.06 %?? FEV1/FVC?? 85 %? Interpretation:Normal. FeNO 72 ppb Impressions Asthma, mild persistent, needs better control ?? ACT 20 ?? Exercise interferred ?? Elevated FeNO AR, needs better control of congestion ?? IgEs Alternaria, grasses, weeds + RW AC ADHD ?? Managed by Dr Trotter ? Recommendations ??Fluzone ? Medications Restart Qvar 40 2x2 Albuterol hfa prn Add Flonase 1x1 Singuliar 5 mg hs Zyrtec 10 mg q day Guanfacine 2 mg 3 mg hs ?? ADHA medications Methylphenidate CR 36 mg q day Melatonin 5 mg hs ? FU 6 months ?? Augustin Millan MD 05/23/20163:17 PM ? LAST VISIT: 03/02/15 CHIEF COMPLAINT: Follow-up HISTORY OF PRESENT ILLNESS: Veronica Lowe is a 10 y.o. female who presents today for follow-up of her asthma and allergic rhinitis. She is accompanied by her mother, from whom additional history is obtained. Asthma: Currently on Albuterol PRN and Singulair 5 mg PO QHS. stopped the Qvar. Since the last visit there have been no acute medical visits, ER visits, hospitalizations or steroid bursts for asthma. Nocturnal awakening due to asthma occurs 1-2 times per month. She has had some problems with exercise (50% of the time), but has not needed albuterol. She does not premedicate with albuterol. Uses albuterol once per month. ?? AR (+Alternaria, Grass- Zachery and Bahia, Ragweed): No longer taking nasal sprays. She is on Singulair 5 mg HS and Zyrtec 10 mg HS. It improved some after T and A. She does snore. She has a tic with her ADHD which involves touchingor picking her nose. ACT Current Outpatient Prescriptions Medication Sig Dispense Refill ??? cetirizine (ZYRTEC ALLERGY) 10 MG tablet Take 1 Tab by mouth once daily as needed for Runny Nose or Allergies (itch) 30 Tab 5 ??? albuterol HFA (PROVENTIL;VENTOLIN;PROAIR) 108 (90 BASE) MCG/ACT inhaler Inhale 2 Puffs by mouthevery 6 hours as needed for Shortness of Breath, Wheezing or Cough 2 Inhaler 5 ??? montelukast (SINGULAIR) 5 MG chew tablet Take 1 Tab by mouth at bedtime 30 Tab 5 ??? beclomethasone dipropionate (QVAR) 40 MCG/ACT inhaler Inhale 2 Puffs by mouth 2 times daily 1 Inhaler 5 ??? fluticasone propionate (FLONASE) 50 MCG/ACT nasal spray [place] 2 Sprays into each nostril once daily 1 Bottle 5 ??? methylphenidate (RITALIN) 5 MG tablet Take 5 mg by mouth Every morning and lunchtime ??? methylphenidate CR 36 MG tablet Take 36 mg by mouth once daily. In the AM 0 ??? guanFACINE (TENEX) 2 MG tablet Take 3 mg by mouth at bedtime. Takes 3 mg (1.5 tablets) every night ??? melatonin 5 MG tablet Take 4 mg by mouth at bedtime. ??? AEROCHAMBER PLUS (AEROCHAMBER) Use as directed. 1 each 1 Current Facility-Administered Medications Medication Dose Route Frequency Provider Last Rate Last Dose ??? influenza quadrivalent vac (FLUZONE PF;FLUARIX PF) injection 0.5 mL 0.5 mL Intramuscular Immunization - Once Daniela Patel MD Medication Allergies: Allergies Allergen Reactions ??? Penicillins Hives w/ Amoxicillin at 1 yr old Review of Systems: Constitutional: No weight loss, fever, LEWIS, fatigue ENT: No rhinorrhea, nasal congestion, sneezing, ocular/nasal pruritus CV: No chest pain, dyspnea on exertion, or palpitations Resp: No wheeze, SOB, but has cough w exercise GI: No abdominal pain, vomiting, diarrhea, constipation, dysphagia : No retention, incontinence, dysuria, hematuria MS: No joint/bone pain, swelling, redness Neuro: No weakness, numbness, confusion, syncope Skin: no hives, angioedema, pruritus, eczema Psych: No behavioral changes Endocrine: no polyuria, polydipsia, flushing Heme/Lymph: no bruising/bleeding A review of past medical history, environmental history, and family history was obtained and no change since previous visit. PHYSICAL EXAM: BP 90/50 Wt 45.3 kg (99 lb 13.9 oz) BMI 19.58 kg/m2 Please refer to attending's note for physical exam Pulmonary Function Studies Parameter Actual % pred Post BD Actual % change FVC 2.4 liters 90.57 % FEV1 2.04 liters 87.18 % [id number] 1.97 L/SEC 69.37 % PEF Pre-Tx Actual Peak Flow: (!) 4.79 L/SEC 91.06 % FEV1/FVC 85 % FeNO NIOX/FeNO: 72 Normal <25 Intermediate 25-50 High >50 (>=12y/o) Normal <20 Intermediate 20-35 >35 High (<12yo) Interpretation: normal w some small airway disease ASSESSMENT & PLAN: 10 year old female with exercise-induced asthma and while spirometry today looks OK, has very elevated FeNO and seems to be having more symptoms since stopping Qvar, and allergic rhinitis (+alternaria, grass, ragweed). Asthma: -Will resume Qvar 40 mcg 2 puffs BID w aerochamber and Continue Singulair 5 mg PO QHS. -Premedicate with albuterol prior to albuterol and PRN for symptoms. -Provided family with a written asthma action plan as well as demonstration of appropriate technique for using inhaled asthma medications. -We will reassess her Asthma control and spirometry w FeNO at her next visit. -will get flu shot today ?? AR (+Alternaria, Grass- Zachery and Bahia, Ragweed): - Will start Flonase 2 SEN Daily. Continue Singulair 5 mg HS and Zyrtec 10 mg HS. - Discussed environmental control measures to decrease overall relevant aeroallergen exposure. -Provided family w/ a booklet outlining specific avoidance and control measures. -Demonstrated proper nasal spray technique with specific instruction to avoid the nasal septum. Return to clinic in 6 months. Daniela Patel MD Fellow in Allergy and Immunology. 05/23/2016 3:42 PM * Augustin Millan MD - 05/22/2016 10:52 AM CDT Date 05-23-2016 LV 03-02-2015 ALLERGY & IMMUNOLOGY ATTENDING NOTE Present Illness Veronica Lowe is a 10 y.o. female who presents for evaluation of Asthma, mild persistent, needs better control ?? ACT 20 ?? Exercise interferred ?? Elevated FeNO AR, needs better control of congestion ?? IgEs Alternaria, grasses, weeds + RW AC ADHD ?? Managed by Dr Trotter PAST MEDICAL HISTORY Drug Allergy ?? Amoxacillin, urticaria at 1 year old Surgical History ?? T&A 05-14-2013 Social History ?? Patients lives with mother and father Family History ?? IgA deficiency, sister Michele ?? THI, sister Sariah Review of Symptoms: Constitutional: Negative Eyes: Negative Ears, nose, mouth, and throat: see HPI Respiratory: see HPI Cardiovascular: Negative Gastrointestinal: Negative Genitourinary:Negative Skin: Negative Breast: Negative Hematologic/lymphatic: Negative Musculoskeletal:Negative Neurological: see HPI Behavioral/Psych: Negative Endocrine: Negative Physical Examination BP 90/50 Wt 99 lb 13.9 oz (45.3 kg) BMI 19.58 kg/m2 General Assessment:: alert, well appearing, and [...] Pulmonary Function Studies: Parameter Actual % pred FVC 2.4 liters 90.57 % FEV1 2.04 liters 87.18 % [id number] 1.97 L/SEC 69.37 % PEF Pre-Tx Actual Peak Flow: (!) 4.79 L/SEC 91.06 % FEV1/FVC 85 % Interpretation:Normal. FeNO 72 ppb Impressions Asthma, mild persistent, needs better control ?? ACT 20 ?? Exercise interferred ?? Elevated FeNO AR, needs better control of congestion ?? IgEs Alternaria, grasses, weeds + RW AC ADHD ?? Managed by Dr Trotter ?? Recommendations ??Fluzone Medications Restart Qvar 40 2x2 Albuterol hfa prn Add Flonase 1x1 Singuliar 5 mg hs Zyrtec 10 mg q day Guanfacine 2 mg 3 mg hs ADHA medications Methylphenidate CR 36 mg q day Melatonin 5 mg hs FU 6 months Augustin Millan MD 05/23/20163:17 PM documented in this encounter Plan of Treatment Scheduled Orders Name Type Priority Associated Diagnoses Order Schedule FRACTIONAL EXHALED NITRIC OXIDE Respiratory Care Routine ONCE for 1 Occurrences starting 05/23/2016 until 05/23/2016 BEDSIDE SPIROMETRY Respiratory Care Routine ONCE for 1 Occurrences starting 05/23/2016 until 05/23/2016 documented as of this encounter Visit Diagnoses Diagnosis Mild persistent asthma without complication (HCC)- Primary Unspecified asthma Seasonal allergic rhinitis due to pollen Allergic conjunctivitis, bilateral Other chronic allergic conjunctivitis documented in this encounter Care Teams Residential Nurse Relationship Specialty Start Date End Date Francesca Martinez MD [address] [place] [phone] PCP - General 01/08/12 documented as of this encounter
--- OUTSIDE RECORDS SUMMARY | 2024-07-28 19:30 | XMS_ITS | Encounter Summary ---
Author Organization [facility] Address [address] [place] [address] Care Team Providers Care Train Clerk Name Role Phone Francesca Martinez MD Primary Care Provider [phone] Reason for Visit * Reason Comments Allergy Symptoms Asthma Encounter Details Date Type Department Care Team (Latest Contact Info) Description 04/24/2017 12:53 PM CDT - 04/24/2017 1:50 PM CDT Hospital Encounter [facility] - Immunology [address] [place] [id number] Augustin Millan MD [address] [place] [phone] Discharge Disposition: Home or Self Care Social [...] Weight 53.9 kg (118 lb 13.3 oz) 04/24/2017 1:04 PM CDT Height 159.1 cm (5' 2.64 ) 04/24/2017 1:04 PM CD T Body Mass Index 21.29 04/24/2017 1:04 PM CDT Body Mass Index Percentile 79.40% 04/24/2017 1:0 4 PM CDT Growth Chart: [facility] (Girls, 2- 20 Years) documented in this encounter Discharge Instructions * Patient Instructions* Mckenzie Haq RN - 04/24/2017 1:36 PM CDT The Discharge Instructions have been reviewed with the patient and her family. The parents have verbalized understanding. Call in 1 week for lab results. documented in this encounter Medications at Time [...] allergic rhinitis due to pollen, unspecified chronicity [place] 2 Sprays into each nostril once daily [...] Progress Notes * Augustin Millan MD - 04/23/2017 11:28 AM CDT Date 04-24-2017 LV 05-23-2016 ALLERGY & IMMUNOLOGY ATTENDING NOTE Present Illness Veronica Lowe is a 11 y.o. female who presents for evaluation of Asthma, mild persistent, needs better control ACT 19 Frequent nocturnal symptoms Elevated FeNO AR, needs better control of congestion IgEs Alternaria, grasses, weeds + RW QoL 8 AC ADHD Managed by Dr Trotter PAST MEDICAL [...] Behavioral/Psych: Negative Endocrine: Negative ? Physical Examination Ht 5' 2.64 (1.591 m) Wt 118 lb 13.3 oz (53.9 kg) BMI 21.29 kg/m2 General Assessment:: alert, well appearing, and [...] Function Studies: Parameter Actual % pred FVC 3.01 liters 90.7 % FEV1 2.65 liters 2.65 liters [id number] 2.97 L/SEC 3.17 Liters/Second PEF Pre-Tx Actual Peak Flow: (!) 4.51 L/SEC 78.3 % FEV1/FVC 97.07 % Interpretation: Normal. FeNO 86 ppb Impressions Asthma, mild persistent, needs better control ACT 19 Frequent nocturnal symptoms Elevated FeNO AR, needs better control of congestion IgEs Alternaria, grasses, weeds + RW QoL 8 AC ADHD Managed by Dr Trotter ? Recommendations ?? PFTs FeNO CBC IgE aeroallergens If cannot get better control of raad, consider IT, mepolizumab. ? Medications Asthma Qvar 40 2x2. Increase Qvar 80 mg bid Albuterol hfa prn AR Flonase 1x1 Singuliar 5 mg hs. Increase Singulair 10 mg hs Zyrtec 10 mg q day Guanfacine 2 mg 3 mg hs ? ADHA medications Methylphenidate CR 36 mg q day Melatonin 5 mg hs ? FU 3 months Augustin Millan MD 04/24/20171:07 PM documented in this encounter Plan of Treatment Scheduled Orders Name Type Priority Associated Diagnoses Orde r Schedule BEDSIDE SPIROMETRY Respiratory Care Routine ONCE for 1 Occurrences starting 04/24/2017 until 04/24/2017 documented as of this encounter Procedures Procedure Name Priority Date/Time Associated Diagnosis Comments IMMUNOSCORE IGE INTERP Routine 04/24/2017 2:01 PM CDT Seasonal allergic rhinitis, unspecified chronicity, unspecified trigger ALLERGEN RESPIRATORY PNL REGION 8 ([place]) Routine 04/24/2017 2:01 PM CDT Seasonal allergic rhinitis, unspecified chronicity, unspecified trigger CBC W AUTO DIFFERENTIAL Routine 04/24/2017 2:01 PM CDT Seasonal allergic rhinitis, unspecified chronicity, unspecified trigger documented in this encounter Results * IMMUNOSCORE IGE INTERP (04/24/2017 2:01 PM CDT) [facility] Signature Immunocap Score See Note 7 5:08 PM CDT [facility] [email or web address] ([facility]) Comment: REFERENCE INTERVAL: Allergen, Interpretation Less than [...] clinical allergy or even anaphylaxis. Performed by [facility], [address] [place] [address] [email or web address], Godfrey Solomon MD, Lab. Director Blood BLOOD SPECIMEN / Unknown Lab Venipuncture / Unknown 04/24/2017 2:01 PM CDT 04/24/2017 2:35 PM CDT Augustin Millan MD LAB - SEROLOGY ORDER RODRIGO [facility] [email or web address] [facility]) [address] [place] [address], [facility] * (ABNORMAL) ALLERGEN RESPIRATORY PROFILE ([place]) (04/24/2017 2:01 PM CDT) IgE Total 370 <=696 kU/L 04/26/2017 5:07 PM CDT [facility] [email or web address] ([facility]) Comment: REFERENCE INTERVAL: Immunoglobulin E, Serum Access complete set of age- and/or gender-specific reference intervals for this test in the [facility] Test Directory ([employer]). Allergen Dermatophagoides farinae <0.10 <=0.34 kU/L 04/26/2017 5:07 PM CDT [facility] [email or web address] ([facility]) Allergen Dermatophagoides pteronyssinus <0.10 <=0.34 kU/L 04/26/2017 5:07 PM CDT [facility] [email or web address] ([facility]) Allergen Cat Dander <0.10 <=0.34 kU/L 04/26/2017 5:07 PM CDT [facility] [email or web address] [facility]) Allergen Dog Dander 0.10 <=0.34 kU/L 04/26/2017 5:07 PM CDT [facility] [email or web address] ([facility]) Allergen Bermuda Grass <0.10 <=0.34 kU/L 04/26/2017 5:07 PM CDT [facility] ([facility]) Allergen Zachery Grass <0.10 <=0.34 kU/L 04/26/2017 5:07 PM CDT [facility] ([facility]) Allergen Cockroach Danish <0.10 <=0.34 kU/L 04/26/2017 5:07 PM CDT [facility] [email or web address] [facility]) Allergen Alternaria alternata 6.56(H) <=0.34 kU/L 04/26/2017 5:07 PM CDT [facility] ([facility]) Allergen A fumigatus IgE 2.06(H) <=0.34 kU/L 04/26/2017 5:07 PM CDT [facility] ([facility]) Allergen Hormodendrum 1.51(H) <=0.34 kU/L 04/26/2017 5:07 PM CDT [facility] ([facility]) Allergen P. Notatum 0.50(H) <=0.34 kU/L 04/26/2017 5:07 PM CDT [facility] ([facility]) Allergen [place] Maple <0.10 <=0.34 kU/L 04/26/2017 5:07 PM CDT [facility] ([facility]) Allergen [place] Tree <0.10 <=0.34 kU/L 04/26/2017 5:07 PM CDT [facility] ([facility]) Allergen Elm 0.17 <=0.34 kU/L 04/26/2017 5:07 PM CDT [facility] ([facility]) Allergen [place] Tree 0.12 <=0.34 kU/L 04/26/2017 5:07 PM CDT [facility] ([facility]) Allergen Mountain Hessel <0.10 <=0.34 kU/L 04/26/2017 5:07 PM CDT [facility] ([facility]) Allergen White Harmony Tree IgE <0.10 <=0.34 kU/L 04/26/2017 5:07 PM CDT [facility] ([facility]) Allergen [place] <0.10 <=0.34 kU/L 04/26/2017 5:07 PM CDT [facility] ([facility]) Allergen Pecan Tree <0.10 <=0.34 kU/L 04/26/2017 5:07 PM CDT [facility] ([facility]) Allergen [place] Tree 0.22 <=0.34 kU/L 04/26/2017 5:07 PM CDT [facility] ([facility]) Allergen White Jack 0.16 <=0.34 kU/L 04/26/2017 5:07 PM CDT [facility] ([facility]) Allergen Rough Pigweed 0.25 <=0.34 kU/L 04/26/2017 5:07 PM CDT [facility] ([facility]) Allergen Common Ragweed <0.10 <=0.34 kU/L 04/26/2017 5:07 PM CDT [facility] ([facility]) Allergen Medina Elder 0.14 <=0.34 kU/L 04/26/2017 5:07 PM CDT [facility] ([facility]) Allergen Bolivian Thistle 0.27 <=0.34 kU/L 04/26/2017 5:07 PM CDT [facility] ([facility]) Allergen Mouse <0.10 <=0.34 kU/L 04/26/2017 5:07 PM CDT [facility] ([facility]) Allergen Mucor racemosus <0.10 <=0.34 kU/L 04/26/2017 5:07 PM CDT [facility] ([facility]) Allergen Peanut <0.10 <=0.34 kU/L 04/26/2017 5:07 PM CDT [facility] ([facility]) Allergen Milk (Cow) 0.17 <=0.34 kU/L 04/26/2017 5:07 PM CDT [facility] ([facility]) Comment: Performed by [facility], [address] [place] [address] [email or web address], Godfrey Solomon MD, Lab. Director Blood BLOOD SPECIMEN / Unknown Lab Venipuncture / Unknown 04/24/2017 2:01 PM CDT 04/24/2017 2:35 PM CDT Augustin Millan MD LAB - CHEMISTRY [facility]) [address] [place] [address], [facility] * CBC W AUTO DIFFERENTIAL (04/24/2017 2:01 PM CDT) WBC 9.5 4.5 - 14.5 x10E9/L 04/24/2017 3:01 PM CDT [facility] WBC Corrected x10E9/L 04/24/2017 3:01 PM CDT [facility] RBC 4.72 4.00 - 5.20 x10E12/L 04/24/2017 3:01 PM CDT [facility] Hemoglobin 13.5 11.5 - 15.5 gm/dL 04/24/2017 3:01 PM CDT [facility] Hematocrit 40.8 35.0 - 45.0 % 04/24/2017 3:01 PM [facility] MCV 86.4 77.0 - 95.0 fl 04/24/2017 3:01 PM [facility] MCH 28.6 25.0 - 33.0 pg 04/24/2017 3:01 PM [facility] MCHC 33.1 31.0 - 37.0 gm/dL 04/24/2017 3:01 PM [facility] Platelet Count 322 100 - 400 x10E9/L 04/24/2017 3:01 PM [facility] RDW-CV 12.4 11.5 - 14.0 % 04/24/2017 3:01 PM [facility] MPV 9.1 6.0 - 9.5 fl 04/24/2017 3:01 PM [facility] Neutrophils % 48.2 24.0 - 66.0 % 04/24/2017 3:01 PM [facility] Lymphocytes % 36.2 22.0 - 61.0 % 04/24/2017 3:01 PM [facility] Monocytes % 5.0 3.0 - 15.0 % 04/24/2017 3:01 PM [facility] Eosinophils % 9.7 0.0 - 10.0 % 04/24/2017 3:01 PM [facility] Basophils % 0.6 % 04/24/2017 3:01 PM [facility] Immature Granulocytes 0.3 % 04/24/2017 3:01 PM [facility] Neutrophil Absolute 4.56 x10E9/L 04/24/2017 3:01 PM [facility] Lymphocytes Absolute 3.43 x10E9/L 04/24/2017 3:01 PM [facility] Monocytes Absolute 0.47 x10E9/L 04/24/2017 3:01 PM [facility] Eosinophils Absolute 0.92 x10E9/L 04/24/2017 3:01 PM [facility] Basophils Absolute 0.06 x10E9/L 04/24/2017 3:01 PM [facility] Immature Granulocytes Absolute 0.03 x10E9/L 04/24/2017 3:01 PM [facility] nRBC Auto 0 /100 WBC 04/24/2017 3:01 PM CDT [facility] Blood BLOOD SPECIMEN / Unknown Lab Venipuncture / Unknown 04/24/2017 2:01 PM CDT 04/24/2017 2:35 PM CDT Augustin Millan MD LAB - HEMATOLOGY ORD ERABLES Performing Organization Address City/State/[facility] Co de Phone Number [facility] [address] [place] [address] documented in this encounter Visit Diagnoses Diagnosis Mild persistent asthma without complication (HCC)- Primary Unspecified asthma Seasonal allergic rhinitis due to pollen, unspecified chronicity Allergic conjunctivitis, bilateral Other chronic allergic conjunctivitis Seasonal allergic rhinitis, unspecified chronicity, unspecified trigger documented in this encounter Care Teams Train Clerk Relationship Specialty Start Date End Date Francesca Martinez MD [address] [place] [phone] PCP - General 01/08/12 documented as of this encounter
--- OUTSIDE RECORDS SUMMARY | 2024-07-28 19:30 | XMS_ITS | Encounter Summary ---
Author Organization [facility] Address [address] [place] [address] Care Team Providers Care Door Manager Name Role Phone Francesca Martinez MD Primary Care Provider Encounter Details Date Type Department Care Team (Latest Contact Info) Description 10/26/2018 1:16 PM CDT - 10/26/2018 11:59 PM T Hospital Encounter [facility] - Radiology [address] [place] [address] Myles Garcia MD [address] [place] [address] [place] [phone] Discharge Disposition: Home or [...] fluticasone propionate (FLONASE) 50 MCG/ACT nasal spray [place] 2 sprays into each nostril once daily 1 bottles 11 11/26/2017 12/31/2018 mometasone-formoterol (DULERA) 200-5 MCG/ACT inhaler Inhale 2 puffs by mouth 2 times daily 1 Inhaler 6 06/18/2018 12/31/2018 montelukast (SINGULAIR) 10 MG tablet Take 1 tablet by mouth once daily 31 tablet 6 06/18/2018 12/31/2018 documented as of this encounter Plan of Treatment Not on file documented as of this encounter Procedures Procedure Name Priority Date/Time Associated Diagnosis Comments XR SCOLIOSIS 2 OR 3VW Routine 10/26/2018 1:22 PM CDT Adolescent idiopathic scoliosis of thoracic [...] MD on 10/26/2018 at 1:40 PM Myles S Jose [facility] documented in this encounter Visit Diagnoses Diagnosis Adolescent idiopathic scoliosis of thoracic region Scoliosis (and kyphoscoliosis), idiopathic documented in this encounter Care Teams Door Manager Relationship Specialty Start Date End Date Francesca Martinez MD [address] [place] [address] [place] [phone] PCP - General 01/08/12 documented as of this encounter
--- OUTSIDE RECORDS SUMMARY | 2024-07-28 19:30 | XMS_ITS | Encounter Summary ---
Author Organization [facility] Address [address] [place] [address] Care Team Providers Care Therapist Speech Name Role Phone Francesca Martinez MD Primary Care Provider [phone] Encounter Details Date Type Department Care Team (Latest Contact Info) Description 10/02/2020 Travel Social History Tobacco Use Types Packs/Day [...] on filedocumented in this encounter Care Teams Therapist Speech Relationship Specialty Start Date End Date Francesca Martinez MD [address] [place] [phone] PCP - General 01/08/12 documented as of this encounter
--- OUTSIDE RECORDS SUMMARY | 2024-07-28 19:30 | XMS_ITS | Encounter Summary ---
Author Organization [facility] Address [address] [place] [address] Care Team Providers Care Card Puncher Name Role Phone Francesca Martinez MD Primary Care Provider Reason for Visit * Reason Comments SKIN PROBLEM LV: 09/2017 pt was b arianne after last appt and did not feel the need to follow up. ran out of medication and then scalp flared and is not flaky and itchy. Encounter Details Date Type Department Care Team (Latest Contact Info) Description 09/23/2018 11:45 AM ENTRY PROCESSOR - 09/23/2018 11:59 PM [facility] Hospital Encounter [facility] - Dermatology [address] [place] [address] Adenike Marx MD [address] [facility] [address] [place] [address] Discharge Disposition: Home or Self Care Social [...] - Inhaled Oxygen Concentration - - Weight 59.8 kg (131 lb 13.4 oz) 019 12:03 PM ENTRY PROCESSOR Height 164.7 cm (5' 4.84 ) 09/23/2018 1 2:03 PM ENTRY PROCESSOR Body Mass Index 22.04 09/23/2018 12:03 PM ENTRY PROCESSOR Body Mass Index Percentile 77.43% 09/23 12:03 PM ENTRY PROCESSOR Growth Chart: [facility] (Girls, 2- 20 Years) documented in this encounter Discharge Instructions * Patient Instructions* Sandra Motta APRN-DARYL - 09/23/2018 12:17 PM ENTRY PROCESSOR Veronica's skin condition is characteristic of mild sebopsoriasis. Possible/likely triggers include topical agents and yeast. There is no cure for Veronica's sensitive skin, but regular use of topical medications will help control the condition. The most important aspect of her treatment is elimination of ALL complex topical products and use of the prescribed amount of topical medication, (not too much, not too little) as below. SKIN CARE INSTRUCTIONS 1. Take frequent short baths (5-10 minutes) to relax, remove irritants, allergens and germs, and moisturize skin. Household bleach can help control overgrowth of germs. Add ?? cup to a big tub. 2. Use ketoconazole shampoo or a gentle liquid cleansing product sparingly to wash face, body and scalp. (See the Safer Products list below for choices). 3. Gently pat skin dry (do not rub!) and immediately apply a liberal amount of moisturizer to the entire body. See the Safer Products list below for choices. The safest and most effective choices are plain (not baby) petroleum jelly and plain mineral oil. (Some people prefer the feel of coconut oil). Plan to use at least 50 gm per month. 4. Apply fluocinolone solution with flares daily for one week then every other day. You were given a prescription today for a 60 mL bottle. Use up to 30 mL per month. 5. Apply Scalpicin to red, scaly areas daily. Treatment with fluocinolone alone will improve Veronica's skin, but this medication is a corticosteroid. Be aware that using a corticosteroid alone, every day or in larger quantities than recommended may weaken the skin, lead to systemic absorption or result in rebound worsening when the medication is discontinued. Additional Instructions ?? Keep nails trimmed, avoid overheating and avoid exposure to complex topical products, including creams or lotions, diaper wipes, dryer sheets and fabric softener. Wash new clothing before wearing. ?? BRING IN ALL YOUR MEDICATIONS AT EVERY VISIT ?? Scalp care OTC 3% salicylic acid scalp oil (for example: Scalpicin Original Formula , 3% ScalpRelief , Keralyt 3% Gel ) daily ?? Questions? Call , option 3 Veronica does not need a follow up Dermatology appointment as long as her skin remains well-controlled using no more than the recommended amount of topical medication. We hope Dr. Martinez will feel comfortable monitoring and approving future refills. We would be happy to see Veronica again if her skin fails to clear despite following our recommendedtreatment guidelines. SAFER PRODUCTS Many things that touch sensitive skin can cause irritation or an allergic rash. It???s easy to identify the cause of an irritant rash because it appears immediately after contact. For example, household cleansers can irritate even normal skin. The cause of an allergic rash is more difficult to identify because it may not appear until 1-2 weeks after touching the offending product, and can last for another 2 weeks or more. The safest, most cost-effective and most important way to protect sensitive skin is to use safe products that do not contain irritants and allergens. Find the safest products by carefully reading the back label to identify the active and inactive ingredients. Do not use pro ducts that fail to provide this information. Some of the products listed below are not stocked by large retailers, or may be purchased on-line at websites like www.Jackbox Games.what3words or by asking your local pharmacists to order the products. ?? Face and Body Wash: Cetaphil Gentle Skin Cleanser (liquid, not bar), Vanicream bar soap, Loprox or ketoconazole shampoo (prescription only). Avoid glucosides and cocamidopropyl betaine. ???Unscented?? is not ???fragrance free?? . ?? Hand janitor and cleaner-- NO hand sanitizers; use other cleansers sparingly, to palms only (and rinse well) ?? Shampoo: Aveeno Baby Cleansing Therapy Wash (not the one that says Wash and Shampoo ), Loprox or ketoconazole shampoo (prescription only). Avoid cocamidopropyl betaine. ?? Conditioner: Free and Clear; other moisturizing options include mineral oil or plain/virgin coconut oil ?? Moisturizer/Lip [place]: Generic petroleum jelly, mineral oil, Abolene, plain/virgin coconut oil; read the label carefully to make sure there is no fragrance. Alternative includes Epiceram (prescription only and $$$) ?? Scalp oil: Avoid olive oil. Alternatives are: mineral oil, 3% salicylic acid (e.g. CVS Scalp Relief), plain/virgin coconut oil. ?? Hair gel: cyclomethicone (https://www.Logicbroker/Tdmgeh-[email or web address]-[email or web address]/d [email or web address]) ?? Anti-itch: Products that contain pramoxine, a non-allergenic medication that will temporarily numb the skin (Sarna Sensitive, Prax lotion). Avoid creams that contain diphenhydramine menthol, phenol or camphor. Store the medication in the refrigerator and apply it cold for a more soothing effect.An antihistamine taken by mouth (e.g. Benadryl) can help some children sleep, however, may cause velia tation in some children and may not reduce itch. ?? Diapering: Seventh Generation, Kontests BrakeQuotes.com, Morningstar or most Babies R Us brands do not contain fragrance or latex. Use a water-dampened cloth or plain mineral oil on cotton pads instead of prepackaged wipes. ?? Diaper Rash: Generic zinc oxide ointment is the safest option, but it can be hard to find. The active ingredient is 20-40% zinc oxide. The inactive ingredients should be only: paraffin, petrolatumand/or mineral oil. Consider CVS and [place] brands. Vaniply ointment is another alternative, but more expensive. ?? Insect Repellant: Apply 0.5% permethrin spray such as Repel Permethrin Clothing and Gear ([facility]), Ramírez Premium Clothing Insect Repellent ([facility]), or [place] Insect Treatment Gear and Clothing ([facility]) to clothing (not skin) - often found at sporting goods stores. Per methrin bonds to the cloth fiber for up to 6 weeks even after laundering. ?? Sunscreen: Wear hats and sun protective clothing made of tightly woven, lightweight fabric such as Coolibar and Solumbra, or Felix ???Beefy -T?? shirts; use preservative-free zinc oxide ointment as a sunscreen. Alternatives include Vanicream sunscreens. ?? Deodorant/Antiperspirant: Alum crystal (e.g. Crystal Stick Deodorant), Almay Hypo-Allergenic Fragrance Free Roll On, Stiefel B-Electrogalvanizing Machine Operator, Sadaf Roll-On Unscented; Crystal Roll-On Body Deodorant for Sensitive Skin, Secret Soft Solid [place] Deodorant Unscented, Certain Dri Antiperspirant, Dove Ultimate Sensitive Care ?? Hair Removal: Avoid razors, shave creams and chemicals. Vanicream Shave Gel or Free and Clear shampoo are the safest products to use prior to using a razor. (Check the internet for a place to purchase.) Wax with plain paraffin or use an Epilady or Vizcarra Silk-Epil. ?? Wound Care: Cleanse with dilute household bleach (1 tablespoon per quart of water). Apply petroleum jelly, cover with a non-stick gauze pad such as Telfa, secured with roll gauze or a cotton knit sleeve. Avoid triple antibiotic ointments (e.g. Neosporine), adhesives (e.g. Band Aids and tape) andLiquid Band Aid (contains a chemical like super glue). Use silicone-based dressings such as Mepitelor pectin-based products such as Duoderm Thin. ?? Accessories: Wood or plastic belt curt, plastic jewelry on satin cords, clear silicone backs for post earrings. ?? Laundry Detergent: Find a dye-free, fragrance-free detergent like All Free & Clear. Considertwo rinse cycles. Limit detergent quantity so that rinse water is clear. No fabric softeners or dryer sheets. ?? Clothing: Wash new clothing before wearing. Choose soft fabrics, drawstring instead of elastic, buttons rather than metal snaps, and light colors. The safest footwear is white canvas rather than rubber or leather. ?? Nail citizen of [place]: Use decals rather than citizen of [place]. ?? Toys: Choose hard plastic rather than rubber, and plastic markers rather than finger paints or rossi. For additional information, see https://www.dermatitisacademy.com/jxvkcl-mpq-ymas/ DRY SKIN ?? Dry skin is a result of water loss, not oil deficiency. Drinking at least 8 glasses of water perday has many benefits, but (contrary to popular belief) does not prevent dry skin. ?? Dry skin is easily irritated and more susceptible to itching, allergic rashes & infection. ?? The best way to hydrate the skin is by soaking it in water. Soaking softens skin and nails, making them easier to cut. Bathing also removes skin cells and germs, and is a great way to relax. How often to take a bath is a matter of opinion and personal preference, but the importance of usinga moisturizer immediately after bathing is well-recognized. Some people like to add colloidal oatmeal to the bath water. ???Colloidal?? refers to a finely ground powder that can remain suspended in water. Colloidal oatmeal is sold as Aveeno Soothing Bath Treatment?? but it can be made at home by grinding whole oats in a frozen food selector or filler blender. The usual dose is 2 cups of colloidal oatmeal in a tub of lukewarm water. The fiber in oatmeal absorbs excess water and helps deposit it on the skin surface. Bath oils are not as effective and can increase the risk of falls by making the tub slippery. ?? Select mild cleansing products, use sparingly and rinse well. Soap is made from lye and irritates sensitive skin. Liquid cleansers and superfatted soaps are less irritating. Allergic rashes from cleansing products are uncommon because they are quickly rinsed off, in contrast to fragrance and preservatives in moisturizers that are left on the skin. However, popular degreasing agents, cocamidopropyl betaine and pako betaine, are not easily rinsed off, and can cause allergic eczema. Safer cleansing alternatives are: Cetaphil Gentle Cleansing Lotion, Aquanil Lotion or Vanicream bar soap. Safer shampoos are Aveeno Baby Cleansing Therapy Wash (not the one that says Wash and Shampoo ) and Loprox. ?? Use a bland moisturizer liberally and frequently. Moisturizers are not absorbed, and do not add oil to the skin. They sit on the skin and act as a barrier to prevent evaporation of water from the skin surface. Moisturizers are most effective when applied to damp skin after bathing. ?? Plain petroleum jelly or mineral oil are the safest, most effective and least costly moisturizers. The greasy texture that gives these products their beneficial effect, is unpleasant for many people. Manufacturers of cosmeceuticals are well-aware of this ???tactile aversion?? , and spend million s of dollars to create products that people prefer. These products smell better, feel better and are packaged in a more appealing way. But they are much more expensive, less effective, have a higher risk of irritation and can trigger allergic rashes and itching. ?? Optimize the humidity in your environment. Furnace-heated air can reduce the humidity level to less than 10%. Setting your thermostat too high will not only dry the air, but can also dilate blood vessels and promote itch. Cooler air can act as a mild anesthetic. A whole house humidifier is an effective way to can add moisture to the air. The optimal setting is 25 to 45% humidity. Vaporizers are less effective and require frequent cleaning to minimize the risk of contamination with germs. ?? To temporarily relieve itch: apply a simple [id number]-ommtcgz medication containing pramoxine (e.g. 1% Pramosone ointment). Store the medication in the refrigerator and apply it cold for a more soothing effect. An antihistamine (e.g.Benadryl) may help promote sleep. MEDICATED SHAMPOOS ?? There are several types of medicated shampoos, with different active and inactive ingredients. The ingredients are usually listed on the back of the bottle. The table below includes several shampoo brands, grouped according to the active ingredient. All the active ingredients work equally well, butmay become less effective after long-term use. ?? For best results, select a shampoo from [...] of medicated shampoo by all family members. ?? Avoid organic oil hair/scalp treatment (especially olive oil); it can aggravate the scaling. ?? ACTIVE INGREDIENT NAME BRANDS Gage Tar Denorex, Poly Tar, Zetar, Pentrax, Betatar Gel, T/Gel Therapeutic Stubborn Itch,* Tarsum Shampoo/Gel* Zinc Pyrithione ZNP, DHS Zinc, Betamed*, Head & Shoulders* (see below) Selenium Sulfide Selsun Blue* (see below) Salicylic Acid T-Stone, Dermarest, Sebulex*, Brigitte Organic Itch & Flake Therapy* Ketoconazole Nizoral* Urea Carmol Ciclopiroxolamine Loprox* (most gentle) *Products that do not contain the common allergen cocamidopropyl betaine-best for people with sensitive skin ?? *Selsun Blue 2-in-1 Dandruff Shampoo, Maximum Strength Moisturizing Dandruff Shampoo with Aloe ?? *Head & Shoulders Smooth & Silky 2 in 1 Dandruff Shampoo + Conditioner Damage Rescue 2 in 1 Dandruff Shampoo and Conditioner Instant Oil Control 2 in 1 Dandruff Shampoo + Conditioner Clinical Strength Dandruff and Seborrheic Dermatitis Shampoo Dry Scalp Care with [place]ipio Oil 2 in 1 Dandruff Shampoo + Conditioner Moisture Care 2 in 1 Dandruff Shampoo + Conditioner Instant Hydration 2 in 1 Dandruff Shampoo + Conditioner Instant Relief Dandruff Shampoo ?? Scalpicin 3% salicylic acid is available over the counter but often difficult to find. ? Options are [facility] brand 3% salicylic acid (CVS Scalp Relief Anti-Itch Serum) or Quality Choice Scalp Relief available online through Humanoid. The molina ranges from $6 - $20 depending on the size of the bottle. Most [facility] Pharmacies carry the Quality Choice brand as well ([facility], [facility], MedEx, [facility], [facility], [facility]). ?? For optimal use, apply every night. ?? Note-your insurance may not cover Scalpicin. This is available over the counter. ? Y PROCESSOR documented in this encounter Medications at Time [...] fluticasone propionate (FLONASE) 50 MCG/ACT nasal spray [place] 2 sprays into each nostril once daily 1 bottles 11 11/26/2017 12/31/2018 mometasone-formoterol (DULERA) 200-5 MCG/ACT inhaler Inhale 2 puffs by mouth 2 times daily 1 Inhaler 6 06/18/2018 12/31/2018 montelukast (SINGULAIR) 10 MG tablet Take 1 tablet by mouth once daily 31 tablet 6 06/18/2018 12/31/2018 documented as of this encounter Progress Notes * Adenike Marx MD - 09/23/2018 12:14 PM CST Pediatric Dermatology Clinic Visit Progress Note I had the pleasure of seeing your patient, Veronica Lowe in the Pediatric Dermatology Clinic at [facility]. Chief Complaint Patient presents with ??? SKIN PROBLEM LV: 09/2017 pt was better after last appt and did not feel the need to follow up. ran out of medication and then scalp flared and is not flaky and itchy. History of Present Illness This is a follow up evalution for Veronica Lowe. She came to today's visit with her mother. Veronica is a 13 y.o. female with a h/o psoriasis. She presents for her visit, a 12 month follow-up. Patient records reviewed: Epic Interval History Episode onset: 2 years ago at age 11. Number of siblings: 2 Additional HPI Documentation: Veronica is a 13 yo female here for follow up of sebopsoriasis, onset at age 11. After Veronica's last visit, 10/09/17, her scalp reportedly cleared with use of Synalar (fluocinolone) solution applied every night to scalp until ran out ~4 months ago and Scalpicin (shampoo and oil) QOD until lost when she moved 02/2018. Scalp flared after stopped these treatments. She restarted Scalpicin 2 weeks ago. Veronica had head lice summer 2017 which lasted one month and required multiple OTC lice treatments, natural treatments (tea tree, mayonnaise), and eventually cleared with antibiotic taken BID x 2 weeks. Sibling also had lice. She uses complex topicals on scalp including Dove shampoo and conditioner and wants to dye her hair. 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 until ran out around 05/2018) Other Medications: Ritalin 5 mg QD Zoloft QAM (started 6 weeks ago), Dr. Edmonds is psychiatrist Will be starting clonidine to help sleep soon; was on Tenex QHS (on backorder) Interval Infection History: Had suspected influenza 08/28/18 (not tested) Family/Social History: Lives with parents and 2 sisters (twins age 8) In 8th grade Patient Skin Care Regimen Showers: Daily Uses Dove shampoo and conditioner, Dial Body Wash, Bote for face wash (organic): 2 times a day Uses [place] butter, Neutrogena off brand sunscreen and acne moisturizer: Daily Medications Current Outpatient Prescriptions Medication ??? AEROCHAMBER PLUS (AEROCHAMBER) ??? albuterol HFA (PROVENTIL;VENTOLIN;PROAIR) 108 (90 BASE) MCG/ACT inhaler ??? cetirizine (ZYRTEC ALLERGY) 10 MG tablet ??? ferrous sulfate 325 (65 FE) MG tablet ??? fluocinolone acetonide (SYNALAR) 0.01 % solution ??? fluticasone propionate (FLONASE) 50 MCG/ACT nasal spray ??? melatonin 5 MG tablet ??? methylphenidate (RITALIN) 5 MG tablet ??? mometasone-formoterol (DULERA) 200-5 MCG/ACT inhaler ??? montelukast (SINGULAIR) 10 MG tablet ??? sertraline (ZOLOFT) 25 MG tablet No current facility-administered medications for this encounter. Allergies No Known Allergies Review of Systems Constitutional: No fever. Eyes: Itchy eyes. ENT: No ear pain and no sore throat. Cardiovascular: No chest pain. Respiratory: No cough present and no wheezing present. Gastrointestinal: No diarrhea and no vomiting. Genitourinary: No hematuria. Allergy / Immunology: Seasonal allergies present. Musculoskeletal: No joint pain and no muscle pain. Neurologic: No headaches and no seizures. Dermatologic: Itching, dry skin and hair changes. No rash, no acne, no nail changes, no skin lesions, no eczema, no mole changes and no color change. Physical Exam Ht 1.647 m (5' 4.84 ) Wt 59.8 kg (131 lb 13.4 oz) BMI 22.04 kg/m2 74 %ile (Z= 0.63) based on CDC 2-20 Years [id number] data using vitals from 09/23/2018. Wt Readings from Last 3 Encounters: 09/23/18 59.8 kg (131 lb 13.4 oz) (81 %, Z= 0.90)* 06/18/18 57.8 kg (127 lb 6.8 oz) (79 %, Z= 0.82)* 11/26/17 55.8 kg (123 lb 0.3 oz) (80 %, Z= 0.83)* * Growth percentiles are based on CDC 2-20 Years data. Ht Readings from Last 3 Encounters: 09/23/18 1.647 m (5' 4.84 ) (74 %, Z= 0.63)* 06/18/18 1.631 m (5' 4.21 ) (68 %, Z= 0.48)* 11/26/17 1.617 m (5' 3.66 ) (70 %, Z= 0.51)* * Growth percentiles are based on CDC 2-20 Years data. Body mass index is 22.04 kg/(m^2). General: Healthy. Easy to examine Skin Appearance: Type II skin; fairly well hydrated The following pertinent positives and negatives were noted: Involved sites: Full body skin exam was conducted to include the scalp, face, lips/teeth, lids/conjunctiva, ears, neck, chest, abdomen, back, right and left hands and forearms, right and left leg and feet and was normal with the following exceptions: Mild, scattered closed comedones forehead and cheeks Mild post auricular scaling and erythema Location: anterior scalp with yellow, coarse scale and ~ 2 pink, thin plaques ~ 3-5 mm; generalizedmild scalp scale Severity: mild Characteristics: coarse scaling Distribution: patchy Relevant sites of sparing: Antecubital fossa, popliteal fossa, back, chest, palms and soles Hair: Normal Fingernails: Normal Toenails: Normal Lymphadenopathy: No significant lymphadenopathy Additional Signs: M/S: normal throughout upper and lower extremities Psych: calm affect Assessment & Plan Problem Sebopsoriasis onset age 11 10/09/17 mild-mod; scalp fungal cx neg (smear pos yeast only; Rx fluocinolone soln + 3% stone acid scalp solution, OTC dandruff shampoos (per insurance restriction) 09/23/18 mod focal 3 mo off 8-10 ml fluocinolone/mo + unclear Scalpicin, non- medicated shampoo, complex topicals, interval head lice; RF fluocinolone; f/u with Dr. Michelle Stephens. hx psoriasis Orders Placed This Encounter ??? fluocinolone acetonide (SYNALAR) 0.01 % solution Sig: Apply to scalp daily for one week with flares then every other day. Dispense: 60 mL Refill: 0 Patient Instructions Veronica's skin condition is characteristic of mild sebopsoriasis. Possible/likely triggers include topical agents and yeast. There is no cure for Veronica's sensitive skin, but regular use of topical medications will help control the condition. The most important aspect of her treatment is elimination of ALL complex topical products and use of the prescribed amount of topical medication, (not too much, not too little) as below. SKIN CARE INSTRUCTIONS 1. Take frequent short baths (5-10 minutes) to relax, remove irritants, allergens and germs, and moisturize skin. Household bleach can help control overgrowth of germs. Add ?? cup to a big tub. 2. Use ketoconazole shampoo or a gentle liquid cleansing product sparingly to wash face, body and scalp. (See the Safer Products list below for choices). 3. Gently pat skin dry (do not rub!) and immediately apply a liberal amount of moisturizer to the entire body. See the Safer Products list below for choices. The safest and most effective choices are plain (not baby) petroleum jelly and plain mineral oil. (Some people prefer the feel of coconut oil). Plan to use at least 50 gm per month. 4. Apply fluocinolone solution with flares daily for one week then every other day. You were given a prescription today for a 60 mL bottle. Use up to 30 mL per month. 5. Apply Scalpicin to red, scaly areas daily. Treatment with fluocinolone alone will improve Veronica's skin, but this medication is a corticosteroid. Be aware that using a corticosteroid alone, every day or in larger quantities than recommended may weaken the skin, lead to systemic absorption or result in rebound worsening when the medication is discontinued. Additional Instructions ?? Keep nails trimmed, avoid overheating and avoid exposure to complex topical products, including creams or lotions, diaper wipes, dryer sheets and fabric softener. Wash new clothing before wearing. ?? BRING IN ALL YOUR MEDICATIONS AT EVERY VISIT ?? Scalp care OTC 3% salicylic acid scalp oil (for example: Scalpicin Original Formula , 3% ScalpRelief , Keralyt 3% Gel ) daily ?? Questions? Call , option 3 Veronica does not need a follow up Dermatology appointment as long as her skin remains well-controlled using no more than the recommended amount of topical medication. We hope Dr. Martinez will feel comfortable monitoring and approving future refills. We would be happy to see Veronica again if her skin fails to clear despite following our recommendedtreatment guidelines. SAFER PRODUCTS Many things that touch sensitive skin can cause irritation or an allergic rash. It???s easy to identify the cause of an irritant rash because it appears immediately after contact. For example, household cleansers can irritate even normal skin. The cause of an allergic rash is more difficult to identify because it may not appear until 1-2 weeks after touching the offending product, and can last for another 2 weeks or more. The safest, most cost-effective and most important way to protect sensitive skin is to use safe products that do not contain irritants and allergens. Find the safest products by carefully reading the back label to identify the active and inactive ingredients. Do not use pro ducts that fail to provide this information. Some of the products listed below are not stocked by large retailers, or may be purchased on-line at websites like www.[employer] or by asking your local pharmacists to order the products. ?? Face and Body Wash: Cetaphil Gentle Skin Cleanser (liquid, not bar), Vanicream bar soap, Loprox or ketoconazole shampoo (prescription only). Avoid glucosides and cocamidopropyl betaine. ???Unscented?? is not ???fragrance free?? . ?? Hand janitor and cleaner-- NO hand sanitizers; use other cleansers sparingly, to palms only (and rinse well) ?? Shampoo: Aveeno Baby Cleansing Therapy Wash (not the one that says Wash and Shampoo ), Loprox or ketoconazole shampoo (prescription only). Avoid cocamidopropyl betaine. ?? Conditioner: Free and Clear; other moisturizing options include mineral oil or plain/virgin coconut oil ?? Moisturizer/Lip [place]: Generic petroleum jelly, mineral oil, Abolene, plain/virgin coconut oil; read the label carefully to make sure there is no fragrance. Alternative includes Epiceram (prescription only and $$$) ?? Scalp oil: Avoid olive oil. Alternatives are: mineral oil, 3% salicylic acid (e.g. [facility] Scalp Relief), plain/virgin coconut oil. ?? Hair gel: cyclomethicone (https://www.[employer]/[email or web address]-[email or web address]) ?? Anti-itch: Products that contain pramoxine, a non-allergenic medication that will temporarily numb the skin (Sarna Sensitive, Prax lotion). Avoid creams that contain diphenhydramine menthol, phenol or camphor. Store the medication in the refrigerator and apply it cold for a more soothing effect.An antihistamine taken by mouth (e.g. Benadryl) can help some children sleep, however, may cause velia tation in some children and may not reduce itch. ?? Diapering: Seventh Generation, BeatTheBushes, Morningstar or most Babies R Us brands do not contain fragrance or latex. Use a water-dampened cloth or plain mineral oil on cotton pads instead of prepackaged wipes. ?? Diaper Rash: Generic zinc oxide ointment is the safest option, but it can be hard to find. The active ingredient is 20-40% zinc oxide. The inactive ingredients should be only: paraffin, petrolatumand/or mineral oil. Consider Spectrum Devices and [place] brands. Vaniply ointment is another alternative, but more expensive. ?? Insect Repellant: Apply 0.5% permethrin spray such as Repel Permethrin Clothing and Gear ([facility]), Ramírez Premium Clothing Insect Repellent ([facility]), or [place] Insect Treatment Gear and Clothing ([facility]) to clothing (not skin) - often found at sporting [employer] stores. Per methrin bonds to the cloth fiber for up to 6 weeks even after laundering. ?? Sunscreen: Wear hats and sun protective clothing made of tightly woven, lightweight fabric such as Coolibar and Solumbra, or Felix ???Beefy -T?? shirts; use preservative-free zinc oxide ointment as a sunscreen. Alternatives include Vanicream sunscreens. ?? Deodorant/Antiperspirant: Alum crystal (e.g. Crystal Stick Deodorant), Almay Hypo-Allergenic Fragrance Free Roll On, Stiefel B-Electrogalvanizing Machine Operator, Sadaf Roll-On Unscented; Crystal Roll-On Body Deodorant for Sensitive Skin, Secret Soft Solid [place] Deodorant Unscented, Certain Dri Antiperspirant, Dove Ultimate Sensitive Care ?? Hair Removal: Avoid razors, shave creams and chemicals. Vanicream Shave Gel or Free and Clear shampoo are the safest products to use prior to using a razor. (Check the internet for a place to purchase.) Wax with plain paraffin or use an Epilady or Vizcarra Silk-Epil. ?? Wound Care: Cleanse with dilute household bleach (1 tablespoon per quart of water). Apply petroleum jelly, cover with a non-stick gauze pad such as Telfa, secured with roll gauze or a cotton knit sleeve. Avoid triple antibiotic ointments (e.g. Neosporine), adhesives (e.g. Band Aids and tape) andLiquid Band Aid (contains a chemical like super glue). Use silicone-based dressings such as Mepitelor pectin-based products such as Duoderm Thin. ?? Accessories: Wood or plastic belt curt, plastic jewelry on satin cords, clear silicone backs for post earrings. ?? Laundry Detergent: Find a dye-free, fragrance-free detergent like All Free & Clear. Considertwo rinse cycles. Limit detergent quantity so that rinse water is clear. No fabric softeners or dryer sheets. ?? Clothing: Wash new clothing before wearing. Choose soft fabrics, drawstring instead of elastic, buttons rather than metal snaps, and light colors. The safest footwear is white canvas rather than rubber or leather. ?? Nail citizen [place]: Use decals rather than [place]. ?? Toys: Choose hard plastic rather than rubber, and plastic markers rather than finger paints or rossi. For additional information, see https://www.dermatitisacademy.com/kvmmug-qve-eexk/ DRY SKIN ?? Dry skin is a result of water loss, not oil deficiency. Drinking at least 8 glasses of water perday has many benefits, but (contrary to popular belief) does not prevent dry skin. ?? Dry skin is easily irritated and more susceptible to itching, allergic rashes & infection. ?? The best way to hydrate the skin is by soaking it in water. Soaking softens skin and nails, making them easier to cut. Bathing also removes skin cells and germs, and is a great way to relax. How often to take a bath is a matter of opinion and personal preference, but the importance of usinga moisturizer immediately after bathing is well-recognized. Some people like to add colloidal oatmeal to the bath water. ???Colloidal?? refers to a finely ground powder that can remain suspended in water. Colloidal oatmeal is sold as Aveeno Soothing Bath Treatment?? but it can be made at home by grinding whole oats in a frozen food selector or filler blender. The usual dose is 2 cups of colloidal oatmeal in a tub of lukewarm water. The fiber in oatmeal absorbs excess water and helps deposit it on the skin surface. Bath oils are not as effective and can increase the risk of falls by making the tub slippery. ?? Select mild cleansing products, use sparingly and rinse well. Soap is made from lye and irritates sensitive skin. Liquid cleansers and superfatted soaps are less irritating. Allergic rashes from cleansing products are uncommon because they are quickly rinsed off, in contrast to fragrance and preservatives in moisturizers that are left on the skin. However, popular degreasing agents, cocamidopropyl betaine and pako betaine, are not easily rinsed off, and can cause allergic eczema. Safer cleansing alternatives are: Cetaphil Gentle Cleansing Lotion, Aquanil Lotion or Vanicream bar soap. Safer shampoos are Aveeno Baby Cleansing Therapy Wash (not the one that says Wash and Shampoo ) and Loprox. ?? Use a bland moisturizer liberally and frequently. Moisturizers are not absorbed, and do not add oil to the skin. They sit on the skin and act as a barrier to prevent evaporation of water from the skin surface. Moisturizers are most effective when applied to damp skin after bathing. ?? Plain petroleum jelly or mineral oil are the safest, most effective and least costly moisturizers. The greasy texture that gives these products their beneficial effect, is unpleasant for many people. Manufacturers of cosmeceuticals are well-aware of this ???tactile aversion?? , and spend million s of dollars to create products that people prefer. These products smell better, feel better and are packaged in a more appealing way. But they are much more expensive, less effective, have a higher risk of irritation and can trigger allergic rashes and itching. ?? Optimize the humidity in your environment. Furnace-heated air can reduce the humidity level to less than 10%. Setting your thermostat too high will not only dry the air, but can also dilate blood vessels and promote itch. Cooler air can act as a mild anesthetic. A whole house humidifier is an effective way to can add moisture to the air. The optimal setting is 25 to 45% humidity. Vaporizers are less effective and require frequent cleaning to minimize the risk of contamination with germs. ?? To temporarily relieve itch: apply a simple [id number] medication containing pramoxine (e.g. 1% Pramosone ointment). Store the medication in the refrigerator and apply it cold for a more soothing effect. An antihistamine (e.g.Benadryl) may help promote sleep. MEDICATED SHAMPOOS ?? There are several types of medicated shampoos, with different active and inactive ingredients. The ingredients are usually listed on the back of the bottle. The table below includes several shampoo brands, grouped according to the active ingredient. All the active ingredients work equally well, butmay become less effective after long-term use. ?? For best results, select a shampoo from [...] of medicated shampoo by all family members. ?? Avoid organic oil hair/scalp treatment (especially olive oil); it can aggravate the scaling. ?? ACTIVE INGREDIENT NAME BRANDS Gage Tar Denorex, Poly Tar, Zetar, Pentrax, Betatar Gel, T/Gel Therapeutic Stubborn Itch,* Tarsum Shampoo/Gel* Zinc Pyrithione ZNP, DHS Zinc, Betamed*, Head & Shoulders* (see below) Selenium Sulfide Selsun Blue* (see below) Salicylic Acid T-Stone, Dermarest, Sebulex*, Brigitte Organic Itch & Flake Therapy* Ketoconazole Nizoral* Urea Carmol Ciclopiroxolamine Loprox* (most gentle) *Products that do not contain the common allergen cocamidopropyl betaine-best for people with sensitive skin ?? *Selsun Blue 2-in-1 Dandruff Shampoo, Maximum Strength Moisturizing Dandruff Shampoo with Aloe ?? *Head & Shoulders Smooth & Silky 2 in 1 Dandruff Shampoo + Conditioner Damage Rescue 2 in 1 Dandruff Shampoo and Conditioner Instant Oil Control 2 in 1 Dandruff Shampoo + Conditioner Clinical Strength Dandruff and Seborrheic Dermatitis Shampoo Dry Scalp Care with Scipio Oil 2 in 1 Dandruff Shampoo + Conditioner Moisture Care 2 in 1 Dandruff Shampoo + Conditioner Instant Hydration 2 in 1 Dandruff Shampoo + Conditioner Instant Relief Dandruff Shampoo ?? Scalpicin 3% salicylic acid is available over the counter but often difficult to find. ? Options are [facility] brand 3% salicylic acid ([facility] Scalp Relief Anti-Itch Serum) or Quality Choice Scalp Relief available online through [employer]. The molina ranges from $6 - $20 depending on the size of the bottle. Most [facility] carry the Quality Choice brand as well ([facility], [facility], [facility], [facility], [facility], [facility]). ?? For optimal use, apply every night. ?? Note-your insurance may not cover Scalpicin. This is available over the counter. ? This patient was seen with Dr. Marx who contributed to the history, review of systems, physical, assessment, and plan. Follow-Up Return if symptoms worsen or fail to improve. Sandra Motta, CODING SUPPORT SPECIALIST-SUB ASSEMBLY TEAM WORKER Y PROCESSOR documented in this encounter Plan of Treatment Not on file documented as of this encounter Visit Diagnoses Not on filedocumented in this encounter Care Teams Card Puncher Relationship Specialty Start Date End Date Francesca Martinez MD [address] [place] [id number] PCP - General 01/08/12 documented as of this encounter
--- OUTSIDE RECORDS SUMMARY | 2024-07-28 19:30 | XMS_ITS | Encounter Summary ---
Author Organization [facility] Address [address] [facility] [place] [address] Care Team Providers Care Capsule Inspector Name Role Phone Francesca Martinez MD Primary Care Provider [phone] Reason for Visit * Reason Comments Scoliosis follow up Encounter Details Date Type Department Care Team (Latest Contact Info) Description 10/02/2020 3:13 PM CDT - 10/02/2020 3:28 PM CDT Hospital Encounter [facility] Pediatrics - Orthopedics [facility] [place] [address] Myles Garcia MD [address] [place] [address] [address] [place] [phone] Discharge Disposition: Home or Self [...] - Inhaled Oxygen Concentration - - Weight 66.2 kg (145 lb 15.1 oz) 10/02/2020 3:19 PM CDT Height 164.6 cm (5' 4.8 ) 10/02/2020 3:19 PM CDT Body Mass Index 24.43 10/02/2020 3:19 PM CDT Body Mass Index Percentile 83.82% 10/02/2020 3:1 9 PM CDT Growth Chart: [facility] (Girls, 2- 20 Years) documented in this encounter Discharge Instructions * Patient Instructions* Francesco Nicholson IV, MD - 10/02/2020 4:11 PM CDT ORTHOPAEDIC CLINIC DISCHARGE INSTRUCTIONS SHEET DIAGNOSIS: 1. Adolescent idiopathic scoliosis of thoracic region Follow Up: Please make a return appointment for 2 year(s) with . To contact Dr. Garcia's nurse,Pam Lo LPN, call ext. [phone] or option 4. X-Rays next visit: Yes - spine Medications prescribed: OTC analgesics Physicians orders: ?? Further diagnostic studies discussed and ordered: none ?? Therapy services - Physical therapy School Excuse: Excused from School on 10/02/2020 Activity Restrictions: none If you have a question for Dr. Garcia, you may leave a voicemail for him at , e-mailat [email or web address], or through [employer]. You can Like him on [employer] at [email or web address]. For any questions, you may contact Dr. Garcia's ?? Nurse: Pam Lo LPN - Pam Lo LPN, call ext. [phone] or option 4 ?? [place]: Melissa Sheridan - option 2 or ext [phone] ? Voicemail: ?? E-Mail: [email or web address] After visit summary completed by Francesco Nicholson IV, MD. documented in this encounter Medications at [...] fluticasone propionate (FLONASE) 50 MCG/ACT nasal spray [employer] 2 sprays into each nostril once daily 1 bottles 6 12/31/2018 05/17/2021 fluticasone-salmeterol 232-14 MCG/ACT inhaler Inhale 1 puff by mouth 2 times daily 1 Inhaler 6 05/13/2019 05/17/2021 montelukast (SINGULAIR) 10 MG tablet Take 1 tablet by mouth once daily 31 tablet 6 12/31/2018 05/17/2021 documented as of this encounter Progress Notes * Myles Garcia MD - 10/02/2020 3:28 PM CDT Chief Complaint Scoliosis (follow up) History of Present Illness Veronica Lowe is a 15 year old female that was seen today at the [facility] clinic for a Follow Up Visit. She was accompanied today by her mother. Scoliosis Veronica presents for follow up treatment of scoliosis. She has been previously treated by physical therapy. She is postmenarchal. She has had normal growth in the last 2 years. Pain: Mild Loss of bowel/urine control: No Radiation: No Vascular complaints: NoPatient's mother says that the patient has flat feet and toe deformities. Patient says that she rarely gets foot pain but says she likes to walk on the sides of her feet. She does not wear orthotics. History Past Medical History: Diagnosis Date ??? ADHD (attention deficit hyperactivity disorder) takes ritalin ??? LELA (obstructive sleep apnea) 05/14/13--clinical signs no sleep study ??? infant 36 5/7 weeks 6 lbs 8 oz Past Surgical History: Procedure Laterality Date ??? NEGATIVE SURGICAL HISTORY ??? Tonsillectomy and Adenoidectomy 05/14/2013 N/A; TONSILLECTOMY AND ADENOIDECTOMY Family History Problem Relation Name Age of Onset ??? Hyperlipidemia Mother ??? Asthma Sister ??? Asthma Maternal Grandmother ??? Anesthesia Reaction Neg Hx Family Dynamics No data filed Education Grade: 10th Social History Social History Narrative ??? Not on file Review of Systems Constitutional: (-) fever and (-) chills Eyes: (-) vision change ENT: (-) rhinorrhea and (-) sore throat Cardiovascular: (-) chest pain Respiratory: (-) cough and (-) shortness of breath Gastrointestinal: (-) abdominal pain Genitourinary: (-) dysuria and (-) abdominal / pelvic pain Musculoskeletal: (-) myalgia Integumentary / Skin: (-) rash Neurological: (-) headache, (-) radiation and (-) loss of bowel/urine control Psychiatric / Behavioral: (-) abnormal behavior Physical Exam Ht 5' 4.8 (164.6 cm) Wt 145 lb 15.1 oz (73544 g) BMI 24.43 kg/m2 84 %ile (Z= 0.99) based on CDC (Girls, 2-20 Years) BMI-for-age based on BMI available as of 10/02/2020. Constitutional: Alert, cooperative and no acute distress Cardiovascular: Normal vascular exam Musculoskeletal: Extremities: - Leg length discrepancy: none Back: - Skin: skin normal, no rash, no swelling and no warmth - Inspection: spine normal, symmetric - Muscle tone & Range of motion: full range of motion without pain - Head position: centered - Shoulder position: normal - Chest wall abnormality: normal - Waist asymmetry: No - Body position: balanced - Thoracic spine: normal and flexible - Lumbar spine: normal - Hank's forward bending: elevated right thoracic prominence Right foot: - Skin: skin normal, no rash and normal turgor - Inspection: no swelling and no warmthRight ankle/foot deformity: 4th toe mild curly toe. - Tenderness: none - Neuro: Motor: full Sensory/Reflex: normal sensation and normal reflexes - Additional testing: calcaneus inverts on heel rise Left foot: - Skin: no rash and normal turgor - Inspection: no swelling and no warmthLeft ankle/foot deformity: 4th toe mild curly toe. - Tenderness: none - Vascular: normal - Neuro: Motor: full Sensory/Reflex: normal sensation and normal reflexes - Additional testing: calcaneus inverts on heel rise Skin: Warm and dry skin Neurological: Mental status: - Level of Consciousness: alert Deep tendon reflexes: normal reflexes Imaging XR spine entire demonstrates T11-L3 22 degrees, last visit 24 degrees. Risser 5. * Myles Garcia MD - 10/02/2020 3:28 PM CDT Images from the original note were not included. Department of Pediatric Orthopaedics [address] [place] [id number] ? Name: Veronica Lowe Date: 10/02/2020 : 2005 Age: [age] year old Pediatric Orthopaedics Consultation Visit Assessment & Plan Adolescent idiopathic scoliosis of thoracic region PLAN: 1. Questions solicited and answered. 2. Continue with existing conservative treatment program. 3. Medications Prescribed: none 4. Activity Restrictions: none 5. Weightbearing status: No Restrictions 6. Follow up: in 2 year(s) with X-rays Subjective / Objective Chief Complaint Scoliosis (follow up) History of Present Illness Veronica Lowe is a 15 year old female that was seen today at the [facility] clinic for a Follow Up Visit. She was accompanied today by her mother. Tom Martin presents for follow up treatment of scoliosis. She has been previously treated by physical therapy. She is postmenarchal. She has had normal growth in the last 2 years. Pain: Mild Loss of bowel/urine control: No Radiation: No Vascular complaints: NoPatient's mother says that the patient has flat feet and toe deformities. Patient says that she rarely gets foot pain but says she likes to walk on the sides of her feet. She does not wear orthotics. History Past Medical History: Diagnosis Date ??? ADHD (attention deficit hyperactivity disorder) takes ritalin ??? LELA (obstructive sleep apnea) 05/14/13--clinical signs no sleep study ??? infant 36 5/7 weeks 6 lbs 8 oz Past Surgical History: Procedure Laterality Date ??? NEGATIVE SURGICAL HISTORY ??? Tonsillectomy and Adenoidectomy 05/14/2013 N/A; TONSILLECTOMY AND ADENOIDECTOMY Family History Problem Relation Name Age of Onset ??? Hyperlipidemia Mother ??? Asthma Sister ??? Asthma Maternal Grandmother ??? Anesthesia Reaction Neg Hx Family Dynamics No data filed Education Grade: 10th Social History Social History Narrative ??? Not on file Review of Systems Constitutional: (-) fever and (-) chills Eyes: (-) vision change ENT: (-) rhinorrhea and (-) sore throat Cardiovascular: (-) chest pain Respiratory: (-) cough and (-) shortness of breath Gastrointestinal: (-) abdominal pain Genitourinary: (-) dysuria and (-) abdominal / pelvic pain Musculoskeletal: (-) myalgia Integumentary / Skin: (-) rash Neurological: (-) headache, (-) radiation and (-) loss of bowel/urine control Psychiatric / Behavioral: (-) abnormal behavior Physical Exam Ht 5' 4.8 (164.6 cm) Wt 145 lb 15.1 oz (83744 g) BMI 24.43 kg/m2 84 %ile (Z= 0.99) based on CDC (Girls, 2-20 Years) BMI-for-age based on BMI available as of 10/02/2020. Constitutional: Alert, cooperative and no acute distress Cardiovascular: Normal vascular exam Musculoskeletal: Extremities: - Leg length discrepancy: none Back: - Skin: skin normal, no rash, no swelling and no warmth - Inspection: spine normal, symmetric - Muscle tone & Range of motion: full range of motion without pain - Head position: centered - Shoulder position: normal - Chest wall abnormality: normal - Waist asymmetry: No - Body position: balanced - Thoracic spine: normal and flexible - Lumbar spine: normal - Hank's forward bending: elevated right thoracic prominence Right foot: - Skin: skin normal, no rash and normal turgor - Inspection: no swelling and no warmthRight ankle/foot deformity: 4th toe mild curly toe. - Tenderness: none - Neuro: Motor: full Sensory/Reflex: normal sensation and normal reflexes - Additional testing: calcaneus inverts on heel rise Left foot: - Skin: no rash and normal turgor - Inspection: no swelling and no warmthLeft ankle/foot deformity: 4th toe mild curly toe. - Tenderness: none - Vascular: normal - Neuro: Motor: full Sensory/Reflex: normal sensation and normal reflexes - Additional testing: calcaneus inverts on heel rise Skin: Warm and dry skin Neurological: Mental status: - Level of Consciousness: alert Deep tendon reflexes: normal reflexes Imaging XR spine entire demonstrates T11-L3 22 degrees, last visit 24 degrees. Risser 5. Answers for HPI/ROS submitted by the patient on 10/02/2020 Scoliosis HPI Concept Mapping Who discovered a curve in your back?: PCP What age did you start your period?: 10 Do you have any neurological issues?: none What treatment have you received?: home exercises, physical therapy What tests have you had?: none Allergies Patient has no known allergies. Medications Prior to Visit ??? AEROCHAMBER PLUS (AEROCHAMBER) Use as directed ??? albuterol HFA (PROVENTIL;VENTOLIN;PROAIR) 108 (90 BASE) MCG/ACT inhaler Inhale 2 puffs by mouthevery 6 hours as needed for Shortness of Breath, Wheezing or Cough ??? cetirizine (ZYRTEC ALLERGY) 10 MG tablet Take 1 tablet by mouth once daily as needed for Runny Nose or Allergies (itch) ??? fluocinolone acetonide (SYNALAR) 0.01 % solution Apply to scalp daily for one week with flares then every other day. ??? fluticasone propionate (FLONASE) 50 MCG/ACT nasal spray [employer] 2 sprays into each nostril once daily ??? fluticasone-salmeterol 232-14 MCG/ACT inhaler Inhale 1 puff by mouth 2 times daily ??? melatonin 5 MG tablet Take 5 mg by mouth at bedtime Reasons: takes 10 mg (2 tablets) at bedtime. ??? methylphenidate (RITALIN) 5 MG tablet Take 5 mg by mouth Every morning and lunchtime ??? montelukast (SINGULAIR) 10 MG tablet Take 1 tablet by mouth once daily ??? sertraline (ZOLOFT) 25 MG tablet Encounter Orders Orders Placed This Encounter ??? XR SPINE ENTIRE 2 OR 3VW Follow Up Return in about 2 years (around 10/02/2022). During this visit I verified the Resident's documentation/findings including history, exam, and/or medical decision making and I personally performed the physical exam and medical decision making forthis service. Myles Garcia MD documented in this encounter Plan of Treatment Not on file documented as of this encounter Results * XR SPINE ENTIRE [...] at 3:59 PM Authorizing Provider Result Elizabeth Garcia MD DIAGNOSTIC IMAGING O RDERABLES documented in this encounter Visit Diagnoses Diagnosis Adolescent idiopathic scoliosis of thoracic region- Primary Scoliosis (and kyphoscoliosis), idiopathic Adolescent idiopathic scoliosis of thoracic region Scoliosis (and kyphoscoliosis), idiopathic * Assessment & Plan Note - Francesco Nicholson IV, MD - 10/02/2020 4:07 PM CDTAssociated Problem(s): Adolescent idiopathic scoliosis of thoracic region PLAN: 1. Questions solicited and answered. 2. Continue with existing conservative treatment program. 3. Medications Prescribed: none 4. Activity Restrictions: none 5. Weightbearing status: No Restrictions 6. Follow up: in 2 year(s) with X-rays documented in this encounter Care Teams Capsule Inspector Relationship Specialty Start Date End Date Francesca Martinez MD [address] [place] [phone] PCP - General 01/08/12 documented as of this encounter
--- OUTSIDE RECORDS SUMMARY | 2024-07-28 19:30 | XMS_ITS | Encounter Summary ---
Author Organization [facility] Address [address] [facility] [place] [address] Care Team Providers Care Grease Renderer Name Role Phone Francesca Martinez MD Primary Care Provider Reason for Visit * Reason Onset Date Comments Medication Management 05/13/2019 Encounter Details Date Type Department Care Team (Late st Contact Info) Description 05/13/2019 Telephone [facility] Pediatrics - Allergy [address] [place] [phone] Tawanda Kaba MD [facility] [place] [address] Medication Management Social History Tobacco Use Types [...] encounter Miscellaneous Notes * Telephone Encounter - Valerio Gleason MD - 05/13/2019 4:47 PM CDT Switched to generic AirDuo per formulary. Requested Prescriptions Signed Prescriptions Disp Refills ??? fluticasone-salmeterol 232-14 MCG/ACT inhaler 1 Inhaler 6 Sig: Inhale 1 puff by mouth 2 times daily Authorizing Provider: VALERIO GLEASON MD Allergy and Immunology Fellow * Telephone Encounter - Erika Sheffeild RN - 05/13/2019 3:06 PM CDT Received message from pharmacy stating that Dulera is no longer covered by insurance. Preferred medications include: fluticasone-salmeterol (55/14, 113/14, 232/14) Will route to A/I fellow to send prescription, if appropriate alternative is available. documented in this encounter Plan of Treatment Not on file documented as of this encounter Visit Diagnoses Not on filedocumented in this encounter Care Teams Grease Renderer Relationship Specialty Start Date End Date Francesca Martinez MD [address] [place] [phone] PCP - General 01/08/12 documented as of this encounter
--- OUTSIDE RECORDS SUMMARY | 2024-07-28 19:30 | XMS_ITS | Encounter Summary ---
Author Organization [facility] Address [address] [facility] [place] [address] Care Team Providers Care Mail Clerks Supervisor Name Role Phone Francesca Martinez MD Primary Care Provider [phone] Reason for Visit * Reason Onset Date Comments MEDICATION REFILL 03/11/2016 Encounter Details Date Type Department Care Team (Late st Contact Info) Description 03/11/2016 Refill [facility] Pediatrics - Allergy [address] [place] [phone] Tawanda Kaba MD [facility] [place] [address] MEDICATION REFILL Social History Tobacco Use Types [...] Telephone Encounter - Erika Sheffield RN - 03/11/2016 8:47 AM CDT Refill request received for Elyssa . Last appt 03/02/15, no f/u scheduled. Refill denial faxed to pharmacy with instructions to make f/u appt or to refer to PCP to receive refills. documented in this encounter Plan of Treatment Not on file documented as of this encounter Visit Diagnoses Not on filedocumented in this encounter Care Teams Mail Clerks Supervisor Relationship Specialty Start Date End Date Francesca Martinez MD [address] [place] [phone] PCP - General 01/08/12 documented as of this encounter
--- OUTSIDE RECORDS SUMMARY | 2024-07-28 19:30 | XMS_ITS | Encounter Summary ---
Author Organization [facility] Address [address] [place] [address] Care Team Providers Care Shadow Graph Weight Operator Name Role Phone Francesca Martinez MD Primary Care Provider Reason for Visit * Reason Comments Tic Encounter Details Date Type Department Care Team (Latest Contact Info) Description 01/17/2014 8:30 AM CDT - 01/17/2014 11:59 PM CDT Hospital Encounter [facility] Pediatrics - Neurology [address] [place] [phone] Homar Powell MD [address] [place] [phone] Discharge Disposition: Home or Self Care Social History Tobacco Use Types Packs/Day Years Used Date Smoking Tobacco: Never Assessed Sex and Gender Information Value Date Recorded Sex Assigned at Not on file Gender Identity Not on file Sexual Orientation Not on file documented as of this encounter Last Filed Vital Signs Vital Sign Reading Time Taken Comments Blood Pressure 100/60 01/17/2014 8:51 AM CDT Pulse - - Temperature - - Respiratory Rate - - Oxygen Saturation - - Inhaled Oxygen Concentration - - Weight 35 kg (77 lb 3.2 oz) 01/17/2014 8:51 AM C DT Height 140.6 cm (4' 7.35 ) 01/17/2014 8:51 AM CD T Body Mass Index 17.71 01/17/2014 8:51 AM CDT Body Mass Index Percentile 69.14% 01/17/2014 8:5 1 AM CDT Growth Chart: [facility] (Girls, 2- 20 Years) documented in this encounter Discharge Instructions * Patient Instructions* Homar Powell MD - 01/17/2014 9:49 AM CDT I'd suggest starting her on strattera. She will take one capsule in the morning for 5 days, if tolerating it OK then increase to 2 capsules. Call me in one month to update how this is working for behavior and tics. Call sooner as needed. I will also put a referral in to see our psychologists to make sure there arent any other behavioral interventions that would be helpful. documented in this encounter Medications at Time [...] or Pain. 240 mL 0 05/14/2013 03/02/2015 atomoxetine (STRATTERA) 18 MG capsule Take 1 Cap by mouth every morning. 60 Cap 6 01/17/2014 03/23/2014 ibuprofen (ADVIL; MOTRIN) 100 MG/5ML SUSP suspension Take 18.5 mL by mouth every 6 hours as needed for Pain or Fever. 240 mL 1 05/14/2013 03/02/2015 methylphenidate (RITALIN) 10 MG tablet Take 20 mg by mouth 3 times daily. 11/02/2014 methylphenidate (RITALIN) 5 MG tablet Take 5 mg by mouth every afternoon. Takes 5 mg at 3 pm 03/23/2014 documented as of this encounter Progress Notes * Homar Powell MD - 01/18/2014 1:19 AM CDT [address] [address] DEPARTMENT OF NEUROLOGY NAME: VERONICA COVARRUBIAS : 2005 UNIT #: [id number] CSN #: [id number] DATE SEEN: 01/17/2014 HISTORY OF PRESENT ILLNESS: Veronica is a 8-year-old young lady, who is referred to see me today in consultation for history of tics that seemed to have been sensitize by her use of stimulant medication for her concomitant ADHD diagnosis. She notices that while she is on the Ritalin medication. She has done some excessive hand flapping movements that have gotten to the point. They hurt her wrist. They have been so dramatic. They have tried Extended Release Focalin that led to some psychotic delusional behavior even from 1 day of using. They have been stuck using regular release Ritalin 10 mg in the morning 10 in the early afternoon and 5 in the late afternoon. Initially, this worked well to take an edge off her hyperactivity andimpulsivity, though at escalating doses. They have noticed that include more of these motor tics. She does not have excessive vocal tics. Mother has been hesitant to go up any further and the medicine seems to have relatively lost its effect over time. She does not have any other dramatic anxious or OCD like behaviors at this point, though there are several of these features that run in the family. Mother is interested in other medication options for her ADHD that may not affect tics quite so much. PAST MEDICAL HISTORY: Her medical history is otherwise consistent for allergic rhinitis, for which she is following with our Allergy Clinic. Her only other daily medication right now is melatonin at bedtime to help with sleep. She has had her tonsils removed in the past. Does not seem to be snoring as much. Her intelligence is felt to be normal without any concomitant learning challenges. ALLERGIES: To penicillin. FAMILY HISTORY: Significant for ADHD in a maternal uncle and then possibly in her father. There is also a maternal grandmother, who has had more significant psychiatric issues with depression and delusions. SOCIAL HISTORY: See above. She will be going into 4th grade at [employer]. REVIEW OF SYSTEMS: Negative for any chronic cardiac, pulmonary, GI, , dermatologic, or rheumatologic issues. PHYSICAL EXAMINATION: Vital Signs: On exam today, weight is 35 kg, height 140.6 cm. Blood pressure 100/60. Heart: Regularrate and rhythm. Lungs: Clear. Abdomen is free of any organomegaly. Neurologically, she is alert. She has clear and fluent speech. She is a little impulsive with her speech pattern. Cranial nerves II through XII are intact. Motor exam shows symmetric strength and tone throughout. Reflexes 2+ and symmetric in the upper and lower extremities. IMPRESSION: Veronica is a 8-year-old young lady with a history of attention deficit hyperactivity disorder and tics that seemed to be linked to escalating stimulant doses. I did explain to mother that it is likely she does carry her own independent tic tendency rather than these medications being entirely causative. It will be important to continue trying to manage her attention deficit hyperactivity disordersymptoms to allow appropriate educational and behavioral functioning. PLAN: I am going to suggest that we stop the Ritalin for a short stretch and try Strattera. We will startwith 18 mg in the morning and then increase to 36 mg in the morning. Mother will call in a month toupdate me on how this is working. If this is helping tics, but not helping her ADHD traits enough. We may need to go back on stimulant and consider adding a medicine like Intuniv. If in the end, combined therapy in this regard is not helping. I am going to recommend further evaluation and treatment perhaps by a child psychiatrist or developmental mirror specialist, as we are not managing primary ADHDat this time. I am also going to put a referral in for pediatric psychology. I get a sense that both mother and Veronica would benefit from this and not only coping with her behavior, but also with her excessive motor movements. I had a long talk today with mother that it is incredibly important that we begin ignoring these as caregivers and grownups. We will plan to follow up in 6 months' time, and I will hear back from them hopefully in about a month with an update on the Strattera. There will be a little bit of room to increase this to touch further. Thanks for allowing us to participate in her care. Dictated By: Homar Powell MD DAVE/Isabelle JOB ID: [id number] DEPARTMENT OF NEUROLOGY documented in this encounter Plan of Treatment Not on file documented as of this encounter Visit Diagnoses Diagnosis ADHD (attention deficit hyperactivity disorder)- Primary Attention deficit disorder with hyperactivity documented in this encounter Care Teams Shadow Graph Weight Operator Relationship Specialty Start Date End Date Francesca Martinez MD [address] [place] [phone] PCP - General 01/08/12 documented as of this encounter
--- OUTSIDE RECORDS SUMMARY | 2024-07-28 19:30 | XMS_ITS | Encounter Summary ---
Author Organization [facility] Address [address] [facility] [place] [address] Care Team Providers Care Bladder Changer Name Role Phone Francesca Martinez MD Primary Care Provider Reason for Visit * Reason Onset Date Comments Polysomnogram Follow-Up 08/29/2017 Encounter Details Date Type Department Care Team (Late st Contact Info) Description 08/29/2017 Telephone [facility] Pediatrics - Sleep [address] [place] [address] Karla Gillespie, BOAT DOCK OPERATOR-HOOP BENDER TANK [address] [place] [address] Polysomnogram Follow-Up Social History Tobacco Use Types Packs/Day Years [...] encounter Miscellaneous Notes * Telephone Encounter - Sarahi Bull RN - 08/29/2017 10:55 AM ENGINE INSTALLER Sleep study results given to mom. Mom verbalized understanding. Mom will continue the singulair andflonase NE INSTALLER * Telephone Encounter - Sarahi Bull RN - 08/29/2017 10:50 AM ENGINE INSTALLER Sleep study results below. Veronica is currently on Singulair and Flonase. Please advise NE INSTALLER * Telephone Encounter - Sarahi Bull RN - 08/29/2017 10:50 AM ENGINE INSTALLER ----- Message from Terrance Bowen MD sent at 08/29/2017 10:26 AM ENGINE INSTALLER ----- Diag PSG (not split) 08/21/17 Primary Snoring oAHI 0.7 AHI 1.1 Low sat 96% PLMI 0, limb movement index 3.4 Very clean sleep study other than soft snoring. Could consider nasal steroids or singulair. [facility] NE INSTALLER documented in this encounter Plan of Treatment Not on file documented as of this encounter Visit Diagnoses Not on filedocumented in this encounter Care Teams Bladder Changer Relationship Specialty Start Date End Date Francesca Martinez MD [address] [place] [address] PCP - General 01/08/12 documented as of this encounter
--- OUTSIDE RECORDS SUMMARY | 2024-07-28 19:30 | XMS_ITS | Encounter Summary ---
Author Organization [facility] Address [address] [facility] [place] [address] Care Team Providers Care Mixing Supervisor Name Role Phone Francesca Martinez MD Primary Care Provider Reason for Visit * Reason Onset Date Comments Medication Issue 08/01/2017 Encounter Details Date Type Department Care Team (Late st Contact Info) Description 08/01/2017 Refill [facility] Pediatrics - Immunology [address] [place] [id number] Augustin Millan MD [address] [place] [phone] Medication Issue Social History Tobacco Use Types Packs/Day Years [...] encounter Miscellaneous Notes * Telephone Encounter - Yoana Castro MD - 08/06/2017 1:02 PM CST Dulera filled Yoana Castro MD Allergy/Immunology Fellow TECH LEAD * Telephone Encounter - Erika Sheffield RN - 08/06/2017 12:[address] Millan of outcome of Fasenra request. He recommended to change to Dulera 100 2x2. Will route to A/I fellow to send prescription to pharmacy. Will update mom via DN2K. TECH LEAD * Telephone Encounter - Erika Sheffield RN - 08/06/2017 8:23 AM CST Fasenra has been denied by insurance. Must try and fail combination therapy- Dulera or AirDuo. Will discuss with Dr. Millan on how he would like to proceed. Mom updated via DN2K. TECH LEAD * Telephone Encounter - Erika Sheffield RN - 08/01/2017 11:03 AM CST Prior Authorization submitted by fax to [employer] for Fasenra authorization. TECH LEAD documented in this encounter Plan of Treatment Not on file documented as of this encounter Visit Diagnoses Not on filedocumented in this encounter Care Teams Mixing Supervisor Relationship Specialty Start Date End Date Francesca Martinez MD [address] [place] [phone] PCP - General 01/08/12 documented as of this encounter
--- OUTSIDE RECORDS SUMMARY | 2024-07-28 19:30 | XMS_ITS | Encounter Summary ---
Author Organization [facility] Address [address] [facility] [place] [address] Care Team Providers Care Driver'S License Reviewing Officer Name Role Phone Francesca Martinez MD Primary Care Provider Reason for Referral * Sleep (Routine) - Closed Specialty Diagnoses / Procedures Referred By Ravinder gilmore Referred To Contact Sleep Center Diagnoses Snoring Procedures SPLIT NIGHT STUDY Karla Gillespie APRN-CNP [address] [place] [address] Sleep Lab [address] [place] [address] Referral ID Status Reason Start Date Expiration Date Visits Re quested Visits Authorized [id number] Closed 08/20/2017 02/16/2018 1 1 BOARD CUTTER * Evaluate & Treat (Routine) - Closed Specialty Diagnoses / Procedures Referred By Ravinder gilmore Referred To Contact Sleep Center Diagnoses Sleep disturbance Yoana Castro MD [address] [place] [address] [facility] [address] [place] [address] Referral ID Status Reason Start Date Expiration Date V isits Requested Visits Authorized [id number] Closed Specialty Services Required 07/31/2017 01/27/2018 1 1 Scheduling Instructions If you have not been contacted by an [facility] Scientific Specialist within 48 hours, please call [phone] to schedule an appointment. BOARD CUTTER Reason for Visit * Reason Comments Sleep Problem snores, sleeps 3-4 h rs per night, restless during the night. Tired during the daytime. * Evaluate & Treat (Routine) - Closed Specialty Diagnoses / Procedures Referred By Ravinder gilmore Referred To Contact Sleep Center Diagnoses Sleep disturbance Yoana Castro MD [address] [place] [address] [facility] [address] [place] [address] Referral ID Status Reason Start Date Expiration Date V isits Requested Visits Authorized [id number] Closed Specialty Services Required 07/31/2017 01/27/2018 1 1 Encounter Details Date Type Department Care Team (Latest Contact Info) Description 08/20/2017 11:20 AM CARDBOARD CUTTER - 08/20/2017 12:43 PM CARDBOARD CUTTER Hospital Encounter [facility] Pediatrics - Sleep [address] [place] [address] Karla Gillespie, GENERAL REPAIR MECHANIC-WATER HAULER [address] [place] [address] Discharge Disposition: Home or Self Care Social [...] Sign Reading Time Taken Comments Blood Pressure 104/62 08/20/2017 11:35 AM CARDBOARD CUTTER Pulse 77 08/20/2017 11:35 AM CARDBOARD CUTTER Temperature - - Respiratory Rate - - Oxygen Saturation 99% 08/20/2017 11: 35 AM CARDBOARD CUTTER Inhaled Oxygen Concentration - - Weight 52.9 kg (116 lb 10 oz) 8 11:35 AM CARDBOARD CUTTER Height 160.8 cm (5' 3.31 ) 08/20/2017 1 1:35 AM CARDBOARD CUTTER Body Mass Index 20.46 08/20/2017 11:35 AM CARDBOARD CUTTER Body Mass Index Percentile 70.83% 08/20 11:35 AM CARDBOARD CUTTER Growth Chart: [facility] (Girls, 2- 20 Years) documented in this encounter Discharge Instructions * Patient Instructions* Karla Gillespie APRN-CNP - 08/20/2017 12:16 PM CARDBOARD CUTTER 1. Sleep study 2. CPAP teaching today 3. Labs today 4. No screen time 2 hours before bedtime. 5. Limit caffeine after 2 PM 6. Melatonin 5 mg as needed 30 minutes before bed 7. Get out of bed if not asleep in 15 minutes. Do something boring and quiet until sleepy. NO screens. Please call our nurse's line with any questions. ([phone], opt 3) For mother- [id number] to schedule a sleep clinic appointment. BOARD CUTTER documented in this encounter Medications at Time [...] allergic rhinitis due to pollen, unspecified chronicity Muir 2 Sprays into each nostril once daily [...] this encounter Progress Notes * Karla Gillespie, GENERAL REPAIR MECHANIC-WATER HAULER - 08/20/2017 11:25 AM CST New Patient Visit Note Pediatric Sleep Medicine [facility] Chief Complaint Patient presents with ??? Sleep Problem snores, sleeps 3-4 hrs per night, restless during the night. Tired during the daytime. HPI: Veronica Lowe is a 11 y.o. female who presents to the Pediatric Sleep Disorders Clinic at [facility] on 08/20/2017 for evaluation of snoring. She was accompanied by her mother who assisted in providing the history. She was referredby Dr. Castro. I have personally reviewed her records. Veronica has snored nightly for as long as mother can remember. Snoring can be heard outside of her bedroom with the door open. She is diaphoretic during sleep. There are no pauses in breathing, gasping, choking or drooling noted during sleep. She does not wake up with headaches. She is difficult toawaken in the morning and is sleepy during the day. She does not fall asleep at school. She does not take naps. She has nocturnal enuresis 0 nights per week. No previous polysomnogram. Veronica denies any leg pains, urges to move, or other strange sensations. She is a very restless sleeper. There are no sleep terrors, nightmares, sleep talking or sleep walking. Bruxism occurs nightly. During the week, Veronica goes to bed at 8 Pm and wakes up at 7 AM. On weekends, she goes to bed at 8 PM and wakes up at 11 AM. Sleep latency is up to 2 hours. TV is on in the bedroom, but does not watch it. She takes 10 mg of melatonin at 7 PM. Bedtime routine includes dinner, homework, shower and lights out. She shares a room with her sister, but sleeps in her own bed. There is a night light on.There is a television in the room. She drinks 0 caffeinated beverages per day. Review of Systems: Psychological ROS: negative Ophthalmic ROS: +glasses ENT ROS: +snoring Allergy and Immunology ROS: negative Respiratory ROS: negative Cardiovascular ROS: negative Gastrointestinal ROS: negative Urinary ROS: negative Musculoskeletal ROS: negative Neurological ROS: negative Dermatological ROS: negative Past Surgical History: Procedure Laterality Date ??? NEGATIVE SURGICAL HISTORY ??? Tonsillectomy and Adenoidectomy 05/14/2013 N/A; TONSILLECTOMY AND ADENOIDECTOMY Past Medical History: Diagnosis Date ??? ADHD (attention deficit hyperactivity disorder) takes ritalin ??? LELA (obstructive sleep apnea) 05/14/13--clinical signs no sleep study ??? infant 36 5/7 weeks 6 lbs 8 oz FAMILY HISTORY OF SLEEP DISORDERS: Mother- insomnia, RLS (on gabapentin) SOCIAL HISTORY: Veronica lives at home with mother, father and 2 sisters. There is no smoke exposure. She is in the 7th grade and receives decent grades. she does not get in trouble at school. Allergies Allergen Reactions ??? Penicillins Hives w/ Amoxicillin at 1 yr old Current Outpatient Prescriptions Ordered in Epic Medication Sig Dispense Refill ??? mometasone-formoterol (DULERA) 100-5 MCG/ACT inhaler Inhale 2 puffs by mouth 2 times daily 1 Inhaler 5 ??? cetirizine (ZYRTEC ALLERGY) 10 MG tablet Take 1 Tab by mouth once daily as needed for Runny Nose or Allergies (itch) 30 Tab 11 ??? fluticasone propionate (FLONASE) 50 MCG/ACT nasal spray Muir 2 Sprays into each nostril once daily [...] 4 mg (2 tablets) every night. ??? AEROCHAMBER PLUS (AEROCHAMBER) Use as directed. 1 each 1 ??? melatonin 5 MG tablet Take 10 mg by mouth at bedtime Reasons: takes 10 mg (2 tablets) at bedtime. ??? ferrous sulfate 325 (65 FE) MG tablet Take 1 tablet by mouth 2 times daily Take w/ vitamin C such as OJ. Miralax or generic for tummy upset. 60 tablet 3 ??? Cholecalciferol 2000 UNITS Take 2,000 Units by mouth once daily for 90 days 30 capsule 2 ??? albuterol HFA (PROVENTIL;VENTOLIN;PROAIR) 108 (90 BASE) MCG/ACT inhaler Inhale 2 Puffs by mouthevery 6 hours as needed for Shortness of Breath, Wheezing or Cough 2 Inhaler 5 No current [facility]-ordered facility-administered medications on file. Exam: Height: 160.8 cm (5' 3.31 ) Weight: 52.9 kg (116 lb 10 oz) Vitals: 08/20/17 1135 BP: 104/62 Pulse: 77 SpO2: 99% Weight: 52.9 kg (116 lb 10 oz) Constitutional: no retractions or cyanosis Psych: normal affect Head and Face: no lesions or masses; facies symmetrical Eyes: sclera and conjunctiva clear Ears: Inspection: normal pinnae shape and position Nasal: enlarged turbinates erythematous turbinates Oral Cavity: moist mucous membranes; normal uvula, slight scalloping of the tongue, overbite and overjet, dependent soft palate Throat: tonsil absent Mallampati 3 Neck: supple without tenderness or crepitus; no palpable adenopathy Heart: normal rate and rhythm Respiration: unlabored breathing GI: abdomen soft and flat Skin: skin healthy Impression/Plan: Snoring/ Possible Obstructive Sleep Apnea: I reviewed the diagnosis, etiology and treatment of LELA at length with mother. Split night polysomnogram scheduled today. CPAP teaching done with family. Restless Sleeper: Restless sleep is often the only symptom described in the broader condition of restless legs syndrome. I reviewed the diagnosis, etiology and treatment of RLS at length with mother.Restless legs syndrome is caused by a defect in the dopamine pathway, either with decreased production, incorrect production, or failed transport across the blood-brain barrier. Iron is a necessary cofactor for dopamine production. Serum ferritin checked today. Ferrous sulfate to be started for ferritin < 80. Additionally, a vitamin D level was checked. We will begin Vitamin D supplementation for level <30. It has been reported that vitamin D affects the nigrostriatal dopaminergic pathway, increases the level of dopamine and it metabolites, and protects dopaminergic neurons against toxins. (Shane et. Al, 2015). Sleep related Bruxism: Sleep related Bruxism (SB) involves involuntary, repetitive contractions of the masseter, temporalis, and pterygoid muscles. Typical symptoms reports by children include jaw pain/lock and/or headaches. Diagnosis of bruxism includes one or more of the following: abnormal wear of the teeth, jaw muscle discomfort or fatigue, or masseter muscle hypertrophy. Bruxism is often seen with Obstructive Sleep Apnea, Sleep related movement disorders, or anxiety. Will proceed with evaluation for LELA and treatment of restless sleep as outlined below. Additionally, Veronica may benefit from using a mouth guard at night. Chronic Insomnia: Insomnia likely secondary to restless sleep and poor sleep hygiene. Restlessness to be treated as outlined above. We discussed the importance of keeping bed times and wake up times the same 7 days per week and limiting screen time 1-2 hours before bed. Circadian rhythms depend highly on social and environmental cues, especially light-dark cycles. Patient Instructions 1. Sleep study 2. CPAP teaching today 3. Labs today 4. No screen time 2 hours before bedtime. 5. Limit caffeine after 2 PM 6. Melatonin 5 mg as needed 30 minutes before bed 7. Get out of bed if not asleep in 15 minutes. Do something boring and quiet until sleepy. NO screens. Please call our nurse's line with any questions. ([phone], opt 3) For mother- [phone] to schedule a sleep clinic appointment. Follow-up in month Thank you for allowing me to participate in the care of your patient. Please call me with any questions at [phone]. [facility] BOARD CUTTER documented in this encounter Plan of Treatment Pending Results Name Type Priority Associated Diagnoses Date /Time Amb Pediatric Referral To Sleep Clinic @ ([facility]) Outpatient Referral Routine Sleep disturbance 08/20/2017 11:34 AM CARDBOARD CUTTER Scheduled Referrals Name Type Priority Associated Diagnoses Orde r Schedule Amb Pediatric Referral To Sleep Clinic @ ([facility]) Outpatient Referral Routine Sleep disturbance 1 Occurrences starting 08/20/2017 until 08/20/2017 documented as of this encounter Results * SPLIT NIGHT STUDY (08/21/2017) Pathologist [facility] Linked Results See Linked Results SLEEP CENTER 08/21/2017 Karla [facility] O RDER[facility]LES SLEEP [facility]ENTER * VITAMIN D (25-HYDROXY) (08/20/2017 12:44 PM CARDBOARD CUTTER) Vitamin D, 25 Hydroxy 20.2 20 - 100 ng/mL 08/20/2017 1:44 PM CARDBOARD CUTTER [facility] Blood BLOOD SPECIMEN / Unknown Lab Venipuncture / Unknown 08/20/2017 12:44 PM CARDBOARD CUTTER 08/20/2017 12:53 PM CARDBOARD CUTTER Narrative [facility] - 08/20/2017 1:44 PM CARDBOARD CUTTER Vitamin D Status: ?Deficient ? <10 ?? ng/mL ? Borderline ?10-20 ng/mL ?Sufficient ?>20 ?? ng/mL ?Toxic ? >100 ??ng/mL Karla Gillespie GENERAL REPAIR MECHANIC-WATER HAULER LAB - CHEMISTR Y ORDERABLES Performing Organization Address City/[facility]/ZIP Co de Phone Number [facility] [address] [place] [address] * FERRITIN (08/20/2017 12:44 PM CARDBOARD CUTTER) Ferritin 36 10 - 140 ng/mL 08/20/2017 2:00 PM CARDBOARD CUTTER [facility] Blood BLOOD SPECIMEN / Unknown Lab Venipuncture / Unknown 08/20/2017 12:44 PM CARDBOARD CUTTER 08/20/2017 12:53 PM CARDBOARD CUTTER Karla Gillespie GENERAL REPAIR MECHANIC-WATER HAULER LAB - CHEMISTR Y ORDERABLES Performing Organization Address [facility] Co de Phone Number [facility] [address] [place] [phone] documented in this encounter Visit Diagnoses Diagnosis Restless sleeper- Primary Sleep disturbance, unspecified Sleep disturbance Sleep disturbance, unspecified Snoring Other dyspnea and respiratory abnormality documented in this encounter Care Teams Driver'S License Reviewing Officer Relationship Specialty Start Date End Date Francesca Martinez MD [address] [place] [phone] PCP - General 01/08/12 documented as of this encounter
--- OUTSIDE RECORDS SUMMARY | 2024-07-28 19:31 | XMS_ITS | Encounter Summary ---
Author Organization [facility] Address [address] [place] [address] Care Team Providers Care Grounding Engineer Name Role Phone Francesca Martinez MD Primary Care Provider [phone] Encounter Details Date Type Department Care Team (Late st Contact Info) Description 01/15/2012 Orders Only [facility] Pediatrics - Allergy [address] [place] [address] Jelena Mercer, RN Social History Tobacco Use Types Packs/Day Years Used Date Smoking Tobacco: Never Assessed Sex and Gender Information Value Date Recorded Sex Assigned at Not on file Gender Identity Not on file Sexual Orientation Not on file documented as of this encounter Plan of Treatment Not on file documented as of this encounter Visit Diagnoses Not on filedocumented in this encounter Care Teams Grounding Engineer Relationship Specialty Start Date End Date Francesca Martinez MD [address] [place] [phone] PCP - General 01/08/12 documented as of this encounter
--- OUTSIDE RECORDS SUMMARY | 2024-07-28 19:31 | XMS_ITS | Encounter Summary ---
Author Organization [facility] Address [address] [place] [address] Care Team Providers Care Cable Tool Operator Name Role Phone Francesca Martinez MD Primary Care Provider [phone] Reason for Visit * Reason Onset Date Comments MEDICATION REFILL 01/15/2012 Encounter Details Date Type Department Care Team (Late st Contact Info) Description 01/15/2012 Refill [facility] Pediatrics - Allergy [address] [place] [address] Jelena Mercer RN MEDICATION REFILL Social History Tobacco Use Types [...] on filedocumented in this encounter Care Teams Cable Tool Operator Relationship Specialty Start Date End Date Francesca Martinez MD [address] [place] [phone] PCP - General 01/08/12 documented as of this encounter
--- OUTSIDE RECORDS SUMMARY | 2024-07-28 19:31 | XMS_ITS | Encounter Summary ---
Author Organization [facility] Address [address] [place] [address] Care Team Providers Care Armament Aircraft Mechanic Name Role Phone Francesca Martinez MD Primary Care Provider [phone] Reason for Visit * Reason Comments Follow-up F/U Kendrick REN Encounter Details Date Type Department Care Team (Latest Contact Info) Description 03/04/2013 3:00 PM CDT - 03/04/2013 11:59 PM CDT Hospital Encounter [facility] Pediatrics - Immunology [address] [place] [phone] Augustin Millan MD [address] [place] [phone] Discharge Disposition: Home or Self Care Social History Tobacco Use Types Packs/Day Years Used Date Smoking Tobacco: Never Assessed Sex and Gender Information Value Date Recorded Sex Assigned at Not on file Gender Identity Not on file Sexual Orientation Not on file documented as of this encounter Last Filed Vital Signs Vital Sign Reading Time Taken Comments Blood Pressure 118/80 03/04/2013 3:07 PM CDT Pulse - - Temperature - - Respiratory Rate - - Oxygen Saturation - - Inhaled Oxygen Concentration - - Weight 36.5 kg (80 lb 6.4 oz) 03/04/2013 3:07 PM CDT Height 135 cm (4' 5.15 ) 03/04/2013 3:07 PM CDT Body Mass Index 20.01 03/04/2013 3:07 PM CDT Body Mass Index Percentile 91.74% 03/04/2013 3:0 7 PM CDT Growth Chart: [facility] (Girls, 2- 20 Years) documented in this encounter Medications at Time of Discharge Medication Sig Dispensed Refills Start Date End Date azelastine (ASTELIN) 137 MCG/SPRAY nasal sprayIndications:Allerg ic rhinitis, cause unspecified [place] 2 Sprays into each nostril 2 times daily. 1 Inhaler 5 03/04/2013 04/20/2013 cetirizine (ZYRTEC ALLERGY) 10 MG tabletIndications:Peren nial Allergic Rhinitis Take 1 Tab by mouth once daily. Indications: Perennial Rhinitis 30 Tab 11 03/04/2013 04/20/2013 loratadine (CLARITIN) 10 MG tabletIndications:Aller gic rhinitis, cause unspecified Take 1 Tab by mouth once daily. 30 Tab 5 03/04/2013 04/20/2013 methylphenidate (RITALIN) 20 MG tablet Take 20 mg by mouth 2 times daily. group care worker and 1100 01/17/2014 documented as of this encounter Progress Notes * Augustin Millan MD - 03/04/2013 3:59 PM CDT LV: 07/09/12 CC: Allergic rhinitis. HPI: Veronica Lowe is a 7 y.o. female who presents today for follow-up of her Patient Active Problem List Diagnosis Date Noted ??? Allergic rhinitis, cause unspecified 01/09/2012 Allergic rhinitis (Alt): very congested, has clear runny nose all the time and not on any meds. Used nasacort, flonase in the past which gave her head aches, nalini was expensive so stopped it. Current Outpatient Prescriptions Medication Status Sig Dispense Refill ??? Phenylephrine HCl (SUDAFED PE CHILDRENS) 2.5 MG/5ML SOLN Active Take 10 mL by mouth. ??? methylphenidate (RITALIN) 20 MG tablet Active Take 20 mg by mouth Every morning and lunchtime. ??? triamcinolone (NASACORT AQ) 55 MCG/ACT nasal inhaler Active [place] 2 Sprays into each nostril once daily. Indications: Perennial Rhinitis 1 Inhaler 4 ??? fexofenadine (NALINI) 30 MG tablet Active Take 1 Tab by mouth 2 times daily. 60 Tab 3 Medication Allergies: Allergies Allergen Reactions ??? Penicillins Hives w/ Amoxicillin at 1 yr old Review of Systems: Constitutional: no weight loss/gain, fever, LEWIS, fatigue ENT: has Rhinitis, nasal congestion, sneezing, no ocular/nasal pruritus Resp: no wheeze, cough, SOB GI: no heartburn, N/V/D, constipation, dysphagia Skin: no hives, swelling, pruritus, bruising, eczema Psych: no anxiety, behavioral changes A review of past medical history, environmental history, and family history was obtained and no change since previous visit. PE: Vitals: 03/04/13 1507 BP: 118/80 Weight: 80 lb 6.4 oz (36.469 kg) Gen: NAD Eyes: PERRL, EOMI, conjunctiva clear B. ENT: TM-clear B, nares - patent with edematous, pale nasal mucosa, OP-clear. CV: RRR s m Resp: CTAB, no wheezes ABD: soft, NTND, no HSM Extr: no c/c/e Skin: no lesions/rashes Lymphatic: Palpation of nodes in neck show no LAD Psych: Patient co operative, happy playful during exam. A/P: Mixed rhinitis: will start her on Astelin 2 sprays/nostril bid, start claritin 10 mg po daily. Reviewed the proper technique of using the nose spray. RTC - 6 mo. Jair Howard MD Fellow in Allergy and Immunology. 03/04/2013 3:59 PM ALLERGY & IMMUNOLOGY ATTENDING NOTE Patient seen and examined with resident. I have reviewed the Allergy & Immunology fellow's history, physical examination, assessment and treatment plan and evaluation. I confirm/revise history, examination, assessment and plan. In addition I note: Present Illness Veronica Lowe is a 7 y.o. female who presents for evaluation of AR, not controlled. IgE Alternaria PAST MEDICAL HISTORY Allergies Allergen Reactions ??? Penicillins Hives w/ Amoxicillin at 1 yr old Surgeries No past surgical history on file. Review of Systems: See HPI Physical Examination BP 118/80 Wt 36.469 kg (80 lb 6.4 oz) BMI 20.01 kg/m2 General Assessment: alert, well appearing, and in no distress Skin Exam: no lesions, jaundice, petechiae, pallor, cyanosis, ecchymosis Head: Atraumatic, normocephalic Eyes: PERRL EOM intact Ears: Normal external auditory canal and tympanic membrane bilaterally Nose: congested nose Mouth: mucous membranes moist, pharynx normal without [...] focal findings or movement disorder noted Impressions AR IgE Alternaria Recommendations Zyrtec 10 mg q day Asteline 2x2 FU [address] Sohail Millan MD 03/04/20134:22 PM Please see resident note for further details documented in this encounter Miscellaneous Notes * Miscellaneous Scans - Document, Scanned - 03/09/2013 6:15 PM CDT documented in this encounter Plan of Treatment Not on file documented as of this encounter Visit Diagnoses Diagnosis Allergic rhinitis, cause unspecified- Primary documented in this encounter Care Teams Armament Aircraft Mechanic Relationship Specialty Start Date End Date Francesca Martinez MD [address] [place] [phone] PCP - General 01/08/12 documented as of this encounter
--- OUTSIDE RECORDS SUMMARY | 2024-07-28 19:31 | XMS_ITS | Encounter Summary ---
Author Organization [facility] Address [address] [place] [address] Care Team Providers Care Liner Machine Operator Name Role Phone Francesca Martinez MD Primary Care Provider Encounter Details Date Type Department Care Team (Late st Contact Info) Description 01/15/2012 Orders Only [facility] Pediatrics - Allergy [address] [place] [address] Jelena Mercer, RN Social History Tobacco Use [...] on filedocumented in this encounter Care Teams Liner Machine Operator Relationship Specialty Start Date End Date Francesca Martinez MD [address] [place] [phone] PCP - General 01/08/12 documented as of this encounter
--- OUTSIDE RECORDS SUMMARY | 2024-07-28 19:31 | XMS_ITS | Encounter Summary ---
Author Organization [facility] Address [address] [place] [address] Care Team Providers Care Insolvency Practitioner Name Role Phone Francesca Martinez MD Primary Care Provider Reason for Visit * Reason Comments Immune Deficiency Encounter Details Date Type Department Care Team (Latest Contact Info) Description 04/09/2012 9:31 AM CDT - 04/09/2012 11:59 PM CDT Hospital Encounter [facility] Pediatrics - Immunology [address] [place] [phone] Augustin Millan MD [address] [place] [phone] Discharge Disposition: Home or Self Care Social History Tobacco Use Types Packs/Day Years Used Date Smoking Tobacco: Never Assessed Sex and Gender Information Value Date Recorded Sex Assigned at Not on file Gender Identity Not on file Sexual Orientation Not on file documented as of this encounter Last Filed Vital Signs Vital Sign Reading Time Taken Comments Blood Pressure 88/60 04/09/2012 9:32 AM CDT Pulse - - Temperature - - Respiratory Rate - - Oxygen Saturation - - Inhaled Oxygen Concentration - - Weight 39.9 kg (88 lb) 04/09/2012 9:32 AM CDT Height 133 cm (4' 4.36 ) 04/09/2012 9:32 AM CDT Body Mass Index 22.57 04/09/2012 9:32 AM CDT Body Mass Index Percentile 97.41% 04/09/2012 9:3 2 AM CDT Growth Chart: [facility] (Girls, 2- 20 Years) documented in this encounter Medications at Time of Discharge Medication Sig Dispensed Refills Start Date End Date azelastine (ASTEPRO) 205.5 MCG/SPRAY nasal sprayIndications:Allerg ic rhinitis, cause unspecified [place] 2 Sprays into each nostril 2 times daily. 30 mL 6 04/10/2012 04/10/2012 diphenhydrAMINE (BENADRYL ALLERGY) 12.5 MG/5ML liquid Take 25 mg by mouth every 6 hours as needed. 07/09/2012 fexofenadine (NALINI) 30 MG tabletIndications:Aller gic rhinitis, cause unspecified Take 1 Tab by mouth 2 times daily. 60 Tab 3 04/09/2012 03/04/2013 montelukast (SINGULAIR) 5 MG chew tablet Take 5 mg by mouth at bedtime. 07/09/2012 triamcinolone (NASACORT AQ) 55 MCG/ACT nasal inhalerIndications:Robinson nnial Allergic Rhinitis [place] 2 Sprays into each nostril once daily. Indications: Perennial Rhinitis 1 Inhaler 4 04/09/2012 03/04/2013 documented as of this encounter Progress Notes * Augustin Millan MD - 04/09/2012 10:48 AM CDT LV: 01/09/2012 CC: LANIE HPI: Veronica Lowe is a 6 y.o. female who presents today for follow-up of her no allergic rhinitis Her symptoms still the same since last visit, has congested nose and runny nose, itchy nose. No Hx of cough or any recurrent infections Pt takes her medication regularly. Patient Active Problem List Diagnoses Date Noted ??? Allergic rhinitis, cause unspecified 01/09/2012 Current Outpatient Prescriptions Medication Sig Dispense Refill ??? montelukast (SINGULAIR) 5 MG chew tablet Take 5 mg by mouth at bedtime. ??? triamcinolone (NASACORT AQ) 55 MCG/ACT nasal inhaler [place] 1 [place] into each nostril once daily. Indications: Perennial Rhinitis 1 Inhaler 4 ??? diphenhydrAMINE (BENADRYL ALLERGY) 12.5 MG/5ML liquid Take 25 mg by mouth every 6 hours as needed. ??? cetirizine (ZYRTEC CHILDRENS ALLERGY) 5 MG/5ML syrup Take 2 mg by mouth once daily. ??? cetirizine (ZYRTEC) 5 MG chew tablet Take 1 Tab by mouth once daily. Indications: Perennial Rhinitis 30 Tab 11 Medication Allergies: Allergies Allergen Reactions ??? Penicillins Hives w/ Amoxicillin at 1 yr old Review of Systems: Constitutional: No weight loss/gain, fever, LEWIS, fatigue ENT: +++ Rhinitis, +++nasal congestion, sneezing, ocular/nasal pruritus Resp: no wheeze, cough, SOB GI: no heartburn, N/V/D, constipation, dysphagia Skin: no hives, swelling, pruritus, bruising, eczema Psych no anxiety, behavioral changes A review of past medical history, environmental history, and family history was obtained and no change since previous visit. PE: Vitals: 04/09/12 0932 BP: 88/60 Weight: 39.917 kg (88 lb) Gen: NAD Eyes: PERRL, EOMI, conjunctiva clear B with B allergic shiners. ENT: TM-clear B, nares - patent with no nasal mucosa, Sinus Tenderness , nasal congestions CV: RRR s m Resp: CTAB, no wheezes ABD: soft, NTND, no HSM Extr: no c/c/e Skin: no lesions/rashes Lymphatic: Palpation of nodes in neck show no LAD PSTs. Alternaria A/P: 1- AR: Dc singular -continue nasonex, will increase the dose to two sprays once daily -add nalini 30 mg po BID -DC continue zyrtec RTC - 6 months I spent 15 minutes discussing results and counseling patient. Jayjay Almazan MD 04/09/2012 10:48 AM ALLERGY & IMMUNOLOGY ATTENDING NOTE Patient seen and examined with resident. I have reviewed the Allergy & Immunology fellow's history, physical examination, assessment and treatment plan and evaluation. I confirm/revise history, examination, assessment and plan. In addition I note: Present Illness Veronica M Lowe is a 6 y.o. female who presents for evaluation of AR. On Zyrtec 5 mg q day and Nasonex q day. Still symptomatic. Physical Examination BP 88/60 Wt 39.917 kg (88 lb) BMI 22.57 kg/m2 General Assessment: alert, well appearing, and in no distress Skin Exam: no lesions, jaundice, petechiae, pallor, cyanosis, ecchymosis Head: Atraumatic, normocephalic Eyes: PERRL EOM intact Ears: Normal external auditory canal and tympanic membrane bilaterally Nose: swollen turbinates, mucosa Mouth: mucous membranes moist, pharynx normal without [...] findings or movement disorder noted Impressions AR Recommendations Nalini 30 mg bid Nasonex bid FU 3 months Augustin Millan MD 04/09/201211:47 AM Please see resident note for further details documented in this encounter Miscellaneous Notes * Miscellaneous Scans - Document, Scanned - 09/05/2012 12:26 PM CST ER WELDER documented in this encounter Plan of Treatment Not on file documented as of this encounter Visit Diagnoses Diagnosis Allergic rhinitis, cause unspecified documented in this encounter Care Teams Insolvency Practitioner Relationship Specialty Start Date End Date Francesca Martinez MD [address] [place] [phone] PCP - General 01/08/12 documented as of this encounter
--- OUTSIDE RECORDS SUMMARY | 2024-07-28 19:31 | XMS_ITS | Encounter Summary ---
Author Organization [facility] Address [address] [place] [address] Care Team Providers Care Tanker Service Attendant Name Role Phone Francesca Martinez MD Primary Care Provider Reason for Visit * Reason Comments Allergy Symptoms Encounter Details Date Type Department Care Team (Latest Contact Info) Description 01/09/2012 8:30 AM CDT - 01/09/2012 11:59 PM CDT Hospital Encounter [facility] Pediatrics - Immunology [address] [place] [phone] Augustin Millan MD [address] [place] [phone] Discharge Disposition: Home or Self Care Social History Tobacco Use Types Packs/Day Years Used Date Smoking Tobacco: Never Assessed Sex and Gender Information Value Date Recorded Sex Assigned at Not on file Gender Identity Not on file Sexual Orientation Not on file documented as of this encounter Last Filed Vital Signs Vital Sign Reading Time Taken Comments Blood Pressure 110/60 01/09/2012 8:37 AM CDT Pulse - - Temperature - - Respiratory Rate - - Oxygen Saturation - - Inhaled Oxygen Concentration - - Weight 36.9 kg (81 lb 6.4 oz) 01/09/2012 8:37 AM CDT Height 131.6 cm (4' 3.81 ) 01/09/2012 8:37 AM CD T Body Mass Index 21.32 01/09/2012 8:37 AM CDT Body Mass Index Percentile 96.47% 01/09/2012 8:3 7 AM CDT Growth Chart: [facility] (Girls, 2- 20 Years) documented in this encounter Medications at Time of Discharge Medication Sig Dispensed Refills Start Date End Date cetirizine (ZYRTEC CHILDRENS ALLERGY) 5 MG/5ML syrup Take 2 mg by mouth once daily. 04/09/2012 cetirizine (ZYRTEC) 5 MG chew tabletIndications:Robinson nnial Allergic Rhinitis Take 1 Tab by mouth once daily. Indications: Perennial Rhinitis 30 Tab 11 01/09/2012 04/09/2012 diphenhydrAMINE (BENADRYL ALLERGY) 12.5 MG/5ML liquid Take 25 mg by mouth every 6 hours as needed. 07/09/2012 mometasone (NASONEX) 50 MCG/ACT nasal sprayIndications:Peren nial Allergic Rhinitis [place] 1 [place] into each nostril 2 times daily. Indications: Perennial Rhinitis 1 Inhaler 11 01/09/2012 01/10/2012 documented as of this encounter Progress Notes * Document, Scanned - 01/21/2012 2:55 PM CDT * Augustin Millan MD - 01/09/2012 8:49 AM CDT NEW PATIENT. 01-09-2012 Patient Active Problem List Diagnoses Date Noted ??? Allergic rhinitis, cause unspecified 01/09/2012 Current Outpatient Prescriptions Medication Sig Dispense Refill ??? diphenhydrAMINE (BENADRYL ALLERGY) 12.5 MG/5ML liquid Take 25 mg by mouth every 6 hours as needed. ??? cetirizine (ZYRTEC CHILDRENS ALLERGY) 5 MG/5ML syrup Take 2 mg by mouth once daily. Present Illness Veronica Lowe is a 6 y.o. female who presents for evaluation of AR. Perennial, onset 1 year. She has tried Zyrtec, Claritin, Benadryl w/o help, Flonase burned. No whhezing, no eczema. Environmental History 4 cats PAST MEDICAL HISTORY Drug Allergies. PCN Surgeries No past surgical history on file. & Development 3rd grade, speech delay Immunization status: up to date and documented. Review of Systems: Constitutional: Negative Eyes: Negative Ears, nose, mouth, and throat: HPI Respiratory: Negative Cardiovascular: Negative Gastrointestinal: Negative Genitourinary:Negative Skin: Negative Breast: Negative Hematologic/lymphatic: Negative Musculoskeletal:Negative Neurological: Negative Behavioral/Psych: speech delay Endocrine: Negative Family History Mom AR Mgm AR mUncle milk allergy Physical Examination BP 110/60 Wt 36.923 kg (81 lb 6.4 oz) BMI 21.32 kg/m2 General Assessment: alert, well appearing, and [...] no focal findings or movement disorder noted PSTs. Alternaria Assessment AR Plan PST x4 boards Environmental control Zyrtec 5 mg q day Nasonex q day - bid FU 3 months Augustin Millan MD 01/09/20128:54 AM documented in this encounter Miscellaneous Notes * Miscellaneous Scans - Document, Scanned - 01/16/2012 2:41 PM CDT * Miscellaneous Scans - Document, Scanned - 01/16/2012 9:05 AM CDT documented in this encounter Plan of Treatment Not on file documented as of this encounter Visit Diagnoses Not on filedocumented in this encounter Care Teams Tanker Service Attendant Relationship Specialty Start Date End Date Francesca Martinez MD [address] [place] [address] [place] [phone] PCP - General 01/08/12 documented as of this encounter
--- OUTSIDE RECORDS SUMMARY | 2024-07-28 19:31 | XMS_ITS | Encounter Summary ---
Author Organization [facility] Address [address] [place] [address] Phone Care Team Providers Care Vehicle Glass Technician Name Role Phone Travis Bhardwaj Primary Care Provider [phone] Kalpana Finnegan APRN, CNP Unavailable [phone] Reason for Referral * Other (Routine) - Closed Specialty Diagnoses / Procedures Referred By Ravinder gilmore Referred To Contact Pulmonology Diagnoses Moderate persistent asthma without status asthmaticus without complication Procedures COMPLETE PFT W + W/O BRONCHODILATOR Kalpana Finnegan APRN, CNP Phone: tel: fax: Referral ID Status Reason Start Date Expiration Date Visits Re quested Visits Authorized [id number] Closed 10/07/2022 1 1 Reason for Visit * Reason Comments Asthma * Consult, Test & Initiate Treatment (Routine) - Closed Specialty Diagnoses / Procedures Referred By Contyaritza gilmore Referred To Contact Pulmonology Diagnoses Mild intermittent asthma, uncomplicated Travis Bhardwaj PAC [address] [place] [address] Phone: tel: fax: Hema Black MD [address] [place] [address] Phone: tel: fax: Referral ID Status Reason Start Date Expiration Date Visits Re quested Visits Authorized [id number] Closed 1 1 Encounter Details Date Type Department Care Team (Late st Contact Info) Description 10/07/2022 2:30 PM CDT Office Visit [facility] - Pulmonology & Sleep Medicine - [place] [address] [place] [address] Clare Finneganah Leti, DIE ATTACHER, FLIGHT SOFTWARE TEST ENGINEER [address] [place] [address] Moderate persistent asthma without status asthmaticus without complication (Primary Dx); Environmental allergies; PND (post-nasal drip) Discharge Disposition: Discharged to home or Selfcare Social History Tobacco Use Types Packs/Day Years Used Date Smoking Tobacco: Never Smokeless Tobacco: Never Alcohol Use Standard Drinks/Week Comments Never 0 (1 standard drink = 0.6 oz pur e alcohol) Comments Unknown Sex and Gender Information Value Date Recorded Sex Assigned at Not on file Legal Sex Female 8:20 AM COMPUTING ARCHITECT Gender Identity Not on file Sexual Orientation Not on file COVID-19 Exposure Response Date Recorded In the last 10 days, have yo u been in contact with someone who was confirmed or suspected to have Coronavirus/COVID-19? No / Unsure 10/07/2022 2:16 PM CDT documented as of this encounter Last Filed Vital Signs Vital Sign Reading Time Taken Comments Blood Pressure 110/68 10/07/2022 2:38 PM CDT Pulse 78 10/07/2022 2:38 PM CDT Temperature 36.6 ??C (97.8 ??F) 10/07/2022 2:38 PM CD T Respiratory Rate 15 10/07/2022 2:38 PM CDT Oxygen Saturation 97% 10/07/2022 2:38 PM CDT Inhaled Oxygen Concentration - - Weight 75.9 kg (167 lb 6.4 oz) 10/07/2022 2:38 P M CDT Height 162.6 cm (5' 4 ) 10/07/2022 2:38 PM CDT Body Mass Index 28.73 10/07/2022 2:38 PM CDT Body Mass Index Percentile 92.89% 10/07/2022 2:3 8 PM CDT Growth Chart: CDC (Girls, 2- 20 Years) documented in this encounter Progress Notes * Jakevinay Kalpana Leti, DELVIS, FLIGHT SOFTWARE TEST ENGINEER - 10/07/2022 2:30 PM CDT Chief Complaint: Chief Complaint Patient presents with ??? Asthma Subjective: Ms. Veronica Lowe is a 17 y.o. female here today for above. Patient reports having various allergic responses to pollen/grass and various environmental allergens. Has not seen fpga design engineer in over a year, states she did do PFT testing in that office but it has tessa year ago. Started taking allergy medications at 2 years old. Her younger sister has asthma as well. Unable to use Singulair due to side effects (mood swings), she is using zyrtec, flonase and Dulera 200mcg. States she has been on various inhalers in the past but unable to remember which ones. Reports she has had a breathing treatment in the past but it was years ago. Denies any consistent use of rescue inhaler. Has been seeing fpga design engineer since she was a child when she was originally diagnosed with asthma. Turned 17 and has to see new physician. Denies any recent wheezing. Has occasional cough with PND, denies any night time awakenings due to her breathing. Does have SOB that is baseline, will be aggravated by weather changes. States her last exacerbation was around 1 month ago during a big weather change, states she had large amounts of mucous, head pressure, cough from PND and SOB from the congestion. She used dayquil, eucalyptus oil and sudafed which helped symptoms resolve within 2-3 weeks. Saw ENT at [facility] and had allergy testing and was trying to be worked up for immunotherapy but was all denied by insurance. ROS: Review of Systems Constitutional: Negative. HENT: Positive for postnasal drip (occasional) and rhinorrhea. Eyes: Negative. Respiratory: Positive for cough (occasional), chest tightness and shortness of breath (baseline MAXWELL). Cardiovascular: Negative. Gastrointestinal: Negative. Endocrine: Negative. Genitourinary: Negative. Musculoskeletal: Negative. Skin: Negative. Allergic/Immunologic: Negative. Neurological: Negative. Hematological: Negative. Psychiatric/Behavioral: Negative for sleep disturbance. VITAL SIGNS: BP Readings from Last 3 Encounters: 10/07/22 110/68 Wt Readings from Last 3 Encounters: 10/07/22 167 lb 6.4 oz (75.9 kg) (92 %, Z= 1.43)* * Growth percentiles are based on CDC (Girls, 2-20 Years) data. Vitals: 10/07/22 1438 BP: 110/68 BP Location: Right Arm Pulse: 78 Resp: 15 Temp: 97.8 ??F (36.6 ??C) SpO2: 97% Weight: 167 lb 6.4 oz (75.9 kg) Height: 5' 4 (1.626 m) Body mass index is 28.73 kg/m??. PHYSICAL EXAM: Physical Exam Vitals reviewed. Constitutional: Appearance: She is well-developed. Eyes: Conjunctiva/sclera: Conjunctivae normal. Pupils: Pupils are equal, round, and reactive to light. Cardiovascular: Rate and Rhythm: Normal rate and regular rhythm. Heart sounds: Normal heart sounds, S1 normal and S2 normal. Pulmonary: Effort: Pulmonary effort is normal. Breath sounds: Normal breath sounds. Abdominal: General: Bowel sounds are normal. Palpations: Abdomen is soft. Musculoskeletal: General: Normal range of motion. Cervical back: Normal range of motion and neck supple. Skin: General: Skin is warm. Capillary Refill: Capillary refill takes less than 2 seconds. Neurological: Mental Status: She is alert and oriented to person, place, and time. Psychiatric: Behavior: Behavior normal. Thought Content: Thought content normal. Judgment: Judgment normal. Labs/Studies Reviewed: Assessment/Plan: Diagnoses and all orders for this visit: Moderate persistent asthma without status asthmaticus without complication - COMPLETE BLOOD COUNT (CBC) WITH DIFF; Future - COMPLETE PFT W + W/O BRONCHODILATOR; Future - Nrddjqaybjz-Btouncsmy-Qmgbjo (Trelegy Ellipta) 100-62.5-25 MCG/ACT AEROSOL POWDER, BREATH ACTIVATED; take 1 Puff by inhalation daily. - fexofenadine (SYEDA) 180 MG Tablet; Take 1 Tablet by mouth daily. Other orders - cloNIDine (CATAPRES) 0.1 MG Tablet; Take 0.1 mg by mouth daily. (Patient not taking: Reported on 10/07/2022) - methylphenidate (RITALIN) 20 MG Tablet; Take 20 mg by mouth 2 times daily. - montelukast (SINGULAIR) 4 MG Chewable Tablet; Take 4 mg by mouth every evening. (Patient not taking: Reported on 10/07/2022) - TRAMADOL HCL PO; Take by mouth. (Patient not taking: Reported on 10/07/2022) - fluocinolone (SYNALAR) 0.01 % Solution; Apply 2 times daily. (Patient not taking: Reported on 10/07/2022) - ALBUTEROL IN; take by inhalation. - Ferrous Sulfate (Iron) 325 (65 Fe) MG Tablet; Take by mouth. (Patient not taking: Reported on 10/07/2022) - Norgestimate-ethinyl estradiol (Estarylla) 0.25-35 MG-MCG Tablet; Take 1 Tablet by mouth daily. (Patient not taking: Reported on 10/07/2022) OTHER ORDERS NOT PLACED AT THIS VISIT PFT to determine current lung function. CBC to rule out eosinophilia. May need to start biologic. Trelegy 100mcg 2 week sample given in office to use in place of Dulera. Syeda ordered to be added to current medication regimen discussed above. Discussed asthma action plan and provided peak flow monitor with worksheet in office today. Refer to [facility] at next visit. Patient is to bring records from previous fpga design engineer/ENT to next visit. Further recommendation after review of above. FOLLOWUP: Follow-up Information Return in about 3 months (around 01/07/2023). Kalpana Finnegan APRN, CNP Past medical, surgical, social and family history has been reviewed and updated as necessary. Medications and allergies has been reviewed and updated. I discussed all new medications and potential side effects or risks associated with them. Patient is to contact our office with any concerns. Patient instructions and educational materials were given to the patient. Patient (or patient eligibility services representative) demonstrates verbal understanding of instructions given. Patient should follow up with their PCP for general health maintenance needs. Patient should contact our office if their problems persist or call 911/go the to ER if issues become more persistent. If any referrals have been made, patient should contact our office with in 3-5 days if they have not heard anything from our referral team or the referring physician. documented in this encounter Plan of Treatment Scheduled Orders Name Type Priority Associated Diagnoses Orde r Schedule COMPLETE PFT W + W/O BRONCHODILATOR PFT Routine Moderate persistent asthma without status asthmaticus without complication Expected: 10/07/2022, Expires: 01/07/2023 documented as of this encounter Visit Diagnoses Diagnosis Moderate persistent asthma without status asthmaticus without complication- Primary Environmental allergies Allergic rhinitis, cause unspecified PND (post-nasal drip) Postnasal drip documented in this encounter Care Teams Vehicle Glass Technician Relationship Specialty Start Date End Date Travis Bhardwaj, ANGELIQUE [address] [place] [id number] PCP - General Physician Title Officer 09/24/22 Kalpana Finnegan APRN, FLIGHT SOFTWARE TEST ENGINEER [address] [address] Nurse Practitioner Advanced Practice Nurse 10/07/22 documented as of this encounter
--- OUTSIDE RECORDS SUMMARY | 2024-07-28 19:31 | XMS_ITS | Encounter Summary ---
Author Organization [facility] Care Team Providers Care Polymerization Supervisor Name Role Phone Travis Bhardwaj Primary Care Provider [phone] Kalpana Finnegan APRN, CNP Unavailable [phone] Encounter Details Date Type Department Care Team (Latest Contact Info) Description 01/06/2023 Travel Social History Tobacco Use Types Packs/Day Years Used Date Smoking Tobacco: Never Smokeless Tobacco: Never Alcohol Use Standard Drinks/Week Comments Never 0 (1 standard drink = 0.6 oz pur e alcohol) Comments Unknown Sex and Gender Information Value Date Recorded Sex Assigned at Not on file Legal Sex Female 8:20 AM MIXER AND BLENDER Gender Identity Not on file Sexual Orientation Not on file COVID-19 Exposure Response Date Recorded In the last 10 days, have yo u been in contact with someone who was confirmed or suspected to have Coronavirus/COVID-19? No / Unsure 01/06/2023 8:14 AM CDT documented as of this encounter Plan of Treatment Not on file documented as of this encounter Visit Diagnoses Not on filedocumented in this encounter Care Teams Polymerization Supervisor Relationship Specialty Start Date End Date Travis Bhardwaj PAC [address] [place] [address] PCP - General Physician Oil Burner Installer 09/24/22 Kalpana Finnegan APRN, DARYL [address] [address] Nurse Practitioner Advanced Practice Nurse 10/07/22 documented as of this encounter
--- OUTSIDE RECORDS SUMMARY | 2024-07-28 19:31 | XMS_ITS | Encounter Summary ---
Author Organization [facility] Address [address] [facility] [place] [address] Phone Care Team Providers Care Supervisor Particleboard Name Role Phone Travis Bhardwaj Primary Care Provider [phone] Kalpana Finnegan APRN, DARYL Unavailable [phone] Reason for Visit * Reason Comments Medication Refill Encounter Details Date Type Department Care Team (Late st Contact Info) Description 04/09/2024 Refill [facility] - Pulmonology & Sleep Medicine [facility] [address] [place] [address] Kalpana Finnegan APRN, DARYL [address] [address] Medication Refill Social History Tobacco Use Types Packs/Day Years Used Date Smoking Tobacco: Never Smokeless Tobacco: Never Alcohol Use Standard Drinks/Week Comments Never 0 (1 standard drink = 0.6 oz pur e alcohol) Comments Unknown Sex and Gender Information Value Date Recorded Sex Assigned at Not on file Legal Sex Female 8:20 AM NETWORK DESIGN ARCHITECT Gender Identity Not on file Sexual Orientation Not on file documented as of this encounter Miscellaneous Notes * Telephone Encounter - Brigitte Church RN - 04/09/2024 11:09 AM CDT Medication failed the protocol, provider to review and approve the medication order if appropriate. Requested Prescriptions Pending Prescriptions Disp Refills cloNIDine (CATAPRES) 0.1 MG Tablet [Pharmacy Med Name: CLONIDINE HCL 0.1 MG TABLET] 90 Tablet 3 Sig: TAKE ONE TABLET BY MOUTH NIGHTLY Not Delegated - Anti-adrenergic Antihypertensives Protocol Failed - 04/09/2024 10:55 AM Failed - This refill cannot be delegated Passed - Visit with relevant provider in past 12 months or upcoming 90 days Recent Visits Date Type Provider Dept 07/08/23 Office Visit Kalpana Finnegan APRN, CNP [facility] [address] Showing recent visits within past 365 days and meeting all other requirements Future Appointments Date Type Provider Dept 07/05/24 Appointment Kalpana Finnegan APRN, CNP [facility] Showing future appointments within next 90 days and meeting all other requirements documented in this encounter Plan of Treatment Not on file documented as of this encounter Visit Diagnoses Diagnosis Anxiety Anxiety state, unspecified documented in this encounter Care Teams Supervisor Particleboard Relationship Specialty Start Date End Date Travis Bhardwaj, ANGELIQUE [address] [place] [address] PCP - General Physician Dramatic Coach 09/24/22 Kalpana Finnegan APRN, CNP [address] [address] Nurse Practitioner Advanced Practice Nurse 10/07/22 documented as of this encounter
--- OUTSIDE RECORDS SUMMARY | 2024-07-28 19:31 | XMS_ITS | Encounter Summary ---
Author Organization [facility] Address [address] [place] [address] Care Team Providers Care Custom Motorcycle Painter Name Role Phone Francesca Martinez MD Primary Care Provider Encounter Details Date Type Department Care Team (Late st Contact Info) Description 01/14/2012 Orders Only [facility] - Allergy [address] [place] [address] Jelena Mercer, RN Social History Tobacco Use [...] on filedocumented in this encounter Care Teams Custom Motorcycle Painter Relationship Specialty Start Date End Date Francesca Martinez MD [address] [place] [address] PCP - General 01/08/12 documented as of this encounter
--- OUTSIDE RECORDS SUMMARY | 2024-07-28 19:31 | XMS_ITS | Encounter Summary ---
Author Organization [facility] Care Team Providers Care Stand In Name Role Phone Travis Bhardwaj Primary Care Provider [phone] Kalpana Finnegan APRN, CNP Unavailable [phone] Encounter Details Date Type Department Care Team (Latest Contact Info) Description 07/07/2023 Travel Social History Tobacco Use Types Packs/Day Years Used Date Smoking Tobacco: Never Smokeless Tobacco: Never Alcohol Use Standard Drinks/Week Comments Never 0 (1 standard drink = 0.6 oz pur e alcohol) Comments Unknown Sex and Gender Information Value Date Recorded Sex Assigned at Not on file Legal Sex Female 8:20 AM CLINICAL ASSESSMENT MANAGER Gender Identity Not on file Sexual Orientation Not on file documented as of this encounter Plan of Treatment Not on file documented as of this encounter Visit Diagnoses Not on filedocumented in this encounter Care Teams Stand In Relationship Specialty Start Date End Date Travis Bhardwaj [address] [place] [address] PCP - General Physician Transmitter Supervisor 09/24/22 Kalpana Finnegan APRN, DARYL [address] [address] Nurse Practitioner Advanced Practice Nurse 10/07/22 documented as of this encounter
--- OUTSIDE RECORDS SUMMARY | 2024-07-28 19:31 | XMS_ITS | Encounter Summary ---
Author Organization [facility] Address [address] [facility] [place] [address] Care Team Providers Care Car Inspection And Repair Manager Name Role Phone Francesca Martinez MD Primary Care Provider Reason for Visit * Reason Onset Date Comments Medication Problem 01/14/2012 Encounter Details Date Type Department Care Team (Late st Contact Info) Description 01/14/2012 Telephone [facility] Pediatrics - Allergy [address] [place] [address] Jelena Mercer, RN Medication Problem Social History Tobacco Use Types Packs/Day Years Used Date Smoking Tobacco: Never Assessed Sex and Gender Information Value Date Recorded Sex Assigned at Not on file Gender Identity Not on file Sexual Orientation Not on file documented as of this encounter Miscellaneous Notes * Telephone Encounter - Jelena Mercer RN - 01/14/2012 11:04 AM CDT [place] medicaid authorized use of Nasonex. Veronica has tried and failed fluticasone. Pharmacy notified to allow 24 hours for processing. documented in this encounter Plan of Treatment Not on file documented as of this encounter Visit Diagnoses Not on filedocumented in this encounter Care Teams Car Inspection And Repair Manager Relationship Specialty Start Date End Date Francesca Martinez MD [address] [place] [address] PCP - General 01/08/12 documented as of this encounter
--- OUTSIDE RECORDS SUMMARY | 2024-07-28 19:31 | XMS_ITS | Encounter Summary ---
Author Organization [facility] Address [address] [facility] [place] [address] Care Team Providers Care Hydraulic Controls Technician Name Role Phone Francesca Martinez MD Primary Care Provider Reason for Visit * Reason Comments Allergy Symptoms Encounter Details Date Type Department Care Team (Latest Contact Info) Description 07/09/2012 10:00 AM CUSTOM TAILOR APPRENTICE - 07/09/2012 11:59 PM CUSTOM TAILOR APPRENTICE Hospital Encounter [facility] Pediatrics - Immunology [address] [place] [address] Augustin Millan MD [address] [place] [phone] Discharge Disposition: Home or Self Care Social History Tobacco Use Types Packs/Day Years Used Date Smoking Tobacco: Never Assessed Sex and Gender Information Value Date Recorded Sex Assigned at Not on file Gender Identity Not on file Sexual Orientation Not on file documented as of this encounter Last Filed Vital Signs Vital Sign Reading Time Taken Comments Blood Pressure 90/60 07/09/2012 10:28 AM CUSTOM TAILOR APPRENTICE Pulse - - Temperature - - Respiratory Rate - - Oxygen Saturation - - Inhaled Oxygen Concentration - - Weight 40.1 kg (88 lb 6.5 oz) 2 10:28 AM CUSTOM TAILOR APPRENTICE Height 131.4 cm (4' 3.73 ) 07/09/2012 1 0:28 AM CUSTOM TAILOR APPRENTICE Body Mass Index 23.23 07/09/2012 10:28 AM CUSTOM TAILOR APPRENTICE Body Mass Index Percentile 97.70% 07/09 10:28 AM CUSTOM TAILOR APPRENTICE Growth Chart: [facility] (Girls, 2- 20 Years) documented in this encounter Medications at Time of Discharge Medication Sig Dispensed Refills Start Date End Date fexofenadine (SYEDA) 30 MG tabletIndications:Aller gic rhinitis, cause unspecified Take 1 Tab by mouth 2 times daily. 60 Tab 3 04/09/2012 03/04/2013 triamcinolone (NASACORT AQ) 55 MCG/ACT nasal inhalerIndications:Robinson nnial Allergic Rhinitis Troy 2 Sprays into each nostril once daily. Indications: Perennial Rhinitis 1 Inhaler 4 04/09/2012 03/04/2013 documented as of this encounter Progress Notes * Augustin Millan MD - 07/09/2012 10:47 AM CST [address]. 01-09-2012 Patient Active Problem List Diagnoses Date Noted ??? Allergic rhinitis, cause unspecified 01/09/2012 Current Outpatient Prescriptions Medication Sig Dispense Refill ??? triamcinolone (NASACORT AQ) 55 MCG/ACT nasal inhaler Troy 2 Sprays into each nostril once daily. Indications: Perennial Rhinitis 1 Inhaler 4 ??? fexofenadine (SYEDA) 30 MG tablet Take 1 Tab by mouth 2 times daily. 60 Tab 3 Present Illness Veronica Lowe is a 6 y.o. female who presents for evaluation of AR, Alternaria. On Syeda 30mg bid and Nasonex. occassional nasal congestion. PAST MEDICAL HISTORY Drug Allergies. PCN Surgeries No past surgical history on file. Immunization status: up to date and documented. Review of Systems: Unremarkable except for PI Physical Examination BP 90/60 Wt 40.1 kg (88 lb 6.5 oz) BMI 23.23 kg/m2 General Assessment: alert, well appearing, and [...] no focal findings or movement disorder noted Assessment AR, Alternaria Plan Syeda 30 mg BID Nasonex. Can increase to bid Augustin Millan MD 07/09/201210:47 AM OM TAILOR APPRENTICE documented in this encounter Miscellaneous Notes * Miscellaneous Scans - Document, Scanned - 08/23/2012 8:39 AM CST OM TAILOR APPRENTICE * Miscellaneous Scans - Document, Scanned - 08/19/2012 10:07 AM CST OM TAILOR APPRENTICE documented in this encounter Plan of Treatment Not on file documented as of this encounter Visit Diagnoses Not on filedocumented in this encounter Care Teams Hydraulic Controls Technician Relationship Specialty Start Date End Date Francesca Martinez MD [address] [place] [address] PCP - General 01/08/12 documented as of this encounter
--- OUTSIDE RECORDS SUMMARY | 2024-07-28 19:31 | XMS_ITS | Encounter Summary ---
Author Organization [facility] Address [address] [place] [address] Phone Care Team Providers Care Paper Winder Name Role Phone Travis Bhardwaj Primary Care Provider [phone] Kalpana Finnegan APRN, SHEET METAL APPRENTICE Unavailable [phone] Reason for Visit * Reason Comments Asthma Encounter Details Date Type Department Care Team (Late st Contact Info) Description 01/06/2023 8:30 AM CDT Office Visit [facility] - Pulmonology & Sleep Medicine [facility] [address] [place] [address] Kaplana Finnegan APRN, SHEET METAL APPRENTICE #[address] [address] Moderate persistent asthma without status asthmaticus without complication (Primary Dx); PND (post-nasal drip); Environmental allergies Discharge Disposition: Discharged to home or Selfcare Social History Tobacco Use Types Packs/Day Years Used Date Smoking Tobacco: Never Smokeless Tobacco: Never Tobacco Cessation:Counseling Given: Not Answered Alcohol Use Standard Drinks/Week Comments Never 0 (1 standard drink = 0.6 oz pur e alcohol) Comments Unknown Sex and Gender Information Value Date Recorded Sex Assigned at Not on file Legal Sex Female 8:20 AM RETURNER Gender Identity Not on file Sexual Orientation Not on file COVID-19 Exposure Response Date Recorded In the last 10 days, have yo u been in contact with someone who was confirmed or suspected to have Coronavirus/COVID-19? No / Unsure 01/06/2023 8:14 AM CDT documented as of this encounter Progress Notes * JakeKalpana mclean, DELVIS, DARYL - 01/06/2023 8:30 AM CDT Chief Complaint: Chief Complaint Patient presents with ??? Asthma Subjective: Ms. Veronica Lowe is a 17 y.o. female here today for above. Patient reports having various allergic responses to pollen/grass and various environmental allergens. Has not seen grinding and polishing laborer in over a year. Started taking allergy medications at 2 years old. Her younger sister has asthma as well. Unable to use Singulair due to side effects (mood swings), she is using Yudi, Zyrtec, flonase and Dulera 200mcg. States she has been on various inhalers in the past but is unable to remember any others she has tried. Did try Trelegy 100mcg inhaler but didn't notice a difference so went back to Dulera. Has noticed benefit from Yudi. Have access to a nebulizer but has not had to use it. Denies any consistent use of rescue inhaler. States albuterol is about once per week. Reports missing her dulera dose on occasion. Has peak flow monitor but has not been using it. Reports her asthma is aggravated by changes in the weather and when crops are being tended. Will use dayquil, eucalyptus oil and sudafed when her allergies/PND are exacerbated. Saw ENT at [facility] and had allergy testing and was trying to be worked up for immunotherapy but was all denied by insurance. Did not follow up with PFT ordered at last visit. CBC with eosinophils at 190, she has not been reliant on OCS use. Asthma Follow-up She is here for follow-up of her asthma. She is not currently in exacerbation. Symptoms: dyspnea and non-productive cough and occur 1-2 days per week Symptoms denied: chest tightness and wheezing Rescue inlaher use: once per week Observed precipitants:dust, pollens and weather changes Current limitations in activity from symptoms: none Frequency of days of school or work missed: N/A Frequency of Emergency Department visits: N/A Number of nights with sleep disturbing symptoms: 1-2 days per month Adherence with controller meds: adherent all of the time Monitoring peak flow rates? no. Personal best peak flow rate: n/a Using spacer w/MDIs? no ROS: Review of Systems Constitutional: Negative. HENT: Negative. Eyes: Negative. Respiratory: Positive for cough (dry cough), chest tightness and shortness of breath (increased over the past 2 weeks). Negative for wheezing. Cardiovascular: Negative. Gastrointestinal: Negative. Endocrine: Negative. Genitourinary: Negative. Musculoskeletal: Negative. Skin: Negative. Allergic/Immunologic: Negative. Neurological: Negative. Hematological: Negative. Psychiatric/Behavioral: Negative. VITAL SIGNS: BP Readings from Last 3 Encounters: 01/06/23 (P) 110/68 10/07/22 110/68 Wt Readings from Last 3 Encounters: 01/06/23 (P) 160 lb 9.6 oz (72.8 kg) (90 %, Z= 1.26)* 10/07/22 167 lb 6.4 oz (75.9 kg) (92 %, Z= 1.43)* * Growth percentiles are based on [facility] (Girls, 2-20 Years) data. Vitals: 01/06/23 0824 BP: (P) 110/68 Pulse: (P) 84 Resp: (P) 16 Temp: (P) 97.6 ??F (36.4 ??C) SpO2: (P) 99% Weight: (P) 160 lb 9.6 oz (72.8 kg) Height: (P) 5' 4 (1.626 m) Body mass index is 27.57 kg/m?? (pended). PHYSICAL EXAM: Physical Exam Vitals reviewed. Constitutional: [...] content normal. Judgment: Judgment normal. Labs/Studies Reviewed: Labs Assessment/Plan: Diagnoses and all orders for this visit: Moderate persistent asthma without status asthmaticus without complication - cetirizine (ZyrTEC Allergy) 10 MG Tablet; Take 10 mg by mouth daily. - Fluticasone Propionate (FLONASE NA); by Nasal route. - levalbuterol (XOPENEX HFA) 45 MCG/ACT Aerosol; take 2 Puffs by inhalation every 6 hours as neededfor Cough. - fexofenadine (YUDI) 180 MG Tablet; Take 1 Tablet by mouth daily. - Mometasone Furo-Formoterol Fum (Dulera) 200-5 MCG/ACT Aerosol; take 1 Puff by inhalation 2 times daily for 30 days. - fluticasone (FLONASE) 50 MCG/ACT Suspension; 1-2 Sprays by Nasal route daily. Use in each nostrilas directed. PND (post-nasal drip) Environmental allergies Xopenex in place of albuterol for prn use. Discussed asthma action plan. Will continue Duelra, Yudi, Zyrtec and flonase. Avoid triggers of asthma when possible. Follow up with cardinal arciniega on immunotherapy referral. FOLLOWUP: Follow-up Information Return in about 6 months (around 07/08/2023). Kalpana Finnegan APRN, CNP Past medical, surgical, social and family history has been reviewed and updated as necessary. Medications and allergies has been reviewed and updated. I discussed all new medications and potential side effects or risks associated with them. Patient is to contact our office with any concerns. Patient instructions and educational materials were given to the patient. Patient (or patient field sales representative) demonstrates verbal understanding of instructions given. [...] asthma without status asthmaticus without complication- Primary PND (post-nasal drip) Postnasal drip Environmental allergies Allergic rhinitis, cause unspecified documented in this encounter Care Teams Paper Winder Relationship Specialty Start Date End Date Travis Bhardwaj PAC [address] [place] [id number] PCP - General Physician Contact Acid Plant Operator Helper 09/24/22 Kalpana Finnegan, DONKEY RIDE OPERATOR, SHEET METAL APPRENTICE #[address] [address] Nurse Practitioner Advanced Practice Nurse 10/07/22 documented as of this encounter
--- OUTSIDE RECORDS SUMMARY | 2024-07-28 19:31 | XMS_ITS | Clinical Summary ---
Author Organization [facility] Address [address] [place] [address] Phone Care Team Providers Care Fire Protection Engineer Name Role Phone Travis Bhardwaj Primary Care Provider [phone] Kalpana Finnegan APRN, SCRAPER BURRER Unavailable Allergies Active Allergy Reactions Criticality Noted Date Comments Latex Hives 10/07/2022 Medications fluocinolone (SYNALAR) 0.01 % Solution Apply 2 times daily. Active Ferrous Sulfate (Iron) 325 (65 Fe) MG Tablet Take by mouth. A ctive Norgestimate-ethi nyl estradiol (Estarylla) 0.25-35 MG-MCG Tablet Take 1 Tablet by mouth daily. Active cetirizine (ZyrTEC Allergy) 10 MG TabletIndications :Moderate persistent asthma without status asthmaticus without complication Take 10 mg by mouth daily. Active Fluticasone Propionate (FLONASE NA)Indications:Mo derate persistent asthma without status asthmaticus without complication by Nasal route. Active levalbuterol (XOPENEX HFA) 45 MCG/ACT AerosolIndication s:Moderate persistent asthma without status asthmaticus without complication take 2 Puffs by inhalation every 6 hours as needed for Cough. 15 g 5 3 Active fexofenadine (YUDI) 180 MG TabletIndications :Moderate persistent asthma without status asthmaticus without complication Take 1 Tablet by mouth daily. 90 Tablet 3 3 Active fluticasone (FLONASE) 50 MCG/ACT SuspensionIndicat ions:Moderate persistent asthma without status asthmaticus without complication 1-2 Sprays by Nasal route daily. Use in each nostril as directed. 16 g 3 3 Active cloNIDine (CATAPRES) 0.1 MG TabletIndications :Anxiety TAKE ONE TABLET BY MOUTH NIGHTLY 90 Tablet 3 4 Active Active Problems Problem Noted Date Diagnosed Date Anxiety 07/08/2023 Asthma without status asthmaticus 10/07/2022 Environmental allergies 10/07/2022 PND (post-nasal drip) 10/07/2022 Social History Tobacco Use Types Packs/Day Years Used Date Smoking Tobacco: Never Smokeless Tobacco: Never Tobacco Cessation:Counseling Given: Not Answered Alcohol Use Standard Drinks/Week Comments Never 0 (1 standard drink = 0.6 oz pur e alcohol) Comments Unknown Sex and Gender Information Value Date Recorded Sex Assigned at Not on file Legal Sex Female 8:20 AM FRATERNITY HOUSE COOK Gender Identity Not on file Sexual Orientation Not on file Last Filed Vital Signs Vital Sign Reading Time Taken Comments Blood Pressure 122/70 07/08/2023 8:38 AM FRATERNITY HOUSE COOK Pulse 76 07/08/2023 8:38 AM FRATERNITY HOUSE COOK Temperature 36.2 ??C (97.2 ??F) 07/08/2023 8:38 AM CS T Respiratory Rate 14 07/08/2023 8:38 AM FRATERNITY HOUSE COOK Oxygen Saturation 98% 07/08/2023 8:38 AM FRATERNITY HOUSE COOK Inhaled Oxygen Concentration - - Weight 80 kg (176 lb 4.8 oz) 07/08/2023 8:38 AM FRATERNITY HOUSE COOK Height 165.1 cm (5' 5 ) 07/08/2023 8:38 AM FRATERNITY HOUSE COOK Body Mass Index 29.34 07/08/2023 8:38 AM FRATERNITY HOUSE COOK Body Mass Index Percentile 93.14% 07/08/2023 8:3 8 AM FRATERNITY HOUSE COOK Growth Chart: CDC (Girls, 2- 20 Years) Plan of Treatment Health Maintenance Due Date Last Done Comments Hepatitis C Virus (HCV) Screening 2004 Pneumococcal Immunization Combined (1 of 2 - PCV) 2023 01/10/2009, 11/27/2005, 08/28/2005, Additional history exists Influenza Immunization (#1) 03/21/202407/21, 05/23/2016, 06/10/2012, Additional history exists SARS-COV-2 Immunization (4 - 2024-25 season) 2024 08/17/2021, 11/28/2020, 11/07/2020 Respiratory Syncytial Virus (RSV) Immunization (Adult) (1 - 1-dose 75+ series) 2079 Hepatitis B Immunization Completed 005, 01/09/2005, 2004, Additional history exists Hepatitis A Immunization Discontinued 007, 09/01/2006, 11/27/2005 Measles Mumps Rubella (MMR) Immunization Discontinued 01/10/2009, 08/28/2005 Polio (IPV) Immunization Discontinued 009, 01/10/2009, 03/11/2005, Additional history exists Varicella Immunization Discontinued 01/10/2009, 2005 DTaP/Tdap/Td Immunization Discontinued 2015, 01/10/2009, 01/10/2009, Additional history exists TdaP Immunization Completed 02/26/2016 Human Papillomavirus (HPV) Immunization Completed 10/05/2020, 02/26/2016 Meningococcal Immunization (ACWY) Completed 10/05/2020, 02/26/2016 Meningococcal B Immunization Completed 08/15/2022, 10/05/2020 Rotavirus Immunization Aged Out No lo nger eligible based on patient's age to complete this topic Insurance MEDICAID [employer] Care Teams Fire Protection Engineer Relationship Specialty Start Date End Date Travis Bhardwaj, ANGELIQUE [address] [place] [address] PCP - General Physician Check Out Cashier 09/24/22 Kalpana Finnegan APRN, SCRAPER BURRER [address] [address] Nurse Practitioner Advanced Practice Nurse 10/07/22
--- OUTSIDE RECORDS SUMMARY | 2024-07-28 19:31 | XMS_ITS | Encounter Summary ---
Author Organization [facility] Address [address] [place] [address] Care Team Providers Care Right Of Way Agent Name Role Phone Francesca Martinez MD Primary Care Provider [phone] Reason for Visit * Auth/Cert - Closed Specialty Diagnoses / Procedures Referred By Ravinder gilmore Referred To Contact Diagnoses Hypertrophy of tonsil with adenoids Unspecified sleep apnea Procedures TONSILLECTOMY AND ADENOIDECTOMY Referral ID Status Reason Start Date Expiration Date Visits Re quested Visits Authorized [id number] Closed 1 1 Encounter Details Date Type Department Care Team (Latest Contact Info) Description 05/14/2013 8:46 AM CDT - 05/14/2013 1:39 PM CDT Hospital Encounter [facility] - Intraop [address] [place] [address] Robert Robledo MD [address] [place] [address] Surgery General Discharge Disposition: Home or Self Care Social [...] Height 140 cm (4' 7.12 ) 05/14/2013 9: 20 AM CDT Body Mass Index 18.65 05/14/2013 9:20 AM CDT Body Mass Index Percentile 83.60% 05/14/2013 9:2 0 AM CDT Growth Chart: [facility] (Girls, 2- 20 Years) documented in this encounter Discharge Summaries * Robert Robledo MD - 05/14/2013 11:32 AM CDT Images from the original note were not included. Attending Physician: Robert Robledo MD Office 05/14/2013 11:32 AM SAME DAY SURGERY DISCHARGE SUMMARY Patient ID: Name: Veronica Lowe MR#: [id number] Date of : 2005 Age: 7 y.o. [...] Miscellaneous Belongings Miscellaneous Items: Yes With Patient: [place] If your child has any worsening of their condition, please phone [phone] and ask for the doctor solution manager for DR. ROBLEDO or return to the Emergency Department. I For questions or Emergency Care: Call the office at during the week or after 5 pm and on the weekends. You may need to speak with the [id number]. * Discharge Instructions* Document, Scanned - 05/17/2013 [...] 20 mg by mouth 2 times daily. review appraiser and 1100 01/17/2014 documented as of this [...] congestion. She has been followed by an property field inspector for one year without improvement and no significant allergies. She had an xray with enlarged adenoids. She has a hyponasal quality. Past medical history: No past medical history on file. History: full term hearing screen passed Hospitalizations? No Previous Surgery [...] Case Report Surgical Pathology Report ? Case: [id number] ? Authorizing Provider: ??Robert Robledo MD ?Ordering Provider: ?? Robert Robledo MD ? Ordering Location: ? [facility] ? Collected: ? 05/14/2013 11:18 AM ? Pathologist: ? Melva Monzon MD ?Received: ?05/14/2013 12:16 PM ?Signed Out: ?05/14/2013 ??2:44 PM (Final) ? Specimen: ?Tonsil(s) ? 05/14/2013 2:44 PM T [facility] Final Diagnosis GROSS DIAGNOSIS: PALATINE TONSILS. 05/14/2013 2:44 PM [facility] Clinical History The patient is a 7-year-old girl with clinically suspicious sleep apnea and adenotonsillar hypertrophy. 05/14/2013 2:44 PM T [facility] Gross Description Submitted fresh in one [...] sections are taken. (CT/scs) 05/14/2013 2:44 PM [facility] Disclaimer This case has been personally reviewed and interpreted by the attending (teaching) pathologist. 05/14/2013 2:44 PM [facility] Synoptic Report 05/14/2013 2:44 PM [facility] Pathology/Cytolo gy SPECIMEN FROM TONSIL / Unknown 05/14/2013 11:18 AM CDT 05/14/2013 12:16 PM CDT Robert Robledo MD LAB - PATHOLOGY/C YTOLOGY ORDERABLES [facility] [address] [place] [address] documented in this encounter Visit Diagnoses Diagnosis LELA (obstructive sleep apnea)- Primary Obstructive sleep apnea (adult) (pediatric) documented in this encounter Administered Medications Inactive Administered Medications - up to 3 most recent administrations Medication Order MAR Action Action Date Dose Rate Site isolyte-S pH 7.4 infusion 75 mL/hr, Intravenous, [...] 1146 ($ Given - Prov ider: Daniela Fomran RN)1153 ($ Given - Provider: Daniela Forman RN)1201 ($ Given - Provider: Daniela Forman RN) morphine injection 2 mg (COMPLETED) 2 mg [...] PACU 1134 (Current Rate - Provider: Dagmar Trujillo RN)1330 (Stopped - Provider: Dagmar Trujillo RN) PRN Medication Order 05/12/2013 05/13/2013 05/14/2013 0.9% nacl irrigation solution (CANCELED) PRN, Other, Starting on Fri05/14/13 at 1131, Until 05/14/13 at 1137, Intra-op 1131 ($ Given - Prov ider: Robert Robledo MD) documented in this encounter Care Teams Right Of Way Agent Relationship Specialty Start Date End Date Francesca Martinez MD [address] [place] [address] PCP - General 01/08/12 documented as of this encounter
--- OUTSIDE RECORDS SUMMARY | 2024-07-28 19:31 | XMS_ITS | Encounter Summary ---
Author Organization [facility] Address [address] [facility] [place] [address] Phone Care Team Providers Care Complaint Analyst Name Role Phone Travis Bhardwaj Primary Care Provider [phone] Kalpana Finnegan APRN, LIFESTYLE BLOCK FARMER Unavailable [phone] Reason for Visit * Reason Comments Asthma Mild persistent Encounter Details Date Type Department Care Team (Late st Contact Info) Description 07/08/2023 8:30 AM CARDIOVASCULAR TECHNOLOGIST Office Visit [facility] - Pulmonology & Sleep Medicine [facility] [address] [place] [address] Kalpana Finnegan APRN, LIFESTYLE BLOCK FARMER [address] [address] Moderate persistent asthma without status asthmaticus without complication (Primary Dx); PND (post-nasal drip); Environmental allergies; Anxiety Discharge Disposition: Discharged to home or Selfcare Social History Tobacco Use Types Packs/Day Years Used Date Smoking Tobacco: Never Smokeless Tobacco: Never Tobacco Cessation:Counseling Given: Not Answered Alcohol Use Standard Drinks/Week Comments Never 0 (1 standard drink = 0.6 oz pur e alcohol) Comments Unknown Sex and Gender Information Value Date Recorded Sex Assigned at Not on file Legal Sex Female 8:20 AM CARDIOVASCULAR TECHNOLOGIST Gender Identity Not on file Sexual Orientation Not on file documented as of this encounter Last Filed Vital Signs Vital Sign Reading Time Taken Comments Blood Pressure 122/70 07/08/2023 8:38 AM CARDIOVASCULAR TECHNOLOGIST Pulse 76 07/08/2023 8:38 AM CARDIOVASCULAR TECHNOLOGIST Temperature 36.2 ??C (97.2 ??F) 07/08/2023 8:38 AM CS T Respiratory Rate 14 07/08/2023 8:38 AM CARDIOVASCULAR TECHNOLOGIST Oxygen Saturation 98% 07/08/2023 8:38 AM CARDIOVASCULAR TECHNOLOGIST Inhaled Oxygen Concentration - - Weight 80 kg (176 lb 4.8 oz) 07/08/2023 8:38 AM CARDIOVASCULAR TECHNOLOGIST Height 165.1 cm (5' 5 ) 07/08/2023 8:38 AM CARDIOVASCULAR TECHNOLOGIST Body Mass Index 29.34 07/08/2023 8:38 AM CARDIOVASCULAR TECHNOLOGIST Body Mass Index Percentile 93.14% 07/08/2023 8:3 8 AM CARDIOVASCULAR TECHNOLOGIST Growth Chart: [facility] (Girls, 2- 20 Years) documented in this encounter Progress Notes * Kalpana Finnegan APRN, DARYL - 07/08/2023 8:30 AM CST Chief Complaint: Chief Complaint Patient presents with ??? Asthma Mild persistent Subjective: Ms. Veronica Lowe is a 17 y.o. female here today for above. Asthma Follow-up She is here for follow-up of her asthma. She is not currently in exacerbation. Patient reports having various allergic responses to pollen/grass and various environmental allergens. Has not seen adjunct mathematics instructor in over a year. Started taking allergy medications at 2 years old. Her younger sister has asthma as well. Unable to use Singulair due to side effects (mood swings), she is using Syeda, Zyrtec, flonase and Dulera 200mcg. States she has been on various inhalers in the past but is unable to remember any others she has tried. Did try Trelegy 100mcg inhaler but didn't notice a difference so went back to Dulera. Has noticed benefit from Syeda. Have access to a nebulizer but has not had to use it. Denies any consistent use of rescue inhaler. Has not had to use it in over a month. Reports missing her dulera dose on occasion. Has peak flow monitor but has not been using it. Reports her asthma is aggravated by changes in the weather and when crops are being tended. Will use dayquil, eucalyptus oil and sudafed when her allergies/PND are exacerbated. Saw ENT at [facility] and had allergy testing and was trying to be worked up for immunotherapy but was all denied by insurance.?? Did not follow up with PFT ordered at last visit. CBC with eosinophils at 190, she has not been reliant on OCS use. Patient has been using clonidine for sleep/anxiety since 2019. PCP is leaving and she needs someoneto take over script. Symptoms: none Symptoms denied: chest pain, chest tightness, dyspnea, none, non-productive cough, productive coughwith sputum described as clear and wheezing Rescue inlaher use: once a month or less Observed precipitants:cold air, dust, pollens, smoke and strong odors Current limitations in activity from symptoms: none Frequency of days of school or work missed: N/A Frequency of Emergency Department visits: N/A Number of nights with sleep disturbing symptoms: N/A Adherence with controller meds: adherent most of the time Monitoring peak flow rates? no. Personal best peak flow rate: n/a Using spacer w/MDIs? no ROS: Review of Systems Constitutional: Negative. HENT: Negative. Eyes: Negative. Respiratory: Negative. Cardiovascular: Negative. Gastrointestinal: Negative. Endocrine: Negative. Genitourinary: Negative. Musculoskeletal: Negative. Skin: Negative. Allergic/Immunologic: Negative. Neurological: Negative. Hematological: Negative. Psychiatric/Behavioral: Positive for sleep disturbance. The patient is nervous/anxious. VITAL SIGNS: BP Readings from Last 3 Encounters: 07/08/23 122/70 01/06/23 (P) 110/68 10/07/22 110/68 Wt Readings from Last 3 Encounters: 07/08/23 176 lb 4.8 oz (80 kg) (94%, Z= 1.57)* 01/06/23 (P) 160 lb 9.6 oz (72.8 kg) (90%, Z= 1.26)* 10/07/22 167 lb 6.4 oz (75.9 kg) (92%, Z= 1.43)* * Growth percentiles are based on CDC (Girls, 2-20 Years) data. Vitals: 07/08/23 0838 BP: 122/70 Pulse: 76 Resp: 14 Temp: 97.2 ??F (36.2 ??C) SpO2: 98% Weight: 176 lb 4.8 oz (80 kg) Height: 5' 5 (1.651 m) Body mass index is 29.34 kg/m??. PHYSICAL EXAM: Physical Exam Vitals reviewed. [...] persistent asthma without status asthmaticus without complication PND (post-nasal drip) Environmental allergies Anxiety - cloNIDine (CATAPRES) 0.1 MG Tablet; Take 1 Tablet by mouth nightly. Discussed avoiding triggers of asthma when possible. Medication management provided will continue current regimen discussed above. Encouraged patient to stay as active as she is able. Clonidine to be used prn sleep/anxiety. Schedule with new PCP. FOLLOWUP: Follow-up Information Return in about 1 year (around 07/08/2024). Kalpana Finnegan APRN, CNP Past medical, surgical, social and family history has been reviewed and updated as necessary. Medications and allergies has been reviewed and updated. I discussed all new medications and potential side effects or risks associated with them. Patient is to contact our office with any concerns. Patient instructions and educational materials were given to the patient. Patient (or patient technical support representative) demonstrates verbal understanding of instructions given. [...] our referral team or the referring physician. IOVASCULAR TECHNOLOGIST documented in this encounter Plan of Treatment Not on file documented as of this encounter Visit Diagnoses Diagnosis Moderate persistent asthma without status asthmaticus without complication- Primary PND (post-nasal drip) Postnasal drip Environmental allergies Allergic rhinitis, cause unspecified Anxiety Anxiety state, unspecified documented in this encounter Care Teams Complaint Analyst Relationship Specialty Start Date End Date Travis Bhardwaj PAC [address] [place] [address] PCP - General Physician [address] Court Magistrate 09/24/22 Kalpana Finnegan APRN, DARYL [address] [address] Nurse Practitioner Advanced Practice Nurse 10/07/22 documented as of this encounter
--- OUTSIDE RECORDS SUMMARY | 2024-07-28 19:31 | XMS_ITS | Encounter Summary ---
Author Organization [facility] Address [address] [place] [address] Care Team Providers Care Graphics Artist Name Role Phone Francesca Martinez MD Primary Care Provider [phone] Encounter Details Date Type Department Care Team (Late st Contact Info) Description 01/10/2012 Orders Only [facility] Pediatrics - Allergy [address] [place] [address] Jelena Mercer, RN Social History Tobacco Use [...] on filedocumented in this encounter Care Teams Graphics Artist Relationship Specialty Start Date End Date Francesca Martinez MD [address] [place] [address] PCP - General 01/08/12 documented as of this encounter
--- OUTSIDE RECORDS SUMMARY | 2024-07-28 19:31 | XMS_ITS | Encounter Summary ---
Author Organization [facility] Address [address] [place] [address] Care Team Providers Care Home School Coordinator Name Role Phone Francesca Martinez MD Primary Care Provider Reason for Visit * Reason Comments Snoring NEW PT. Encounter Details Date Type Department Care Team (Latest Contact Info) Description 04/20/2013 8:34 AM CDT - 04/20/2013 11:59 PM CDT Hospital Encounter [facility] - ENT [address] [place] [address] iVckie Garcia, MANAGER DEVELOPMENTAL-INFERTILITY NURSE [address] [place] [address] Discharge Disposition: Home or Self Care Social [...] - Inhaled Oxygen Concentration - - Weight 36.3 kg (80 lb) 04/20/2013 8:37 AM CDT Height 138.4 cm (4' 6.49 ) 04/20/2013 8:37 AM CD T Body Mass Index 18.94 04/20/2013 8:37 AM CDT Body Mass Index Percentile 85.98% 04/20/2013 8:3 7 AM CDT Growth Chart: [facility] (Girls, 2- 20 Years) documented in this encounter Discharge Instructions * Patient Instructions* Sowmya Alfonso LPN - 04/20/2013 8:50 AM CDT Your child has been scheduled for Same Day Surgery (Outpatient Surgery) A natural parent or a court appointed legal guardian MUST accompany the child DATE, TIME, & LOCATION If you know that you will not be able to keep your scheduled surgery date, please call: Friday - Friday, 9:00am - 4:00pm (or leave a voicemail message anytime 24hr a day/7-days a week) The surgery is: Tonsillectomy and Adenoidectomy By on: Office to call with surgery date TIME OF ARRIVAL: Same Day Surgery will call you 5-7 days before your child's surgery date with the exact time of arrival. If you have not heard from them by 3 days before your surgery date, please call the location below where your child's surgery will take place. [facility] ( DO NOT CANCEL SURGERY WITHOUT NOTIFYING US AT [phone] ) You must notify our office within 48 hours of any changes regarding your insurance or any additional insurance you may have to prevent cancellation of the surgery Insurance changes on the day of or the day before surgery will result in cancel/rescheduling of thesurgery SURGERY INSTRUCTIONS: She cannot have any solid food, milk, or orange juice after midnight before surgery. Clear liquids (water, clear pedialyte, apple juice) may be administered up to 3 hours prior to the time of arrivalat the hospital. All infants 0-6 months may be fed milk 6 hours prior to the procedure. Sugar water or Pedialyte maybe administered up to 2 hours prior to the scheduled time of the procedure. If your child is on medications other than what we have prescribed or you are unsure as to whether a specific medication should be stopped, please call the ENT Nurse at or the prescribing doctor for instructions. In order for your child to take any medicines after midnight, the nightbefore surgery, you must call for instructions. Most medications can be given if needed with a small amount of water, but this must be cleared with the surgeon. Do not give aspirin 2 weeks prior and motrin/ibuprofen 5 days prior to surgery. Tylenol is OK If your child has been exposed to anyone with chicken pox, measles, or mumps within the last three weeks, OR if your child has a fever greater than 101 degrees or a cold or flu, surgery may be canceled - call for instructions. --The surgery will take place approximately 1 ?? - 2 hours after you arrive (the exact time cannot be predicted). --Your child will be ready to go home a few hours after surgery. Please be prepared to spend a goodpart of the day at the hospital. --No brothers or sisters are permitted, as waiting area space is limited.Tonsillectomy and Adenoidectomy For Children 7 years and older Introduction Your child is going to have a T & A (Tonsillectomy & Adenoidectomy). Removal of the tonsils and/or adenoids is one of the most frequently performed throat operations. It has proven to be a safe, effective surgical method to resolve breathing obstruction, throat infections, and manage recurrent childhood ear disease. Several areas of concern are discussed here to help you and your child with this surgery. Bleeding Bleeding is rare after surgery. However,you may notice little spots of blood from the mouth or noseat times after surgery. If spotting continues after using a saline nasal spray or drinking a glass of ice water or if there is more than minor spotting proceed to the ER for evaluations Wound Care If her nose is congested or draining mucous, gently use a saline nasal spray up to 4 times a day, as needed. Pain Following T & A surgery, pain is an unpleasant side effect; it will occur in varying degrees depending upon your child. The pain your child may experience after surgery will be similar to the pain she had before surgery with throat infections. Ear pain can occur after tonsil surgery; most typically this will be noted three to five days after surgery. Although the pain is sensed in the ear, itis actually referred from the tonsil. Remember, this is normal and can be well controlled with proper administration of the prescribed medications. It has also been found that chewing gum helps to prevent this pain. Following surgery, give your child prescribed pain medication every four hours for the first 3 dayseven if she is not having pain. This offers the best continuous pain relief. After 3 days you may switch to plain Acetaminophen alternating with Ibuprofen every 3 hours for pain relief and give prescription medication as needed. Remember, though, DO NOT give your child Aspirin! This can cause bleeding. Fever Your child may have a low-grade fever after surgery. This is normal, and it can be controlled by the use of Tylenol. Call the doctor if the fever is above 102 orally (in the mouth), 101 axillary or103 rectally (in the rectum). Diet It will be very important for your child to maintain her hydration during the post -op period. Thus, she must be encouraged to drink adequate amounts. The more fluid your child drinks, the sooner her throat will return to normal. By giving the pain medicine every four hours, your child's throat will be less sore. This will make it easier for her to drink liquids. If your child is tolerating clear liquids, the diet may be advanced. Any liquid or solid food may be taken, however, hard foods such as chips, may cause pain for your child. Remember, though, the intake of fluids is critical to prevent dehydration. If the child becomes partially dehydrated, the pain will increase. Some suggestions for liquids are: fruit juice, Gatorade, milk, flat soda, jello, popsicles, ice cream, water or nutritional supplement drinks. Activity Most children will naturally restrict their activity after surgery. It is usually good to stay inside the house for a few days. She may return to school six to seven days after surgery; however, no gym or vigorous activity for 2 weeks after surgery. Bad Breath Your child may have bad breath after a T & A. The raw areas where the tonsils were will become whitish in color and may smell bad. As the area heals, the odor will go away. Do not have your childgargle during this time. For questions or Emergency Care: Call the office at during the week or after 5 pm and on the weekends. You may need to speak with the [id number]. documented in this encounter Medications at Time of Discharge Medication Sig Dispensed Refills Start Date End Date methylphenidate (RITALIN) 20 MG tablet Take 20 mg by mouth 2 times daily. senior benefits manager and 1100 01/17/2014 documented as of this encounter Progress Notes * Vickie Varma RN,CPNP - 04/20/2013 8:44 AM CDT Chief Complaint Patient presents with [...] congestion. She has been followed by an assembly technician for one year without improvement and no significant allergies. She had an xray with enlarged adenoids. She has a hyponasal quality. Past medical history: No past medical history on file. History: full term [place] hearing screen passed Hospitalizations? No Previous Surgery [...] family elected to meet thefirst available surgeon. documented in this encounter Miscellaneous Notes * Miscellaneous Scans - Document, Scanned - 04/21/2013 1:19 PM CDT documented in this encounter Plan of Treatment Not on file documented as of this encounter Visit Diagnoses Diagnosis LELA (obstructive sleep apnea)- Primary Obstructive sleep apnea (adult) (pediatric) documented in this encounter Care Teams Home School Coordinator Relationship Specialty Start Date End Date Francesca Martinez MD [address] [place] [address] PCP - General 01/08/12 documented as of this encounter
--- OUTSIDE RECORDS SUMMARY | 2024-07-28 19:31 | XMS_ITS | Encounter Summary ---
Author Organization [facility] Address [address] [facility] [place] [address] Care Team Providers Care Automatic I Threading Machine Feeder Name Role Phone Francesca Martinez MD Primary Care Provider Reason for Visit * Reason Onset Date Comments Medication Problem 01/10/2012 Encounter Details Date Type Department Care Team (Late st Contact Info) Description 01/10/2012 Refill [facility] Pediatrics - Allergy [address] [place] [address] Jelena Mercer, RN Medication Problem Social History Tobacco Use Types Packs/Day Years Used Date Smoking Tobacco: Never Assessed Sex and Gender Information Value Date Recorded Sex Assigned at Not on file Gender Identity Not on file Sexual Orientation Not on file documented as of this encounter Miscellaneous Notes * Telephone Encounter - Jelena Mercer RN - 01/10/2012 8:54 AM CDT Nasonex not covered by [place] medicaid. Pt has already tried and failed flonase. Pharmacy suggests generic Nasocort documented in this encounter Plan of Treatment Not on file documented as of this encounter Visit Diagnoses Not on filedocumented in this encounter Care Teams Automatic I Threading Machine Feeder Relationship Specialty Start Date End Date Francesca Martinez MD [address] [place] [address] [place] [phone] PCP - General 01/08/12 documented as of this encounter
--- OUTSIDE RECORDS SUMMARY | 2024-07-28 19:31 | XMS_ITS | Encounter Summary ---
Author Organization [facility] Care Team Providers Care Seasoner Name Role Phone Travis Bhardwaj Primary Care Provider [phone] Kalpana Finnegan APRN, CNP Unavailable [phone] Encounter Details Date Type Department Care Team (Latest Contact Info) Description 10/07/2022 Travel Social History Tobacco Use Types Packs/Day Years Used Date Smoking Tobacco: Never Smokeless Tobacco: Never Alcohol Use Standard Drinks/Week Comments Never 0 (1 standard drink = 0.6 oz pur e alcohol) Comments Unknown Sex and Gender Information Value Date Recorded Sex Assigned at Not on file Legal Sex Female 8:20 AM SENIOR DEVELOPER Gender Identity Not on file Sexual Orientation [...] on filedocumented in this encounter Care Teams Seasoner Relationship Specialty Start Date End Date Travis Bhardwaj PAC [address] [place] [address] PCP - General Physician Cosmetics Supervisor 09/24/22 Kalpana Finnegan APRN, DARYL #[address] [address] Nurse Practitioner Advanced Practice Nurse 10/07/22 documented as of this encounter
--- OUTSIDE RECORDS SUMMARY | 2024-07-28 20:07 | XMS_ITS | Encounter Summary ---
Author Organization [facility] Address [address] [facility] [place] [address] Care Team Providers Care Tool Maker Bench Name Role Phone Francesca Martinez MD Primary Care Provider [phone] Reason for Visit * Reason Comments Snoring Per mom pts symptoms unchanges. Difficulty falling asleep, awakes multiple times a night and doesn't want to wake up in the morning. Negative for sleep apnea. Encounter Details Date Type Department Care Team (Latest Contact Info) Description 11/26/2017 10:48 AM CDT - 11/26/2017 11:57 AM T Hospital Encounter [facility] Pediatrics - Sleep [address] [place] [address] Karla Gillespie, ACCESS CONTROL SPECIALIST-BOATS RENTER [address] [place] [address] Discharge Disposition: Home or Self Care Social [...] 76.59% 11/26 10:56 AM CDT Growth Chart: [facility] (Girls, 2- 20 Years) documented in this [...] call our nurse's line with any questions. ([phone], opt 3) documented in this encounter Medications [...] fluticasone propionate (FLONASE) 50 MCG/ACT nasal spray [place] 2 sprays into each nostril once daily [...] scalp 4-7 times a week as tolerated. [employer] does not carry this product. 177 mL 10/09/2017 09/23/2018 documented as of this encounter Progress Notes * Karla Gillespie, ACCESS CONTROL SPECIALIST-BOATS RENTER - 11/26/2017 11:04 AM CDT Follow-up Visit Pediatric Sleep Medicine [facility] Chief Complaint Patient presents with ??? Snoring Per mom pts symptoms unchanges. Difficulty falling asleep, awakes multiple times a night and doesn't want to wake up in the morning. Negative for sleep apnea. HPI: Veronica Lowe is a 12 y.o. female who presents to the Pediatric Sleep Disorders Clinic at [facility] on 11/26/2017 for follow up of primary [...] fluticasone propionate (FLONASE) 50 MCG/ACT nasal spray [place] 2 Sprays into each nostril once daily [...] scalp 4-7 times a week as tolerated. [employer] does not carry this product. 177 mL [...] call our nurse's line with any questions. ([phone], opt 3) Thank you for allowing me to participate in the care of your patient. Please call us with any questions at [phone]. LEWIS Alvarez documented in this encounter Plan of Treatment Not on file documented as of this encounter Results * FERRITIN (11/26/2017 11:58 AM CDT) Ferritin 25 10 - 140 ng/mL 11/26/2017 1:49 PM CDT [facility] Blood BLOOD SPECIMEN / Unknown Lab Venipuncture / Unknown 11/26/2017 11:58 AM CDT 11/26/2017 12:26 PM CDT Karla Gillespie ACCESS CONTROL SPECIALIST-[facility] LAB - CHEMISTR Y ORDERABLES Performing Organization Address City/State/[facility] Co de Phone Number [facility] [address] [place] [phone] documented in this encounter Visit Diagnoses Diagnosis Restless legs syndrome (RLS)- Primary documented in this encounter Care Teams Tool Maker Bench Relationship Specialty Start Date End Date Francesca Martinez MD [address] [place] [phone] PCP - General 01/08/12 documented as of this encounter
--- OUTSIDE RECORDS SUMMARY | 2024-07-28 20:07 | XMS_ITS | Encounter Summary ---
Author Organization [facility] Address [address] [place] [address] Care Team Providers Care Locomotive Inspector Name Role Phone Francesca Martinez MD Primary Care Provider [phone] Reason for Visit * Reason Onset Date Comments Medication Problem 07/31/2017 Encounter Details Date Type Department Care Team (Late st Contact Info) Description 07/31/2017 Telephone [facility] Pediatrics - Immunology [address] [place] [phone] Augustin Millan MD [address] [place] [phone] Medication Problem Social History Tobacco Use Types [...] was discontinued and Asmanex was ordered instead. VERY CLERK * Telephone Encounter - Yoana Castro MD - 07/31/2017 2:57 PM CST Asmanex 100 mcg inhaler ordered as alternative to Aerospan 80 mcg inhaler. Yoana Castro MD Allergy/Immunology Fellow VERY CLERK * Telephone Encounter - Maryanne Sanders RN - 07/31/2017 1:41 PM CST Received a fax from [facility] notifying us that Aerospan is not available due to a liaison inspection laboratory assistant problem. Preferred alternatives include: Advair Diskus/HFA, Spiriva Handihaler, Symbicort and Asmanex. Will route to A/I fellow. VERY CLERK documented in this encounter Plan of Treatment Not on file documented as of this encounter Visit Diagnoses Not on filedocumented in this encounter Care Teams Locomotive Inspector Relationship Specialty Start Date End Date Francesca Martinez MD [address] [place] [address] PCP - General 01/08/12 documented as of this encounter
--- OUTSIDE RECORDS SUMMARY | 2024-07-28 20:07 | XMS_ITS | Encounter Summary ---
Author Organization [facility] Address [address] [facility] [place] [address] Care Team Providers Care City Designer Name Role Phone Francesca Martinez MD Primary Care Provider Reason for Referral * Sleep (Routine) - Closed Specialty Diagnoses / Procedures Referred By Ravinder gilmore Referred To Contact Sleep Center Diagnoses Snoring Procedures SPLIT NIGHT STUDY Karla Gillespie APRN-CNP [address] [place] [phone] Sleep Lab [address] [place], [place] [id number] Referral ID Status Reason Start Date Expiration Date Visits Re quested Visits Authorized [id number] Closed 08/20/2017 02/16/2018 1 1 VISION ANNOUNCER Reason for Visit * Sleep (Routine) - Closed Specialty Diagnoses / Procedures Referred By Ravinder gilmore Referred To Contact Sleep Center Diagnoses Snoring Procedures SPLIT NIGHT STUDY Karla Gillespie APRN-CNP [address] [place] [address] Sleep Lab [address] [place] [address] Referral ID Status Reason Start Date Expiration Date Visits Re quested Visits Authorized [id number] Closed 08/20/2017 02/16/2018 1 1 Encounter Details Date Type Department Care Team (Latest Contact Info) Description 08/21/2017 7:39 PM TELEVISION ANNOUNCER - 08/23/2017 11:59 PM TELEVISION ANNOUNCER Hospital [facility]counter [facility] [address] [place] [address] Karla Gillespie, DOUBLE SURFACE OPERATOR-TITLE CURATIVE SPECIALIST [address] [place] [address] Discharge Disposition: Home or Self Care Social [...] allergic rhinitis due to pollen, unspecified chronicity [place] 2 Sprays into each nostril once daily [...] Linked Results SLEEP CENTER 08/21/2017 Karla Gillespie APRN-[facility]EP [facility] documented in this encounter Visit Diagnoses Diagnosis Snoring Other dyspnea and respiratory abnormality Primary snoring Other dyspnea and respiratory abnormality documented in this encounter Care Teams City Designer Relationship Specialty Start Date End Date Francesca Martinez MD [address] [place] [address] PCP - General 01/08/12 documented as of this encounter
--- OUTSIDE RECORDS SUMMARY | 2024-07-28 20:07 | XMS_ITS | Encounter Summary ---
Author Organization [facility] Address [address] [place] [address] Care Team Providers Care Finance Admin Name Role Phone Francesca Martinez MD Primary Care Provider Reason for Visit * Reason Comments Surgery Consult deviated septum Encounter Details Date Type Department Care Team (Latest Contact Info) Description 06/26/2017 9:00 AM ASSEMBLY AND PACKING SUPERVISOR - 06/26/2017 11:19 AM [facility] Hospital Encounter [facility] Pediatrics - ENT [address] [place] [address] Robert Ramos MD [address] [place] [address] Discharge Disposition: Home or Self Care Social [...] lb 5.7 oz) 06/26/2017 9:33 A M ASSEMBLY AND PACKING SUPERVISOR Height 160.5 cm (5' 3.19 ) 06/26/2017 9:33 AM CS T Body Mass Index 21.54 06/26/2017 9:33 AM ASSEMBLY AND PACKING SUPERVISOR Body Mass Index Percentile 80.17% 06/26/2017 9:3 3 AM ASSEMBLY AND PACKING SUPERVISOR Growth Chart: [facility] (Girls, 2- 20 Years) documented in this encounter Discharge Instructions * Patient Instructions* Robert Ramos MD - 06/26/2017 10:49 AM ASSEMBLY AND PACKING SUPERVISOR 1. Agree with current allergy regimen (flonase/singulair/zyrtec/aerospan/albuterol) [...] likely a surgery including septal repair/turbinate reduction. MBLY AND PACKING SUPERVISOR documented in this encounter Medications at Time [...] allergic rhinitis due to pollen, unspecified chronicity [place] 2 Sprays into each nostril once daily [...] Pt presents in FU. Pt saw ENT GOLDSMITH APPRENTICE (AM) 03/20/17 for ongoing issues with nasal [...] frequent tongue thrusting, and some malocclusion problems. Builder Beam feels like she could benefit from orthodontic [...] fluticasone propionate (FLONASE) 50 MCG/ACT nasal spray, [place] 2 Sprays into each nostril once daily, [...] (Z= 0.95) based on CDC 2-20 Years zoiduv-uwj-wlz data using vitals from 06/26/2017. Constitutional: no [...] including septal repair/turbinate reduction. Robert Ramos MD MBLY AND PACKING SUPERVISOR documented in this encounter Plan of Treatment Not on file documented as of this encounter Results * ANCA VASCULITIS PANEL (06/26/2017 11:20 AM ASSEMBLY AND PACKING SUPERVISOR) Anti-myeloperoxid ase (MPO) Antibody <9.0 0.0 - 9.0 U/mL 06/28/2017 11:10 AM ASSEMBLY AND PACKING SUPERVISOR [facility]) Anti-proteinase 3 (NC-3) Abs <3.5 0.0 - 3.5 U/mL 06/28/2017 11:10 AM ASSEMBLY AND PACKING SUPERVISOR [facility] ([facility]) Cytoplasmic (C-ANCA) <1:20 Neg:<1:20 titer 06/28/2017 11:10 AM ASSEMBLY AND PACKING SUPERVISOR [facility] ([facility]) p-ANCA Titer <1:20 Neg:<1:20 titer 06/28/2017 11:10 AM [facility] ([facility]) Comment: The presence of positive fluorescence exhibiting P-ANCA or C-ANCA patterns alone is not specific for the diagnosis of Sebastien's Granulomatosis (WG) or microscopic polyangiitis. Decisions about treatment should not be based solely on ANCA IFA results. ??The International ANCA Group Consensus recommends follow up testing of positive sera with both NC-3 and MPO-ANCA enzyme immunoassays. As many as 5% serum samples are positive only by EIA. Ref. AM J Clin Pathol 1999;111:507-513. Atypical p-ANCA Titer <1:20 Neg:<1:20 titer 06/28/2017 11:10 AM [facility] ([facility]) Comment: The atypical pANCA pattern has been observed in a significant percentage of patients with ulcerative colitis, primary sclerosing cholangitis and autoimmune hepatitis. Blood BLOOD SPECIMEN / Unknown Lab Venipuncture / Unknown 06/26/2017 11:20 AM ASSEMBLY AND PACKING SUPERVISOR 06/26/2017 11:39 AM ASSEMBLY AND PACKING SUPERVISOR Narrative [facility] ([facility]) - 06/28/2017 11:10 AM ASSEMBLY AND PACKING SUPERVISOR Performed at: ??01 - [facility] [address] ??[id number] Contingents Supervisor: Mayo Angelo MD, Phone: ??[phone] Performed at: ??02 - [facility] [address] ??[id number] Contingents Supervisor: Patricio Gimenez PhD, Phone: ??[phone] Robert Ramos MD LAB - CHEMISTRY O RDERABLES [facility] ([facility]) [address] [place] [address] * ANGIOTENSIN CONVERTING ENZYME BLOOD (06/26/2017 11:20 AM ASSEMBLY AND PACKING SUPERVISOR) Pathologist [facility] Angiotensin-Con verting Enzyme 25 22 - 108 U/L 06/27/2017 1:11 PM ASSEMBLY AND PACKING SUPERVISOR [facility] ([facility]) Blood BLOOD SPECIMEN / Unknown Lab Venipuncture / Unknown 06/26/2017 11:20 AM ASSEMBLY AND PACKING SUPERVISOR 06/26/2017 11:39 AM ASSEMBLY AND PACKING SUPERVISOR Narrative [facility] ([facility]) - 06/27/2017 1:11 PM ASSEMBLY AND PACKING SUPERVISOR Performed at: ??01 - [facility] [address] ??[id number] Contingents Supervisor: Patricio Gimenez PhD, Phone: ??[phone] Robert Ramos MD LAB - CHEMISTRY O LIANNA Performing Organization Address City/[facility]/ZIP Co de Phone Number [facility] ([facility]) [address] [place] [address] * JENNY BLOOD SCREEN W/REFLEX TITER (06/26/2017 11:20 AM ASSEMBLY AND PACKING SUPERVISOR) [facility] JENNY Negative Negative 06/27/2017 8:36 AM [facility] Blood BLOOD SPECIMEN / Unknown Lab Venipuncture / Unknown 06/26/2017 11:20 AM ASSEMBLY AND PACKING SUPERVISOR 06/26/2017 11:39 AM ASSEMBLY AND PACKING SUPERVISOR Robert Ramos MD [facility] [address] [place] [address] * CRP (INFLAMMATORY) (06/26/2017 11:20 AM ASSEMBLY AND PACKING SUPERVISOR) [facility] C-Reactive Protein <0.20 <=0.50 mg/dL 06/26/2017 12:15 PM ASSEMBLY AND PACKING SUPERVISOR [facility] Blood BLOOD SPECIMEN / Unknown Lab Venipuncture / Unknown 06/26/2017 11:20 AM ASSEMBLY AND PACKING SUPERVISOR 06/26/2017 11:39 AM ASSEMBLY AND PACKING SUPERVISOR Robert Ramos MD LAB - CHEMISTRY O RDERABLES Performing Organization Address City/[facility]/ZIP Co de Phone Number [facility] [address] [place] [address] * ERYTHROCYTE SEDIMENTATION RATE (06/26/2017 11:20 AM ASSEMBLY AND PACKING SUPERVISOR) Erythrocyte Sedimentation Rate Automated 7 0 - 20 MM/HR 06/26/2017 12:13 PM ASSEMBLY AND PACKING SUPERVISOR [facility] Blood BLOOD SPECIMEN / Unknown Lab Venipuncture / Unknown 06/26/2017 11:20 AM ASSEMBLY AND PACKING SUPERVISOR 06/26/2017 11:39 AM ASSEMBLY AND PACKING SUPERVISOR Robert Ramos MD LAB - HEMATOLOGY ORDERABLES Performing Organization Address [facility] de Phone Number [facility] [address] [place] [phone] documented in this encounter Visit Diagnoses Diagnosis Nasal septal perforation- Primary Other diseases of nasal cavity and sinuses Allergic rhinitis, unspecified chronicity, unspecified seasonality, unspecified trigger Sleep disturbance Sleep disturbance, unspecified H/O adenoidectomy Other postprocedural status Exercise-induced asthma (HCC) Exercise induced bronchospasm Adolescent idiopathic scoliosis of thoracic region Scoliosis (and kyphoscoliosis), idiopathic documented in this encounter Care Teams Finance Admin Relationship Specialty Start Date End Date Francesca Martinez MD [address] [place] [address] PCP - General 01/08/12 documented as of this encounter
--- OUTSIDE RECORDS SUMMARY | 2024-07-28 20:07 | XMS_ITS | Encounter Summary ---
Author Organization [facility] Address [address] [facility] [place] [address] Care Team Providers Care Manager Union Name Role Phone Francesca Martinez MD Primary Care Provider [phone] Reason for Visit * Reason Comments Allergy Symptoms Encounter Details Date Type Department Care Team (Latest Contact Info) Description 11/02/2014 10:30 AM CDT - 11/02/2014 11:59 PM CDT Hospital Encounter [facility] Pediatrics - Allergy [address] [place] [address] Luis Enrique Buckner MD [address] [place] [address] Discharge Disposition: Home or Self Care Social [...] 11/02/2014 10: 32 AM CDT Growth Chart: [facility] [...] fluticasone propionate (FLONASE) 50 MCG/ACT nasal spray [place] 2 Sprays into each nostril once daily. [...] Progress Notes * Augustin Millan MD - 11/02/2014 11:42 AM CDT [...] 76.3 % 27.95 % FEV1/FVC 80.1 % [id number] 1.44 L/SEC 60.5 % 87.5 % PEF [...] 76.3 % 27.95 % FEV1/FVC 80.1 % [id number] 1.44 L/SEC 60.5 % 87.5 % PEF [...] FEV1 1.61 liters 76.3 % 27.95 % [id number] 1.44 L/SEC 60.5 % 87.5 % PEF [...] (HCC) documented in this encounter Care Teams Manager Union Relationship Specialty Start Date End Date Francesca Martinez MD [address] [place] [phone] PCP - General 01/08/12 documented as of this encounter
--- OUTSIDE RECORDS SUMMARY | 2024-07-28 20:07 | XMS_ITS | Encounter Summary ---
Author Organization [facility] Address [address] [facility] [place] [address] Care Team Providers Care Acid Changer Name Role Phone Francesca Martinez MD Primary Care Provider Reason for Visit * Reason Comments ADHD Anxiety Encounter Details Date Type Department Care Team (Latest Contact Info) Description 07/20/2014 8:56 AM PASTER HAT LINING - 07/20/2014 11:59 PM PASTER HAT LINING Hospital Encounter [facility] Pediatrics - Neurology [address] [place] [address] Homar Powell MD [address] [place] [address] Discharge Disposition: Home or Self Care Social History Tobacco Use Types Packs/Day Years Used Date Smoking Tobacco: Never Assessed Sex and Gender Information Value Date Recorded Sex Assigned at Not on file Gender Identity Not on file Sexual Orientation Not on file documented as of this encounter Last Filed Vital Signs Vital Sign Reading Time Taken Comments Blood Pressure 90/58 07/20/2014 8:58 AM PASTER HAT LINING Pulse - - Temperature - - Respiratory Rate - - Oxygen Saturation - - Inhaled Oxygen Concentration - - Weight 37.8 kg (83 lb 5.3 oz) 07/20/2014 8:58 AM PASTER HAT LINING Height 143.3 cm (4' 8.42 ) 07/20/2014 8:58 AM CS T Body Mass Index 18.41 07/20/2014 8:58 AM PASTER HAT LINING Body Mass Index Percentile 73.19% 07/20/2014 8:5 8 AM PASTER HAT LINING Growth Chart: [facility] (Girls, 2- 20 Years) documented in this encounter Discharge Instructions * Patient Instructions* Homar Powell MD - 07/20/2014 9:23 AM PASTER HAT LINING Continue her current medications as prescribed by her psychiatrist. Call if tics worsen consistently for a few weeks without improving. Otherwise, we will see her back this summer one more time. ER HAT LINING documented in this encounter Medications at Time [...] 11/02/2014 mometasone (NASONEX) 50 MCG/ACT nasal spray [place] 2 Sprays into each nostril once daily. 1 Bottle 5 03/23/2014 11/02/2014 documented as of this encounter Progress Notes * Homar Powell MD - 07/21/2014 4:45 AM CST [address] [address] DEPARTMENT OF NEUROLOGY NAME: VERONICA COVARRUBIAS : 2005 UNIT #: [id number] CSN #: [id number] DATE SEEN: 07/20/2014 I had the pleasure [...] reflexes in the upper and lower extremities. Aetkob-dcjf-ptztyz movements are smooth without dysmetria, and her [...] her care. Dictated By: Homar Powell MD SEG/MedQ JOB ID: [id number] DEPARTMENT OF NEUROLOGY ER HAT LINING documented in this encounter Plan of Treatment Not on file documented as of this encounter Visit Diagnoses Not on filedocumented in this encounter Care Teams Acid Changer Relationship Specialty Start Date End Date Francesca Martinez MD [address] [place] [address] PCP - General 01/08/12 documented as of this encounter
--- OUTSIDE RECORDS SUMMARY | 2024-07-28 20:07 | XMS_ITS | Encounter Summary ---
Author Organization [facility] Address [address] [facility] [place] [address] Care Team Providers Care Edge Blacker Name Role Phone Francesca Martinez MD Primary Care Provider [phone] Reason for Visit * Reason Comments Asthma Allergy Symptoms Encounter Details Date Type Department Care Team (Latest Contact Info) Description 03/02/2015 3:00 PM CDT - 03/02/2015 11:59 PM CDT Hospital Encounter [facility] Pediatrics - Immunology [address] [place] [address] Augustin Millan MD [address] [place] [phone] Discharge Disposition: Home or Self Care Social [...] 03/02/2015 3:2 6 PM CDT Growth Chart: [facility] (Girls, 2- 20 Years) documented in this encounter Discharge Instructions * Patient Instructions* Maria M Cortés RN - 03/02/2015 4:20 PM CDT . Please review: -- Environmental controls for mold, grass, Rag [place]. --. An asthma action plan and inhaler [...] nasal sprayIndications:Allergi c rhinitis due to pollen [place] 2 Sprays into each nostril once daily [...] change FVC 77.1 FEV1 79.6 FEV1/FVC 87.8 [id number] 76 PEF 68 Interpretation: Noemal Impressions Asthma, [...] crusted blood in her nose. She tried [place] gel and that helped. No rhinosinusitis since [...] ??? mometasone (NASONEX) 50 MCG/ACT nasal spray [place] 2 Sprays into each nostril once daily [...] 77.11 % FEV1 1.68 liters 79.62 % [id number] 1.83 L/SEC 76.89 % PEF 3.26 L/SEC [...] mg HS. Avoid picking nose. Advised on [place] gel/Vaseline for moisturizing the nose. Discussed environmental [...] change FVC 77.1 FEV1 79.6 FEV1/FVC 87.8 [id number] 76 PEF 68 Interpretation: Noemal Impressions Asthma, [...] (HCC) documented in this encounter Care Teams Edge Blacker Relationship Specialty Start Date End Date Francesca Martinez MD [address] [place] [address] PCP - General 01/08/12 documented as of this encounter
--- OUTSIDE RECORDS SUMMARY | 2024-07-28 20:07 | XMS_ITS | Encounter Summary ---
Author Organization [facility] Address [address] [facility] [place] [address] Care Team Providers Care Margin Clerk Name Role Phone Francesca Martinez MD Primary Care Provider Reason for Visit * Reason Comments Scoliosis follow up Encounter Details Date Type Department Care Team (Latest Contact Info) Description 10/02/2020 3:13 PM CDT - 10/02/2020 3:28 PM CDT Hospital Encounter [facility] Pediatrics - Orthopedics [facility] [place] [address] Myles Garcia MD [address] [place] [address] [address] [facility] [place] [place] [address] Discharge Disposition: Home or Self [...] 10/02/2020 3:1 9 PM CDT Growth Chart: [facility] (Girls, 2- 20 Years) documented in this encounter Discharge Instructions * Patient Instructions* Francesco Nicholson IV, MD - 10/02/2020 4:11 PM CDT ORTHOPAEDIC CLINIC DISCHARGE INSTRUCTIONS SHEET DIAGNOSIS: 1. Adolescent idiopathic scoliosis of thoracic region Follow Up: Please make a return appointment for 2 year(s) with . To contact Dr. Garcia's nurse,Pam Lo LPN, call ext. [phone] or option 4. X-Rays next visit: Yes - spine Medications prescribed: OTC analgesics Physicians orders: ?? Further diagnostic studies discussed and ordered: none ?? Therapy services - Physical therapy School Excuse: Excused from School on 10/02/2020 Activity Restrictions: none If you have a question for Dr. Garcia, you may leave a voicemail for him at , e-mailat [email or web address], or through [employer]. You can Like him on [employer] at [email or web address]. For any questions, you may contact Dr. Garcia's ?? Nurse: Pam Lo LPN - Pam Lo LPN, call ext. [phone] or option 4 ?? [place]: Melissa Sheridan - option 2 or ext [phone] ? Voicemail: ?? E-Mail: [email or web address] After visit summary completed by Francesco Nicholson [...] fluticasone propionate (FLONASE) 50 MCG/ACT nasal spray [place] 2 sprays into each nostril once daily [...] (164.6 cm) Wt 145 lb 15.1 oz (60420 g) BMI 24.43 kg/m2 84 %ile (Z= [...] were not included. Department of Pediatric Orthopaedics [address] [place] [address] ? Name: Veronica Lowe Date: 10/02/2020 : [...] (164.6 cm) Wt 145 lb 15.1 oz (42538 g) BMI 24.43 kg/m2 84 %ile (Z= [...] fluticasone propionate (FLONASE) 50 MCG/ACT nasal spray [place] 2 sprays into each nostril once daily [...] X-rays documented in this encounter Care Teams Margin Clerk Relationship Specialty Start Date End Date Francesca Martinez MD [address] [place] [address] PCP - General 01/08/12 documented as of this encounter
--- OUTSIDE RECORDS SUMMARY | 2024-07-28 20:07 | XMS_ITS | Encounter Summary ---
Author Organization [facility] Address [address] [facility] [place] [address] Care Team Providers Care Filing Machine Operator Name Role Phone Francesca Martinez MD Primary Care Provider [phone] Encounter Details Date Type Department Care Team [...] COVID-19? No / Unsure 09/25/2020 12:18 PM MANIFOLD BUILDER documented as of this encounter Plan of Treatment Not on file documented as of this encounter Visit Diagnoses Not on filedocumented in this encounter Care Teams Filing Machine Operator Relationship Specialty Start Date End Date Francesca Martinez MD [address] [place] [phone] PCP - General 01/08/12 documented as of this encounter
--- OUTSIDE RECORDS SUMMARY | 2024-07-28 20:07 | XMS_ITS | Referral Summary ---
Author Organization [facility] Address [address] [facility] [place] [address] Care Team Providers Care Home Service Director Name Role Phone Francesca Martinez MD Primary Care Provider [phone] Source Comments [facility],non-owned Affiliates and Associated Physician Practices is amultiple site organization consisting of ambulatory clinics and hospital sitesin [place], [place], [place] and [place]. This disclosure is being madepursuant to the Care Everywhere program and may not contain all information available regarding this patient. Last updated 18.[facility] Allergies No known active allergies Medications [...] 0.6 % nasal solutionIndications:S easonal Allergic Rhinitis [place] 2 (two) sprays into each nostril 2 [...] (FLONASE) 50 MCG/ACT nasal sprayIndications:Michael rgic Rhinitis [place] 2 (two) sprays into each nostril once [...] Allergic rhinitis 01/09/2012 Overview (05/23/2016): +Alternaria, Grass- Z[place] and [place], Ragweed Assessment & Plan (03/23/2014 [...] of Treatment Not on file Care Teams Home Service Director Relationship Specialty Start Date End Date Francesca Martinez MD [address] [place] [address] PCP - General 01/08/12
--- OUTSIDE RECORDS SUMMARY | 2024-07-28 20:07 | XMS_ITS | Encounter Summary ---
Author Organization [facility] Address [address] [facility] [place] [address] Care Team Providers Care Carpenter Ship Name Role Phone Francesca Martinez MD Primary Care Provider Encounter Details Date Type Department Care Team (Late st Contact Info) Description 08/20/2017 [facility] [address] [place] [address] Karla Gillespie, VEHICLE MAINTENANCE SUPERVISOR-PACKAGE REINSPECTOR [address] [place] [address] Social History Tobacco Use Types Packs/Day Years [...] on filedocumented in this encounter Care Teams Carpenter Ship Relationship Specialty Start Date End Date Francesca Martinez MD [address] [place] [address] PCP - General 01/08/12 documented as of this encounter
--- OUTSIDE RECORDS SUMMARY | 2024-07-28 20:07 | XMS_ITS | Encounter Summary ---
Author Organization [facility] Address [address] [place] [address] Care Team Providers Care Banquet Houseperson Name Role Phone Francesca Martinez MD Primary Care Provider Reason for Visit * Reason Comments Hair Scalp Problem itchy patches on sca lp that started ~1 year ago and getting worse. has tried OTC psoriases shampoo and dandruff shampoos that have not helped. Encounter Details Date Type Department Care Team (Latest Contact Info) Description 10/09/2017 2:41 PM CDT - 10/09/2017 11:59 PM CDT Hospital Encounter [facility] Pediatrics - Dermatology [address] [facility] [place] [address] Adenike Marx MD [address] [facility] 3 [place] [address] Discharge Disposition: Home or Self Care Social [...] 10/09/2017 2:5 1 PM CDT Growth Chart: [facility] (Girls, 2- 20 Years) documented in this [...] aggravate the scaling. ACTIVE INGREDIENT NAME BRANDS [place]in Tar Denorex, Poly Tar, Zetar, Pentrax, Betatar Gel, T/Gel Therapeutic Stubborn Itch,* Tarsum Shampoo/Gel* Zinc Pyrithione ZNP, DHS Zinc, Betamed*, Head & Shoulders* (see below) Selenium Sulfide Selsun Blue* (see below) Salicylic Acid T-Stone, Dermarest, Sebulex*, [place] Organic Itch & Flake Therapy* Ketoconazole Nizoral* [...] Seborrheic Dermatitis Shampoo Dry Scalp Care with [place] Oil 2 in 1 Dandruff Shampoo + Conditioner Moisture Care 2 in 1 Dandruff Shampoo + Conditioner Instant Hydration 2 in 1 Dandruff Shampoo + Conditioner Instant Relief Dandruff Shampoo Scalpicin 3% salicylic acid is available over the counter but often difficult to find. Options are [facility] brand 3% salicylic acid ([facility] Scalp Relief Anti-Itch Serum) or Quality Choice Scalp Relief available online through [facility]. The molina ranges from $6 - $20 depending on the size of the bottle. Most [facility] Pharmacies carry the Quality Choice brand as well ([facility], Medicate, MedEx, [facility], [facility], [facility]). For optimal use, apply every night. Note-your insurance may not cover Scalpicin. If your pharmacy informs you that Scalpicin is unavailable, call [phone] option 4, Friday-Friday between 9 AM and 5 PM to discuss alternatives. CULTURES We obtained skin surface samples today for cultures: for fungus (scalp) The fungal cultures take 1 month to result. Please call [phone] option 4, Friday-Friday between 9 AM and [...] allergic rhinitis due to pollen, unspecified chronicity [place] 2 Sprays into each nostril once daily [...] Lowe in the [facility]at[facility] at [facility]. Chief Complaint Patient presents with ??? Hair [...] (Z= 0.51) based on CDC 2-20 Years wupdlit-soe-gvi data using vitals from 10/09/2017. Wt Readings [...] 0.63)* * Growth percentiles are based on [facility] 2-20 Years data. Body mass index is [...] scalp 4-7 times a week as tolerated. [employer] [facility] does not carry this product. Dispense: 177 [...] aggravate the scaling. ACTIVE INGREDIENT NAME BRANDS Du[place]in Tar Denorex, Poly Tar, Zetar, Pentrax, Betatar Gel, T/Gel Therapeutic Stubborn Itch,* Tarsum Shampoo/Gel* Zinc Pyrithione ZNP, DHS Zinc, Betamed*, Head & Shoulders* (see below) Selenium Sulfide Selsun Blue* (see below) Salicylic Acid T-Stone, Dermarest, Sebulex*, [place] Organic Itch & Flake Therapy* Ketoconazole Nizoral* [...] Seborrheic Dermatitis Shampoo Dry Scalp Care with [place] Oil 2 in 1 Dandruff Shampoo + [...] Quality Choice Scalp Relief available online through [facility]. The molina ranges from $6 - $20 depending on the size of the bottle. [facility] carry the Quality Choice brand as well ([facility], [facility], [facility]Ex, [facility], [facility], [facility]). For optimal use, apply every night. Note-your insurance may not cover Scalpicin. If your pharmacy informs you that Scalpicin is unavailable, call [phone] option 4, Friday-Friday between 9 AM and 5 PM to discuss alternatives. CULTURES We obtained skin surface samples today for cultures: for fungus (scalp) The fungal cultures take 1 month to result. Please call [phone] option 4, Friday-Friday between 9 AM and [...] fungus isolated [place] 11/03/2017 10:55 AM CDT [facility] Fungus Smear Rare Yeast 11/03/2017 10:55 AM CDT [facility] Microbiology HAIR SPECIMEN / Unknown Collection / Unknown 10/09/2017 3:47 PM CDT 10/09/2017 4:45 PM CDT Adenike Marx MD LAB - MICROBIOLOGY ORDERABLES [facility] [address] [place] [phone] documented in this encounter Visit Diagnoses Diagnosis Sebopsoriasis- Primary Contact dermatitis and other eczema, due to unspecified cause documented in this encounter Care Teams Banquet Houseperson Relationship Specialty Start Date End Date Francesca Martinez MD [address] Gunderson [address] [place] [phone] PCP - General 01/08/12 documented as of this encounter
--- OUTSIDE RECORDS SUMMARY | 2024-07-28 20:07 | XMS_ITS | Encounter Summary ---
Author Organization [facility] Address [address] [place] [address] Care Team Providers Care Furnace Mechanic Name Role Phone Francesca Martinze MD Primary Care Provider Reason for Referral * Evaluate & Treat (Routine) - Closed Specialty Diagnoses / Procedures Referred By Ravinder gilmore Referred To Contact Sleep Center Diagnoses Sleep disturbance Yoana Castro MD [address] [place] [address] [facility] [address] [place] [address] Referral ID Status Reason Start Date Expiration Date V isits Requested Visits Authorized [id number] Closed Specialty Services Required 07/31/2017 01/27/2018 1 1 Scheduling Instructions If you have not been contacted by an [facility] Parts Expediter within 48 hours, please call [phone] to schedule an appointment. NG TEACHER Reason for Visit * Reason Comments Allergy Symptoms Asthma Follow-up Encounter Details Date Type Department Care Team (Latest Contact Info) Description 07/31/2017 9:05 AM TYPING TEACHER - 07/31/2017 11:59 PM TYPING TEACHER Hospital Encounter [facility] Pediatrics - Immunology [address] [facility] [place] [address] Augustin Millan MD [address] [place] [address] Discharge Disposition: Home or Self Care Social [...] Comments Blood Pressure 102/66 07/31/2017 9:49 AM TYPING TEACHER Pulse - - Temperature - - Respiratory Rate - - Oxygen Saturation - - Inhaled Oxygen Concentration - - Weight 53.5 kg (117 lb 15 oz) 07/31/2017 9:49 AM TYPING TEACHER Height 161.2 cm (5' 3.47 ) 07/31/2017 9:49 AM CS T Body Mass Index 20.59 07/31/2017 9:49 AM TYPING TEACHER Body Mass Index Percentile 72.37% 07/31/2017 9:4 9 AM TYPING TEACHER Growth Chart: CDC (Girls, 2- 20 Years) documented in this encounter Discharge Instructions * Patient Instructions* Mckenzie Haq RN - 07/31/2017 11:15 AM TYPING TEACHER Please review: - Environmental controls for molds. [...] defined types were placed in this encounter. NG TEACHER documented in this encounter Medications at Time [...] allergic rhinitis due to pollen, unspecified chronicity [place] 2 Sprays into each nostril once daily [...] 81.88 % FEV1 2.5 liters 2.72 liters [id number] 3.39 L/SEC 3.22 Liters/Second PEF Pre-Tx Actual [...] Please see resident note for further details NG TEACHER * Augustin Millan MD - 07/31/2017 10:36 [...] AC ? ADHD Managed by Dr Trotter ?? PAST MEDICAL HISTORY ? Drug Allergy [...] 81.88 % FEV1 2.5 liters 2.72 liters [id number] 3.39 L/SEC 3.22 Liters/Second PEF Pre-Tx Actual [...] fluticasone propionate (FLONASE) 50 MCG/ACT nasal spray [place] 2 Sprays into each nostril once daily [...] 81.88 % FEV1 2.5 liters 91.91 % [id number] 3.39 L/SEC 105.28 % PEF Pre-Tx Actual [...] in Allergy and Immunology. 07/31/2017 10:36 AM NG TEACHER * Augustin Millan MD - 07/30/2017 11:50 [...] 81.88 % FEV1 2.5 liters 2.72 liters [id number] 3.39 L/SEC 3.22 Liters/Second PEF Pre-Tx Actual [...] Please see resident note for further details NG TEACHER documented in this encounter Plan of Treatment Pending Results Name Type Priority Associated Diagnoses Date /Time Amb Pediatric Referral To Sleep Clinic @ ([facility]) Outpatient Referral Routine Sleep disturbance 08/20/2017 11:34 AM TYPING TEACHER Scheduled Orders Name Type Priority Associated Diagnoses [...] influenza documented in this encounter Care Teams Furnace Mechanic Relationship Specialty Start Date End Date Francesca Martinez MD [address] [place] [address] PCP - General 01/08/12 documented as of this encounter
--- OUTSIDE RECORDS SUMMARY | 2024-07-28 20:07 | XMS_ITS | Encounter Summary ---
Author Organization [facility] Address [address] [facility] [place] [address] Care Team Providers Care Roguer Name Role Phone Francesca Martinez MD Primary Care Provider Encounter Details Date Type Department Care Team (Latest Contact Info) Description 08/20/2017 12:44 PM LEGAL BILLING COORDINATOR - 08/20/2017 11:59 PM [facility] Hospital Encounter [facility] Pediatrics - Lab [address] [place] [address] Karla Gillespie, DISPENSING OPERATOR-PROPERTY SPECIALIST [address] [place] [address] Discharge Disposition: Home or Self Care Social [...] allergic rhinitis due to pollen, unspecified chronicity [place] 2 Sprays into each nostril once daily [...] VITAMIN D 25-HYDROXY Routine 08/20/2017 12:44 PM LEGAL BILLING COORDINATOR Restless sleeper FERRITIN Routine 08/20/2017 12:44 PM LEGAL BILLING COORDINATOR Restless sleeper documented in this encounter Results * VITAMIN D (25-HYDROXY) (08/20/2017 12:44 PM LEGAL BILLING COORDINATOR) Vitamin D, 25 Hydroxy 20.2 20 - 100 ng/mL 08/20/2017 1:44 PM LEGAL BILLING COORDINATOR [facility] Blood BLOOD SPECIMEN / Unknown Lab Venipuncture / Unknown 08/20/2017 12:44 PM LEGAL BILLING COORDINATOR 08/20/2017 12:53 PM LEGAL BILLING COORDINATOR Narrative [facility] - 08/20/2017 1:44 PM LEGAL BILLING COORDINATOR Vitamin D Status: ?Deficient ? <10 ?? ng/mL ? Borderline ?10-20 ng/mL ?Sufficient ?>20 ?? ng/mL ?Toxic ? >100 ??ng/mL Karla Youngo DISPENSING OPERATOR-PROPERTY SPECIALIST LAB - CHEMISTR Y ORDERABLES Performing Organization Address [facility] de Phone Number [facility] [address] [place] [address] * FERRITIN (08/20/2017 12:44 PM LEGAL BILLING COORDINATOR) [facility] Ferritin 36 10 - 140 ng/mL 08/20/2017 2:00 PM LEGAL BILLING COORDINATOR [facility] Blood BLOOD SPECIMEN / Unknown Lab Venipuncture / Unknown 08/20/2017 12:44 PM LEGAL BILLING COORDINATOR 08/20/2017 12:53 PM LEGAL BILLING COORDINATOR Karla Josselin MathisJose Miguel DISPENSING OPERATOR-PROPERTY SPECIALIST LAB - CHEMISTR Y ORDERABLES Performing Organization Address [facility] de Phone Number [facility] [address] [place] [address] documented in this encounter Visit Diagnoses Diagnosis Restless sleeper Sleep disturbance, unspecified documented in this encounter Care Teams Roguer Relationship Specialty Start Date End Date Francesca Martinez MD [address] [place] [address] PCP - General 01/08/12 documented as of this encounter
--- OUTSIDE RECORDS SUMMARY | 2024-07-28 20:07 | XMS_ITS | Encounter Summary ---
Author Organization [facility] Address [address] [facility] [place] [address] Care Team Providers Care Compliance Field Technician Name Role Phone Francesca Martinez MD Primary Care Provider Reason for Visit * Reason Comments Lower Extremity Problem swelling to insi de of right foot. [place] injury. calm at present. pain with activity. noted today at 1500. flushed. Encounter Details Date Type Department Care Team (Late st Contact Info) Description 05/08/2015 6:35 PM CDT - 05/08/2015 7:50 PM CDT Emergency ER at [address] [address] Travis Murray MD [address] [place] [address] [phone] Ankle sprain, right, initial encounter Discharge Disposition: [...] Document Reviewed: 01/18/2013 ExitCare?? Patient Information ??2014 [employer]. Pediatric Sprain A sprain happens when the [...] Document Reviewed: 10/01/2010 ExitCare?? Patient Information ??2013 [employer]. documented in this encounter Medications at Time [...] nasal sprayIndications:Allergi c rhinitis due to pollen [place] 2 Sprays into each nostril once daily [...] with the patient: 05/08/2015 18:54 Veronica Lowe [id number] [facility] History Chief Complaint Patient presents with ??? Lower Extremity Problem swelling to inside of right foot. [place] injury. calm at present. pain with activity. noted today at 1500. flushed. I have read the resident/SHANK SCOURER history. Unless appended by me below, I [...] 98% Physical Exam I have reviewed the resident/SHANK SCOURER physical exam. Unless appended by me below, [...] hours a day, from any computer, through [employer], the online version of our electronic medical record. If you would like to use this service, please call Mee Bateman, Connectivity Coordinator, at . We appreciate the opportunity to care for your patients. If you would like additional information, please call the emergency department directly at . Sincerely, Niles Genao MD Division of Emergency Medicine [facility]. [place], [place] [facility] [place] DESIGN[facility] EMERGENCY DEPARTMENT Provider contact with the patient: 05/08/2015 18:36 Veronica Lowe [id number] [facility] History Chief Complaint [...] ??? mometasone (NASONEX) 50 MCG/ACT nasal spray [place] 2 Sprays into each nostril once daily [...] encounter documented in this encounter Care Teams Compliance Field Technician Relationship Specialty Start Date End Date Francesca Martinez MD [address]und[address] [place] [phone] PCP - General 01/08/12 documented as of this encounter
--- OUTSIDE RECORDS SUMMARY | 2024-07-28 20:07 | XMS_ITS | Encounter Summary ---
Author Organization [facility] Address [address] [facility] [place] [address] Care Team Providers Care Bead Forming Machine Operator Name Role Phone Francesca Martinez MD Primary Care Provider [phone] Reason for Visit * Reason Onset Date Comments Medication Issue 08/01/2017 Encounter Details Date Type Department Care Team (Late st Contact Info) Description 08/01/[address] [facility] Pediatrics - Immunology [address] [place] [address] [phone] Augustin Millan MD [address] [place] [phone] Medication Issue Social History Tobacco Use Types [...] Dulera filled Yoana Castro MD Allergy/Immunology Fellow INTERNSHIP * Telephone Encounter - Erika Sheffield RN - 08/06/2017 12:[address] Millan of outcome of Fasenra request. He recommended to change to Dulera 100 2x2. Will route to A/I fellow to send prescription to pharmacy. Will update mom via [employer]. INTERNSHIP * Telephone Encounter - Erika Sheffield RN - 08/06/2017 8:23 AM CST Fasenra has been denied by insurance. Must try and fail combination therapy- Dulera or AirDuo. Will discuss with Dr. Millan on how he would like to proceed. Mom updated via [employer]works. INTERNSHIP * Telephone Encounter - Erika Sheffield RN - 08/01/2017 11:03 AM CST Prior Authorization submitted by fax to [place] for Fasenra authorization. INTERNSHIP documented in this encounter Plan of Treatment Not on file documented as of this encounter Visit Diagnoses Not on filedocumented in this encounter Care Teams Bead Forming Machine Operator Relationship Specialty Start Date End Date Francesca Martinez MD [address] [place] [address] PCP - General 01/08/12 documented as of this encounter
--- OUTSIDE RECORDS SUMMARY | 2024-07-28 20:07 | XMS_ITS | Encounter Summary ---
Author Organization [facility] Address [address] [facility] [place] [address] Care Team Providers Care Spray Gun Repairer Name Role Phone Francesca Martinez MD Primary Care Provider [phone] Reason for Visit * Reason Onset Date Comments MEDICATION REFILL 03/11/2016 Encounter Details Date Type Department Care Team (Late st Contact Info) Description 03/11/2016 Refill [facility] Pediatrics - Allergy [address] [place] [phone] Tawanda Kaba MD [facility] [place] [address] MEDICATION REFILL Social History Tobacco Use Types [...] on filedocumented in this encounter Care Teams Spray Gun Repairer Relationship Specialty Start Date End Date Francesca Martinez MD [address]und[address] [place] [phone] PCP - General 01/08/12 documented as of this encounter
--- OUTSIDE RECORDS SUMMARY | 2024-07-28 20:07 | XMS_ITS | Encounter Summary ---
Author Organization [facility] Address [address] [facility] [place] [address] Care Team Providers Care Pie Crust Mixer Name Role Phone Francesca Martinez MD Primary Care Provider Reason for Visit * Reason Comments Allergy Symptoms Asthma Encounter Details Date Type Department Care Team (Latest Contact Info) Description 12/31/2018 10:58 AM CDT - 12/31/2018 11:59 PM CDT Hospital Encounter [facility] Pediatrics - Immunology [address] [place] [address] Augustin Millan MD [address] [place] [phone] Discharge Disposition: Home or Self Care Social [...] 12/31 11:06 AM CDT Growth Chart: [facility] (Girls, 2- 20 Years) documented in [...] fluticasone propionate (FLONASE) 50 MCG/ACT nasal spray [place] 2 sprays into each nostril once daily [...] 110.42 % FEV1 3.15 liters 106.06 % [id number] 3.34 L/SEC 93.82 % PEF Pre-Tx Actual [...] fluticasone propionate (FLONASE) 50 MCG/ACT nasal spray [place] 2 sprays into each nostril once daily [...] 110.42 % FEV1 3.15 liters 106.06 % [id number] 3.34 L/SEC 93.82 % PEF Pre-Tx Actual [...] Saira Gleason MD Allergy & Immunology Fellow [facility] 12/31/2018 11:53 AM * Augustin Millan MD [...] father ? Family History IgA deficiency, sister Michlee ?? THI, sister Sariah ? Review of [...] 110.42 % FEV1 3.15 liters 106.06 % [id number] 3.34 L/SEC 93.82 % PEF Pre-Tx Actual [...] conjunctivitis documented in this encounter Care Teams Pie Crust Mixer Relationship Specialty Start Date End Date Francesca Martinez MD [address] [place] [phone] PCP - General 01/08/12 documented as of this encounter
--- OUTSIDE RECORDS SUMMARY | 2024-07-28 20:07 | XMS_ITS | Encounter Summary ---
Author Organization [facility] Address [address] [facility] [place] [address] Care Team Providers Care Metal Engineering Process Worker Name Role Phone Francesca Martinez MD Primary Care Provider [phone] Reason for Visit * Reason Onset Date Comments Polysomnogram Follow-Up 08/29/2017 Encounter Details Date Type Department Care Team (Late st Contact Info) Description 08/29/2017 Telephone [facility] Pediatrics - Sleep [address] [place] [address] Karla Gillespie, SALES MARKETING COORDINATOR-FORESTRY ENGINEER [address] [place] [address] Polysomnogram Follow-Up Social History Tobacco Use Types [...] Sarahi Bull RN - 08/29/2017 10:55 AM LOG DECK TENDER Sleep study results given to mom. Mom verbalized understanding. Mom will continue the singulair andflonase DECK TENDER * Telephone Encounter - Sarahi Bull RN - 08/29/2017 10:50 AM LOG DECK TENDER Sleep study results below. Veronica is currently on Singulair and Flonase. Please advise DECK TENDER * Telephone Encounter - Sarahi Bull RN - 08/29/2017 10:50 AM LOG DECK TENDER ----- Message from Terrance Bowen MD sent at 08/29/2017 10:26 AM LOG DECK TENDER ----- Diag PSG (not split) 08/21/17 Primary Snoring oAHI 0.7 AHI 1.1 Low sat 96% PLMI 0, limb movement index 3.4 Very clean sleep study other than soft snoring. Could consider nasal steroids or singulair. [facility] DECK TENDER documented in this encounter Plan of Treatment Not on file documented as of this encounter Visit Diagnoses Not on filedocumented in this encounter Care Teams Metal Engineering Process Worker Relationship Specialty Start Date End Date Francesca Martinez MD [address] [place] [phone] PCP - General 01/08/12 documented as of this encounter
--- OUTSIDE RECORDS SUMMARY | 2024-07-28 20:07 | XMS_ITS | Encounter Summary ---
Author Organization [facility] Address [address] [facility] [place] [address] Care Team Providers Care Cornetist Name Role Phone Francesca Martinez MD Primary [...] - 02/13/2015 11:59 PM CDT Hospital Encounter [facility] Pediatrics - Neurology [address] [place] [address]. [place] [address] Homar Powell MD [facility] [place] [address] Discharge Disposition: Home or Self Care Social [...] 49.93% 02/13 11:08 AM CDT Growth Chart: [facility] (Girls, 2- 20 Years) documented in [...] fluticasone propionate (FLONASE) 50 MCG/ACT nasal spray [place] 2 Sprays into each nostril once daily. [...] Powell MD - 02/14/2015 9:48 AM CDT [address] [address] DEPARTMENT OF NEUROLOGY NAME: VERONICA COVARRUBIAS : 2005 UNIT #: [id number] CSN #: [id number] DATE SEEN: 02/13/2015 I had the pleasure [...] reflexes in the upper and lower extremities. Vnbtwh-yrlq-ysxoyl movements are smooth without dysmetria, and her [...] By: Homar Powell MD SEG/MedQ JOB ID: [id number] cc: Francesca Martinez M.D. DEPARTMENT OF NEUROLOGY documented in this encounter Plan of Treatment Not on file documented as of this encounter Visit Diagnoses Not on filedocumented in this encounter Care Teams Cornetist Relationship Specialty Start Date End Date Francesca Martinez MD [address] [place] [phone] PCP - General 01/08/12 documented as of this encounter
--- OUTSIDE RECORDS SUMMARY | 2024-07-28 20:07 | XMS_ITS | Encounter Summary ---
Author Organization [facility] Address [address] [place] [address] Care Team Providers Care Speedboat Driver Name Role Phone Francesca Martinez MD Primary Care Provider Encounter Details Date Type Department Care Team (Latest Contact Info) Description 04/24/2017 1:51 PM CDT - 04/24/2017 11:59 PM CDT Hospital Encounter [facility] Pediatrics - Lab [address] [place] [phone] Augustin Millan MD [address] [place] [phone] Discharge Disposition: Home or Self Care Social [...] allergic rhinitis due to pollen, unspecified chronicity [place] 2 Sprays into each nostril once daily [...] on filedocumented in this encounter Care Teams Speedboat Driver Relationship Specialty Start Date End Date Francesca Martinez MD [address] [place] [phone] PCP - General 01/08/12 documented as of this encounter
--- OUTSIDE RECORDS SUMMARY | 2024-07-28 20:07 | XMS_ITS | Encounter Summary ---
Author Organization [facility] Address [address] [facility] [place] [address] Care Team Providers Care Product Design Engineer Name Role Phone Francesca Martinez MD Primary Care Provider [phone] Reason for Visit * Reason Comments Follow-up Encounter Details Date Type Department Care Team (Latest Contact Info) Description 07/31/2017 9:05 AM BINDING CUTTER SYNTHETIC CLOTH - 07/31/2017 11:59 PM [facility] Hospital Encounter [facility] Pediatrics - ENT [address] [place] [address] Robert Ramos MD [address] [place] [address] Discharge Disposition: Home or Self Care Social [...] (117 lb 15.1 oz) 07/31/2017 9:12 AM BINDING CUTTER SYNTHETIC CLOTH Height 161.2 cm (5' 3.47 ) 07/31/2017 9:12 AM CS T Body Mass Index 20.59 07/31/2017 9:12 AM BINDING CUTTER SYNTHETIC CLOTH Body Mass Index Percentile 72.37% 07/31/2017 9:1 2 AM BINDING CUTTER SYNTHETIC CLOTH Growth Chart: [facility] (Girls, 2- 20 Years) documented in this encounter Discharge Instructions * Patient Instructions* Robert Ramos MD - 07/31/2017 9:32 AM BINDING CUTTER SYNTHETIC CLOTH 1. Agree with current allergy regimen (flonase/singulair/zyrtec/aerospan/albuterol) [...] adulthood because of technical considerations if indicated. ING CUTTER SYNTHETIC CLOTH documented in this encounter Medications at Time [...] allergic rhinitis due to pollen, unspecified chronicity [place] 2 Sprays into each nostril once daily [...] Pt presents in FU. Pt saw ENT DATA SECURITY ADMINISTRATOR (AM) 03/20/17 for ongoing issues with nasal [...] frequent tongue thrusting, and some malocclusion problems. 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 Constitutional: no [...] technical considerations if indicated. Robert Ramos MD ING CUTTER SYNTHETIC CLOTH documented in this encounter Plan of Treatment Not on file documented as of this encounter Visit Diagnoses Not on filedocumented in this encounter Care Teams Product Design Engineer Relationship Specialty Start Date End Date Francesca Martinez MD [address] [place] [phone] PCP - General 01/08/12 documented as of this encounter
--- OUTSIDE RECORDS SUMMARY | 2024-07-28 20:07 | XMS_ITS | Clinical Summary ---
Author Organization [facility] Address [address] [place] [address] Care Team Providers Care Seismograph Operator Helper Name Role Phone Francesca Martinez MD Primary Care Provider Source Comments [facility],non-owned Affiliates and Associated Physician Practices is amultiple site organization consisting of ambulatory clinics and hospital sitesin [place], [place], [place] and [place]. This disclosure is being madepursuant to the Care Everywhere program and may not contain all information available regarding this patient. Last updated 18.[facility] Allergies No known active allergies Medications [...] 0.6 % nasal solutionIndications:S easonal Allergic Rhinitis [place] 2 (two) sprays into each nostril 2 [...] (FLONASE) 50 MCG/ACT nasal sprayIndications:Michael rgic Rhinitis [place] 2 (two) sprays into each nostril once [...] age to complete this topic Care Teams Seismograph Operator Helper Relationship Specialty Start Date End Date Francesca Martinez MD [address] [place] [phone] PCP - General 01/08/12
--- OUTSIDE RECORDS SUMMARY | 2024-07-28 20:07 | XMS_ITS | Encounter Summary ---
Author Organization [facility] Address [address] [facility] [place] [address] Care Team Providers Care Thread Roller Name Role Phone Francesca Martinez MD Primary Care Provider Reason for Visit * Reason Comments Follow-up Encounter Details Date Type Department Care Team (Latest Contact Info) Description 05/23/2016 2:57 PM CDT - 05/23/2016 11:59 PM CDT Hospital Encounter [facility] Pediatrics - Immunology [address] [place] [address] Augustin Millan MD [address] [place] [phone] Discharge Disposition: Home or Self Care Social [...] 05/23/2016 3:1 1 PM CDT Growth Chart: [facility] (Girls, 2- 20 Years) [...] sprayIndications:Season al allergic rhinitis due to pollen [place] 2 Sprays into each nostril once daily [...] % ?? FEV1?? 2.04 liters?? 87.18 %?? [id number]?? 1.97 L/SEC?? 69.37 % ?? PEF?? Pre-Tx [...] fluticasone propionate (FLONASE) 50 MCG/ACT nasal spray [place] 2 Sprays into each nostril once daily [...] 90.57 % FEV1 2.04 liters 87.18 % [id number] 1.97 L/SEC 69.37 % PEF Pre-Tx Actual [...] 90.57 % FEV1 2.04 liters 87.18 % [id number] 1.97 L/SEC 69.37 % PEF Pre-Tx Actual [...] conjunctivitis documented in this encounter Care Teams Thread Roller Relationship Specialty Start Date End Date Francesca Martinez MD [address] [place] [address] PCP - General 01/08/12 documented as of this encounter
--- OUTSIDE RECORDS SUMMARY | 2024-07-28 20:07 | XMS_ITS | Encounter Summary ---
Author Organization [facility] Address [address] [facility] [place] [address] Care Team Providers Care Dinkey Operator Slag Name Role Phone Francesca Martinez MD Primary Care Provider [phone] Encounter Details Date Type Department Care Team [...] on filedocumented in this encounter Care Teams Dinkey Operator Slag Relationship Specialty Start Date End Date Francesca Martinez MD [address] [place] [phone] PCP - General 01/08/12 documented as of this encounter
--- OUTSIDE RECORDS SUMMARY | 2024-07-28 20:07 | XMS_ITS | Encounter Summary ---
Author Organization [facility] Address [address] [place] [address] Care Team Providers Care Scientific Laboratory Supervisor Name Role Phone Francesca Martinez MD Primary Care Provider Reason for Visit * Reason Onset Date Comments Results 05/12/2017 Encounter Details Date Type Department Care Team (Late st Contact Info) Description 05/12/2017 Telephone [facility] Pediatrics - Immunology [address] [place] [address] Augustin Millan MD [address] [place] [phone] Results Social History Tobacco Use Types [...] on filedocumented in this encounter Care Teams Scientific Laboratory Supervisor Relationship Specialty Start Date End Date Francesca Martinez MD [address] [place] [phone] PCP - General 01/08/12 documented as of this encounter
--- OUTSIDE RECORDS SUMMARY | 2024-07-28 20:07 | XMS_ITS | Encounter Summary ---
Author Organization [facility] Address [address] [facility] [place] [address] Care Team Providers Care Apartment Leasing Manager Name Role Phone Francesca Martinez MD Primary Care Provider [phone] Reason for Visit * Reason Comments Scoliosis Injury Toe left 2nd toe Encounter Details Date Type Department Care Team (Latest Contact Info) Description 04/23/2017 9:30 AM CDT - 04/23/2017 11:59 PM CDT Hospital Encounter [facility] Pediatrics - Orthopedics [address] [place] [address] Myles Garcia MD [address] [place] [address] [address] [place] [phone] Discharge Disposition: Home or [...] 04/23/2017 9:4 9 AM CDT Growth Chart: [facility] (Girls, 2- 20 Years) documented in this encounter Discharge Instructions * Patient Instructions* Myles Garcia MD - 04/23/2017 10:14 AM CDT [facility]INIC DISCHARGE INSTRUCTIONS SHEET DIAGNOSIS: 1. Adolescent idiopathic scoliosis of thoracic region Follow Up: Please make a return appointment for 6 month(s) with or DAVID. To contact Pam Rojas LPN, call [phone]. [phone]. X-Rays next visit: Yes - scoliosis Medications [...] a voicemail for him at , e-mailat [email or web address], or through [employer]. You can Like him on [employer] at [email or web address]. After visit summary completed by Myles Garcia [...] sprayIndications:Season al allergic rhinitis due to pollen [place] 2 Sprays into each nostril once daily [...] Menarche at age: 10 y/o Pain: stable, bjtf-hl-kzqzdlhw joint symptoms intermittently, reasonably well controlled by [...] idiopathic documented in this encounter Care Teams Apartment Leasing Manager Relationship Specialty Start Date End Date rFancesca Martinez MD [address] [place] [phone] PCP - General 01/08/12 documented as of this encounter
--- OUTSIDE RECORDS SUMMARY | 2024-07-28 20:07 | XMS_ITS | Encounter Summary ---
Author Organization [facility] Address [address] [facility] [place] [address] Care Team Providers Care Dress Draper Name Role Phone Francesca Martinez MD Primary Care Provider Reason for Visit * Reason Onset Date Comments Congestion 12/05/2014 Encounter Details Date Type Department Care Team (Late st Contact Info) Description 12/05/2014 Telephone [facility] Pediatrics - Allergy [address] [place] [address] Avril Giordano MD [address] [place] [address] Congestion Social History Tobacco Use Types Packs/Day [...] dryness. Advised to purchase OTC nasal lubricant, [place], and apply to the nose to help with the dryness. Mother understood and agreed with plan. All questions were answered. documented in this encounter Plan of Treatment Not on file documented as of this encounter Visit Diagnoses Not on filedocumented in this encounter Care Teams Dress Draper Relationship Specialty Start Date End Date Francesca Martinez MD [address] [place] [phone] PCP - General 01/08/12 documented as of this encounter
--- OUTSIDE RECORDS SUMMARY | 2024-07-28 20:07 | XMS_ITS | Encounter Summary ---
Author Organization [facility] Address [address] [place] [address] Care Team Providers Care Platen Grinder Name Role Phone Francesca Martinez MD Primary Care Provider Reason for Visit * Reason Comments Asthma Follow-up Encounter Details Date Type Department Care Team (Latest Contact Info) Description 05/17/2021 10:12 AM CDT - 05/17/2021 11:59 PM CDT Hospital Encounter [facility] Pediatrics - Immunology [address] [place] [phone] Augustin Millan MD [address] [place] [phone] Discharge Disposition: Home or Self Care Social [...] 85.46% 05/17 10:16 AM CDT Growth Chart: [facility] (Girls, 2- 20 Years) documented [...] (FLONASE) 50 MCG/ACT nasal sprayIndications:Allergi c Rhinitis [place] 2 (two) sprays into each nostril once [...] 0.6 % nasal solutionIndications:Seas onal Allergic Rhinitis [place] 2 (two) sprays into each nostril 2 [...] 95.58 % FEV1 3.06 liters 89.74 % [id number] 2.9 L/SEC 72.14 % PEF Pre-Tx Actual [...] Highest level of risk: Moderate Suggested code: [id number] .slubill documented in this encounter Plan of [...] conjunctivitis documented in this encounter Care Teams Platen Grinder Relationship Specialty Start Date End Date Francesca Martinez MD [address] [place] [address], [place] [phone] PCP - General 01/08/12 documented as of this encounter
--- OUTSIDE RECORDS SUMMARY | 2024-07-28 20:07 | XMS_ITS | Encounter Summary ---
Author Organization [facility] Address [address] [facility] [place] [address] Care Team Providers Care Crusher Setter Name Role Phone Francesca Martinez MD Primary [...] on filedocumented in this encounter Care Teams Crusher Setter Relationship Specialty Start Date End Date Francesca Martinez MD [address] [place] [phone] PCP - General 01/08/12 documented as of this encounter
--- OUTSIDE RECORDS SUMMARY | 2024-07-28 20:07 | XMS_ITS | Encounter Summary ---
Author Organization [facility] Address [address] [facility] [place] [address] Care Team Providers Care Commissioned Police Officer Name Role Phone Francesca Martinez MD Primary Care Provider Reason for Visit * Reason Onset Date Comments MEDICATION REFILL 06/22/2018 Encounter Details Date Type Department Care Team (Late st Contact Info) Description 06/22/2018 Refill [facility] Pediatrics - Dermatology [address] [facility] [place] [address] Adenike Marx MD [address] [facility] [address] DEPT [place] [address] MEDICATION REFILL Social History Tobacco Use Types [...] 2:56 PM CST Received fax notification from [facility]; alternative rx requested; Scalpicin 1% liquid not covered; pt requesting similar product to be prescribed. Rx written 10/09/17. New pt/Last visit 10/09/17: 3% salicylic acid is available over the counter but often difficult to find. ? Options are [facility] brand 3% salicylic acid ([facility] Scalp Relief Anti-Itch Serum) or Quality Choice Scalp Relief available online through [employer]. The molina ranges from $6 - $20 depending on the size of the bottle. Most [facility] carry the Quality Choice brand as well ([facility], [facility], [facility], [facility], [facility], [facility]). ?? For optimal use, apply every night. Note-your insurance may not cover Scalpicin. If your pharmacy informs you that Scalpicin is unavailable, call [phone] option 4, Friday-Friday between 9 AM and 5 PM to discuss alternatives. Pt was a No Show for derm f/u appt 01/16/18. No interval calls from family. Request faxed back to pharm with notes: May substitute with [facility] store brand scalp relief. Anything other than OTC requires derm f/u appt. No future appointments. ING SCREEN COORDINATOR documented in this encounter Plan of Treatment Not on file documented as of this encounter Visit Diagnoses Not on filedocumented in this encounter Care Teams Commissioned Police Officer Relationship Specialty Start Date End Date Francesca Martinez MD [address] [place] [phone] PCP - General 01/08/12 documented as of this encounter
--- OUTSIDE RECORDS SUMMARY | 2024-07-28 20:07 | XMS_ITS | Patient Health Summary ---
Author Organization [facility] Address [address] [place] [address] Care Team Providers Care Spinner Iron Name Role Phone Francesca Martinez MD Primary Care Provider Note from [facility],non-owned Affiliates and Associated Physician Practices is amultiple site organization consisting of ambulatory clinics and hospital sitesin [place], [place], [place] and [place]. This disclosure is being madepursuant to the Care Everywhere program and may not contain all information available regarding this patient. Last updated 18.[facility] Allergies No known active allergies* Penicillins-High Criticality,Inactive [...] olopatadine (PATANASE) 0.6 % nasal solution(Started 05/17/2021) [address] 2 (two) sprays into each nostril 2 [...] propionate (FLONASE) 50 MCG/ACT nasal spray(Started 05/17/2021) [address] 2 (two) sprays into each nostril once [...] 85.46% 05/17 10:16 AM CDT Growth Chart: [facility] [place] (Girls, 2- 20 Years) Procedures * PULMONARY/RESPIRATORY [...] - 140 ng/mL 11/26/2017 1:49 PM CDT [facility] Blood BLOOD SPECIMEN / Unknown Lab Venipuncture / Unknown 11/26/2017 11:58 AM CDT 11/26/2017 12:26 PM CDT Karla Gillespie APRN-FIBERGLASSER LAB - CHEMISTR Y ORDERABLES [facility] [place] [address] * CULTURE FUNGUS SKIN HAIR NAIL+FUNGUS SMEAR (10/09/2017 3:47 PM CDT) Culture No fungus isolated [place]BY 11/03/2017 10:55 AM CDT [facility]CRO[facility]OLOG[facility] Fungus Smear Rare Yeast 11/03/2017 10:55 AM CDT [facility]CRO[facility] Microbiology HAIR SPECIMEN / Unknown Collection / Unknown 10/09/2017 3:47 PM CDT 10/09/2017 4:45 PM CDT Adenike Marx MD LAB - MICROBIOLOGY ORDERABLES [facility] MICROBIOLOGY [address] [place] [address], [facility] [phone] * SPLIT NIGHT STUDY (08/21/2017) Linked Results See Linked Results [facility] 08/21/2017 Karla Gillespie APRN-[facility] O RDERABLES SLEEP CENTER * VITAMIN D (25-HYDROXY) (08/20/2017 12:44 PM LIP CUTTER [employer] SCORER) Vitamin D, 25 Hydroxy 20.2 20 - 100 ng/mL 08/20/2017 1:44 PM [employer] [facility] Blood BLOOD SPECIMEN / Unknown Lab Venipuncture / Unknown 08/20/2017 12:44 PM [employer] C[employer]TER [employer] SCORER 08/20/2017 12:53 PM [employer]TER AND SCORER Narrative [facility] - 08/20/2017 1:44 PM L[employer] CUTTER [employer] SCORER Vitamin D Status: ?Deficient ? <10 ?? ng/mL ? Borderline ?10-20 ng/mL ?Sufficient ?>20 ?? ng/mL ?Toxic ? >100 ??ng/mL Karla Gillespie RETURNED MATERIALS INSPECTOR-FIBERGLASSER LAB - CHEMISTR Y ORDERABLES [facility] [place] [address] * ANCA VASCULITIS PANEL (06/26/2017 11:20 AM [employer]) Anti-myeloperoxid ase (MPO) Antibody <9.0 0.0 - 9.0 U/mL 06/28/2017 11:10 AM LIP CUTTER AND SCORER [facility] ([facility]) Anti-proteinase 3 (FL-3) Abs <3.5 0.0 - 3.5 U/mL 06/28/2017 11:10 AM LIP CUTTER AND SCORER [facility] ([facility]) Cytoplasmic (C-ANCA) <1:20 Neg:<1:20 titer 06/28/2017 11:10 AM L[employer] CUTTER AND SCORER [facility] ([facility]) p-ANCA Titer <1:20 Neg:<1:20 titer 06/28/2017 11:10 AM LIP CUTTER AND SCORER [facility] ([facility]) Comment: The presence of positive fluorescence exhibiting P-ANCA or C-ANCA patterns alone is not specific for the diagnosis of Sebastien's Granulomatosis (WG) or microscopic polyangiitis. Decisions about treatment should not be based solely on ANCA IFA results. ??The International ANCA Group Consensus recommends follow up testing of positive sera with both FL-3 and MPO-ANCA enzyme immunoassays. As many as 5% serum samples are positive only by EIA. Ref. AM J Clin Pathol 1999;111:507-513. Atypical p-ANCA Titer <1:20 Neg:<1:20 titer 06/28/2017 11:10 AM [facility] ([facility]) Comment: The atypical pANCA pattern has been observed in a significant percentage of patients with ulcerative colitis, primary sclerosing cholangitis and autoimmune hepatitis. Blood BLOOD SPECIMEN / Unknown Lab Venipuncture / Unknown 06/26/2017 11:20 AM [employer]TER [employer] SCORER 06/26/2017 11:39 AM LIP CUTTER AND SCORER Narrative [facility] ([facility]) - 06/28/2017 11:10 AM L[employer] CUTTER AND SCORER Performed at: ??01 - [address] [place] ??[id number] Velocity Shooter: Mayo Angelo MD, Phone: ??[phone] Performed at: ??02 - [facility] [address] [place], [place] ??[id number] Velocity Shooter: Patricio Gimenez PhD, Phone: ??[phone] Robert Ramos MD LAB - CHEMISTRY O RDERABLES Performing Organization Address City/[facility]/ZIP Co de Phone Number [facility] ([facility]) [address] [place] [address] * CRP (INFLAMMATORY) (06/26/2017 11:20 AM L[employer]TER [employer] SCORER) C-Reactive Protein <0.20 <=0.50 mg/dL 06/26/2017 12:15 PM LIP CUTTER AND SCORER [facility] Blood BLOOD SPECIMEN / Unknown Lab Venipuncture / Unknown 06/26/2017 11:20 AM [employer]TER [employer] SCORER 06/26/2017 11:39 AM LIP CUTTER AND SCORER Robert Ramos MD LAB - CHEMISTRY O RDERAFLORA Performing Organization Address City/[facility]/ZIP Co de Phone Number [facility] [address] [place] [address] * JENNY BLOOD SCREEN W/REFLEX TITER (06/26/2017 11:20 AM L[employer] CUTTER AND SCORER) JENNY Negative Negative 06/27/2017 8:36 AM LIP CUTTER AND SCORER [facility] Blood BLOOD SPECIMEN / Unknown Lab Venipuncture / Unknown 06/26/2017 11:20 AM LIP CUTTER AND SCORER 06/26/2017 11:39 AM L[employer] CUTTER AND SCORER Robert Ramos MD LAB - CHEMISTRY O RDERABLES Performing Organization Address City/[facility]/ZIP Co de Phone Number [facility] [address] [place] [address] * ANGIOTENSIN CONVERTING ENZYME BLOOD (06/26/2017 11:20 AM [employer]TER [employer] SCOR[employer]) Angiotensin-Con verting Enzyme 25 22 - 108 U/L 06/27/2017 1:11 PM LIP CUTTER AND SCORER [facility] ([facility]) Blood BLOOD SPECIMEN / Unknown Lab Venipuncture / Unknown 06/26/2017 11:20 AM L[employer] C[employer]TER [employer] SCORER 06/26/2017 11:39 AM LIP CUTTER AND SCORER Narrative [facility] ([facility]) - 06/27/2017 1:11 PM LIP CUTTER AND SCORER Performed at: ??01 - [facility] [address] [facility], [place], [place] ??[id number] Velocity Shooter: Patricio Gimenez PhD, Phone: ??[phone] Robert Ramos MD LAB - CHEMISTRY O RDERABLES [facility] ([facility]) [address] [place] [address] * ERYTHROCYTE SEDIMENTATION RATE (06/26/2017 11:20 AM L[employer] CUTTER AND SCORER) Pathologist [facility] Erythrocyte Sedimentation Rate Automated 7 0 - 20 MM/HR 06/26/2017 12:13 PM LIP CUTTER AND SCORER [facility] Blood BLOOD SPECIMEN / Unknown Lab Venipuncture / Unknown 06/26/2017 11:20 AM L[employer]TER [employer] SCORER 06/26/2017 11:39 AM LIP CUTTER AND SCORER Robert Ramos MD LAB - HEMATOLOGY ORDERABLES [facility] [address] [place] [address] * IMMUNOSCORE IGE INTERP (04/24/2017 2:01 PM CDT) Pathologist [facility] Immunocap Score See Note 7 5:08 PM CDT [facility] ([facility]) Comment: REFERENCE INTERVAL: Allergen, Interpretation Less [...] clinical allergy or even anaphylaxis. Performed by [facility], [address] [place] [address] [email or web address], Godfrey Solomon MD, Lab. Director Blood BLOOD SPECIMEN / Unknown Lab Venipuncture / Unknown 04/24/2017 2:01 PM CDT 04/24/2017 2:35 PM CDT Augustin Millan MD LAB - SEROLOGY ORDER RODRIGO [facility]) [address] [place] [address], [facility] * (ABNORMAL) ALLERGEN RESPIRATORY PROFILE ([place]) (04/24/2017 2:01 PM CDT) Pathologist [facility] IgE Total 370 <=696 kU/L 04/26/2017 5:07 PM CDT [facility] ([facility]) Comment: REFERENCE INTERVAL: Immunoglobulin E, Serum Access complete set of age- and/or gender-specific reference intervals for this test in the [facility] Test Directory ([employer] [facility]). Allergen Dermatophagoides farinae <0.10 <=0.34 kU/L 04/26/2017 5:07 PM CDT [facility] ([facility]) Allergen Dermatophagoides pteronyssinus <0.10 <=0.34 kU/L 04/26/2017 5:07 PM CDT [facility] ([facility]) Allergen Cat Dander <0.10 <=0.34 kU/L 04/26/2017 5:07 PM CDT [facility] ([facility]) Allergen Dog Dander 0.10 <=0.34 kU/L 04/26/2017 5:07 PM CDT [facility] ([facility]) Allergen Bermuda Grass <0.10 <=0.34 kU/L 04/26/2017 5:07 PM CDT [facility] ([facility]) Allergen Zachery Grass <0.10 <=0.34 kU/L 04/26/2017 5:07 PM CDT [facility] ([facility]) Allergen Cockroach Amharic <0.10 <=0.34 kU/L 04/26/2017 5:07 PM CDT [facility] ([facility]) Allergen Alternaria alternata 6.56(H) <=0.34 kU/L 04/26/2017 5:07 PM CDT [facility] ([facility]) Allergen A fumigatus IgE 2.06(H) <=0.34 kU/L 04/26/2017 5:07 PM CDT [facility] ([facility]) Allergen Hormodendrum 1.51(H) <=0.34 kU/L 04/26/2017 5:07 PM CDT [facility] ([facility]) Allergen P. Notatum 0.50(H) <=0.34 kU/L 04/26/2017 5:07 PM CDT [facility] ([facility]) Allergen [place] Maple <0.10 <=0.34 kU/L 04/26/2017 5:07 PM CDT [facility] ([facility]) Allergen Sarpy Tree <0.10 <=0.34 kU/L 04/26/2017 5:07 PM CDT [facility] ([facility]) Allergen Elm 0.17 <=0.34 kU/L 04/26/2017 5:07 PM CDT [facility] ([facility]) Allergen [place] Tree 0.12 <=0.34 kU/L 04/26/2017 5:07 PM CDT [facility] ([facility]) Allergen [place] <0.10 <=0.34 kU/L 04/26/2017 5:07 PM CDT [facility] ([facility]) Allergen White [place] Tree IgE <0.10 <=0.34 kU/L 04/26/2017 5:07 PM CDT [facility]) Allergen [place] <0.10 <=0.34 kU/L 04/26/2017 5:07 PM CDT [facility]) Allergen Pecan Tree <0.10 <=0.34 kU/L 04/26/2017 5:07 PM CDT [facility]) Allergen [place] Tree 0.22 <=0.34 kU/L 04/26/2017 5:07 PM CDT [facility]) Allergen White Jack 0.16 <=0.34 kU/L 04/26/2017 5:07 PM CDT [facility]) Allergen Rough Pigweed 0.25 <=0.34 kU/L 04/26/2017 5:07 PM CDT [facility]) Allergen Common Ragweed <0.10 <=0.34 kU/L 04/26/2017 5:07 PM CDT [facility]) Allergen Medina Elder 0.14 <=0.34 kU/L 04/26/2017 5:07 PM CDT [facility]) Allergen Eritrean Thistle 0.27 <=0.34 kU/L 04/26/2017 5:07 PM CDT [facility]) Allergen Mouse <0.10 <=0.34 kU/L 04/26/2017 5:07 PM CDT [facility] ([facility]) Allergen Mucor racemosus <0.10 <=0.34 kU/L 04/26/2017 5:07 PM CDT [facility]) Allergen Peanut <0.10 <=0.34 kU/L 04/26/2017 5:07 PM CDT [facility]) Allergen Milk (Cow) 0.17 <=0.34 kU/L 04/26/2017 5:07 PM CDT [facility]) Comment: Performed by [facility], [facility] [place] [address] [email or web address], Godfrey Solomon MD, Lab. Director Blood BLOOD SPECIMEN / Unknown Lab Venipuncture / Unknown 04/24/2017 2:01 PM CDT 04/24/2017 2:35 PM CDT Augustin Millan MD LAB - CHEMISTRY CARLOS SIMS DIANA [facility] [place] [address], [facility] * CBC W AUTO DIFFERENTIAL (04/24/2017 2:01 PM CDT) WBC 9.5 4.5 - 14.5 x10E9/L 04/24/2017 3:01 PM CDT [facility] WBC Corrected x10E9/L 04/24/2017 3:01 PM CDT [facility] RBC 4.72 4.00 - 5.20 x10E12/L 04/24/2017 3:01 PM CDT [facility] Hemoglobin 13.5 11.5 - 15.5 gm/dL 04/24/2017 3:01 PM CDT [facility] Hematocrit 40.8 35.0 - 45.0 % 04/24/2017 3:01 PM CDT [facility] MCV 86.4 77.0 - 95.0 fl 04/24/2017 3:01 PM CDT [facility] MCH 28.6 25.0 - 33.0 pg 04/24/2017 3:01 PM CDT [facility] MCHC 33.1 31.0 - 37.0 gm/dL 04/24/2017 3:01 PM CDT [facility] Platelet Count 322 100 - 400 x10E9/L 04/24/2017 3:01 PM CDT [facility] RDW-CV 12.4 11.5 - 14.0 % 04/24/2017 3:01 PM CDT [facility] MPV 9.1 6.0 - 9.5 fl 04/24/2017 3:01 PM CDT [facility] Neutrophils % 48.2 24.0 - 66.0 % 04/24/2017 3:01 PM CDT [facility] Lymphocytes % 36.2 22.0 - 61.0 % 04/24/2017 3:01 PM CDT [facility] Monocytes % 5.0 3.0 - 15.0 % 04/24/2017 3:01 PM CDT [facility] Eosinophils % 9.7 0.0 - 10.0 % 04/24/2017 3:01 PM CDT [facility] Basophils % 0.6 % 04/24/2017 3:01 PM CDT [facility] Immature Granulocytes 0.3 % 04/24/2017 3:01 PM CDT [facility] Neutrophil Absolute 4.56 x10E9/L 04/24/2017 3:01 PM CDT [facility] Lymphocytes Absolute 3.43 x10E9/L 04/24/2017 3:01 PM CDT [facility] Monocytes Absolute 0.47 x10E9/L 04/24/2017 3:01 PM CDT [facility] Eosinophils Absolute 0.92 x10E9/L 04/24/2017 3:01 PM CDT [facility] Basophils Absolute 0.06 x10E9/L 04/24/2017 3:01 PM CDT [facility] Immature Granulocytes Absolute 0.03 x10E9/L 04/24/2017 3:01 PM CDT [facility] nRBC Auto 0 /100 WBC 04/24/2017 3:01 PM CDT [facility] Blood BLOOD SPECIMEN / Unknown Lab Venipuncture / Unknown 04/24/2017 2:01 PM CDT 04/24/2017 2:35 PM CDT Augustin Millan MD LAB - HEMATOLOGY ORD ERABLES Performing Organization Address City/State/[facility] Co de Phone Number [facility] [address] [place] [address] * XR TIBIA FIBULA RIGHT 2VW (05/08/2015 [...] Case Report Surgical Pathology Report ? Case: [id number] ? Authorizing Provider: ??Robert Ramos MD ?Ordering Provider: ?? Robert Ramos MD ? Ordering Location: ? [facility] ? Collected: ? 05/14/2013 11:18 AM ? Pathologist: ? Melva Monzon MD ?Received: ?05/14/2013 12:16 PM ?Signed Out: ?05/14/2013 ??2:44 PM (Final) ? Specimen: ?Tonsil(s) ? 05/14/2013 2:44 PM T [facility] Final Diagnosis GROSS DIAGNOSIS: PALATINE TONSILS. 05/14/2013 2:44 PM [facility] Clinical History The patient is a 7-year-old girl with clinically suspicious sleep apnea and adenotonsillar hypertrophy. 05/14/2013 2:44 PM [facility] Gross Description Submitted fresh in one [...] are taken. (CT/scs) 05/14/2013 2:44 PM T [facility] Disclaimer This case has been personally reviewed and interpreted by the attending (teaching) pathologist. 05/14/2013 2:44 PM [facility] Synoptic Report 05/14/2013 2:44 PM [facility] Pathology/Cytolo gy SPECIMEN FROM TONSIL / Unknown 05/14/2013 11:18 AM CDT 05/14/2013 12:16 PM CDT Robert Ramos MD LAB - PATHOLOGY/C YTOLOGY ORDERABLES [facility] [address] [facility] [place] [address] Care Teams Spinner Iron Relationship Specialty Start Date End Date Francesca Martinez MD [address] [place] [address] PCP - General 01/08/12
--- OUTSIDE RECORDS SUMMARY | 2024-07-28 20:07 | XMS_ITS | Encounter Summary ---
Author Organization [facility] Address [address] [facility] [place] [address] Care Team Providers Care Drill Grinder Name Role Phone Francesca Martinez MD Primary Care Provider [phone] Reason for Visit * Reason Onset Date Comments Medication Management 04/29/2017 Encounter Details Date Type Department Care Team (Late st Contact Info) Description 04/29/2017 Telephone [facility] Pediatrics - Immunology [address] [place] [phone] Augustin Millan MD [address] [place] [phone] Medication Management Social History Tobacco Use Types [...] on filedocumented in this encounter Care Teams Drill Grinder Relationship Specialty Start Date End Date Francesca Martinez MD [address] [place] [phone] PCP - General 01/08/12 documented as of this encounter
--- OUTSIDE RECORDS SUMMARY | 2024-07-28 20:07 | XMS_ITS | Encounter Summary ---
Author Organization [facility] Address [address] [facility] [place] [address] Care Team Providers Care Stamp Classifier Name Role Phone Francesca Martinez MD Primary Care Provider Reason for Visit * Reason Comments Snoring Referred by dentist for possible sleep apnea. T&A done 3-4 years ago with no improvement in snoring. Encounter Details Date Type Department Care Team (Latest Contact Info) Description 03/20/2017 11:30 AM CDT - 03/20/2017 11:59 PM T Hospital Encounter [facility] - ENT [address] [place] [address] Vickie Garcia, SLAB DEPILER OPERATOR-REVENUE CYCLE ADMINISTRATOR [address] [place] [address] Discharge Disposition: Home or Self Care Social [...] 79.43% 03/20 11:36 AM CDT Growth Chart: [facility] (Girls, 2- 20 Years) documented in [...] sprayIndications:Season al allergic rhinitis due to pollen [place] 2 Sprays into each nostril once daily [...] this encounter Progress Notes * Vickie Varma, SLAB DEPILER OPERATOR-REVENUE CYCLE ADMINISTRATOR - 03/20/2017 12:57 PM CDT Images from the original note were not included. Division of Pediatric Otolaryngology [address] [place] [address] ? Name: Veronica Lowe Age: 11 y.o. [...] (Z= 0.51) based on CDC 2-20 Years jgondvm-sye-sob data using vitals from 03/20/2017. Weight: 53.3 kg (117 lb 8.1 oz) 81 %ile (Z= 0.88) based on CDC 2-20 Years zaejyk-npw-vtn data usingvitals from 03/20/2017.BMI: 21.22 79 %ile [...] the right Turbinates: Normal. Rhinorrhea: None Mucosa: [place]. Oral/Oropharyngeal: Oropharynx clear and gingiva normal. Tongue: Normal. Pharyngeal mucosa: [place] Right tonsil: Absent. Left tonsil: Absent. Neck: [...] oxymetazoline (AFRIN) 0.05 % nasal spray 1 [place] 1 spray, Each Nostril, ONCE, 1 dose, On Daya 03/20/17 at 1245, . WASTE DISPOSAL INSTRUCTIONS: Black Bin Disposal required. $ Given 03/20/2017 12:20 PM CDT 1 spray Nares-Bilateral documented in this encounter Care Teams Stamp Classifier Relationship Specialty Start Date End Date Francesca Martinez MD [address] [place] [phone] PCP - General 01/08/12 documented as of this encounter
--- OUTSIDE RECORDS SUMMARY | 2024-07-28 20:07 | XMS_ITS | Encounter Summary ---
Author Organization [facility] Address [address] [place] [address] Care Team Providers Care Delicatessen Department Manager Name Role Phone Francesca Martinez MD Primary Care Provider [phone] Reason for Visit * Reason Comments Allergy Symptoms Asthma Encounter Details Date Type Department Care Team (Latest Contact Info) Description 04/24/2017 12:53 PM CDT - 04/24/2017 1:50 PM CDT Hospital Encounter [facility] Pediatrics - Immunology [address] [place] [address] Augustin Millan MD [address] [place] [phone] Discharge Disposition: Home or Self Care Social [...] 04/24/2017 1:0 4 PM CDT Growth Chart: [facility] (Girls, [...] allergic rhinitis due to pollen, unspecified chronicity [place] 2 Sprays into each nostril once daily [...] 90.7 % FEV1 2.65 liters 2.65 liters [id number] 2.97 L/SEC 3.17 Liters/Second PEF Pre-Tx Actual [...] IMMUNOSCORE IGE INTERP (04/24/2017 2:01 PM CDT) [facility] Signature Immunocap Score See Note 7 5:08 PM CDT [facility] ([facility]) Comment: REFERENCE INTERVAL: Allergen, Interpretation Less than [...] clinical allergy or even anaphylaxis. Performed by [facility], [address] [place] [address] www.[facility], Godfrey Solomon MD, Lab. Director Blood BLOOD SPECIMEN / Unknown Lab Venipuncture / Unknown 04/24/2017 2:01 PM CDT 04/24/2017 2:35 PM CDT Augustin Millan MD LAB - SEROLOGY ORDER RODRIGO [facility]) [address] [place] [address], [facility] * (ABNORMAL) ALLERGEN RESPIRATORY PROFILE ([place]) (04/24/2017 2:01 PM CDT) IgE Total 370 <=696 kU/L 04/26/2017 5:07 PM CDT [facility] ([facility]) Comment: REFERENCE INTERVAL: Immunoglobulin E, Serum Access complete set of age- and/or gender-specific reference intervals for this test in the [facility] Test Directory ([facility]). Allergen Dermatophagoides farinae <0.10 <=0.34 kU/L 04/26/2017 5:07 PM CDT [facility] ([facility]) Allergen Dermatophagoides pteronyssinus <0.10 <=0.34 kU/L 04/26/2017 5:07 PM CDT [facility] ([facility]) Allergen Cat Dander <0.10 <=0.34 kU/L 04/26/2017 5:07 PM CDT [facility]) Allergen Dog Dander 0.10 <=0.34 kU/L 04/26/2017 5:07 PM CDT [facility] ([facility]) Allergen Bermuda Grass <0.10 <=0.34 kU/L 04/26/2017 5:07 PM CDT [facility] ([facility]) Allergen Zachery Grass <0.10 <=0.34 kU/L 04/26/2017 5:07 PM CDT [facility] ([facility]) Allergen Cockroach Romanian <0.10 <=0.34 kU/L 04/26/2017 5:07 PM CDT [facility]) Allergen Alternaria alternata 6.56(H) <=0.34 kU/L 04/26/2017 5:07 PM CDT [facility] ([facility]) Allergen A fumigatus IgE 2.06(H) <=0.34 kU/L 04/26/2017 5:07 PM CDT [facility] ([facility]) Allergen Hormodendrum 1.51(H) <=0.34 kU/L 04/26/2017 5:07 PM CDT [facility] ([facility]) Allergen P. Notatum 0.50(H) <=0.34 kU/L 04/26/2017 5:07 PM CDT [facility] ([facility]) Allergen Adak Maple <0.10 <=0.34 kU/L 04/26/2017 5:07 PM CDT [facility] ([facility]) Allergen Sycamore Tree <0.10 <=0.34 kU/L 04/26/2017 5:07 PM CDT [facility] ([facility]) Allergen Elm 0.17 <=0.34 kU/L 04/26/2017 5:07 PM CDT [facility] ([facility]) Allergen Palm Coast Tree 0.12 <=0.34 kU/L 04/26/2017 5:07 PM CDT [facility] ([facility]) Allergen Mountain Whitwell <0.10 <=0.34 kU/L 04/26/2017 5:07 PM CDT [facility] ([facility]) Allergen White [place] Tree IgE <0.10 <=0.34 kU/L 04/26/2017 5:07 PM CDT [facility] ([facility]) Allergen [place] <0.10 <=0.34 kU/L 04/26/2017 5:07 PM CDT [facility] ([facility]) Allergen Pecan Tree <0.10 <=0.34 kU/L 04/26/2017 5:07 PM CDT [facility] ([facility]) Allergen Tazewell Tree 0.22 <=0.34 kU/L 04/26/2017 5:07 PM CDT [facility] ([facility]) Allergen White Jack 0.16 <=0.34 kU/L 04/26/2017 5:07 PM CDT [facility] ([facility]) Allergen Rough Pigweed 0.25 <=0.34 kU/L 04/26/2017 5:07 PM CDT [facility] ([facility]) Allergen Common Ragweed <0.10 <=0.34 kU/L 04/26/2017 5:07 PM CDT [facility] ([facility]) Allergen Medina Elder 0.14 <=0.34 kU/L 04/26/2017 5:07 PM CDT [facility] ([facility]) Allergen Lie[place] Citizen Thistle 0.27 <=0.34 kU/L 04/26/2017 5:07 PM CDT [facility] ([facility]) Allergen Mouse <0.10 <=0.34 kU/L 04/26/2017 5:07 PM CDT [facility] ([facility]) Allergen Mucor racemosus <0.10 <=0.34 kU/L 04/26/2017 5:07 PM CDT [facility] ([facility]) Allergen Peanut <0.10 <=0.34 kU/L 04/26/2017 5:07 PM CDT [facility] ([facility]) Allergen Milk (Cow) 0.17 <=0.34 kU/L 04/26/2017 5:07 PM CDT [facility] ([facility]) Comment: Performed by [facility], [address] [place] [address] www.[facility], Godfrey Solomon MD, Lab. Director Blood BLOOD SPECIMEN / Unknown Lab Venipuncture / Unknown 04/24/2017 2:01 PM CDT 04/24/2017 2:35 PM CDT Augustin Millan MD LAB - CHEMISTRY [facility]) [address] [place] [address], [facility] * CBC W AUTO DIFFERENTIAL (04/24/2017 2:01 PM CDT) WBC 9.5 4.5 - 14.5 x10E9/L 04/24/2017 3:01 PM CDT [facility] WBC Corrected x10E9/L 04/24/2017 3:01 PM CDT [facility] RBC 4.72 4.00 - 5.20 x10E12/L 04/24/2017 3:01 PM CDT [facility] Hemoglobin 13.5 11.5 - 15.5 gm/dL 04/24/2017 3:01 PM CDT [facility] Hematocrit 40.8 35.0 - 45.0 % 04/24/2017 3:01 PM [facility] MCV 86.4 77.0 - 95.0 fl 04/24/2017 3:01 PM [facility] MCH 28.6 25.0 - 33.0 pg 04/24/2017 3:01 PM [facility] MCHC 33.1 31.0 - 37.0 gm/dL 04/24/2017 3:01 PM [facility] Platelet Count 322 100 - 400 x10E9/L 04/24/2017 3:01 PM [facility] RDW-CV 12.4 11.5 - 14.0 % 04/24/2017 3:01 PM [facility] MPV 9.1 6.0 - 9.5 fl 04/24/2017 3:01 PM [facility] Neutrophils % 48.2 24.0 - 66.0 % 04/24/2017 3:01 PM [facility] Lymphocytes % 36.2 22.0 - 61.0 % 04/24/2017 3:01 PM [facility] Monocytes % 5.0 3.0 - 15.0 % 04/24/2017 3:01 PM [facility] Eosinophils % 9.7 0.0 - 10.0 % 04/24/2017 3:01 PM [facility] Basophils % 0.6 % 04/24/2017 3:01 PM [facility] Immature Granulocytes 0.3 % 04/24/2017 3:01 PM [facility] Neutrophil Absolute 4.56 x10E9/L 04/24/2017 3:01 PM [facility] Lymphocytes Absolute 3.43 x10E9/L 04/24/2017 3:01 PM [facility] Monocytes Absolute 0.47 x10E9/L 04/24/2017 3:01 PM [facility] Eosinophils Absolute 0.92 x10E9/L 04/24/2017 3:01 PM [facility] Basophils Absolute 0.06 x10E9/L 04/24/2017 3:01 PM [facility] Immature Granulocytes Absolute 0.03 x10E9/L 04/24/2017 3:01 PM [facility] nRBC Auto 0 /100 WBC 04/24/2017 3:01 PM CDT [facility] Blood BLOOD SPECIMEN / Unknown Lab Venipuncture / Unknown 04/24/2017 2:01 PM CDT 04/24/2017 2:35 PM CDT Augustin Millan MD LAB - HEMATOLOGY ORD ERABLES Performing Organization Address City/State/[facility] Co de Phone Number [facility] [address] [place] [address] documented in this encounter Visit Diagnoses Diagnosis Mild persistent asthma without complication (HCC)- Primary Unspecified asthma Seasonal allergic rhinitis due to pollen, unspecified chronicity Allergic conjunctivitis, bilateral Other chronic allergic conjunctivitis Seasonal allergic rhinitis, unspecified chronicity, unspecified trigger documented in this encounter Care Teams Delicatessen Department Manager Relationship Specialty Start Date End Date Francesca Martinez MD [address] [place] [phone] PCP - General 01/08/12 documented as of this encounter
--- OUTSIDE RECORDS SUMMARY | 2024-07-28 20:07 | XMS_ITS | Encounter Summary ---
Author Organization [facility] Address [address] [facility] [place] [address] Care Team Providers Care Sander And Buffer Name Role Phone Francesca Martinez MD Primary Care Provider Reason for Visit * Reason Onset Date Comments Medication Problem 11/02/2014 Encounter Details Date Type Department Care Team (Late st Contact Info) Description 11/02/2014 Telephone [facility] Pediatrics - Allergy [address] [place] [address] Augustin Millan MD [address] [place] [phone] Medication Problem Social History Tobacco Use Types [...] on filedocumented in this encounter Care Teams Sander And Buffer Relationship Specialty Start Date End Date Francesca Martinez MD [address] [place] [phone] PCP - General 01/08/12 documented as of this encounter
--- OUTSIDE RECORDS SUMMARY | 2024-07-28 20:07 | XMS_ITS | Encounter Summary ---
Author Organization [facility] Address [address] [facility] [place] [address] Care Team Providers Care Front Office Agent Name Role Phone Francesca Martinez MD Primary Care Provider Encounter Details Date Type Department Care Team (Latest Contact Info) Description 10/22/2017 10:10 AM CDT - 10/22/2017 11:59 PM CDT Hospital Encounter [facility] Pediatrics - Radiology [address] [place] [address] Myles Garcia MD [address] [place] [address] [address] [place] [address] Discharge Disposition: Home or Self [...] allergic rhinitis due to pollen, unspecified chronicity [place] 2 Sprays into each nostril once daily [...] scalp 4-7 times a week as tolerated. [facility] does not carry this product. 177 mL [...] idiopathic documented in this encounter Care Teams Front Office Agent Relationship Specialty Start Date End Date Francesca Martinez MD [address] [place] [phone] PCP - General 01/08/12 documented as of this encounter
--- OUTSIDE RECORDS SUMMARY | 2024-07-28 20:07 | XMS_ITS | Encounter Summary ---
Author Organization [facility] Address [address] [place] [address] Care Team Providers Care Embedded Software Developer Name Role Phone Francesca Martinez MD Primary Care Provider Encounter Details Date Type Department Care Team (Latest Contact Info) Description 10/02/2020 3:29 PM CDT - 10/02/2020 11:59 PM CDT Hospital Encounter [facility] Pediatrics - Radiology [address] [place] [address] Myles Garcia MD [address] [place] [address] [place] [address] [place] [address] Discharge Disposition: Home or Self [...] fluticasone propionate (FLONASE) 50 MCG/ACT nasal spray [place] 2 sprays into each nostril once daily [...] idiopathic documented in this encounter Care Teams Embedded Software Developer Relationship Specialty Start Date End Date Francesca Martinez MD [address] [place] [phone] PCP - General 01/08/12 documented as of this encounter
--- OUTSIDE RECORDS SUMMARY | 2024-07-28 20:07 | XMS_ITS | Encounter Summary ---
Author Organization [facility] Address [address] [place] [address] Care Team Providers Care Mink Slicer Name Role Phone Francesca Martinez MD Primary Care Provider Encounter Details Date Type Department Care Team (Latest Contact Info) Description 10/26/2018 1:16 PM CDT - 10/26/2018 11:59 PM T Hospital Encounter [facility] Pediatrics - Radiology [address] [place] [address] Myles Garcia MD [address] [facility] [address] [place] [address] [facility] [place] [phone] Discharge Disposition: Home or [...] fluticasone propionate (FLONASE) 50 MCG/ACT nasal spray [place] 2 sprays into each nostril once daily [...] idiopathic documented in this encounter Care Teams Mink Slicer Relationship Specialty Start Date End Date Francesca Martinez MD [address] [place] [phone] PCP - General 01/08/12 documented as of this encounter
--- OUTSIDE RECORDS SUMMARY | 2024-07-28 20:07 | XMS_ITS | Encounter Summary ---
Author Organization [facility] Address [address] [facility] [place] [address] Care Team Providers Care Concert Singer Name Role Phone Francesca Martinez MD Primary Care Provider [phone] Encounter Details Date Type Department Care Team [...] on filedocumented in this encounter Care Teams Concert Singer Relationship Specialty Start Date End Date Francesca Martinez MD [address] [place] [phone] PCP - General 01/08/12 documented as of this encounter
--- OUTSIDE RECORDS SUMMARY | 2024-07-28 20:07 | XMS_ITS | Encounter Summary ---
Author Organization [facility] Address [address] [facility] [place] [address] Care Team Providers Care Scientific Linguist Name Role Phone Francesca Martinez MD Primary Care Provider Reason for Referral * Sleep (Routine) - Closed Specialty Diagnoses / Procedures Referred By Ravinder gilmore Referred To Contact Sleep Center Diagnoses Snoring Procedures SPLIT NIGHT STUDY Karla Gillespie APRN-CNP [address] [place] [address] Sleep Lab [address] [place] [address] Referral ID Status Reason Start Date Expiration Date Visits Re quested Visits Authorized [id number] Closed 08/20/2017 02/16/2018 1 1 TY REGISTER OF DEEDS * Evaluate & Treat (Routine) - Closed Specialty Diagnoses / Procedures Referred By Raivnder gilmore Referred To Contact Sleep Center Diagnoses Sleep disturbance Yoana Castro MD [address] [place] [address] [facility] [address] [place] [address] Referral ID Status Reason Start Date Expiration Date V isits Requested Visits Authorized [id number] Closed Specialty Services Required 07/31/2017 01/27/2018 1 1 Scheduling Instructions If you have not been contacted by an [facility] Logging Operations Inspector within 48 hours, please call [phone] to schedule an appointment. [facility] DEEDS Reason for Visit * Reason Comments Sleep Problem snores, sleeps 3-4 h rs per night, restless during the night. Tired during the daytime. * Evaluate & Treat (Routine) - Closed Specialty Diagnoses / Procedures Referred By Ravinder gilmore Referred To Contact Sleep Center Diagnoses Sleep disturbance Yoana Castro MD [address] [place] [address] [facility] [address] [place] [id number] Referral ID Status Reason Start Date Expiration Date V isits Requested Visits Authorized [id number] Closed Specialty Services Required 07/31/2017 01/27/2018 1 1 Encounter Details Date Type Department Care Team (Latest Contact Info) Description 08/20/2017 11:20 AM DEPUTY REGISTER OF DEEDS - 08/20/2017 12:43 PM DEPUTY REGISTER OF DEEDS Hospital Encounter [facility] Pediatrics - Sleep [address] [place] [address] Karla Gillespie, FILLING AND STAPLING MACHINE OPERATOR-PACKAGE COLLECTOR [address] [place] [phone] Discharge Disposition: Home or Self Care Social [...] Comments Blood Pressure 104/62 08/20/2017 11:35 AM DEPUTY REGISTER OF DEEDS Pulse 77 08/20/2017 11:35 AM DEPUTY REGISTER OF DEEDS Temperature - - Respiratory Rate - - Oxygen Saturation 99% 08/20/2017 11: 35 AM DEPUTY REGISTER OF DEEDS Inhaled Oxygen Concentration - - Weight 52.9 kg (116 lb 10 oz) 8 11:35 AM DEPUTY REGISTER OF DEEDS Height 160.8 cm (5' 3.31 ) 08/20/2017 1 1:35 AM DEPUTY REGISTER OF DEEDS Body Mass Index 20.46 08/20/2017 11:35 AM DEPUTY REGISTER OF DEEDS Body Mass Index Percentile 70.83% 08/20 11:35 AM DEPUTY REGISTER OF DEEDS Growth Chart: [facility] (Girls, 2- 20 Years) documented in this encounter Discharge Instructions * Patient Instructions* Karla Gillespie APRN-CNP - 08/20/2017 12:16 PM DEPUTY REGISTER OF DEEDS 1. Sleep study 2. CPAP teaching today 3. Labs today 4. No screen time 2 hours before bedtime. 5. Limit caffeine after 2 PM 6. Melatonin 5 mg as needed 30 minutes before bed 7. Get out of bed if not asleep in 15 minutes. Do something boring and quiet until sleepy. NO screens. Please call our nurse's line with any questions. ([phone], opt 3) For mother- [phone] to schedule a sleep clinic appointment. TY REG[facility] DEEDS documented in this encounter Medications at Time [...] allergic rhinitis due to pollen, unspecified chronicity [place] 2 Sprays into each nostril once daily [...] this encounter Progress Notes * Karla Gillespie, FILLING AND STAPLING MACHINE OPERATOR-PACKAGE COLLECTOR - 08/20/2017 11:25 AM CST New Patient Visit Note Pediatric Sleep Medicine [facility] Chief Complaint Patient presents with ??? Sleep Problem snores, sleeps 3-4 hrs per night, restless during the night. Tired during the daytime. HPI: Veronica Lowe is a 11 y.o. female who presents to the Pediatric Sleep Disorders Clinic at [facility] on 08/20/2017 for evaluation of snoring. [...] fluticasone propionate (FLONASE) 50 MCG/ACT nasal spray [place] 2 Sprays into each nostril once daily [...] or Cough 2 Inhaler 5 No current [facility]-ordered facility-administered medications on file. Exam: Height: 160.8 [...] call our nurse's line with any questions. ([phone], opt 3) For mother- [phone] to schedule a sleep clinic appointment. Follow-up in month Thank you for allowing me to participate in the care of your patient. Please call me with any questions at [phone]. [facility] TY REGISTER OF DEEDS documented in this encounter Plan of Treatment Pending Results Name Type Priority Associated Diagnoses Date /Time Amb Pediatric Referral To Sleep Clinic @ ([facility] Direct) Outpatient Referral Routine Sleep disturbance 08/20/2017 11:34 AM DEPUTY REGISTER OF DEEDS Scheduled Referrals Name Type Priority Associated Diagnoses Orde r Schedule Amb Pediatric Referral To Sleep Clinic @ ([facility] Direct) Outpatient Referral Routine Sleep disturbance 1 Occurrences starting 08/20/2017 until 08/20/2017 documented as of this encounter Results * SPLIT NIGHT STUDY (08/21/2017) Pathologist [facility] Linked Results See Linked Results SLEEP CENTER 08/21/2017 Karla [facility] O RDERABLES SLEEP CENTER * VITAMIN D (25-HYDROXY) (08/20/2017 12:44 PM DEPUTY REGISTER OF DEEDS) Vitamin D, 25 Hydroxy 20.2 20 - 100 ng/mL 08/20/2017 1:44 PM DEPUTY REGISTER OF DEEDS [facility] Blood BLOOD SPECIMEN / Unknown Lab Venipuncture / Unknown 08/20/2017 12:44 PM DEPUTY REGISTER OF DEEDS 08/20/2017 12:53 PM DEPUTY REGISTER OF DEEDS Narrative [facility] - 08/20/2017 1:44 PM DEPUTY REGISTER OF DEEDS Vitamin D Status: ?Deficient ? <10 ?? ng/mL ? Borderline ?10-20 ng/mL ?Sufficient ?>20 ?? ng/mL ?Toxic ? >100 ??ng/mL Karla Gillespie FILLING AND STAPLING MACHINE OPERATOR-PACKAGE COLLECTOR LAB - CHEMISTR Y ORDERABLES Performing Organization Address City/[facility]/ZIP Co de Phone Number [facility] [address] [place] [address] * FERRITIN (08/20/2017 12:44 PM DEPUTY REGISTER OF DEEDS) Ferritin 36 10 - 140 ng/mL 08/20/2017 2:00 PM DEPUTY REGISTER OF DEEDS [facility] Blood BLOOD SPECIMEN / Unknown Lab Venipuncture / Unknown 08/20/2017 12:44 PM DEPUTY REGISTER OF DEEDS 08/20/2017 12:53 PM DEPUTY REGISTER OF DEEDS Karla Gillespie FILLING AND STAPLING MACHINE OPERATOR-PACKAGE COLLECTOR LAB - CHEMISTR Y ORDERABLES Performing Organization Address [facility] Co de Phone Number [facility] [address] [place] [address] documented in this encounter Visit Diagnoses Diagnosis Restless sleeper- Primary Sleep disturbance, unspecified Sleep disturbance Sleep disturbance, unspecified Snoring Other dyspnea and respiratory abnormality documented in this encounter Care Teams Scientific Linguist Relationship Specialty Start Date End Date Francesca Martinez MD [address] [place] [phone] PCP - General 01/08/12 documented as of this encounter
--- OUTSIDE RECORDS SUMMARY | 2024-07-28 20:07 | XMS_ITS | Encounter Summary ---
Author Organization [facility] Address [address] [place] [address] Care Team Providers Care Abalone Fisherman Name Role Phone Francesca Martinez MD Primary Care Provider Reason for Visit * Reason Comments Follow-up scoliosis Encounter Details Date Type Department Care Team (Latest Contact Info) Description 10/26/2018 12:58 PM CDT - 10/26/2018 1:15 PM T Hospital Encounter [facility] Pediatrics - Orthopedics [facility] [place] [address] Myles Garcia MD [address] [place] [address] [address] [place] [address] Discharge Disposition: Home or Self [...] 10/26/2018 1:0 6 PM CDT Growth Chart: [facility] [...] Dr. Garcia's nurse,Pam Ma LPN, call ext. [phone]. X-Rays next visit: Yes - Scoliosis views Medications prescribed: OTC analgesics Physicians orders: ?? Further diagnostic studies discussed and ordered: none ?? Therapy services - None School Excuse: Excused from School on 10/26/2018 Activity Restrictions: none To make an appointment, please call . To schedule the surgery discussed with the doctor during your child's office visit, call Cady [phone], ext. [phone]. If you have a question for Dr. Garcia, you may leave a voicemail for him at , e-mailat [email or web address], or through [employer]. You can Like him on Genomind at [email or web address]. After visit summary completed by Franny Chen [...] fluticasone propionate (FLONASE) 50 MCG/ACT nasal spray [place] 2 sprays into each nostril once daily [...] Menarche at age: 10 y/o Pain: stable, xxai-af-kkleftpi joint symptoms intermittently, reasonably well controlled by [...] (163.5 cm) Wt 130 lb 11.7 oz (77161 g) BMI 22.18 kg/m2 General appearance: She [...] nonobstructive. IMPRESSION Unchanged S-shaped scoliosis. 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
--- OUTSIDE RECORDS SUMMARY | 2024-07-28 20:07 | XMS_ITS | Encounter Summary ---
Author Organization [facility] Address [address] [place] [place] [address] Care Team Providers Care Assistant Media Planner Name Role Phone Francesca Martinez MD Primary Care Provider Reason for Visit * Reason Comments SKIN PROBLEM LV: 09/2017 pt was b arianne after last appt and did not feel the need to follow up. ran out of medication and then scalp flared and is not flaky and itchy. Encounter Details Date Type Department Care Team (Latest Contact Info) Description 09/23/2018 11:45 AM PROJECT MANAGER INDUSTRIAL - 09/23/2018 11:59 PM [facility] Hospital Encounter [facility] Pediatrics - Dermatology [address] [place] [address] Adenike Marx MD [address] [facility] [address] [place] [address] Discharge Disposition: Home or Self Care Social [...] (131 lb 13.4 oz) 019 12:03 PM PROJECT MANAGER INDUSTRIAL Height 164.7 cm (5' 4.84 ) 09/23/2018 1 2:03 PM PROJECT MANAGER INDUSTRIAL Body Mass Index 22.04 09/23/2018 12:03 PM PROJECT MANAGER INDUSTRIAL Body Mass Index Percentile 77.43% 09/23 12:03 PM PROJECT MANAGER INDUSTRIAL Growth Chart: [facility] (Girls, 2- 20 Years) documented in this encounter Discharge Instructions * Patient Instructions* Sandra Motta APRN-DARYL - 09/23/2018 12:17 PM PROJECT MANAGER INDUSTRIAL Veronica's skin condition is characteristic of mild [...] may be purchased on-line at websites like www.NOMERMAIL.RU.So Protect Me or by asking your local pharmacists to order the products. ?? Face and Body Wash: Cetaphil Gentle Skin Cleanser (liquid, not bar), Vanicream bar soap, Loprox or ketoconazole shampoo (prescription only). Avoid glucosides and cocamidopropyl betaine. ???Unscented?? is not ???fragrance free?? . ?? Hand hand fur cleaner-- NO hand sanitizers; use other cleansers sparingly, to palms only (and rinse well) ?? Shampoo: Aveeno Baby Cleansing Therapy Wash (not the one that says Wash and Shampoo ), Loprox or ketoconazole shampoo (prescription only). Avoid cocamidopropyl betaine. ?? Conditioner: Free and Clear; other moisturizing options include mineral oil or plain/virgin coconut oil ?? Moisturizer/Lip Climax: Generic petroleum jelly, mineral oil, Abolene, plain/virgin coconut oil; read the label carefully to make sure there is no fragrance. Alternative includes Epiceram (prescription only and $$$) ?? Scalp oil: Avoid olive oil. Alternatives are: mineral oil, 3% salicylic acid (e.g. CVS Scalp Relief), plain/virgin coconut oil. ?? Hair gel: cyclomethicone (https://www.International Youth Organization/Miphfb-Zeuzsif-ZNXKNN299OUGQYR492-Uaaqugjnsdgomm-Ihgwyl/d p/T03H8YSSGY) ?? Anti-itch: Products that contain pramoxine, a [...] not reduce itch. ?? Diapering: Seventh Generation, RetentionGrids The Whistle, Collision Hub or most Babies R Us brands do [...] as Repel Permethrin Clothing and Gear ([facility]), Ramírez Premium Clothing Insect Repellent ([facility]), or [place] Insect Treatment Gear and Clothing ([facility]) to clothing (not skin) - often found [...] Almay Hypo-Allergenic Fragrance Free Roll On, Stiefel B-Orthotic And Prosthetic Technician, Sadaf Roll-On Unscented; Crystal Roll-On Body Deodorant for Sensitive Skin, Secret Soft Solid [place] Deodorant Unscented, Certain Dri Antiperspirant, Dove Ultimate [...] rather than rubber or leather. ?? Nail macedonian: Use decals rather than macedonian. ?? Toys: Choose hard plastic rather than rubber, and plastic markers rather than finger paints or rossi. For additional information, see https://www.dermatitisacademy.com/eszjay-oaj-gxax/ DRY SKIN ?? Dry skin is a [...] home by grinding whole oats in a fresh food manager or law firm receptionist. The usual dose is 2 cups of [...] To temporarily relieve itch: apply a simple ycrh-poz-mmhqoex medication containing pramoxine (e.g. 1% Pramosone ointment). [...] the scaling. ?? ACTIVE INGREDIENT NAME BRANDS Cannon Tar Denorex, Poly Tar, Zetar, Pentrax, Betatar [...] Seborrheic Dermatitis Shampoo Dry Scalp Care with [place] Oil 2 in 1 Dandruff Shampoo + Conditioner Moisture Care 2 in 1 Dandruff Shampoo + Conditioner Instant Hydration 2 in 1 Dandruff Shampoo + Conditioner Instant Relief Dandruff Shampoo ?? Scalpicin 3% salicylic acid is available over the counter but often difficult to find. ? Options are [facility] Pharmacy brand 3% salicylic acid (CVS Scalp Relief Anti-Itch Serum) or Quality Choice Scalp Relief available online through Farehelper. The molina ranges from $6 - $20 depending on the size of the bottle. Most Good Neighbor Pharmacies carry the Quality Choice brand as well ([facility], Medicate, MedEx, [facility], [facility], [facility]). ?? For optimal use, apply every night. ?? Note-your insurance may not cover Scalpicin. This is available over the counter. ? ECT MANAGER INDUSTRIAL documented in this encounter Medications at Time [...] fluticasone propionate (FLONASE) 50 MCG/ACT nasal spray [place] 2 sprays into each nostril once daily [...] [facility] in the [facility] at [facility]. Chief Complaint Patient presents with ??? SKIN [...] wash (organic): 2 times a day Uses [place] butter, Neutrogena off brand sunscreen and acne [...] (Z= 0.63) based on CDC 2-20 Years kqented-kqh-qnn data using vitals from 09/23/2018. Wt Readings [...] may be purchased on-line at websites like www.youblisher.com or by asking your local pharmacists to order the products. ?? Face and Body Wash: Cetaphil Gentle Skin Cleanser (liquid, not bar), Vanicream bar soap, Loprox or ketoconazole shampoo (prescription only). Avoid glucosides and cocamidopropyl betaine. ???Unscented?? is not ???fragrance free?? . ?? Hand hand fur cleaner-- NO hand sanitizers; use other cleansers sparingly, to palms only (and rinse well) ?? Shampoo: Aveeno Baby Cleansing Therapy Wash (not the one that says Wash and Shampoo ), Loprox or ketoconazole shampoo (prescription only). Avoid cocamidopropyl betaine. ?? Conditioner: Free and Clear; other moisturizing options include mineral oil or plain/virgin coconut oil ?? Moisturizer/Lip Climax: Generic petroleum jelly, mineral oil, Abolene, plain/virgin coconut oil; read the label carefully to make sure there is no fragrance. Alternative includes Epiceram (prescription only and $$$) ?? Scalp oil: Avoid olive oil. Alternatives are: mineral oil, 3% salicylic acid (e.g. CVS Scalp Relief), plain/virgin coconut oil. ?? Hair gel: cyclomethicone (https://www.International Youth Organization/Rvcguw-Lhnwjzp-VKFGAG980IBXWEW961-Nbuucexjxgbztx-Pxpzbk/d p/E87Q5LQYZV) ?? Anti-itch: Products that contain pramoxine, a [...] not reduce itch. ?? Diapering: Seventh Generation, RetailNext, Collision Hub or most Babies R Us brands do not contain fragrance or latex. Use a water-dampened cloth or plain mineral oil on cotton pads instead of prepackaged wipes. ?? Diaper Rash: Generic zinc oxide ointment is the safest option, but it can be hard to find. The active ingredient is 20-40% zinc oxide. The inactive ingredients should be only: paraffin, petrolatumand/or mineral oil. Consider Conjunct and Rugby brands. Vaniply ointment is another alternative, but more expensive. ?? Insect Repellant: Apply 0.5% permethrin spray such as Repel Permethrin Clothing and Gear ([facility]), Ramírez Premium Clothing Insect Repellent ([facility]), or [place] Insect Treatment Gear and Clothing ([facility]) to clothing (not skin) - often found at sporting [employer] stores. Per methrin bonds to the cloth [...] Almay Hypo-Allergenic Fragrance Free Roll On, Stiefel B-Orthotic And Prosthetic Technician, Sadaf Roll-On Unscented; Crystal Roll-On Body Deodorant for Sensitive Skin, Secret Soft Solid [place] Deodorant Unscented, Certain Dri Antiperspirant, Dove Ultimate [...] rather than rubber or leather. ?? Nail macedonian: Use decals rather than macedonian. ?? Toys: Choose hard plastic rather than rubber, and plastic markers rather than finger paints or rossi. For additional information, see https://www.dermatitisacademy.com/xbxnqb-gxx-kcxp/ DRY SKIN ?? Dry skin is a [...] home by grinding whole oats in a fresh food manager or law firm receptionist. The usual dose is 2 cups of [...] To temporarily relieve itch: apply a simple jkav-mmm-ltvlqoe medication containing pramoxine (e.g. 1% Pramosone ointment). [...] the scaling. ?? ACTIVE INGREDIENT NAME BRANDS Cannon Tar Denorex, Poly Tar, Zetar, Pentrax, Betatar [...] Seborrheic Dermatitis Shampoo Dry Scalp Care with Flagstaff Oil 2 in 1 Dandruff Shampoo + Conditioner Moisture Care 2 in 1 Dandruff Shampoo + Conditioner Instant Hydration 2 in 1 Dandruff Shampoo + Conditioner Instant Relief Dandruff Shampoo ?? Scalpicin 3% salicylic acid is available over the counter but often difficult to find. ? Options are Conjunct Pharmacy brand 3% salicylic acid (CVS Scalp Relief Anti-Itch Serum) or Quality Choice Scalp Relief available online through Farehelper. The molina ranges from $6 - $20 depending on the size of the bottle. Most [facility]ighbor Pharmacies carry the Quality Choice brand as well ([facility], Medicate, MedEx, [facility], [facility], [facility]). ?? For optimal use, apply every night. ?? Note-your insurance may not cover Scalpicin. This is available over the counter. ? This patient was seen with Dr. Marx who contributed to the history, review of systems, physical, assessment, and plan. Follow-Up Return if symptoms worsen or fail to improve. Sandra Motta, LOGISTIC SPECIALIST-NURSING TECHNICIAN ECT MANAGER INDUSTRIAL documented in this encounter Plan of Treatment Not on file documented as of this encounter Visit Diagnoses Not on filedocumented in this encounter Care Teams Assistant Media Planner Relationship Specialty Start Date End Date Francesca Martinez MD [address] [place] [phone] PCP - General 01/08/12 documented as of this encounter
--- OUTSIDE RECORDS SUMMARY | 2024-07-28 20:07 | XMS_ITS | Encounter Summary ---
Author Organization [facility] Address [address] [place] [address] Care Team Providers Care Physical Damage Appraiser Name Role Phone Francesca Martinez MD Primary Care Provider [phone] Encounter Details Date Type Department Care Team (Latest Contact Info) Description 11/26/2017 11:58 AM CDT - 11/26/2017 11:59 PM CDT Hospital Encounter [facility] Pediatrics - Lab [address] [place] [address] Karla Gillespie, HELPER/DRIVER-GLUE WHEEL OPERATOR [address] [place] [address] Discharge Disposition: Home or Self Care Social [...] fluticasone propionate (FLONASE) 50 MCG/ACT nasal spray [place] 2 sprays into each nostril once daily [...] scalp 4-7 times a week as tolerated. [employer] does not carry this product. 177 mL [...] - 140 ng/mL 11/26/2017 1:49 PM CDT [facility] Blood BLOOD SPECIMEN / Unknown Lab Venipuncture / Unknown 11/26/2017 11:58 AM CDT 11/26/2017 12:26 PM CDT Karla Gillespie APRN-GLUE WHEEL OPERATOR LAB - CHEMISTR Y ORDERABLES Performing Organization Address City/State/[facility] Co de Phone Number [facility] [address] [place] [address] documented in this encounter Visit Diagnoses Diagnosis Restless legs syndrome (RLS) documented in this encounter Care Teams Physical Damage Appraiser Relationship Specialty Start Date End Date Francesca Martinez MD [address] [place] [phone] PCP - General 01/08/12 documented as of this encounter
--- OUTSIDE RECORDS SUMMARY | 2024-07-28 20:07 | XMS_ITS | Encounter Summary ---
Author Organization [facility] Address [address] [facility] [place] [address] Care Team Providers Care Manager Support Name Role Phone Francesca Martinez MD Primary Care Provider Reason for Visit * Reason Onset Date Comments MEDICATION REFILL 05/08/2016 Encounter Details Date Type Department Care Team (Late st Contact Info) Description 05/08/2016 Refill [facility] Pediatrics - Immunology [address] [place] [phone] Augustin Millan MD [address] [place] [phone] MEDICATION REFILL Social History Tobacco Use Types [...] seasonality documented in this encounter Care Teams Manager Support Relationship Specialty Start Date End Date Francesca Martinez MD [address] [place] [phone] PCP - General 01/08/12 documented as of this encounter
--- OUTSIDE RECORDS SUMMARY | 2024-07-28 20:07 | XMS_ITS | Encounter Summary ---
Author Organization [facility] Address [address] [place] [address] Care Team Providers Care Batter Mixer Name Role Phone Francesca Martinez MD Primary Care Provider Reason for Visit * Reason Onset Date Comments Medication Management 05/13/2019 Encounter Details Date Type Department Care Team (Late st Contact Info) Description 05/13/2019 Telephone [facility] - Allergy [address] [place] [address] Tawanda Kaba MD [facility] [place] [address] Medication Management Social History Tobacco Use Types [...] Immunology Fellow * Telephone Encounter - Erika Sheffield RN - 05/13/2019 3:06 PM CDT Received [...] on filedocumented in this encounter Care Teams Batter Mixer Relationship Specialty Start Date End Date Francesca Martinez MD [address] [place] [phone] PCP - General 01/08/12 documented as of this encounter
--- OUTSIDE RECORDS SUMMARY | 2024-07-28 20:07 | XMS_ITS | Encounter Summary ---
Author Organization [facility] Address [address] [facility] [place] [address] Care Team Providers Care Soap Grinder Name Role Phone Francesca Martinez MD Primary Care Provider Encounter Details Date Type Department Care Team (Latest Contact Info) Description 06/26/2017 11:20 AM PARADI TENDER - 06/26/2017 11:59 PM [facility] Hospital Encounter [facility] Pediatrics - Lab [address] [place] [address] Robert Ramos MD [address] [place] [address] Discharge Disposition: Home or Self Care Social [...] allergic rhinitis due to pollen, unspecified chronicity [place] 2 Sprays into each nostril once daily [...] ANCA VASCULITIS PANEL Routine 06/26/2017 11:20 AM PARADI TENDER Nasal septal perforation Allergic rhinitis, unspecified chronicity, unspecified seasonality, unspecified trigger Sleep disturbance H/O adenoidectomy Exercise-induced asthma (HCC) Adolescent idiopathic scoliosis of thoracic region C-REACTIVE PROTEIN Routine 06/26/2017 11 :20 AM PARADI TENDER Nasal septal perforation Allergic rhinitis, unspecified chronicity, unspecified seasonality, unspecified trigger Sleep disturbance H/O adenoidectomy Exercise-induced asthma (HCC) Adolescent idiopathic scoliosis of thoracic region JENNY BLOOD SCREEN W/REFLEX TITER Routine 06/26/2017 11:20 AM PARADI TENDER Nasal septal perforation Allergic rhinitis, unspecified chronicity, unspecified seasonality, unspecified trigger Sleep disturbance H/O adenoidectomy Exercise-induced asthma (HCC) Adolescent idiopathic scoliosis of thoracic region ANGIOTENSIN CONVERTING ENZYME BLOOD Routine 06/26/2017 11:20 AM PARADI TENDER Nasal septal perforation Allergic rhinitis, unspecified chronicity, unspecified seasonality, unspecified trigger Sleep disturbance H/O adenoidectomy Exercise-induced asthma (HCC) Adolescent idiopathic scoliosis of thoracic region ERYTHROCYTE SEDIMENTATION RATE Routine 06/26/2017 11:20 AM PARADI TENDER Nasal septal perforation Allergic rhinitis, unspecified chronicity, unspecified seasonality, unspecified trigger Sleep disturbance H/O adenoidectomy Exercise-induced asthma (HCC) Adolescent idiopathic scoliosis of thoracic region documented in this encounter Results * ANCA VASCULITIS PANEL (06/26/2017 11:20 AM PARADI TENDER) Anti-myeloperoxid ase (MPO) Antibody <9.0 0.0 - 9.0 U/mL 06/28/2017 11:10 AM PARADI TENDER [facility] ([facility]) Anti-proteinase 3 (FL-3) Abs <3.5 0.0 - 3.5 U/mL 06/28/2017 11:10 AM PARADI TENDER [facility] ([facility]) Cytoplasmic (C-ANCA) <1:20 Neg:<1:20 titer 06/28/2017 11:10 AM PARADI TENDER [facility] ([facility]) p-ANCA Titer <1:20 Neg:<1:20 titer 06/28/2017 11:10 AM PARADI TENDER [facility] ([facility]) Comment: The presence of positive [...] Titer <1:20 Neg:<1:20 titer 06/28/2017 11:10 AM [facility] ([facility]) Comment: The atypical pANCA pattern has been observed in a significant percentage of patients with ulcerative colitis, primary sclerosing cholangitis and autoimmune hepatitis. Blood BLOOD SPECIMEN / Unknown Lab Venipuncture / Unknown 06/26/2017 11:20 AM PARADI TENDER 06/26/2017 11:39 AM PARADI TENDER Narrative [facility] ([facility]) - 06/28/2017 11:10 AM PARADI TENDER Performed at: ??01 - [address] ??[id number] Exercise Physiology Professor: Mayo Angelo MD, Phone: ??[phone] Performed at: ??02 - [address] ??[id number] Exercise Physiology Professor: Patricio Gimenez PhD, Phone: ??[phone] Robert Ramos MD LAB - CHEMISTRY O RDERAFLORA Performing Organization Address [facility] de Phone Number [facility] ([facility]) [address] [place] [address] * ANGIOTENSIN CONVERTING ENZYME BLOOD (06/26/2017 11:20 AM PARADI TENDER) Angiotensin-Con verting Enzyme 25 22 - 108 U/L 06/27/2017 1:11 PM [facility] ([facility]) Blood BLOOD SPECIMEN / Unknown Lab Venipuncture / Unknown 06/26/2017 11:20 AM PARADI TENDER 06/26/2017 11:39 AM PARADI TENDER Narrative [facility] ([facility]) - 06/27/2017 1:11 PM PARADI TENDER Performed at: ??01 - [address] ??[id number] Exercise Physiology Professor: Patricio Gimenez PhD, Phone: ??[phone] Robert Ramos MD LAB - CHEMISTRY O RDERABLES Performing Organization Address [facility]/ZIP Co de Phone Number [facility]) [address] [place] [address] * JENNY BLOOD SCREEN W/REFLEX TITER (06/26/2017 11:20 AM PARADI TENDER) JENNY Negative Negative 06/27/2017 8:36 AM PARADI TENDER [facility] Blood BLOOD SPECIMEN / Unknown Lab Venipuncture / Unknown 06/26/2017 11:20 AM PARADI TENDER 06/26/2017 11:39 AM PARADI TENDER Robert Ramos MD LAB - CHEMISTRY O RDERABLES [facility] [address] [place] [address] * CRP (INFLAMMATORY) (06/26/2017 11:20 AM PARADI TENDER) Pathologist [facility] C-Reactive Protein <0.20 <=0.50 mg/dL 06/26/2017 12:15 PM PARADI TENDER [facility] Blood BLOOD SPECIMEN / Unknown Lab Venipuncture / Unknown 06/26/2017 11:20 AM PARADI TENDER 06/26/2017 11:39 AM PARADI TENDER Robert Ramos MD LAB - CHEMISTRY O RDERABLES Performing Organization Address City/[facility] Co de Phone Number [facility] [address] [place] [address] * ERYTHROCYTE SEDIMENTATION RATE (06/26/2017 11:20 AM PARADI TENDER) Pathologist [facility] Erythrocyte Sedimentation Rate Automated 7 0 - 20 MM/HR 06/26/2017 12:13 PM PARADI TENDER [facility] Blood BLOOD SPECIMEN / Unknown Lab Venipuncture / Unknown 06/26/2017 11:20 AM PARADI TENDER 06/26/2017 11:39 AM PARADI TENDER Robert Ramos MD LAB - HEMATOLOGY ORDERABLES Performing Organization Address City/[facility]/ZIP Co de Phone Number [facility] [address] [place] [address] documented in this encounter Visit Diagnoses Diagnosis Nasal septal perforation Other diseases of nasal cavity and sinuses Allergic rhinitis, unspecified chronicity, unspecified seasonality, unspecified trigger Sleep disturbance Sleep disturbance, unspecified H/O adenoidectomy Other postprocedural status Exercise-induced asthma (HCC) Exercise induced bronchospasm Adolescent idiopathic scoliosis of thoracic region Scoliosis (and kyphoscoliosis), idiopathic documented in this encounter Care Teams Soap Grinder Relationship Specialty Start Date End Date Francesca Martinez MD [address] [place] [phone] PCP - General 01/08/12 documented as of this encounter
--- OUTSIDE RECORDS SUMMARY | 2024-07-28 20:07 | XMS_ITS | Encounter Summary ---
Author Organization [facility] Address [address] [place] [address] Care Team Providers Care Abstract Searcher Name Role Phone Francesca Martinez MD Primary Care Provider Reason for Visit * Reason Comments Follow-up scoliosis 6month fol low up Encounter Details Date Type Department Care Team (Latest Contact Info) Description 10/22/2017 10:00 AM CDT - 10/22/2017 10:09 AM T Hospital Encounter [facility] Pediatrics - Orthopedics [id number] [place] [address] Myles Garcia MD [address] [place] [address] [address] [place] [address] Discharge Disposition: Home [...] 10/22/2017 9:5 7 AM CDT Growth Chart: [facility] (Girls, 2- 20 Years) documented in [...] Garcia's nurse, Pam Ma LPN, call ext. [phone]. X-Rays next visit: Yes - scoliois Medications prescribed: OTC analgesics Physicians orders: ?? Further diagnostic studies discussed and ordered: none ?? Therapy services - None School Excuse: Excused from School on 10/22/2017 Activity Restrictions: none . To make an appointment, please call . To schedule the surgery discussed with the doctor during your child's office visit, call Cady [phone], ext. [phone]. If you have a question for the orthopaedic clinical nurse specialist, Cy Rodas, call , ext. [phone]. If you have a question for Dr. Garcia, you may leave a voicemail for him at , e-[email or web address] [email or web address], or through [email or web address]. You can Like him on [employer] at [email or web address]. After visit summary completed by Myles Garcia [...] allergic rhinitis due to pollen, unspecified chronicity [place] 2 Sprays into each nostril once daily [...] scalp 4-7 times a week as tolerated. [facility]. 177 mL [...] Menarche at age: 10 y/o Pain: stable, jwql-zp-upqxyaqi joint symptoms intermittently, reasonably well controlled by [...] idiopathic documented in this encounter Care Teams Abstract Searcher Relationship Specialty Start Date End Date Francesca Martinez MD [address] [place] [address] PCP - General 01/08/12 documented as of this encounter
--- OUTSIDE RECORDS SUMMARY | 2024-07-28 20:07 | XMS_ITS | Encounter Summary ---
Author Organization [facility] Address [address] [place] [address] Care Team Providers Care Technical Programs Manager Name Role Phone Francesca Martinez MD Primary Care Provider Reason for Visit * Reason Comments Asthma Follow-up Allergy Symptoms Encounter Details Date Type Department Care Team (Latest Contact Info) Description 06/18/2018 10:20 AM BURR FILER - 06/18/2018 11:59 PM BURR FILER Hospital Encounter [facility] Pediatrics - Immunology [address] [place] [address] Augustin Millan MD [address] [place] [phone] Discharge Disposition: Home or Self Care Social [...] Comments Blood Pressure 90/60 06/18/2018 11:09 AM BURR FILER Pulse - - Temperature - - Respiratory Rate - - Oxygen Saturation - - Inhaled Oxygen Concentration - - Weight 57.8 kg (127 lb 6.8 oz) 06/18/20 18 11:09 AM BURR FILER Height 163.1 cm (5' 4.21 ) 06/18/2018 1 1:09 AM BURR FILER Body Mass Index 21.73 06/18/2018 11:09 AM BURR FILER Body Mass Index Percentile 76.53% 06/18 11:09 AM BURR FILER Growth Chart: [facility] (Girls, 2- 20 Years) documented in this encounter Discharge Instructions * Patient Instructions* Maria M Cortés RN - 06/18/2018 12:20 PM BURR FILER Asthma Action Plan: - Dulera 200 mcg/INH [...] her family. The parents have verbalized understanding. FILER documented in this encounter Medications at Time [...] 05/17/2021 azelastine (ASTELIN) 0.1 % nasal spray [place] 1 spray into each nostril 2 times [...] fluticasone propionate (FLONASE) 50 MCG/ACT nasal spray [place] 2 sprays into each nostril once daily 1 bottles 6 06/18/2018 09/23/2018 fluticasone propionate (FLONASE) 50 MCG/ACT nasal spray [place] 2 sprays into each nostril once daily [...] scalp 4-7 times a week as tolerated. [facility] does not carry this product. 177 mL [...] ??? azelastine (ASTELIN) 0.1 % nasal spray [place] 1 spray into each nostril 2 times daily 1 Inhaler 6 ??? mometasone-formoterol (DULERA) 200-5 MCG/ACT inhaler Inhale 2 puffs by mouth 2 times daily 1 Inhaler 6 ??? montelukast (SINGULAIR) 10 MG tablet Take 1 tablet by mouth once daily 31 tablet 6 ??? fluticasone propionate (FLONASE) 50 MCG/ACT nasal spray [place] 2 sprays into each nostril once daily [...] fluticasone propionate (FLONASE) 50 MCG/ACT nasal spray [place] 2 sprays into each nostril once daily [...] scalp 4-7 times a week as tolerated. [facility] does not carry this product. 177 mL [...] 103.09 % FEV1 2.76 liters 96.5 % [id number] 2.9 L/SEC 85.04 % PEF Pre-Tx Actual [...] to schedule your November 2018 appointment at [phone]. Luana Guillen MD Allergy & Immunology Fellow [facility] 06/20/2018 5:33 PM FILER * Augustin Millan MD - 06/17/2018 11:13 [...] 103.09 % FEV1 2.76 liters 96.5 % [id number] 2.9 L/SEC 85.04 % PEF Pre-Tx Actual [...] Please see resident note for further details FILER documented in this encounter Plan of Treatment [...] pollen documented in this encounter Care Teams Technical Programs Manager Relationship Specialty Start Date End Date Francesca Martinez MD [address] [place] [address] [place] [phone] PCP - General 01/08/12 documented as of this encounter
--- OUTSIDE RECORDS SUMMARY | 2024-07-28 20:08 | XMS_ITS | Encounter Summary ---
Author Organization [facility] Address [address] [facility] [place] [address] Care Team Providers Care Biodiesel Engineering Manager Name Role Phone Francesca Martinez MD Primary Care Provider Reason for Visit * Reason Onset Date Comments Medication Problem 01/10/2012 Encounter Details Date Type Department Care Team (Late st Contact Info) Description 01/10/2012 Refill [facility] Pediatrics - Allergy [address] [place] [address] Jelena Mercer, RN Medication Problem Social History [...] on filedocumented in this encounter Care Teams Biodiesel Engineering Manager Relationship Specialty Start Date End Date Francesca Martinez MD [address] [place] [address] [place] [address] PCP - General 01/08/12 documented as of this encounter
--- OUTSIDE RECORDS SUMMARY | 2024-07-28 20:08 | XMS_ITS | Encounter Summary ---
Author Organization [facility] Address [address] [facility] [place] [address] Care Team Providers Care Cyber Analyst Name Role Phone Francesca Martinez MD Primary Care Provider Reason for Visit * Reason Comments Allergy Symptoms Encounter Details Date Type Department Care Team (Latest Contact Info) Description 01/09/2012 8:30 AM CDT - 01/09/2012 11:59 PM CDT Hospital Encounter [facility] Pediatrics - Immunology [address] [place] [address] Augustin Millan MD [address] [place] [phone] Discharge Disposition: Home or Self Care Social [...] 8:3 7 AM CDT Growth Chart: [facility] [...] 50 MCG/ACT nasal sprayIndications:Peren nial Allergic Rhinitis [place] 1 [place] into each nostril 2 times daily. Indications: [...] on filedocumented in this encounter Care Teams Cyber Analyst Relationship Specialty Start Date End Date Francesca Martinez MD [address] [place] [address] [place] [phone] PCP - General 01/08/12 documented as of this encounter
--- OUTSIDE RECORDS SUMMARY | 2024-07-28 20:08 | XMS_ITS | Encounter Summary ---
Author Organization [facility] [employer] [facility] Care Team Providers Care Hide Salter Name Role Phone Travis Bhardwaj Primary Care Provider [phone] Kalpana Finnegan APRN, CNP Unavailable [phone] Encounter Details Date Type Department Care Team [...] on file Legal Sex Female 8:20 AM FOOD SERVICE EMPLOYEE Gender Identity Not on file Sexual Orientation Not on file documented as of this encounter Plan of Treatment Not on file documented as of this encounter Visit Diagnoses Not on filedocumented in this encounter Care Teams Hide Salter Relationship Specialty Start Date End Date Travis Bhardwaj PAC [address] [place] [address] PCP - General Physician Public Health Outreach Worker 09/24/22 Kalpana Finnegan APRN, DARYL [address] [address] Nurse Practitioner Advanced Practice Nurse 10/07/22 documented as of this encounter
--- OUTSIDE RECORDS SUMMARY | 2024-07-28 20:08 | XMS_ITS | Encounter Summary ---
Author Organization [facility] Address [address] [address] Care Team Providers Care Embroidery Designer Name Role Phone Francesca Martinez MD Primary Care Provider [phone] Encounter Details Date Type Department Care Team (Late st Contact Info) Description 01/14/2012 Orders Only [facility] Pediatrics - Allergy [address] [place] [address] Jelena Mercer, RN Social History Tobacco Use [...] on filedocumented in this encounter Care Teams Embroidery Designer Relationship Specialty Start Date End Date Francesca Martinez MD [address] [place] [address] PCP - General 01/08/12 documented as of this encounter
--- OUTSIDE RECORDS SUMMARY | 2024-07-28 20:08 | XMS_ITS | Encounter Summary ---
Author Organization [facility] Address [address] [facility] [place] [address] Care Team Providers Care Shelf Stocker Name Role Phone Francesca Martinez MD Primary Care Provider Encounter Details Date Type Department Care Team (Late st Contact Info) Description 01/10/2012 Orders Only [facility] Pediatrics - Allergy [address] [place] [address] Jelena Mercer, RN Social History Tobacco Use [...] on filedocumented in this encounter Care Teams Shelf Stocker Relationship Specialty Start Date End Date Francesca Martinez MD [address] [place] [address] PCP - General 01/08/12 documented as of this encounter
--- OUTSIDE RECORDS SUMMARY | 2024-07-28 20:08 | XMS_ITS | Encounter Summary ---
Author Organization [facility] Address [address] [facility] [place] [address] Care Team Providers Care Wastewater Treatment Supervisor Name Role Phone Francesca Martinez MD Primary Care Provider [phone] Reason for Visit * Reason Comments Allergy Symptoms Encounter Details Date Type Department Care Team (Latest Contact Info) Description 03/23/2014 3:19 PM CDT - 03/23/2014 11:59 PM CDT Hospital Encounter [facility] Pediatrics - Allergy [address] [place] [address] Gabriela Ty MD [address] [facility] [address] [phone] Discharge Disposition: Home or Self Care Social [...] 03/23/2014 3:2 1 PM CDT Growth Chart: [facility] (Girls, 2- 20 Years) documented in this [...] 11/02/2014 mometasone (NASONEX) 50 MCG/ACT nasal spray [place] 2 Sprays into each nostril once daily. [...] 72.03 % FEV1 1.7 liters 84.58 % [id number] 2.31 L/SEC 100 % PEF 3.71 L/SEC [...] help with itch RTC - 4 months Gabriela Ty MD Fellow in Allergy and Immunology. [...] +Alternaria documented in this encounter Care Teams Wastewater Treatment Supervisor Relationship Specialty Start Date End Date Francesca Martinez MD [address] [place] [address] PCP - General 01/08/12 documented as of this encounter
--- OUTSIDE RECORDS SUMMARY | 2024-07-28 20:08 | XMS_ITS | Encounter Summary ---
Author Organization [facility] Address [address] [facility] [place] [address] Phone Care Team Providers Care Coating Engineer Name Role Phone Travis Bhardwaj Primary Care Provider [phone] Kalpana Finnegan APRN, REGIONAL TRAINING MANAGER Unavailable [phone] Reason for Visit * Reason Comments Asthma Encounter Details Date Type Department Care Team (Late st Contact Info) Description 01/06/2023 8:30 AM CDT Office Visit [facility] - Pulmonology & Sleep Medicine [facility] [address] [place] [address] Kalpana Finnegan APRN, REGIONAL TRAINING MANAGER #[address] [address] Moderate persistent asthma without status asthmaticus without [...] on file Legal Sex Female 8:20 AM MECHANICAL LEAD Gender Identity Not on file Sexual Orientation [...] and various environmental allergens. Has not seen business supervisor in over a year. Started taking allergy [...] her allergies/PND are exacerbated. Saw ENT [facility] and had allergy testing and was [...] 1.43)* * Growth percentiles are based on [facility] (Girls, 2-20 Years) data. Vitals: 01/06/23 0824 [...] given to the patient. Patient (or patient customer field representative) demonstrates verbal understanding of instructions given. [...] unspecified documented in this encounter Care Teams Coating Engineer Relationship Specialty Start Date End Date Travis Bhardwaj PAC [address] [place] [address] PCP - General Physician Spar Finisher 09/24/22 Kalpana Finnegan, ENROLLMENT SPECIALIST, REGIONAL TRAINING MANAGER #[address] [address] Nurse Practitioner Advanced Practice Nurse 10/07/22 documented as of this encounter
--- OUTSIDE RECORDS SUMMARY | 2024-07-28 20:08 | XMS_ITS | Clinical Summary ---
Author Organization [facility] Address [address] [place] [address] Phone Care Team Providers Care Meat Seafood Associate Name Role Phone Travis Bhardwaj Primary Care Provider [phone] Kalpana Finnegan APRN, QUIRK SANDER Unavailable Allergies Active Allergy Reactions Criticality Noted [...] on file Legal Sex Female 8:20 AM DRILL OPERATOR PNEUMATIC Gender Identity Not on file Sexual Orientation Not on file Last Filed Vital Signs Vital Sign Reading Time Taken Comments Blood Pressure 122/70 07/08/2023 8:38 AM DRILL OPERATOR PNEUMATIC Pulse 76 07/08/2023 8:38 AM DRILL OPERATOR PNEUMATIC Temperature 36.2 ??C (97.2 ??F) 07/08/2023 8:38 AM CS T Respiratory Rate 14 07/08/2023 8:38 AM DRILL OPERATOR PNEUMATIC Oxygen Saturation 98% 07/08/2023 8:38 AM DRILL OPERATOR PNEUMATIC Inhaled Oxygen Concentration - - Weight 80 kg (176 lb 4.8 oz) 07/08/2023 8:38 AM DRILL OPERATOR PNEUMATIC Height 165.1 cm (5' 5 ) 07/08/2023 8:38 AM DRILL OPERATOR PNEUMATIC Body Mass Index 29.34 07/08/2023 8:38 AM DRILL OPERATOR PNEUMATIC Body Mass Index Percentile 93.14% 07/08/2023 8:3 8 AM DRILL OPERATOR PNEUMATIC Growth Chart: [facility] (Girls, 2- 20 Years) [...] Insurance MEDICAID [employer] Care Teams Meat Seafood Associate Relationship Specialty Start Date End Date Travis Bhardwaj, ANGELIQUE [address] [place] [address] PCP - General Physician Exhibit Builder 09/24/22 Kalpana Finnegan APRN, QUIRK SANDER #[address] [address] Nurse Practitioner Advanced Practice Nurse 10/07/22
--- OUTSIDE RECORDS SUMMARY | 2024-07-28 20:08 | XMS_ITS | Encounter Summary ---
Author Organization [facility] Address [address] [place] [address] Phone Care Team Providers Care Briquette Molder Name Role Phone Travis Bhardwaj Primary Care Provider [phone] Kalpana Finnegan APRN, CNP Unavailable [phone] Reason for Referral * Other (Routine) - Closed Specialty Diagnoses / Procedures Referred By Ravinder gilmore Referred To Contact Pulmonology Diagnoses Moderate persistent asthma without status asthmaticus without complication Procedures COMPLETE PFT W + W/O BRONCHODILATOR Kalpana Finnegan APRN, CNP Phone: tel: fax: Referral ID Status Reason Start Date Expiration Date Visits Re quested Visits Authorized [id number] Closed 10/07/2022 1 1 Reason for Visit * Reason Comments Asthma * Consult, Test & Initiate Treatment (Routine) - Closed Specialty Diagnoses / Procedures Referred By Contyaritza gilmore Referred To Contact Pulmonology Diagnoses Mild intermittent asthma, uncomplicated Travis Bhardwaj PAC [address] [place] [address] Phone: tel: fax: Hema Black MD [address] [place] [address] Phone: tel: fax: Referral ID Status Reason Start Date Expiration Date Visits Re quested Visits Authorized [id number] Closed 1 1 Encounter Details Date Type Department Care Team (Late st Contact Info) Description 10/07/2022 2:30 PM CDT Office Visit [facility] - Pulmonology & Sleep Medicine - [place] [address] [place] [address] Clare Finneganah Leti, CHIEF DIETITIAN, MATHEMATICS INSTRUCTOR [address] [place] [address] Moderate persistent asthma without status asthmaticus without [...] on file Legal Sex Female 8:20 AM MAIL AGENT Gender Identity Not on file Sexual Orientation [...] Progress Notes * Jakevinay Kalpana Leti, DELVIS, MATHEMATICS INSTRUCTOR - 10/07/2022 2:30 PM CDT Chief Complaint: Chief Complaint Patient presents with ??? Asthma Subjective: Ms. Veronica Lowe is a 17 y.o. female here today for above. Patient reports having various allergic responses to pollen/grass and various environmental allergens. Has not seen quality control engineering technician in over a year, states she did [...] use of rescue inhaler. Has been seeing quality control engineering technician since she was a child when she [...] resolve within 2-3 weeks. Saw ENT at [facility] and had allergy testing [...] PFT W + W/O BRONCHODILATOR; Future - Yqpeadnuxip-Nxgyxffhh-Mmdryh (Trelegy Ellipta) 100-62.5-25 MCG/ACT AEROSOL POWDER, BREATH [...] with worksheet in office today. Refer to [facility] ENT at next visit. Patient is to bring records from previous quality control engineering technician/ENT to next visit. Further recommendation after review [...] given to the patient. Patient (or patient sales representative cash registers) demonstrates verbal understanding of instructions given. Patient [...] drip documented in this encounter Care Teams Briquette Molder Relationship Specialty Start Date End Date Travis Bhardwaj, ANGELIQUE [address] [place] [address] PCP - General Physician Stone Setter Apprentice 09/24/22 Kalpana Finnegan APRN, MATHEMATICS INSTRUCTOR #[address] [address] Nurse Practitioner Advanced Practice Nurse 10/07/22 documented as of this encounter
--- OUTSIDE RECORDS SUMMARY | 2024-07-28 20:08 | XMS_ITS | Encounter Summary ---
Author Organization [facility] Address [address] [facility] [place] [address] Care Team Providers Care Foreign Languages Professor Name Role Phone Francesca Martinez MD Primary Care Provider [phone] Reason for Visit * Reason Onset Date Comments MEDICATION REFILL 01/15/2012 Encounter Details Date Type Department Care Team (Late st Contact Info) Description 01/15/2012 Refill [facility] Pediatrics - Allergy [address] [place] [address] Jelena Mercer RN MEDICATION REFILL Social History [...] on filedocumented in this encounter Care Teams Foreign Languages Professor Relationship Specialty Start Date End Date Francesca Martinez MD [address] [place] [address] PCP - General 01/08/12 documented as of this encounter
--- OUTSIDE RECORDS SUMMARY | 2024-07-28 20:08 | XMS_ITS | Encounter Summary ---
Author Organization [facility] Address [address] [place] [address] Phone Care Team Providers Care Java Core Developer Name Role Phone Travis Bhardwaj Primary Care Provider [phone] Kalpana Finnegan APRN, WHEAT GROWER Unavailable [phone] Reason for Visit * Reason Comments Asthma Mild persistent Encounter Details Date Type Department Care Team (Late st Contact Info) Description 07/08/2023 8:30 AM MACHINE SETTER SHEET METAL Office Visit [facility] - Pulmonology & Sleep Medicine [facility] [address] [place] [address] Kalpana Finnegan APRN, WHEAT GROWER [address] [address] Moderate persistent asthma without status asthmaticus without [...] on file Legal Sex Female 8:20 AM MACHINE SETTER SHEET METAL Gender Identity Not on file Sexual Orientation Not on file documented as of this encounter Last Filed Vital Signs Vital Sign Reading Time Taken Comments Blood Pressure 122/70 07/08/2023 8:38 AM MACHINE SETTER SHEET METAL Pulse 76 07/08/2023 8:38 AM MACHINE SETTER SHEET METAL Temperature 36.2 ??C (97.2 ??F) 07/08/2023 8:38 AM CS T Respiratory Rate 14 07/08/2023 8:38 AM MACHINE SETTER SHEET METAL Oxygen Saturation 98% 07/08/2023 8:38 AM MACHINE SETTER SHEET METAL Inhaled Oxygen Concentration - - Weight 80 kg (176 lb 4.8 oz) 07/08/2023 8:38 AM MACHINE SETTER SHEET METAL Height 165.1 cm (5' 5 ) 07/08/2023 8:38 AM MACHINE SETTER SHEET METAL Body Mass Index 29.34 07/08/2023 8:38 AM MACHINE SETTER SHEET METAL Body Mass Index Percentile 93.14% 07/08/2023 8:3 8 AM MACHINE SETTER SHEET METAL Growth Chart: [facility] (Girls, 2- 20 Years) documented [...] and various environmental allergens. Has not seen corporate real estate specialist in over a year. Started taking allergy [...] her allergies/PND are exacerbated. Saw ENT at [facility] and had allergy testing and was [...] given to the patient. Patient (or patient lead generation representative) demonstrates verbal understanding of instructions given. [...] our referral team or the referring physician. INE SETTER SHEET METAL documented in this encounter Plan of Treatment Not on file documented as of this encounter Visit Diagnoses Diagnosis Moderate persistent asthma without status asthmaticus without complication- Primary PND (post-nasal drip) Postnasal drip Environmental allergies Allergic rhinitis, cause unspecified Anxiety Anxiety state, unspecified documented in this encounter Care Teams Java Core Developer Relationship Specialty Start Date End Date Travis Bhardwaj PAC [address] [place] [address] PCP - General Physician Oyster Washer 09/24/22 Kalpana Finnegan APRN, DARYL [address] [address] Nurse Practitioner Advanced Practice Nurse 10/07/22 documented as of this encounter
--- OUTSIDE RECORDS SUMMARY | 2024-07-28 20:08 | XMS_ITS | Encounter Summary ---
Author Organization [facility] Address [address] [facility] [place] [address] Care Team Providers Care Manager Project Management Name Role Phone Francesca Martinez MD Primary Care Provider [phone] Encounter Details Date Type Department Care Team (Late st Contact Info) Description 01/15/2012 Orders Only [facility] Pediatrics - Allergy [address] [place] [address] Jelena Mercer, RN Social History Tobacco Use [...] on filedocumented in this encounter Care Teams Manager Project Management Relationship Specialty Start Date End Date Francesca Martinez MD [address] [place] [address] PCP - General 01/08/12 documented as of this encounter
--- OUTSIDE RECORDS SUMMARY | 2024-07-28 20:08 | XMS_ITS | Encounter Summary ---
Author Organization [facility] [employer] [facility] Care Team Providers Care Conservation Officer Name Role Phone Travis Bhardwaj Primary Care Provider [phone] Kalpana Finnegan APRN, CNP Unavailable [phone] Encounter Details Date Type Department Care Team [...] on file Legal Sex Female 8:20 AM STEREO PLOTTER OPERATOR Gender Identity Not on file Sexual Orientation [...] on filedocumented in this encounter Care Teams Conservation Officer Relationship Specialty Start Date End Date Travis Bhardwaj PAC [address] [place] [address] PCP - General Physician Director Talent Acquisition 09/24/22 Kalpana Finnegan APRN, DARYL [address] [address] Nurse Practitioner Advanced Practice Nurse 10/07/22 documented as of this encounter
--- OUTSIDE RECORDS SUMMARY | 2024-07-28 20:08 | XMS_ITS | Encounter Summary ---
Author Organization [facility] Address [address] [place] [address] Care Team Providers Care Esthetician And Manager Medical Spa Name Role Phone Francesca Martinez MD Primary Care Provider Reason for Visit * Auth/Cert - Closed Specialty Diagnoses / Procedures Referred By Ravinder gilmore Referred To Contact Diagnoses Hypertrophy of tonsil with adenoids Unspecified sleep apnea Procedures TONSILLECTOMY AND ADENOIDECTOMY Referral ID Status Reason Start Date Expiration Date Visits Re quested Visits Authorized [id number] Closed 1 1 Encounter Details Date Type Department Care Team (Late st Contact Info) Description 05/14/2013 10:45 AM CDT - 05/14/2013 11:30 AM CDT Surgery [facility] - Peri [address] [place] [address] Robert Robledo MD [address] [place] [address] [place] [address] TONSILLECTOMY AND ADENOIDECTOMY Surgery Details Date/Time Status [...] 05/14/2013 9:2 0 AM CDT Growth Chart: [facility] (Girls, 2- 20 Years) documented in this encounter Discharge Summaries * Robert Robledo MD - 05/14/2013 11:32 AM CDT Images from the original note were not included. Attending Physician: Robert Robledo MD Office 05/14/2013 11:32 AM SAME DAY SURGERY DISCHARGE SUMMARY Patient ID: Name: Veronica Lowe MR#: [id number] Date of : 2005 Age: 7 y.o. [...] Miscellaneous Belongings Miscellaneous Items: Yes With Patient: [place] If your child has any worsening of their condition, please phone [phone] and ask for the doctor cushion builder for DR. ROBLEDO or return to the Emergency Department. I For questions or Emergency Care: Call the office at during the week or after 5 pm and on the weekends. You may need to speak with the [id number]. * Discharge Instructions* Document, Scanned - 05/17/2013 [...] 20 mg by mouth 2 times daily. corduroy brusher operator and 1100 01/17/2014 documented as of this [...] congestion. She has been followed by an yarding engineer for one year without improvement and no significant allergies. She had an xray with enlarged adenoids. She has a hyponasal quality. Past medical history: No past medical history on file. History: full term [place] hearing screen passed Hospitalizations? No Previous Surgery [...] Case Report Surgical Pathology Report ? Case: [id number] ? Authorizing Provider: ??Robert Robledo MD ?Ordering Provider: ?? Robert Robledo MD ? Ordering Location: ? [facility] ? Collected: ? 05/14/2013 11:18 AM ? Pathologist: ? Melva Monzon MD ?Received: ?05/14/2013 12:16 PM ?Signed Out: ?05/14/2013 ??2:44 PM (Final) ? Specimen: ?Tonsil(s) ? 05/14/2013 2:44 PM T [facility] Final Diagnosis GROSS DIAGNOSIS: PALATINE TONSILS. 05/14/2013 2:44 PM T [facility] Clinical History The patient is a 7-year-old girl with clinically suspicious sleep apnea and adenotonsillar hypertrophy. 05/14/2013 2:44 PM T [facility] Gross Description Submitted fresh in [...] are taken. (CT/scs) 05/14/2013 2:44 PM CDT [facility] Disclaimer This case has been personally reviewed and interpreted by the attending (teaching) pathologist. 05/14/2013 2:44 PM CDT [facility] Synoptic Report 05/14/2013 2:44 PM CDT [facility] Pathology/Cytolo gy SPECIMEN FROM TONSIL / Unknown 05/14/2013 11:18 AM CDT 05/14/2013 12:16 PM CDT Robert Robledo MD LAB - PATHOLOGY/C YTOLOGY ORDERABLES [facility] [address] [place] [address] documented in this encounter Visit Diagnoses Diagnosis [...] MD) documented in this encounter Care Teams Esthetician And Manager Medical Spa Relationship Specialty Start Date End Date Francesca Martinez MD [address] [place] [address] PCP - General 01/08/12 documented as of this encounter
--- OUTSIDE RECORDS SUMMARY | 2024-07-28 20:08 | XMS_ITS | Encounter Summary ---
Author Organization [facility] Address [address] [facility] [place] [address] Care Team Providers Care Roll Cleaner Name Role Phone Francesca Martinez MD Primary Care Provider [phone] Reason for Visit * Reason Comments Tic Encounter Details Date Type Department Care Team (Latest Contact Info) Description 01/17/2014 8:30 AM CDT - 01/17/2014 11:59 PM CDT Hospital Encounter [facility] Pediatrics - Neurology [address] [place] [address] Homar Powell MD [address] [place] [address] Discharge Disposition: Home or Self Care Social [...] 01/17/2014 8:5 1 AM CDT Growth Chart: [facility] (Girls, 2- [...] Powell MD - 01/18/2014 1:19 AM CDT [address] [address] DEPARTMENT OF NEUROLOGY NAME: VERONICA COVARRUBIAS : 2005 UNIT #: [id number] CSN #: [id number] DATE SEEN: 01/17/2014 HISTORY OF PRESENT ILLNESS: [...] perhaps by a child psychiatrist or developmental biostatistics manager, as we are not managing primary ADHDat [...] By: Homar Powell MD DAVE/Isabelle JOB ID: [id number] DEPARTMENT OF NEUROLOGY documented in this encounter Plan of Treatment Not on file documented as of this encounter Visit Diagnoses Diagnosis ADHD (attention deficit hyperactivity disorder)- Primary Attention deficit disorder with hyperactivity documented in this encounter Care Teams Roll Cleaner Relationship Specialty Start Date End Date Francesca Martinez MD [address] [place] [place] [phone] PCP - General 01/08/12 documented as of this encounter
--- OUTSIDE RECORDS SUMMARY | 2024-07-28 20:08 | XMS_ITS | Encounter Summary ---
Author Organization [facility] [employer] [facility] Care Team Providers Care Bottom Turning Lathe Tender Name Role Phone Travis Bhardwaj Primary Care Provider [phone] Kalpana Finnegan APRN, CNP Unavailable [phone] Encounter Details Date Type Department Care Team [...] on file Legal Sex Female 8:20 AM CUSTOMER COUNTER REPRESENTATIVE Gender Identity Not on file Sexual Orientation [...] on filedocumented in this encounter Care Teams Bottom Turning Lathe Tender Relationship Specialty Start Date End Date Travis Bhardwaj PAC [address] [place] [address] PCP - General Physician Health Care Attorney 09/24/22 Kalpana Finnegan APRN, DARYL #[address] [address] Nurse Practitioner Advanced Practice Nurse 10/07/22 documented as of this encounter
--- OUTSIDE RECORDS SUMMARY | 2024-07-28 20:08 | XMS_ITS | Encounter Summary ---
Author Organization [facility] Address [address] [facility] [address] Care Team Providers Care Movie Theater Manager Name Role Phone Francesca Martinez MD Primary Care Provider Reason for Visit * Reason Comments Follow-up F/U Kendrick REN Encounter Details Date Type Department Care Team (Latest Contact Info) Description 03/04/2013 3:00 PM CDT - 03/04/2013 11:59 PM CDT Hospital Encounter [facility] Pediatrics - Immunology [address] [place] [address] Augustin Millan MD [address] [place] [phone] Discharge Disposition: Home or Self Care Social [...] 03/04/2013 3:0 7 PM CDT Growth Chart: [facility] (Girls, 2- 20 Years) documented in this encounter Medications at Time of Discharge Medication Sig Dispensed Refills Start Date End Date azelastine (ASTELIN) 137 MCG/SPRAY nasal sprayIndications:Allerg ic rhinitis, cause unspecified [place] 2 Sprays into each nostril 2 times [...] 20 mg by mouth 2 times daily. unloader operator and 1100 01/17/2014 documented as of [...] (NASACORT AQ) 55 MCG/ACT nasal inhaler Active [place] 2 Sprays into each nostril once daily. [...] Primary documented in this encounter Care Teams Movie Theater Manager Relationship Specialty Start Date End Date Francesca Martinez MD [address] [place] [address] PCP - General 01/08/12 documented as of this encounter
--- OUTSIDE RECORDS SUMMARY | 2024-07-28 20:08 | XMS_ITS | Encounter Summary ---
Author Organization [facility] Address [address] [facility] [place] [address] Care Team Providers Care Engineering Aide Name Role Phone Francesca Martinez MD Primary Care Provider [phone] Encounter Details Date Type Department Care Team (Late st Contact Info) Description 01/15/2012 Orders Only [facility] Pediatrics - Allergy [address] [place] [address] Jelena Mercer, RN Social History Tobacco Use [...] on filedocumented in this encounter Care Teams Engineering Aide Relationship Specialty Start Date End Date Francesca Martinez MD [address] [place] [address] PCP - General 01/08/12 documented as of this encounter
--- OUTSIDE RECORDS SUMMARY | 2024-07-28 20:08 | XMS_ITS | Encounter Summary ---
Author Organization [facility] Address [address] [facility] [place] [address] Phone Care Team Providers Care Sap Portal Consultant Name Role Phone Travis Bhardwaj Primary Care Provider [phone] Kalpana Finnegan APRN, DARYL Unavailable [phone] Reason for Visit * Reason Comments Medication Refill Encounter Details Date Type Department Care Team (Late st Contact Info) Description 04/09/2024 Refill [facility] - Pulmonology & Sleep Medicine [facility] [address] [place] [address] Kalpana Finnegan APRN, DARYL #[address] [address] Medication Refill Social History Tobacco Use Types Packs/Day Years Used Date Smoking Tobacco: Never Smokeless Tobacco: Never Alcohol Use Standard Drinks/Week Comments Never 0 (1 standard drink = 0.6 oz pur e alcohol) Comments Unknown Sex and Gender Information Value Date Recorded Sex Assigned at Not on file Legal Sex Female 8:20 AM IRON PILER Gender Identity Not on file Sexual Orientation [...] Finnegan APRN, CNP [facility] [address] Showing recent visits within past [...] unspecified documented in this encounter Care Teams Sap Portal Consultant Relationship Specialty Start Date End Date Travis Bhardwaj, ANGELIQUE [address] [place] [address] PCP - General Physician Forest Practices Field Coordinator 09/24/22 Kalpana Finnegan APRN, CNP #[address] [address] Nurse Practitioner Advanced Practice Nurse 10/07/22 documented as of this encounter
--- OUTSIDE RECORDS SUMMARY | 2024-07-28 20:08 | XMS_ITS | Encounter Summary ---
Author Organization [facility] Address [address] [facility] [place] [address] Care Team Providers Care Watch Leader Name Role Phone Francesca Martinez MD Primary Care Provider [phone] Reason for Visit * Reason Onset Date Comments Medication Problem 01/14/2012 Encounter Details Date Type Department Care Team (Late st Contact Info) Description 01/14/2012 Telephone [facility] Pediatrics - Allergy [address] [place] [address] Jelena Mercer, RN Medication Problem Social History Tobacco Use Types Packs/Day Years Used Date Smoking Tobacco: Never Assessed Sex and Gender Information Value Date Recorded Sex Assigned at Not on file Gender Identity Not on file Sexual Orientation Not on file documented as of this encounter Miscellaneous Notes * Telephone Encounter - Jelena Mercer RN - 01/14/2012 11:04 AM CDT [place] medicaid authorized use of Nasonex. Veronica has tried and failed fluticasone. Pharmacy notified to allow 24 hours for processing. documented in this encounter Plan of Treatment Not on file documented as of this encounter Visit Diagnoses Not on filedocumented in this encounter Care Teams Watch Leader Relationship Specialty Start Date End Date Francesca Martinez MD [address] [place] [address] PCP - General 01/08/12 documented as of this encounter
--- OUTSIDE RECORDS SUMMARY | 2024-07-28 20:08 | XMS_ITS | Encounter Summary ---
Author Organization [facility] Address [address] [facility] [place] [address] Care Team Providers Care Automobile Rental Agent Name Role Phone Francesca Martinez MD Primary Care Provider Reason for Visit * Reason Comments Snoring NEW PT. Encounter Details Date Type Department Care Team (Latest Contact Info) Description 04/20/2013 8:34 AM CDT - 04/20/2013 11:59 PM CDT Hospital Encounter [facility] Pediatrics - ENT [address] [place] [address] Vickie Garcia, DIRECTOR OF INSTRUMENTAL MUSIC-ARCHITECTURAL MODEL MAKER [address] [place] [address] Discharge Disposition: Home or Self Care Social [...] 04/20/2013 8:3 7 AM CDT Growth Chart: [facility] (Girls, 2- 20 Years) documented in [...] where your child's surgery will take place. [facility] ( DO NOT CANCEL SURGERY WITHOUT NOTIFYING US AT [phone] ) You must notify our office within [...] You may need to speak with the [id number]. documented in this encounter Medications at Time of Discharge Medication Sig Dispensed Refills Start Date End Date methylphenidate (RITALIN) 20 MG tablet Take 20 mg by mouth 2 times daily. casting house worker and 1100 01/17/2014 documented as of [...] congestion. She has been followed by an dry goods inspector for one year without improvement and no significant allergies. She had an xray with enlarged adenoids. She has a hyponasal quality. Past medical history: No past medical history on file. History: full term [place] hearing screen passed Hospitalizations? No Previous Surgery [...] (pediatric) documented in this encounter Care Teams Automobile Rental Agent Relationship Specialty Start Date End Date Francesca Martinez MD [address] [place] [address] PCP - General 01/08/12 documented as of this encounter
--- OUTSIDE RECORDS SUMMARY | 2024-07-28 20:08 | XMS_ITS | Encounter Summary ---
Author Organization [facility] Address [address] [place] [address] Care Team Providers Care Attendant Coin Operated Laundry Name Role Phone Francesca Martinez MD Primary Care Provider [phone] Reason for Visit * Reason Comments Immune Deficiency Encounter Details Date Type Department Care Team (Latest Contact Info) Description 04/09/2012 9:31 AM CDT - 04/09/2012 11:59 PM CDT Hospital Encounter [facility] Pediatrics - Immunology [address] [place] [address] Augustin Millan MD [address] [place] [phone] Discharge Disposition: Home or Self Care Social [...] 04/09/2012 9:3 2 AM CDT Growth Chart: [facility] (Girls, 2- 20 Years) documented in this encounter Medications at Time of Discharge Medication Sig Dispensed Refills Start Date End Date azelastine (ASTEPRO) 205.5 MCG/SPRAY nasal sprayIndications:Allerg ic rhinitis, cause unspecified [place] 2 Sprays into each nostril 2 times [...] 55 MCG/ACT nasal inhalerIndications:Robinson nnial Allergic Rhinitis [place] 2 Sprays into each nostril once daily. [...] triamcinolone (NASACORT AQ) 55 MCG/ACT nasal inhaler [place] 1 [place] into each nostril once daily. Indications: Perennial [...] Document, Scanned - 09/05/2012 12:26 PM CST UCTION SPECIALIST documented in this encounter Plan of Treatment Not on file documented as of this encounter Visit Diagnoses Diagnosis Allergic rhinitis, cause unspecified documented in this encounter Care Teams Attendant Coin Operated Laundry Relationship Specialty Start Date End Date Francesca Martinez MD [address] [place] [address] PCP - General 01/08/12 documented as of this encounter
--- OUTSIDE RECORDS SUMMARY | 2024-07-28 20:08 | XMS_ITS | Encounter Summary ---
Author Organization [facility] Address [address] [facility] [place] [address] Care Team Providers Care Real Estate Underwriter Name Role Phone Francesca Martienz MD Primary Care Provider Reason for Visit * Reason Comments Allergy Symptoms Encounter Details Date Type Department Care Team (Latest Contact Info) Description 07/09/2012 10:00 AM MICA MINER BLASTING - 07/09/2012 11:59 PM MICA MINER BLASTING Hospital Encounter [facility] Pediatrics - Immunology [address] [place] [address] Augustin Millan MD [address] [place] [phone] Discharge Disposition: Home or Self Care Social History Tobacco Use Types Packs/Day Years Used Date Smoking Tobacco: Never Assessed Sex and Gender Information Value Date Recorded Sex Assigned at Not on file Gender Identity Not on file Sexual Orientation Not on file documented as of this encounter Last Filed Vital Signs Vital Sign Reading Time Taken Comments Blood Pressure 90/60 07/09/2012 10:28 AM MICA MINER BLASTING Pulse - - Temperature - - Respiratory Rate - - Oxygen Saturation - - Inhaled Oxygen Concentration - - Weight 40.1 kg (88 lb 6.5 oz) 2 10:28 AM MICA MINER BLASTING Height 131.4 cm (4' 3.73 ) 07/09/2012 1 0:28 AM MICA MINER BLASTING Body Mass Index 23.23 07/09/2012 10:28 AM MICA MINER BLASTING Body Mass Index Percentile 97.70% 07/09 10:28 AM MICA MINER BLASTING Growth Chart: [facility] (Girls, 2- 20 Years) documented in this encounter Medications at Time of Discharge Medication Sig Dispensed Refills Start Date End Date fexofenadine (SYEDA) 30 MG tabletIndications:Aller gic rhinitis, cause unspecified Take 1 Tab by mouth 2 times daily. 60 Tab 3 04/09/2012 03/04/2013 triamcinolone (NASACORT AQ) 55 MCG/ACT nasal inhalerIndications:Robinson nnial Allergic Rhinitis [place] 2 Sprays into each nostril once daily. Indications: Perennial Rhinitis 1 Inhaler 4 04/09/2012 03/04/2013 documented as of this encounter Progress Notes * Augustin Millan MD - 07/09/2012 10:47 AM CST LV. 01-09-2012 Patient Active Problem List Diagnoses Date Noted ??? Allergic rhinitis, cause unspecified 01/09/2012 Current Outpatient Prescriptions Medication Sig Dispense Refill ??? triamcinolone (NASACORT AQ) 55 MCG/ACT nasal inhaler [place] 2 Sprays into each nostril once daily. [...] to bid Augustin Millan MD 07/09/201210:47 AM MINER BLASTING documented in this encounter Miscellaneous Notes * Miscellaneous Scans - Document, Scanned - 08/23/2012 8:39 AM CST MINER BLASTING * Miscellaneous Scans - Document, Scanned - 08/19/2012 10:07 AM CST MINER BLASTING documented in this encounter Plan of Treatment Not on file documented as of this encounter Visit Diagnoses Not on filedocumented in this encounter Care Teams Real Estate Underwriter Relationship Specialty Start Date End Date Francesca Martinez MD [address] [place] [address] PCP - General 01/08/12 documented as of this encounter
--- OUTSIDE RECORDS SUMMARY | 2024-07-28 20:08 | XMS_ITS | Encounter Summary ---
Author Organization [facility] Address [address] [facility] [place] [address] Care Team Providers Care Field Laborer Name Role Phone Francesca Martinez MD Primary Care Provider [phone] Reason for Visit * Auth/Cert - Closed Specialty Diagnoses / Procedures Referred By Ravinder gilmore Referred To Contact Diagnoses Hypertrophy of tonsil with adenoids Unspecified sleep apnea Procedures TONSILLECTOMY AND ADENOIDECTOMY Referral ID Status Reason Start Date Expiration Date Visits Re quested Visits Authorized [id number] Closed 1 1 Encounter Details Date Type Department Care Team (Latest Contact Info) Description 05/14/2013 8:46 AM CDT - 05/14/2013 1:39 PM CDT Hospital Encounter [facility] - Intraop [address] [place] [address] oRbert Robledo MD [address] [place] [address] Surgery General Discharge Disposition: Home or Self [...] 05/14/2013 9:2 0 AM CDT Growth Chart: [facility] (Girls, 2- 20 Years) documented in this encounter Discharge Summaries * Robert Robledo MD - 05/14/2013 11:32 AM CDT Images from the original note were not included. Attending Physician: Robert Robledo MD Office 05/14/2013 11:32 AM SAME DAY SURGERY DISCHARGE SUMMARY Patient ID: Name: Veronica Lowe MR#: [id number] Date of : 2005 Age: 7 y.o. [...] Miscellaneous Belongings Miscellaneous Items: Yes With Patient: [place] If your child has any worsening of their condition, please phone [phone] and ask for the doctor reduction plant supervisor for DR. ROBLEDO or return to the Emergency Department. I For questions or Emergency Care: Call the office at during the week or after 5 pm and on the weekends. You may need to speak with the fhnshv-lo-whyr. * Discharge Instructions* Document, Scanned - 05/17/2013 [...] mg by mouth 2 times daily. senior sales manager and 1100 01/17/2014 documented as of [...] congestion. She has been followed by an storehouse clerk for one year without improvement and no [...] Case Report Surgical Pathology Report ? Case: [id number] ? Authorizing Provider: ??Robert Robledo MD ?Ordering Provider: ?? Robert Robledo MD ? Ordering Location: ? [facility] ? Collected: ? 05/14/2013 11:18 AM ? Pathologist: ? Melva Monzon MD ?Received: ?05/14/2013 12:16 PM ?Signed Out: ?05/14/2013 ??2:44 PM (Final) ? Specimen: ?Tonsil(s) ? 05/14/2013 2:44 PM T [facility] Final Diagnosis GROSS DIAGNOSIS: PALATINE TONSILS. 05/14/2013 2:44 PM [facility] Clinical History The patient is a 7-year-old girl with clinically suspicious sleep apnea and adenotonsillar hypertrophy. 05/14/2013 2:44 PM T [facility] Gross Description Submitted fresh in [...] sections are taken. (CT/scs) 05/14/2013 2:44 PM [facility] Disclaimer This case has been personally reviewed and interpreted by the attending (teaching) pathologist. 05/14/2013 2:44 PM [facility] Synoptic Report 05/14/2013 2:44 PM [facility] Pathology/Cytolo gy SPECIMEN FROM TONSIL / Unknown 05/14/2013 11:18 AM CDT 05/14/2013 12:16 PM CDT Robert Robledo MD LAB - PATHOLOGY/C YTOLOGY ORDERABLES [facility] [address] [place] [address] documented in this encounter Visit Diagnoses Diagnosis [...] MD) documented in this encounter Care Teams Field Laborer Relationship Specialty Start Date End Date Francesca Martinez MD [address] [place] [phone] PCP - General 01/08/12 documented as of this encounter
--- OUTSIDE RECORDS SUMMARY | 2024-07-28 20:08 | XMS_ITS | Encounter Summary ---
Author Organization [facility] Address [address] [facility] [place] [address] Care Team Providers Care Field Tax Auditor Name Role Phone Francesca Martinez MD Primary Care Provider Reason for Visit * Auth/Cert - Closed Specialty Diagnoses / Procedures Referred By Ravinder glimore Referred To Contact Diagnoses Hypertrophy of tonsil with adenoids Unspecified sleep apnea Procedures TONSILLECTOMY AND ADENOIDECTOMY Referral ID Status Reason Start Date Expiration Date Visits Re quested Visits Authorized [id number] Closed 1 1 Encounter Details Date Type Department Care Team (Late st Contact Info) Description 05/14/2013 11:01 AM CDT Anesthesia Event [facility] - Periop [address] [place] [address] [place] [address] [place] [address] Yasmany Patel MD [address] [phone] Anesthesia Record Procedure Summary Procedure Name Responsible [...] 20 mg by mouth 2 times daily. coal cutting machine operator and 1100 No current facility-administered medications for this visit. No current outpatient prescriptions on file. Facility-Administered Medications Ordered in Other Visits: midazolam (VERSED) solution 15 mg, Completed, 15 mg, Oral, pre-OP once, Yamileth Calzada RN, CPNP, 15 mg at 05/14/13 1047 Physical Exam: NPO status: since midnight and except oral meds with H2O (last solids 1999; med and water [id number]) Oriented to person, place and time Airway: [...] mg documented in this encounter Care Teams Field Tax Auditor Relationship Specialty Start Date End Date Francesca Martinez MD [address] [place] [address] PCP - General 01/08/12 documented as of this encounter
== END 2024-07-22 01:43 | disposition home or self-care (01) ==
PROVIDERS: Emergency Provider Emergency Medicine; PCP Physician Assistant
DX: R68.84 Jaw pain (principal)
CPT/HCPCS: 96372; 99283; A9270; J1885

== ENCOUNTER 2025-01-05 15:05 | Emergency (ER) | payer OTHER, SELFPAY ==
[2025-01-05 15:05] VITALS: BP 150/107; PULSE 96; RESP 18; TEMP 36.2; O2SAT 98
--- NOTE | 2025-01-05 15:15 | ED_ITS ---
HPI - Headache General Chief Complaint: Headache Stated Complaint: sinus headache Time Seen by Provider: 01/05/25 15:15 Related Data Home Medications ?Medication ?Instructions ?Recorded ?Confirmed ?Last Taken ?Type clonidine HCl 0.1 mg tablet 0.1 mg PO DIRECTED 07/30/22 07/30/22 Unknown His tory norgestimate 0.25 mg-ethinyl 1 tablet PO DIRECTED 07/30/22 07/30/22 Unknown History estradiol 0.035 mg tablet (Estarylla) Allergies Allergy/AdvReac Type Severity Reaction Status Date / Time Penicillins Allergy Unknown Unknown Verified 01/05/25 15:13 latex Allergy Unknown Verified 07/30/22 00:47 [facility] Past Medical History Medical History Restless leg syndrome Asthma ADHD Anxiety Social History Social History Smoking status: Never smoker Alcohol intake: never Substance use: never Living arrangements: with family Occupation/Education: student Course Vital Signs Vital signs: Vital Signs Temperature 36.2 C L 01/05/25 15:05 Pulse Rate 96 01/05/25 15:05 Respiratory Rate 18 01/05/25 15:05 Blood Pressure 150/107 H 01/05/25 15:05 Pulse Oximetry 98 01/05/25 15:05 Oxygen Delivery Room Air 01/05/25 15:05 Temperature 36.2 C L 01/05/25 15:05 Pulse Rate 96 01/05/25 15:05 Respiratory Rate 18 01/05/25 15:05 Blood Pressure 150/107 H 01/05/25 15:05 Pulse Oximetry 98 01/05/25 15:05 Oxygen Delivery Room Air 01/05/25 15:05 Discharge Plan Discharge Patient Language: Yoruba Prescriptions: No Action norgestimate-ethinyl estradiol [Estarylla] 0.25-35 mg-mcg tablet 1 tablet PO DIRECTED clonidine HCl 0.1 mg tablet 0.1 mg PO DIRECTED tramadol 50 mg tablet 50 mg PO TID PRN (Reason: pain) Qty: 10 0RF amoxicillin 500 mg capsule 500 mg PO Q12H 10 Days Qty: 20 0RF hydrocodone-acetaminophen 5-325 mg tablet 1 tablet PO Q8H PRN (Reason: pain) Qty: 15 0RF Follow-up/Referrals: Benton,DAVID Bundy [Primary Care Provider] -
--- NOTE | 2025-01-05 15:25 | ED.DENTAL ---
HPI - Dental/Oral General Chief complaint: Headache Stated complaint: sinus headache Time Seen by Provider: 01/05/25 15:15 Source: patient Mode of arrival: ambulatory Limitations: no limitations History of Present Illness HPI Narrative: 19-year-old female presents to the ED with a 1 day history -- headache -- left upper jaw dental pain she has had multiple episodes of prior dental pain in the left upper jaw. MD Complaint: tooth pain Location: Tooth # (16) Onset (ago): day(s) ( One day) Duration: constant Severity: severe Severity scale (1-10): 10 Relieving factors: nothing Exacerbating factors: cold and heat Context: history of dental caries Treatment prior to arrival: none Related Data Home Medications ?Medication ?Instructions ?Recorded ?Confirmed ?Last Taken ?Type clonidine HCl 0.1 mg tablet 0.1 mg PO DIRECTED 07/30/22 07/30/22 Unknown History norgestimate 0.25 mg-ethinyl 1 tablet PO DIRECTED 07/30/22 07/30/22 Unknown History estradiol 0.035 mg tablet (Estarylla) Allergies Allergy/AdvReac Type Severity Reaction Status Date / Time Penicillins Allergy Unknown Unknown Verified 01/05/25 15:13 latex Allergy Unknown Verified 07/30/22 00:47 Review of Systems Review of Systems: All systems reviewed & are unremarkable except as noted in HPI and below PMFSH Past Medical History Medical History Restless leg syndrome Asthma ADHD Anxiety Social History Social History Smoking status: Never smoker Alcohol intake: never Substance use: never Living arrangements: with family Occupation/Education: student Exam Const: General: ill appearing Nutritional Appearance: well nourished Orientation/consciousness: patient oriented x3 Limitations: no limitations HENMT: Head: normal to inspection Ears: external ears normal Face/Nose/Sinus: Normal external nose present Face and sinus: normal facial exam Mouth: Yes Normal oral and palatal mucosa present Teeth and gingiva: abnormal tooth and associated gingiva ( erupting left upper 3rd molar with surrounding gingivitis) Throat: posterior oropharynx normal Eyes: Conjunctivae: conjunctivae normal Pupils: Equal, round and reactive pupils present EOM: EOMs intact bilaterally Direct Ophthalmoscopy: no photophobia Neck: Neck: normal visual inspection, no lymphadenopathy and no meningeal signs Chest: Chest palpation & inspection: normal inspection of the chest Resp: Effort & Inspection: normal respiratory effort Auscultation: clear to auscultation bilaterally Cardio: Rate: regular rate Rhythm: regular rhythm GI: GI Palp: Yes Soft to palpation Auscultation: normal bowel sounds Other: no tenderness/rigidity/rebound. : General: Yes no CVA tenderness Back/Spine/Pelvis: Back: no CVA tenderness Skin: General skin exam: normal color Rashes: no rashes Wounds: no wounds Neuro: General: patient oriented x3, moves all extremities, no meningeal signs, no focal motor deficits and CN's II-XI intact bilaterally Cranial nerves: Yes Nystagmus not present Speech: normal speech Extrem: General: normal to inspection and no clubbing, cyanosis or edema Psych: Mental Status: mental status grossly normal Affect: normal affect Attitude: cooperative Course Course Emergency Course: Erupting wisdom tooth dental caries Vital Signs Vital signs: Vital Signs Temperature 36.2 C L 01/05/25 15:05 Pulse Rate 96 01/05/25 15:05 Respiratory Rate 18 01/05/25 15:05 Blood Pressure 150/107 H 01/05/25 15:05 Pulse Oximetry 98 01/05/25 15:05 Oxygen Delivery Room Air 01/05/25 15:05 Temperature 36.2 C L 01/05/25 15:05 Pulse Rate 96 01/05/25 15:05 Respiratory Rate 18 01/05/25 15:05 Blood Pressure 150/107 H 01/05/25 15:05 Pulse Oximetry 98 01/05/25 15:05 Oxygen Delivery Room Air 01/05/25 15:05 MDM - Dental/Oral MDM Narrative Medical decision making narrative: dental caries erupting wisdom tooth Differential Diagnosis Differential diagnosis: Likely dental caries, toothache and dental abscess Medical Records Attestation: I reviewed the patient's medical records. Lab Data Attestation: I reviewed the patient's lab results. Discharge Plan Discharge Clinical Impression: Dental caries, Toothache Patient Disposition: Home Condition: Stable Instructions: Antibiotic Form, Dental Abscess (ED), Toothache (ED) Patient Language: Citizen Of [place] Prescriptions: New clindamycin HCl [Cleocin HCl] 300 mg capsule 300 mg PO Q8H Qty: 20 0RF No Action norgestimate-ethinyl estradiol [Estarylla] 0.25-35 mg-mcg tablet 1 tablet PO DIRECTED clonidine HCl 0.1 mg tablet 0.1 mg PO DIRECTED tramadol 50 mg tablet 50 mg PO TID PRN (Reason: pain) Qty: 10 0RF amoxicillin 500 mg capsule 500 mg PO Q12H 10 Days Qty: 20 0RF hydrocodone-acetaminophen 5-325 mg tablet 1 tablet PO Q8H PRN (Reason: pain) Qty: 15 0RF Follow-up/Referrals: Benton,DAVID Bundy [Primary Care Provider] - Time of Disposition: 15:31
[2025-01-05] MEDS: HYDROcodone/acetaminophen (*CRX) 10-325 MG TABLET 1 TAB PO (15:35)
[2025-01-05 15:53] VITALS: BP 116/85; PULSE 85; RESP 18; TEMP 36.6; O2SAT 98
--- OUTSIDE RECORDS SUMMARY | 2025-01-05 16:58 | XMS_ITS | Clinical Summary ---
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 Gender Identity Not on file Sexual Orientation Not on file Last Filed Vital Signs Vital Sign Reading Time Taken Comments Blood Pressure 122/70 07/08/2023 8:38 AM IMAGING MANAGER Pulse 76 07/08/2023 8:38 AM IMAGING MANAGER Temperature 36.2 C (97.2 F) 07/08/2023 8:38 AM IMAGING MANAGER Respiratory Rate 14 07/08/2023 8:38 AM IMAGING MANAGER Oxygen Saturation 98% 07/08/2023 8:38 AM IMAGING MANAGER Inhaled Oxygen Concentration - - Weight 80 kg (176 lb 4.8 oz) 07/08/2023 8:38 AM IMAGING MANAGER Height 165.1 cm (5' 5) 07/08/2023 8:38 AM IMAGING MANAGER Body Mass Index 29.34 07/08/2023 8:38 AM IMAGING MANAGER Plan of Treatment Health Maintenance Due Date Last Done Comments Hepatitis C Virus (HCV) Screening 2004 Pneumococcal Immunization Combined (1 of 2 - PCV) 2023 01/10/2009, 11/27/2005, 08/28/2005, Additional history exists SARS-COV-2 Immunization ( season) 2024 08/17/2021, 11/28/2020, 11/07/2020 Influenza Immunization (Season Ended) 2025 07/31/2017, 05/23/2016, 06/10/2012, Additional history exists Respiratory Syncytial Virus (RSV) Immunization (Adult) (1 [...] this topic Insurance MEDICAID [facility] [employer] [facility] [employer] Care Teams Silica Filter Operator Relationship Specialty Start Date End Date Travis Bhardwaj, AN[address]EL[address] [place] [address] PCP - General Physician Residential Installer 09/24/22 Kalpana Finnegan APRN, CHIEF RADIATION THERAPIST [address] [address] Nurse Practitioner Advanced Practice Nurse 10/07/22
--- OUTSIDE RECORDS SUMMARY | 2025-01-05 16:59 | XMS_ITS | Clinical Summary ---
Author Organization [facility] Address [address] [place] [address] Care Team Providers Care Dental Sales Representative Name Role Phone Francesca Martinez MD Primary Care Provider [phone] Source Comments [facility],non-owned Affiliates and Associated Physician Practices is amultiple site organization consisting of ambulatory clinics and hospital sitesin [place], [place], [place] and [place]. This disclosure is being madepursuant to the Care Everywhere program and may not contain all information available regarding this patient. Last updated 18.[facility] Allergies No known active allergies Medications * Be aware that medications may not be up to date on this document. Alwaysverify current medications with the patient. melatonin 5 MG tabletIndications :takes 10 mg (2 tablets) at bedtime. Take 5 mg by mouth at bedtime Reasons: takes 10 mg (2 tablets) at bedtime. Active methylphenidate (RITALIN) 5 MG tablet Take 5 mg by mouth Every morning and lunchtime Active AEROCHAMBER PLUS (AEROCHAMBER)Merle cations:Exercise induced bronchospasm (HCC) Use as directed 1 Each 1 8 Active sertraline (ZOLOFT) 25 MG tablet 9 Active sertraline (ZOLOFT) 100 MG tablet Take 100 mg by mouth once daily Active cloNIDine (CATAPRES) 0.1 MG tablet Take 0.1 tablets by mouth once daily 1 Active ferrous sulfate 325 (65 FE) MG tablet Take 325 mg by mouth 2 times daily 1 Active vitamin D3 (CHOLECALCIFEROL) 25 MCG (1000 UNITS) tablet Take 2,000 Units by mouth once daily Active Norgestim-Eth Estrad Triphasic (NORGESTIMATE-ETH INYL ESTRADIOL PO)Indications:0. 25-0.035 Take by mouth as directed Reasons: 0.25-0.035 Active olopatadine (PATANASE) 0.6 % nasal solutionIndicatio ns:Seasonal Allergic Rhinitis [place] 2 (two) sprays into each nostril 2 times daily Reasons: Hayfever 30.5 g 5 1 Active albuterol HFA (PROVENTIL;VENTOL IN;PROAIR) 108 (90 Base) MCG/ACT inhaler Inhale 2 (two) puffs by mouth every 6 hours as needed for Shortness of Breath, Wheezing or Cough 6.7 g 5 1 Active cetirizine (ZYRTEC ALLERGY) 10 MG tablet Take 1 (one) tablet by mouth once daily as needed for Runny Nose or Allergies (itch) 30 tablet 11 1 Active mometasone-formot marti (DULERA) 200-5 MCG/ACT inhalerIndication s:Asthma Inhale 2 (two) puffs by mouth 2 times daily Reasons: Asthma 13 g 11 1 Active fluticasone propionate (FLONASE) 50 MCG/ACT nasal sprayIndications: Allergic Rhinitis [place] 2 (two) sprays into each nostril once daily Reasons: Allergic Rhinitis 1 Each 11 1 Active Active Problems Problem Noted Date Diagnosed [...] due to pollen Allergic conjunctivitis, bilateral Immunizations Immunization Administration Dates Next Due INFLUENZA VACCINE, QUADR. 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 Gender Identity Not on file Sexual Orientation Not on file Last Filed Vital Signs Vital Sign Reading Time Taken Comments Blood Pressure 110/68 05/17/2021 10:16 AM CDT Pulse 86 05/17/2021 10:16 AM CDT Temperature 36.2 C (97.2 F) 05/17/2021 10:16 AM CDT Respiratory Rate 18 05/17/2021 10:1 6 AM CDT Oxygen Saturation 99% 05/17/2021 10: 16 AM CDT Inhaled Oxygen Concentration - - Weight 69.3 kg (152 lb 12.5 oz) 021 10:16 AM CDT Height 166 cm (5' 5.35) 05/17/2021 10: 16 AM CDT Body Mass Index 25.15 05/17/2021 10:16 AM CDT Plan of Treatment Health Maintenance Due Date Last Done Comments HIV SCREENING 2019 HPV VACCINE (1 - 3-dose series) 2019 CHLAMYDIA/GONORRHEA SCREENING 2020 MENINGOCOCCAL (Group B) VACCINE SHARED DECISION-MAKING (1 of 2 - Standard) 2020 HEPATITIS C SCREENING 08/23/2022 DTAP/TDAP/TD VACCINES (1 - Tdap) 2023 HEPATITIS B VACCINE (1 of 3 - 19+ 3-dose series) 2023 COVID-19 VACCINE (1 - 2023- season) 2024 DEPRESSION SCREENING 07/21/2024 INFLUENZA VACCINE (Season Ended) 2025 07/31/2017, 05/23/2016, 05/04/2009, Additional history exists ZOSTER VACCINE (1 of 2) 2054 HIB VACCINE Aged Out No longer eligi ble based on patient's age to complete this topic MENINGOCOCCAL GROUPS A/C/Y/W VACCINE Aged Out No longer eligible based on patient's age to complete this topic PNEUMOCOCCAL VACCINE Aged Out No long er eligible based on patient's age to complete this topic Insurance [facility] Care Teams Dental Sales Representative Relationship Specialty Start Date End Date Francesca Martinez MD [address] [place] [address] PCP - General 01/08/12
--- OUTSIDE RECORDS SUMMARY | 2025-01-05 17:25 | XMS_ITS | Clinical Summary ---
Author Organization [facility] Address [address] [place] [address] Care Team Providers Care Engine Turner Name Role Phone Francesca Martinez MD Primary Care Provider Source Comments [facility],non-owned Affiliates and Associated Physician Practices is amultiple site organization consisting of ambulatory clinics and hospital sitesin [place], [place], [place] and [place]. This disclosure is being madepursuant to the Care Everywhere program and may not contain all information available regarding this patient. Last updated 18.[facility] Allergies No known active allergies Medications * [...] 0.6 % nasal solutionIndicatio ns:Seasonal Allergic Rhinitis [place] 2 (two) sprays into each nostril 2 [...] (FLONASE) 50 MCG/ACT nasal sprayIndications: Allergic Rhinitis [place] 2 (two) sprays into each nostril once [...] on file Legal Sex Female 6:10 AM QUALITY IMPROVEMENT COORDINATOR Gender Identity Not on file Sexual Orientation [...] patient's age to complete this topic Insurance [facility] Care Teams Engine Turner Relationship Specialty Start Date End Date Francesca Martinez MD [address] [place] [address] PCP - General 01/08/12
--- OUTSIDE RECORDS SUMMARY | 2025-01-05 17:25 | XMS_ITS | Clinical Summary ---
Author Organization [facility] Address [address] [place] [address] Phone Care Team Providers Care Operating Room Coordinator Name Role Phone Travis Bhardwaj Primary Care Provider [phone] Kalpana Finnegan APRN, ELECTROPHYSIOLOGY NURSE PRACTITIONER Unavailable Allergies Active Allergy Reactions Criticality Noted [...] on file Legal Sex Female 8:20 AM FARM FORE[employer]Y [employer] GARD[employer] WORK[employer] Gender Identity Not on file Sexual Orientation Not on file Last Filed Vital Signs Vital Sign Reading Time Taken Comments Blood Pressure 122/70 07/08/2023 8:38 AM FARM [employer] GARD[employer] WORK[employer] Pulse 76 07/08/2023 8:38 AM FARM [employer]ARD[employer] Temperature 36.2 C (97.2 F) 07/08/2023 8:38 AM FARM [employer]ARD[employer] WORK[employer] Respiratory Rate 14 07/08/2023 8:38 AM FARM [employer]ARD[employer] Oxygen Saturation 98% 07/08/2023 8:38 AM FARM [employer]ARD[employer] Inhaled Oxygen Concentration - - Weight 80 kg (176 lb 4.8 oz) 07/08/2023 8:38 AM FARM [employer]ARD[employer] Height 165.1 cm (5' 5) 07/08/2023 8:38 AM FARM [employer] GARD[employer] Body Mass Index 29.34 07/08/2023 8:38 AM FARM [employer]ARD[employer] WORK[employer] Plan of Treatment Health Maintenance Due Date [...] PLAN MEDICAID [facility] [employer] Care Teams Operating Room Coordinator Relationship Specialty Start Date End Date Travis Bhardwaj, [address] [place] [address] PCP - General Physician Internal Communications Manager 09/24/22 Kalpana Finnegan APRN, ELECTROPHYSIOLOGY NURSE PRACTITIONER [address] [address] Nurse Practitioner Advanced Practice Nurse 10/07/22
== END 2025-01-05 15:53 | disposition home or self-care (01) ==
LOC: CHSED 15:40
PROVIDERS: Emergency Provider Internal Medicine Critical Care Medicine; PCP Physician Assistant
DX: K02.9 Dental caries, unspecified (principal)
CPT/HCPCS: 99283; A9270

== ENCOUNTER 2025-04-28 16:35 | Outpatient (CLI) | payer OTHER, SELFPAY ==
--- NOTE | ~2025-04-28 | XR_ITS ---
EXAMINATION: XR scoliosis survey DATE: 04/28/2025 16:57 INDICATION: Atelectasis scoliosis TECHNIQUE: Standing AP and lateral views of the entire spine and pelvis were each obtained on 4 overlapping proximal to distal images. COMPARISON: None. FINDINGS: Normal complement of 7 nonrib-bearing cervical and 12 paired rib bearing thoracic segments. 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 There are 4 more caudal nonrib-bearing lumbar segments L2-L5. S-shaped thoracal lumbar scoliosis with 15 degree tho racic dextro scoliosis measured between T6 and T11 and 20 degree lumbar levorotoscoliosis measured between T11 and L3. The plumbline from the epicenter of C7 lies 2.2 cm the left of the epicenter of S1. Apices of the femoral heads are at the same level. Sagittal alignment is normal. Vertebral body heights are normal. Mild disc height loss at a few mid thoracic levels. Lead breast shielding obscures portions of the lung bases. Visualized lungs are clear with no focal airspace opacities, pulmonary edema, pleural effusion or pneumothorax. Heart size is normal. IMPRESSION: 1. Mild S-shaped thoracolumbar scoliosis. Reviewed, dictated and finalized at location A.
== END 2025-04-28 16:36 | disposition home or self-care (01) ==
PROVIDERS: PCP Physician Assistant; Visit Provider Physician Assistant
DX: M41.85 Other forms of scoliosis, thoracolumbar region (principal)
CPT/HCPCS: 72082